=== PATIENT | male | born 1945 | race Caucasian/White ===

== ENCOUNTER 2022-04-08 08:06 | Outpatient (CLI) | payer MEDICARE, SELFPAY ==
[2022-04-08 13:54] LABS: Albumin* 4.6 g/dL (3.3-5.0)
[2022-04-08 13:55] LABS: Chloride* 101 mmol/L (96-114); Potassium* 4.3 mmol/L (3.6-5.1); Sodium* 138 mmol/L (135-149)
[2022-04-08 13:57] LABS: Alkaline Phosphatase* 131 U/L (40-150); Aspartate Amino Transferase* 32 U/L (12-35); Bilirubin Total* 0.7 mg/dL (0.1-1.5); Blood Urea Nitrogen* 34 mg/dL (7-30); Carbon Dioxide* 27 mmol/L (20-32); Cholesterol* 193 mg/dL (90-199); Creatinine* 1.4 mg/dL (0.5-1.5); Estimated Glomerular Filt Rate 52 ml/min; Total Protein* 7.3 g/dL (6.0-8.3)
[2022-04-08 13:58] LABS: Alanine Aminotransferase* 15 U/L (4-50); Calcium* 9.7 mg/dL (8.4-10.6); Glucose* 110 mg/dL (60-115); HDL Cholesterol* 102 mg/dL (>=40); LDL Cholesterol Calculated 74 mg/dL (<100); Triglycerides* 83 mg/dL (40-149)
[2022-04-08 14:33] LABS: Hepatitis C Virus Antibody* Negative (Negative)
== END 2022-04-08 08:07 | disposition home or self-care (01) ==
PROVIDERS: PCP Family Medicine; Visit Provider Family Medicine
DX: Z00.00 Encounter for general adult medical examination without abnormal findings (principal); E78.5 Hyperlipidemia, unspecified; I10 Essential (primary) hypertension; N40.0 Benign prostatic hyperplasia without lower urinary tract symptoms; Z11.59 Encounter for screening for other viral diseases
CPT/HCPCS: 80053; 80061; 86803

== ENCOUNTER 2023-04-21 09:10 | Outpatient (CLI) | payer MEDICARE, SELFPAY | END 2023-04-21 09:11 | disposition home or self-care (01) | PROVIDERS: PCP Family Medicine; Visit Provider Family Medicine | DX: Z00.00 Encounter for general adult medical examination without abnormal findings (principal); I10 Essential (primary) hypertension; E78.5 Hyperlipidemia, unspecified; M10.9 Gout, unspecified; Z11.59 Encounter for screening for other viral diseases; Z12.5 Encounter for screening for malignant neoplasm of prostate | CPT/HCPCS: 80053; 84153; 86803 ==

== ENCOUNTER 2023-04-28 07:47 | Outpatient (CLI) | payer MEDICARE, SELFPAY | END 2023-04-28 07:48 | disposition home or self-care (01) | LOC: NFLDREF 05-02 05:26 | PROVIDERS: PCP Family Medicine; Referring Provider Family Medicine; Visit Provider Family Medicine | DX: D69.6 Thrombocytopenia, unspecified (principal); R79.89 Other specified abnormal findings of blood chemistry | CPT/HCPCS: 80053; 82043; 82570; 84156 ==

== ENCOUNTER 2023-06-14 08:14 | Outpatient (CLI) | payer MEDICARE, SELFPAY | END 2023-06-14 08:15 | disposition home or self-care (01) | LOC: FRMREF 08:29 | PROVIDERS: PCP Family Medicine; Visit Provider Family Medicine | DX: I10 Essential (primary) hypertension (principal) | CPT/HCPCS: 80048 ==

== ENCOUNTER 2023-09-13 06:36 | Outpatient (CLI) | payer MEDICARE, SELFPAY | END 2023-09-13 06:37 | disposition home or self-care (01) | PROVIDERS: PCP Family Medicine; Visit Provider Family Medicine | DX: N18.9 Chronic kidney disease, unspecified (principal); I10 Essential (primary) hypertension; D69.6 Thrombocytopenia, unspecified | CPT/HCPCS: 80048; 82043; 82570 ==

== ENCOUNTER 2023-12-22 11:43 | Outpatient (CLI) | payer MEDICARE, SELFPAY | END 2023-12-22 11:44 | disposition home or self-care (01) | LOC: FRMREF 11:44 | PROVIDERS: PCP Family Medicine; Visit Provider Family Medicine | DX: R60.0 Localized edema (principal) | CPT/HCPCS: 83880 ==

== ENCOUNTER 2023-12-26 12:45 | Outpatient (CLI) | payer MEDICARE, SELFPAY | END 2023-12-26 12:46 | disposition home or self-care (01) | PROVIDERS: PCP Family Medicine; Visit Provider Family Medicine | DX: I10 Essential (primary) hypertension (principal); I35.1 Nonrheumatic aortic (valve) insufficiency; I34.0 Nonrheumatic mitral (valve) insufficiency; R60.0 Localized edema; N18.9 Chronic kidney disease, unspecified | CPT/HCPCS: 93306 ==

== ENCOUNTER 2024-01-31 07:06 | Outpatient (CLI) | payer MEDICARE, SELFPAY ==
--- NOTE | 2024-01-31 07:15 | CRLHL7_ITS ---
For Patients: As a result of the Century Cures Act, medical imaging exams and procedure reports are released immediately into your electronic medical record. You may view this report before your referring provider. If you have questions, please contact your health care provider. Examination: US abdominal aorta Indication: Abdominal aortic aneurysm screening. Technique: Ho scale and color Doppler images of the aorta and common iliac arteries are obtained. Comparison: None Findings: Proximal aorta: Not visualized Mid aorta: 1.5 x 1.4 cm Distal aorta: 1.4 x 1.7 cm Right common iliac artery: 0.8 x 0.8 cm Left common iliac artery: Not visualized Cirrhotic liver. Shadowing stones in the gallbladder. Ascites. Impression: No aneurysm within the visualized aorta. Cirrhotic liver with ascites and cholelithiasis. Dictated by Mitul Malik MD @ 01/31/2024 9:13:53 AM (Electronically Signed)
== END 2024-01-31 07:07 | disposition home or self-care (01) ==
LOC: US 07:07
PROVIDERS: PCP Family Medicine; Visit Provider Family Medicine
DX: Z13.6 Encounter for screening for cardiovascular disorders (principal); Z87.891 Personal history of nicotine dependence; K74.60 Unspecified cirrhosis of liver; R18.8 Other ascites; K80.20 Calculus of gallbladder without cholecystitis without obstruction
CPT/HCPCS: 76706

== ENCOUNTER 2024-02-20 12:36 | Emergency (ER) | payer MEDICARE, SELFPAY ==
[2024-02-20] VITALS (10 sets, daily range): BP systolic 136–151; BP diastolic 68–112; PULSE 55–82; RESP 16–20; TEMP 36.6; O2SAT 93–96; BMI 30.4
--- NOTE | 2024-02-20 13:24 | ED_ITS ---
HPI - Abdominal Pain General Date Seen: 02/20/24 Chief Complaint: Abdominal Pain Stated Complaint: Fluid Retention - abd Time Seen by Provider: 02/20/24 12:51 Source: patient Mode of arrival: ambulatory Limitations: no limitations History of Present Illness HPI narrative: Patient is a 78-year-old male presenting to the emergency department for a paracentesis. He states he was diagnosed with cirrhosis a few months ago and as been developing worsening ascites. He has not had to have his abdomen drained before. He initially had appointment in the [facility] a few weeks ago and was referred to [facility]. He saw them today and they switched him to 2 diuretics that he is picking up this afternoon. While he was on his way out he was told to go to emergency department for a paracentesis. He states he is having some shortness of breath associated with the abdominal swelling. States when he lays down he feels like his abdomen is pushing up against his chest and symptoms improved when he loosens his belt. Denies fevers, chills, chest pain, abdominal pain, nausea, vomiting, diarrhea, constipation, headache, vision changes, weakness, numbness. No other concerns noted at this time. Related Data Previous Rx's ?Medication ?Instructions ?Recorded alfuzosin 10 mg tablet,extended 10 mg PO DAILY #90 tabs 06/14/23 release 24 hr allopurinol 100 mg tablet 100 mg PO QDAY #90 tabs 06/14/23 amlodipine 5 mg tablet 5 mg PO QDAY #90 tabs 06/14/23 gemfibrozil 600 mg tablet 600 mg PO QDAY #90 tabs 06/14/23 hydrochlorothiazide 12.5 mg tablet 12.5 mg PO DAILY #90 tabs 06/14/23 metoprolol succinate 50 mg 50 mg PO QDAY #90 tabs 06/14/23 tablet,extended release 24 hr Allergies Allergy/AdvReac Type Severity Reaction Status Date / Time lisinopril Allergy Unknown angioedema Verified 02/20/24 12:41 losartan AdvReac Intermediate elevated Verified 02/20/24 12:41 potassium Review of Systems Status of ROS Reports: 10 or more systems reviewed and unremarkable except as noted in History and below [facility] Medical History High serum creatinine ?R79.89 - Other specified abnormal findings of blood chemistry (ICD-10) Cholelithiasis ?K80.20 - Calculus of gallbladder without cholecystitis without obstruction (ICD-10) Surgical History History of tonsillectomy ?Z90.89 - Acquired absence of other organs (ICD-10) History of appendectomy ?Z90.49 - Acquired absence of other specified parts of digestive tract (ICD- 10) Family History (Updated 04/06/22 @ 14:41 by Meghna Laura) Father Cancer Social History Narrative: former smoker quit in 2000, has 2 children, Smoking Status: Former smoker Little interest or pleasure in doing things: not at all Feeling down, depressed, or hopeless: not at all Exam Narrative: Exam Narrative: Const: Well-nourished, Well-developed, in mild distress Eyes: PERRL, no conjunctival injection, and symmetrical lids HENT: Atraumatic external nose and ears. Moist mucous membranes. Neck: Symmetric, trachea midline, No thyromegaly. CVS: RRR, No murmurs or gallops. Extremities: Peripheral pulses 2+ and equal in all extremities, +3 lower extremity pitting edema bilaterally throughout the legs RESP: Unlabored respiratory effort. Clear to auscultation bilaterally. GI: Nontender, notably distended abdomen, No rebound or guarding. MSK:Extremities w/o deformity, Normal Active ROM Skin: Warm, Dry. No rashes or lesions. Neuro: Normal Muscle tone, No focal neurological deficits. Psych: Awake, Alert, & Oriented x3. Appropriate mood and affect. Const: Vital Signs, click to edit/add: Vital Signs - 24 hr 02/20/24 12:41 02/20/24 14:27 02/20/24 14:42 Temperature 97.9 F Pulse Rate 82 Pulse Rate [Pulse Oximeter] 78 73 Respiratory Rate 16 20 Blood Pressure 141/112 H Blood Pressure [Ri ght Upper Arm] 150/70 H 151/77 H Pulse Oximetry 93 94 95 Oxygen Delivery Me thod Room Air Room Air 02/20/24 14:43 02/20/24 14:45 02/20/24 14:54 Temperature Pulse Rate 78 55 L 77 Pulse Rate [Pulse Oximeter] Respiratory Rate Blood Pressure 148/71 H Blood Pressure [Ri ght Upper Arm] Pulse Oximetry 95 94 95 Oxygen Delivery Me thod 02/20/24 15:00 02/20/24 15:02 02/20/24 15:12 Temperature Pulse Rate 78 75 75 Pulse Rate [Pulse Oximeter] Respiratory Rate Blood Pressure 142/69 H 136/68 Blood Pressure [Ri ght Upper Arm] Pulse Oximetry 96 96 96 Oxygen Delivery Me thod 02/20/24 15:15 Temperature Pulse Rate 74 Pulse Rate [Pulse Oximeter] Respiratory Rate Blood Pressure Blood Pressure [Ri ght Upper Arm] Pulse Oximetry 96 Oxygen Delivery Me thod Course Vital Signs Vital signs: Initial Vital Signs Temperature 97.9 F 02/20/24 12:41 Temperature Source Temporal Artery Scan 02/20/24 12:41 Pulse Rate 78 02/20/24 12:41 Respiratory Rate 16 02/20/24 12:41 Blood Pressure 150/70 H 02/20/24 12:41 Blood Pressure Mean 96 02/20/24 12:41 Blood Pressure Position Sitting 02/20/24 12:41 Pulse Oximetry 93 02/20/24 12:41 Oxygen Delivery Method Room Air 02/20/24 12:41 Vital Signs Temperature 97.9 F 02/20/24 12:41 Pulse Rate 78 02/20/24 12:41 Respiratory Rate 16 02/20/24 12:41 Blood Pressure 150/70 H 02/20/24 12:41 Pulse Oximetry 93 02/20/24 12:41 Oxygen Delivery Method Room Air 02/20/24 12:41 Temperature 97.9 F 02/20/24 12:41 Pulse Rate 74 02/20/24 15:15 Respiratory Rate 20 02/20/24 14:27 Blood Pressure 136/68 02/20/24 15:12 Pulse Oximetry 96 02/20/24 15:15 Oxygen Delivery Method Room Air 02/20/24 14:27 Medications Administered Medications: Discontinued Medications Generic Name Dose Route Start Last Admin Trade Name Freq PRN Reason Stop Dose Admin Albumin Human 25 gm 02/20/24 14:45 02/20/24 15:00 Albumin Human 25% 100 Ml Vial IV 02/20/24 14:46 25 gm ONCE ONE Administration MDM - Abdominal Pain MDM Narrative Medical decision making narrative: Patient is 78-year-old male presenting to the emergency department for need of a paracentesis. He was recently diagnosed with cirrhosis and has not had a previous paracentesis. His vital signs are stable and has no signs SBP at this time. Will do a CBC, CMP, INR, PTT. Will also do hepatitis panel as he has not had it checked before. I spoke to Dr. Forbes will help me perform a paracentesis. This was done using ultrasound guidance. 5 L were removed he tolerated the procedure well. We did give him 25 g of albumin due to the amount of fluid removed. Since this is his 1st paracentesis we will do a fluid analysis of the removed fluid. He is no longer feeling short of breath. Lab work shows no concerning findings at this time. His platelet count has improved. INR is 1.01. Potassium within normal limits. LFTs are mildly elevated but this is to be expected at this time. He did not want to wait for his fluid analysis to come back as it was take up to an hour. Considering I am not concerned about SBP at this time I believe this is reasonable. He did finish the of the oven and would like to be discharged. Discharge was put in. Lab Data Labs: Lab Results 02/20/24 02/20/24 Range/Units 13:23 15:05 WBC 6.65 (4.50-11.00) K/uL RBC 4.56 (4.30-5.90) m/uL Hgb 14.5 (13.5-17.5) gm/dL Hct 45.0 (37.0-53.0) % MCV 99 (80-100) fL MCH 32 (26-34) pg MCHC 32 (32-36) gm/dL RDW Coeff of Prosper 15.1 (11.5-15.5) % Plt Count 172 (140-440) K/uL Neut % (Auto) 69.0 (42.0-72.0) % Lymph % (Auto) 16.8 L (20-44) % [place] % (Auto) 12.8 H (0.0-11.0) % Eos % (Auto) 1.1 (0.0-7.0) % Baso % (Auto) 0.3 (0.0-3.0) % Neut # (Auto) 4.59 (1.7-7.0) K/uL Lymph # (Auto) 1.10 (0.90-2.90) K/uL [place] # (Auto) 0.90 (0.00-0.90) K/UL Eos # (Auto) 0.07 (0.00-0.50) K/uL Baso # (Auto) 0.02 (0.00-0.30) K/uL Abs Immat Gran (auto) 0.00 (0.00-0.30) K/uL Imm/Tot Granulo (auto) 0.0 % INR 1.01 (0.91-1.10) APTT 31 (23-33) Seconds Sodium 138 (135-149) mmol/L Potassium 3.5 L (3.6-5.1) mmol/L Chloride 103 (96-114) mmol/L Carbon Dioxide 28 (20-32) mmol/L Anion Gap 7 (7-15) mEq/L BUN 41 H (7-30) mg/dL Creatinine 1.5 (0.5-1.5) mg/dL Estimated Creat Clear 39.90 Estimated GFR 48 ml/min Glucose 106 (60-115) mg/dL Calcium 9.2 (8.4-10.6) mg/dL Total Bilirubin 1.6 H (0.1-1.5) mg/dL AST 85 H (12-35) U/L ALT 43 (4-50) U/L Alkaline Phosphatase 456 H (40-150) U/L Total Protein 6.6 (6.0-8.3) g/dL Albumin 3.6 (3.3-5.0) g/dL Fluid Volume 18 Fluid Color Xanthochromic A Fluid Appearance Clear Discharge Plan Discharge Clinical Impression: Ascites Qualifiers: Ascites type: due to alcoholic cirrhosis Qualified Code(s): K70.31 - Alcoholic cirrhosis of liver with ascites Patient Disposition: Home, Self-Care Condition: Improved Instructions: Ascites (ED), Paracentesis (DC) Additional Instructions: You will likely start developing fluid in your abdomen again. Speak to your primary care provider or bogger operator when symptoms feel like you need another paracentesis. Usually takes a couple days to get it scheduled so do not wait too long. Also return to the emergency department for abdominal pain. Prescriptions: No Action allopurinol 100 mg tablet 100 mg PO QDAY Qty: 90 3RF amlodipine 5 mg tablet 5 mg PO QDAY Qty: 90 3RF Hold Instructions: Per [facility], hold metoprolol succinate 50 mg tablet extended release 24 hr 50 mg PO QDAY Qty: 90 3RF alfuzosin 10 mg tablet extended release 24 hr 10 mg PO DAILY Qty: 90 3RF hydrochlorothiazide 12.5 mg tablet 12.5 mg PO DAILY Qty: 90 3RF Hold Instructions: Per [facility], hold gemfibrozil 600 mg tablet 600 mg PO QDAY Qty: 90 3RF Follow Up/Referrals: Britney Cervantes MD [Primary Care Provider] - Stand Alone Forms: MyHealth Info Instructions
[2024-02-20 13:32] LABS: Basophils Absolute Auto 0.02 K/uL (0.00-0.30); Basophils Percent Auto 0.3 % (0.0-3.0); Eosinophils Absolute Auto 0.07 K/uL (0.00-0.50); Eosinophils Percent Auto 1.1 % (0.0-7.0); Hemoglobin* 14.5 gm/dL (13.5-17.5); Lymphocytes Percent Auto 16.8 % (20-44); Mean Corpuscular HGB Conc 32 gm/dL (32-36); Mean Corpuscular Hemoglobin 32 pg (26-34); Mean Corpuscular Volume 99 fL (80-100); Monocytes Percent Auto 12.8 % (0.0-11.0); Neutrophils Absolute Auto 4.59 K/uL (1.7-7.0); Platelet Count* 172 K/uL (140-440); RDW Coefficient of Variation % 15.1 % (11.5-15.5); Red Blood Count 4.56 m/uL (4.30-5.90); White Blood Count* 6.65 K/uL (4.50-11.00)
[2024-02-20 13:39] LABS: Slide Review Reflex No
[2024-02-20 13:51] LABS: Albumin* 3.6 g/dL (3.3-5.0); Potassium* 3.5 mmol/L (3.6-5.1); Sodium* 138 mmol/L (135-149)
[2024-02-20 13:54] LABS: Alkaline Phosphatase* 456 U/L (40-150); Aspartate Amino Transferase* 85 U/L (12-35); Bilirubin Total* 1.6 mg/dL (0.1-1.5); Blood Urea Nitrogen* 41 mg/dL (7-30); Carbon Dioxide* 28 mmol/L (20-32); Creatinine* 1.5 mg/dL (0.5-1.5); Estimated Glomerular Filt Rate 48 ml/min; INR 1.01 (0.91-1.10); Prothrombin Time 13.9 Seconds; Total Protein* 6.6 g/dL (6.0-8.3)
[2024-02-20 13:55] LABS: Calcium* 9.2 mg/dL (8.4-10.6); Partial Thromboplastin Time* 31 Seconds (23-33)
[2024-02-20 14:21] LABS: Anion Gap 7 mEq/L (7-15); Chloride* 103 mmol/L (96-114)
[2024-02-20 14:24] LABS: Alanine Aminotransferase* 43 U/L (4-50); Glucose* 106 mg/dL (60-115)
[2024-02-20] MEDS: ALBUMIN HUMAN 25% 100 ML VIAL IV (15:00)
--- NOTE | 2024-02-20 15:17 | PM.GSCN ---
History of Present Illness Consult details Date Seen: 02/20/24 Consult date: 02/20/24 Narrative: The patient is a 78-year-old male with a recent diagnosis of cirrhosis secondary to alcohol abuse who presents to the emergency department today with shortness of breath from abdominal distension. Today he established care with a tool carrier and they started him on diuretics, however because of his significant ascites they recommended that he present to the emergency department for paracentesis. He is short of breath secondary to his abdominal distention. This has been getting worse over the last 2 weeks. He is unable to tie his shoes and it is difficult for him to get dressed. His symptoms improved if he loosens his belt. He has never had a paracentesis before. PFSH PFS Medical History High serum creatinine ?R79.89 - Other specified abnormal findings of blood chemistry (ICD-10) Cholelithiasis ?K80.20 - Calculus of gallbladder without cholecystitis without obstruction (ICD-10) Surgical History History of tonsillectomy ?Z90.89 - Acquired absence of other organs (ICD-10) History of appendectomy ?Z90.49 - Acquired absence of other specified parts of digestive tract (ICD-10) Family History (Updated 04/06/22 @ 14:41 by Meghna Laura) Father Cancer Social History Narrative: former smoker quit in 2000, has 2 children, Smoking Status: Former smoker Little interest or pleasure in doing things: not at all Feeling down, depressed, or hopeless: not at all Meds Home Medications and Allergies Allergies Allergy/AdvReac Type Severity Reaction Status Date / Time lisinopril Allergy Unknown angioedema Verified 02/20/24 12:41 losartan AdvReac Intermediate elevated Verified 02/20/24 12:41 potassium Exam Narrative: Exam Narrative: General: No acute distress Respiratory: Mildly tachypneic. Patient on room air. CV: Regular rate Abdomen: Markedly distended. Firm. Prominent abdominal wall veins. Const: Vital Signs, click to edit/add: Vital Signs - 24 hr 02/20/24 12:41 02/20/24 14:27 Temperature 97.9 F Pulse Rate [Pulse Oximeter] 78 73 Respiratory Rate 16 20 Blood Pressure [Ri ght Upper Arm] 150/70 H 151/77 H Pulse Oximetry 93 94 Oxygen Delivery Or thod Room Air Room Air Results Labs Labs: Abnormal lab results 02/20/24 Range/Units 13:23 Lymph % (Auto) 16.8 L (20-44) % [place] % (Auto) 12.8 H (0.0-11.0) % Potassium 3.5 L (3.6-5.1) mmol/L BUN 41 H (7-30) mg/dL Total Bilirubin 1.6 H (0.1-1.5) mg/dL AST 85 H (12-35) U/L Alkaline Phosphatase 456 H (40-150) U/L Diabetes panel 02/20/24 Range/Units 13:23 Sodium 138 (135-149) mmol/L Potassium 3.5 L (3.6-5.1) mmol/L Chloride 103 (96-114) mmol/L Carbon Dioxide 28 (20-32) mmol/L BUN 41 H (7-30) mg/dL Creatinine 1.5 (0.5-1.5) mg/dL Glucose 106 (60-115) mg/dL Calcium 9.2 (8.4-10.6) mg/dL AST 85 H (12-35) U/L ALT 43 (4-50) U/L Alkaline Phosphatase 456 H (40-150) U/L Total Protein 6.6 (6.0-8.3) g/dL Albumin 3.6 (3.3-5.0) g/dL Calcium panel 02/20/24 Range/Units 13:23 Calcium 9.2 (8.4-10.6) mg/dL Albumin 3.6 (3.3-5.0) g/dL Pituitary panel 02/20/24 Range/Units 13:23 Sodium 138 (135-149) mmol/L Potassium 3.5 L (3.6-5.1) mmol/L Chloride 103 (96-114) mmol/L Carbon Dioxide 28 (20-32) mmol/L BUN 41 H (7-30) mg/dL Creatinine 1.5 (0.5-1.5) mg/dL Glucose 106 (60-115) mg/dL Calcium 9.2 (8.4-10.6) mg/dL Adrenal panel 02/20/24 Range/Units 13:23 Sodium 138 (135-149) mmol/L Potassium 3.5 L (3.6-5.1) mmol/L Chloride 103 (96-114) mmol/L Carbon Dioxide 28 (20-32) mmol/L BUN 41 H (7-30) mg/dL Creatinine 1.5 (0.5-1.5) mg/dL Glucose 106 (60-115) mg/dL Calcium 9.2 (8.4-10.6) mg/dL Total Bilirubin 1.6 H (0.1-1.5) mg/dL AST 85 H (12-35) U/L ALT 43 (4-50) U/L Alkaline Phosphatase 456 H (40-150) U/L Total Protein 6.6 (6.0-8.3) g/dL Albumin 3.6 (3.3-5.0) g/dL All other labs normal. Progress Note:A&P Assessment and plan (1) Ascites: Status: Acute (2) Cirrhosis: Status: Acute Plan The patient is a 78-year-old male with alcoholic cirrhosis and ascites. Paracentesis was performed today. 5 L were removed. I explained to the patient that he will likely need additional procedures given the degree of ascites that he has an while he is waiting for the diuretics to work. We discussed that as he feels the fluid reaccumulating in the next 2 weeks, he can reach out to his tool carrier or his primary care provider for an order for therapeutic paracentesis. This could be done as an outpatient at the [facility] Endoscopy Department.
--- NOTE | 2024-02-20 15:17 | W.PM.PARA ---
Paracentesis Date Date: 02/20/24 Procedure Note Procedure: Paracentesis with Ultrasound Guidance Type of paracentesis: Diagnostic Initial or Repeat?: Initial Surgeon: Jenny Forbes Procedure Note:: Prior to the procedure, the risks and benefits of the procedure were discussed and an informed consent was obtained. Patient identification was confirmed and TIME OUT was performed. An ultrasound was brought onto the field and an easily accessible pocket of ascites was identified that was away from intraabdominal organs. The patient's abdomen in the left lower quadrant was prepped and draped in the usual sterile fashion. 1% Lidocaine was used to anesthetize the skin, soft tissues and peritoneum over the proposed needle insertion site. A skin incision was made with a scalpel just large enough to fit the needle. The needle with the paracentesis catheter was advanced into the abdomen and ascitic fluid was aspirated into the syringe. The needle was then withdrawn and the catheter was left in place. The catheter was then connected to the drainage tubing. 5 Liters of straw colored fluid was drained. This was sent to the lab for testing and cytology. Post procedure ultrasound revealed no residual ascitic fluid. The catheter was then removed and the skin was closed with Dermabond. Patient tolerated procedure well and there were no immediate complications. Patient's vital signs were stable throughout the procedure 1 bottle 25% albumin was infused. Recomendation: Discharge to home (ambulatory) and return to normal activities tomorrow. Follow up with referring provider as needed.
[2024-02-20 15:19] LABS: BF Clarity* Clear; BF Color Xanthochromic; BF Total Volume* 18
[2024-02-20 15:34] LABS: Lactate Dehydrogenase* 180 U/L (120-246)
[2024-02-20 15:35] LABS: Total Protein* 6.5 g/dL (6.0-8.3)
[2024-02-20 15:58] LABS: Mononuclear WBC Body Fluid* 92 %; Polynuclear WBC Body Fluid* 8 %; RBC, Body Fluid* 2000 Cells/uL; WBC, Body Fluid* 317 Cells/uL
[2024-02-20 16:31] LABS: Albumin Body Fluid* < 1.0 gm/dL; Glucose Body Fluid* 107 mg/dL
[2024-02-20 16:32] LABS: Amylase Body Fluid* < 30 U/L; Body Fluid Total Protein* 2.1 gm/dL; LDH Body Fluid* 72 U/L
[2024-02-21 17:45] LABS: Hepatitis A Antibodies, Total Negative (Negative)
[2024-02-22 17:27] LABS: Hep A Ab, IgM Negative (Negative); Hep B Core Ab, IgM Negative (Negative); Hep B Surface Antigen Negative (Negative); Hep C Ab by CIA Index 0.09 IV; Hep C Ab by CIA Interp Negative (Negative)
== END 2024-02-20 16:04 | disposition home or self-care (01) ==
PROVIDERS: Emergency Provider Student in an Organized Health Care Education/Training Program; PCP Family Medicine
DX: K70.31 Alcoholic cirrhosis of liver with ascites (principal)
CPT/HCPCS: 49083; 36415; 80053; 80074; 82042; 82150; 82945; 83615; 84155; 84157; 85025; 85610; 85730; 86708; 87070; 87205; 88112; 89051; 99283; 99284; P9047

== ENCOUNTER 2024-02-21 08:00 | Emergency (ER) | payer MEDICARE, SELFPAY ==
[2024-02-21 08:13] VITALS: BP 130/56; PULSE 77; RESP 22; TEMP 36.3; O2SAT 95; BMI 27.4
--- NOTE | 2024-02-21 08:26 | ED_ITS ---
HPI - General Adult General Time Seen by Provider: 08:26 Date Seen: 02/21/24 Chief complaint: Post Op Complication Stated complaint: fluid retention Time Seen by Provider: 02/21/24 08:14 Source: patient, RN notes reviewed and old records reviewed Mode of arrival: ambulatory Limitations: no limitations History of Present Illness HPI narrative: This 78-year-old male is coming into the ER with his paracentesis site leaking clear fluid. He had a paracentesis with removal of 5 L of ascites yesterday. He is not having any pain, he has had no fevers. He had Dermabond applied this site yesterday but it is leaking fluid now. His abdomen feels much better, no abdominal pain, pressure was relieved yesterday with the fluid removal. Patient reports that he did shower this morning, site started leaking after the shower. We did review that likely the shower just washed away the Dermabond allowing fluid tracking. Related Data Previous Rx's ?Medication ?Instructions ?Recorded alfuzosin 10 mg tablet,extended 10 mg PO DAILY #90 tabs 06/14/23 release 24 hr allopurinol 100 mg tablet 100 mg PO QDAY #90 tabs 06/14/23 amlodipine 5 mg tablet 5 mg PO QDAY #90 tabs 06/14/23 gemfibrozil 600 mg tablet 600 mg PO QDAY #90 tabs 06/14/23 hydrochlorothiazide 12.5 mg tablet 12.5 mg PO DAILY #90 tabs 06/14/23 metoprolol succinate 50 mg 50 mg PO QDAY #90 tabs 06/14/23 tablet,extended release 24 hr Allergies Allergy/AdvReac Type Severity Reaction Status Date / Time lisinopril Allergy Unknown angioedema Verified 02/21/24 08:16 losartan AdvReac Intermediate elevated Verified 02/21/24 08:16 potassium Review of Systems Narrative: As per HPI. [facility] PFS Medical History High serum creatinine ?R79.89 - Other specified abnormal findings of blood chemistry (ICD-10) Cholelithiasis ?K80.20 - Calculus of gallbladder without cholecystitis without obstruction (ICD-10) Surgical History History of tonsillectomy ?Z90.89 - Acquired absence of other organs (ICD-10) History of appendectomy ?Z90.49 - Acquired absence of other specified parts of digestive tract (ICD- 10) Family History Father Cancer Social History Narrative: former smoker quit in 2000, has 2 children, Smoking Status: Former smoker How often do you have a drink containing alcohol: never AUDIT-C Alcohol total score: 0 Non-prescribed substance use: denies use Little interest or pleasure in doing things: not at all Feeling down, depressed, or hopeless: not at all service: Yes Exam Const: Vital Signs, click to edit/add: Vital Signs - 24 hr 02/21/24 08:13 02/21/24 08:34 Temperature 97.4 F L 97.4 F L Pulse Rate [Pulse Oximeter] 77 74 Respiratory Rate 22 20 Blood Pressure [Le ft Upper Arm] 130/56 L 118/62 Pulse Oximetry 95 94 Oxygen Delivery Me thod Room Air Room Air This 78-year-old male is alert, interactive, no apparent distress, very pleasant gentleman. His abdomen is soft, still somewhat mildly protuberant but not tender. He has a left lower quadrant small incision site that is leaking some clear fluid. He has clearly had fluid leaking, his pants on his upper left thigh AR read. There is no erythema around the site. The site was cleaned off, new layer of Dermabond was applied. Documenting provider has reviewed patient's vital signs: yes Course Reevaluation(s) Time of Reevaluation #1: 08:38 Reevaluation #1: Wound still not leaking, Dermabond holding. Consultations Consultation #1: Did update Dr. Forbes, she is in agreement with this plan. Time: 08:43 Vital Signs Vital signs: Initial Vital Signs Temperature 97.4 F L 02/21/24 08:13 Temperature Source Temporal Artery Scan 02/21/24 08:13 Pulse Rate 77 02/21/24 08:13 Respiratory Rate 22 02/21/24 08:13 Blood Pressure 130/56 L 02/21/24 08:13 Blood Pressure Mean 80 08/27/24 08:13 Blood Pressure Position Semi-Fowlers 02/21/24 08:13 Pulse Oximetry 95 02/21/24 08:13 Oxygen Delivery Method Room Air 02/21/24 08:13 Vital Signs Temperature 97.4 F L 02/21/24 08:13 Pulse Rate 77 02/21/24 08:13 Respiratory Rate 22 02/21/24 08:13 Blood Pressure 130/56 L 02/21/24 08:13 Pulse Oximetry 95 02/21/24 08:13 Oxygen Delivery Method Room Air 02/21/24 08:13 Temperature 97.4 F L 02/21/24 08:34 Pulse Rate 74 02/21/24 08:34 Respiratory Rate 20 02/21/24 08:34 Blood Pressure 118/62 02/21/24 08:34 Pulse Oximetry 94 02/21/24 08:34 Oxygen Delivery Method Room Air 02/21/24 08:34 Discharge Plan Discharge Clinical Impression: Wound dehiscence Patient Disposition: Home, Self-Care Condition: Stable Additional Instructions: Keep this wound clean and dry for the next couple of days. If the leaking continues despite reapplication of Dermabond, may need to consider suture placement. Follow any post-paracentesis instructions per the surgeon yesterday. Recommend resting today, limited activity so as to allow this wound in your abdomen to seal off. Prescriptions: No Action allopurinol 100 mg tablet 100 mg PO QDAY Qty: 90 3RF amlodipine 5 mg tablet 5 mg PO QDAY Qty: 90 3RF Hold Instructions: Per [facility], hold metoprolol succinate 50 mg tablet extended release 24 hr 50 mg PO QDAY Qty: 90 3RF alfuzosin 10 mg tablet extended release 24 hr 10 mg PO DAILY Qty: 90 3RF hydrochlorothiazide 12.5 mg tablet 12.5 mg PO DAILY Qty: 90 3RF Hold Instructions: Per [facility], hold gemfibrozil 600 mg tablet 600 mg PO QDAY Qty: 90 3RF Follow Up/Referrals: Britney Cervantes MD [Primary Care Provider] - Stand Alone Forms: MyHealth Info Instructions
[2024-02-21 08:34] VITALS: BP 118/62; PULSE 74; RESP 20; TEMP 36.3; O2SAT 94
== END 2024-02-21 09:04 | disposition home or self-care (01) ==
LOC: ED 08:53
PROVIDERS: Emergency Provider Family Medicine; PCP Family Medicine
DX: L76.81 Other intraoperative complications of skin and subcutaneous tissue (principal)
CPT/HCPCS: 99282

== ENCOUNTER 2024-03-01 09:02 | Outpatient (CLI) | payer MEDICARE, SELFPAY ==
[2024-03-01 09:04] VITALS: BP 132/56; PULSE 76; RESP 16; TEMP 36.4; O2SAT 96
[2024-03-01 09:20] VITALS: BP 132/56; PULSE 76; RESP 16; O2SAT 96
[2024-03-01 09:30] VITALS: BP 116/60; PULSE 73; RESP 16; O2SAT 94
[2024-03-01 09:40] VITALS: BP 121/59; PULSE 75; RESP 16; O2SAT 92
[2024-03-01 09:50] VITALS: BP 117/60; PULSE 72; RESP 16; O2SAT 94
[2024-03-01 10:00] VITALS: BP 120/62; PULSE 74; RESP 16; O2SAT 94
--- NOTE | 2024-03-01 10:02 | W.PM.PARA ---
Paracentesis Date Date: 03/01/24 Procedure Note Procedure: Paracentesis with Ultrasound Guidance Type of paracentesis: Therapeutic Initial or Repeat?: Repeat Surgeon: Jenny Forbes Indications: The patient is a 78-year-old male diagnosed with cirrhosis with ascites. Ten days ago he underwent urgent paracentesis. 5 L were drained. He has developed increasing shortness of breath and his repair table operator recommended repeat paracentesis. He presents today for the procedure. Vital signs prior to the procedure were within normal limits. Labs and Cytology Sent:: No Albumin infused: Yes Procedure Note:: Prior to the procedure, the risks and benefits of the procedure were discussed and an informed consent was obtained. Patient identification was confirmed and TIME OUT was performed. An ultrasound was brought onto the field and an easily accessible pocket of ascites was identified that was away from intraabdominal organs. The patient's abdomen in the left mid abdomen was prepped and draped in the usual sterile fashion. 1% Lidocaine was used to anesthetize the skin, soft tissues and peritoneum over the proposed needle insertion site. A skin incision was made with a scalpel just large enough to fit the needle. The needle with the paracentesis catheter was advanced into the abdomen and ascitic fluid was aspirated into the syringe. The needle was then withdrawn and the catheter was left in place. The catheter was then connected to the drainage tubing. 3.7 Liters of straw colored fluid was drained. Post procedure ultrasound revealed minimal residual ascitic fluid. The catheter was then removed and the skin was closed with Dermabond. Patient tolerated procedure well and there were no immediate complications. Patient's vital signs were stable throughout the procedure. One bottle of 25% albumin was infused. Recomendation: Discharge to home (ambulatory) and return to normal activities [tomorrow]. Follow up with referring provider as needed.
== END 2024-03-01 10:10 | disposition home or self-care (01) ==
LOC: US 09:02
PROVIDERS: PCP Family Medicine; Visit Provider Surgery
DX: K74.60 Unspecified cirrhosis of liver (principal); R18.8 Other ascites; F10.21 Alcohol dependence, in remission; R74.8 Abnormal levels of other serum enzymes; Z71.3 Dietary counseling and surveillance; Z87.898 Personal history of other specified conditions
CPT/HCPCS: 49083; P9047

== ENCOUNTER 2024-03-09 10:53 | Outpatient (CLI) | payer MEDICARE, SELFPAY ==
[2024-03-09 11:04] VITALS: BP 128/56; PULSE 79; RESP 18; O2SAT 97
[2024-03-09 11:15] VITALS: BP 126/55; PULSE 75; RESP 18; O2SAT 97
[2024-03-09 11:30] VITALS: BP 137/87; PULSE 70; RESP 18; O2SAT 97
[2024-03-09 11:45] VITALS: BP 131/59; PULSE 71; RESP 16; O2SAT 97
--- NOTE | 2024-03-09 11:51 | W.PM.PARA ---
Paracentesis Date Date: 03/09/24 Procedure Note Procedure: Paracentesis with Ultrasound Guidance Type of paracentesis: Therapeutic Initial or Repeat?: Repeat Surgeon: Jenny Forbes Indications: The patient is a 78-year-old male who has ascites secondary to cirrhosis. He has previously undergone 2 paracentesis procedures for some ascites causing abdominal distention and shortness of breath. He was scheduled for procedure next week, however he has accumulated fluid more rapidly and therefore his primary care doctor felt that he is in need of paracentesis sooner. Labs and Cytology Sent:: No Albumin infused: Yes Procedure Note:: Prior to the procedure, the risks and benefits of the procedure were discussed and an informed consent was obtained. Patient identification was confirmed and TIME OUT was performed. An ultrasound was brought onto the field and an easily accessible pocket of ascites was identified that was away from intraabdominal organs. The patient's abdomen in the right lower quadrant was prepped and draped in the usual sterile fashion. 1% Lidocaine was used to anesthetize the skin, soft tissues and peritoneum over the proposed needle insertion site. A skin incision was made with a scalpel just large enough to fit the needle. The needle with the paracentesis catheter was advanced into the abdomen and a cystic fluid was aspirated into the syringe. The needle was then withdrawn and the catheter was left in place. The catheter was then connected to the drainage tubing. 5.5 Liters of straw colored] fluid was drained. Post procedure ultrasound revealed minimal residual ascitic fluid. The catheter was then removed and the skin was closed with Dermabond. Patient tolerated procedure well and there were no immediate complications. Patient's vital signs were stable throughout the procedure and 1 bottle of 25% albumin was infused. Recomendation: Discharge to home (ambulatory) and return to normal activities tomorrow. Follow up with referring provider as needed. Of note, patient has significant lower extremity edema with small areas of skin opening which are draining serous fluid. Legs were wrapped today with Baltazar wraps. We will discuss with primary care provider whether not patient can come to clinic for wraps.
[2024-03-09 12:00] VITALS: BP 124/61; PULSE 72; RESP 16; O2SAT 96
== END 2024-03-09 12:30 | disposition home or self-care (01) ==
PROVIDERS: PCP Family Medicine; Visit Provider Surgery
DX: K74.60 Unspecified cirrhosis of liver (principal); K70.31 Alcoholic cirrhosis of liver with ascites
CPT/HCPCS: 49083; P9047

== ENCOUNTER 2024-03-16 07:08 | Outpatient (CLI) | payer MEDICARE, SELFPAY ==
[2024-03-16 07:18] VITALS: BP 146/62; PULSE 78; RESP 18; O2SAT 96
[2024-03-16 08:21] VITALS: BP 126/58; PULSE 74; RESP 18; O2SAT 98
--- NOTE | 2024-03-16 11:27 | P.PCN_ITS ---
Procedure Note Date Seen: 03/16/24 Will [facility] bill your pro fee for this procedure?: Yes Pre-op diagnosis: Cirrhosis of the liver, abdominal ascites Post-op diagnosis: same Procedure: Paracentesis Procedure Description: After discussion of the risks and benefits the patient was placed supine. Ultrasound guidance was used to identify the pocket of ascites with no evidence of underlying bowel and no abdominal varices. Once this was done the site was marked. The area was prepped and draped in the usual sterile fashion. Local anesthetic was used to anesthetize the skin and subcutaneous tissue down to the peritoneum. Once the peritoneum was encountered, the needle was advanced into the abdomen. This was confirmed by the aspiration of serous fluid. A skin keyon was made with an 11 blade. The paracentesis catheter was advanced into the abdominal cavity while aspirating. Once the abdominal fluid was aspirated confirming entrance into the abdomen, the needle was removed and the sheath advanced. 7600 mL of fluid were then aspirated. Patient tolerated procedure well with no evidence of hypotension. One vial of 25% albumin was given during the procedure. The ultrasound was used to confirm successful aspiration with significantly reduced intra-abdominal fluid. The catheter was then removed, and Dermabond applied over the skin site with Steri-Strips. Patient tolerated the procedure well. Estimated blood loss 1 mL Anesthesia: local Surgeon: Joselin Ayers MD [facility] Estimated blood loss (mL): 1 Pathology: none sent Condition: stable Disposition: same day
== END 2024-03-16 08:34 | disposition home or self-care (01) ==
PROVIDERS: PCP Family Medicine; Visit Provider Surgery
DX: K74.60 Unspecified cirrhosis of liver (principal); R18.8 Other ascites
CPT/HCPCS: 49083; P9047

== ENCOUNTER 2024-03-22 11:41 | Outpatient (CLI) | payer MEDICARE, SELFPAY ==
--- NOTE | 2024-03-22 12:15 | CRLHL7_ITS ---
For Patients: As a result of the Century Cures Act, medical imaging exams and procedure reports are released immediately into your electronic medical record. You may view this report before your referring provider. If you have questions, please contact your health care provider. PROCEDURE PERFORMED: FLUOROSCOPIC GUIDED right HIP Intraarticular injection FINDINGS (DESCRIPTION OF EACH PROCEDURE): Informed consent was obtained prior to the procedure. Fluoroscopic localization of the right hip joint is performed. Skin was prepped and draped in a sterile fashion. 1% Lidocaine was used for local anesthesia. 22-gauge spinal needle was used to enter joint capsule. Entry into the capsule of the right hip joint was confirmed with Omnipaque (1 cubic centimeters instill and confirmed via fluoroscopy). Lidocaine 1 percent 5 mls along Depo-Medrol 2 mls (80 mg total) were then injected into the right hip joint. The needle was then removed. The patient tolerated the procedure well with no immediate complications. POST-PROCEDURE DIAGNOSIS: FLUOROSCOPIC GUIDED right HIP Intraarticular injection MEDICATIONS GIVEN: . Lidocaine for local anesthesia. SPECIMEN(S): none COMPLICATIONS: no complications noted DRAINS: None ESTIMATED BLOOD LOSS: Less than 10 cc. PHYSICIAN(S) AND ASSISTANTS (if any): Logan Posey PA-C Additional Comments: Fluoroscopy time 22 seconds. Preprocedure pain was 8/10 with walking. Postprocedure pain was unchanged. Please call with questions. Anthony Posey PA-C [facility] Protocol A. Pre-procedure verification complete yes1-relevant information / documentation available, reviewed and properly matched to the patient; 2-consent accurate and complete, 3-equipment and supplies available B. Site marking complete YesSite marked if not in continuous attendance with patient C. TIME OUT completed yesTime Out was conducted just prior to starting procedure to verify the eight required elements: 1-patient identity, 2-consent accurate and complete, 3-position, 4-correct side/site marked (if applicable), 5-procedure, 6-relevant images / results properly labeled and displayed (if applicable), 7-antibiotics / irrigation fluids (if applicable), 8-safety precautions. Dictated by Mp Posey MD @ 03/22/2024 12:51:20 PM (Electronically Signed)
== END 2024-03-22 11:42 | disposition home or self-care (01) ==
PROVIDERS: PCP Family Medicine; Visit Provider Orthopaedic Surgery Sports Medicine
DX: M25.551 Pain in right hip (principal)
CPT/HCPCS: 20610; 77002; J1010; Q9966

== ENCOUNTER 2024-03-28 08:36 | Outpatient (CLI) | payer MEDICARE, SELFPAY ==
[2024-03-28 08:53] VITALS: BP 139/64; PULSE 77; RESP 18; TEMP 36.6; O2SAT 98
[2024-03-28 09:15] VITALS: BP 129/55; PULSE 64; RESP 20
[2024-03-28 09:30] VITALS: BP 126/61; PULSE 77; RESP 20; O2SAT 98
[2024-03-28 09:45] VITALS: BP 128/61; PULSE 70; RESP 16; O2SAT 98
[2024-03-28 09:50] VITALS: BP 129/64; PULSE 67; RESP 18; O2SAT 98
--- NOTE | 2024-03-28 10:06 | W.PM.PARA ---
Paracentesis Date Date: 03/28/24 Procedure Note Procedure: Paracentesis with Ultrasound Guidance Type of paracentesis: Therapeutic Initial or Repeat?: Repeat Surgeon: Salina Ballard Indications: 78-year-old male with history of alcoholic cirrhosis and for paracentesis in the past presents for repeat paracentesis due to abdominal discomfort. Patient states that he is having trouble with daily activities like tying shoes due to his distended abdomen. He has been doing okay and did not have shortness of breath this time. Patient's last paracentesis was 10 days ago and over 7 L was drained. Labs and Cytology Sent:: No Albumin infused: Yes ( One bottle 25%) Procedure Note:: Prior to the procedure, the risks and benefits of the procedure were discussed and an informed consent was obtained. Patient identification was confirmed and TIME OUT was performed. An ultrasound was brought onto the field and an easily accessible pocket of ascites was identified that was away from intraabdominal organs. The patient's abdomen in the right lower quadrant anteriorly was prepped and draped in the usual sterile fashion. 1% Lidocaine was used to anesthetize the skin, soft tissues and peritoneum over the proposed needle insertion site. A skin incision was made with a scalpel just large enough to fit the needle. The needle with the paracentesis catheter was advanced into the abdomen and a cystic fluid was aspirated into the syringe. The needle was then withdrawn and the catheter was left in place. The catheter was then connected to the drainage tubing. 4 Liters of straw colored fluid was drained. Post procedure ultrasound revealed small amount of residual ascitic fluid. The catheter was then removed and the skin was closed with Dermabond. Patient tolerated procedure well and there were no immediate complications. Patient's vital signs were stable throughout the procedure and 1 bottle of 25% albumin was infused. Recomendation: Discharge to home (ambulatory) and return to normal activities. Follow up with referring provider as needed.
== END 2024-03-28 10:14 | disposition home or self-care (01) ==
LOC: US 08:36
PROVIDERS: PCP Family Medicine; Visit Provider Surgery
DX: K70.31 Alcoholic cirrhosis of liver with ascites (principal); M25.551 Pain in right hip; S73.101A Unspecified sprain of right hip, initial encounter; M84.454A Pathological fracture, pelvis, initial encounter for fracture
CPT/HCPCS: 49083; 73721; P9047

== ENCOUNTER 2024-03-31 15:00 | Emergency (ER) | payer MEDICARE, SELFPAY ==
[2024-03-31 15:16] VITALS: BP 135/66; PULSE 76; RESP 18; TEMP 36.3; O2SAT 94; BMI 26.6
--- NOTE | 2024-03-31 16:10 | CRLHL7_ITS ---
For Patients: As a result of the Century Cures Act, medical imaging exams and procedure reports are released immediately into your electronic medical record. You may view this report before your referring provider. If you have questions, please contact your health care provider. INDICATION: Left leg pain and swelling. Pitting edema with redness anterior calf. FINDINGS: The left common femoral, superficial femoral, deep femoral, greater saphenous, popliteal and posterior tibial veins demonstrate normal flow, compressibility and augmentation. There is prominent subcutaneous edema of the left lower extremity. There is normal flow, compressibility and augmentation of the right common femoral vein. IMPRESSION: Negative for deep venous thrombosis within the right lower extremity. Dictated by Olman López MD @ 03/31/2024 6:03:15 PM (Electronically Signed)
--- NOTE | 2024-03-31 16:11 | ED_ITS ---
HPI - General Adult General Chief complaint: Lower Extremity Swelling Stated complaint: L leg swollen, rash Time Seen by Provider: 03/31/24 16:05 History of Present Illness HPI narrative: This 78-year-old male comes in with concern about increased pain, swelling, and redness, in his left lower extremity. He has large bilateral edema in his legs and has ascites from liver disease. He states that he has had some paracenteses and is scheduled to have an MRI of his liver next week. His concern today is the increased swelling with redness and pain in the left lower extremity. He does not report any chest pain or shortness of breath. Related Data Previous Rx's ?Medication ?Instructions ?Recorded alfuzosin 10 mg tablet,extended 10 mg PO DAILY #90 tabs 06/14/23 release 24 hr allopurinol 100 mg tablet 100 mg PO QDAY #90 tabs 06/14/23 amlodipine 5 mg tablet 5 mg PO QDAY #90 tabs 06/14/23 gemfibrozil 600 mg tablet 600 mg PO QDAY #90 tabs 06/14/23 hydrochlorothiazide 12.5 mg tablet 12.5 mg PO DAILY #90 tabs 06/14/23 metoprolol succinate 50 mg 50 mg PO QDAY #90 tabs 06/14/23 tablet,extended release 24 hr Allergies Allergy/AdvReac Type Severity Reaction Status Date / Time lisinopril Allergy Unknown angioedema Verified 03/22/24 08:47 losartan AdvReac Intermediate elevated Verified 03/22/24 08:47 potassium Review of Systems Status of ROS: Reports: 10 or more systems reviewed and unremarkable except as noted in History and below Narrative: Constitutional: No fevers, no weight gain or loss. Eyes: No discharge. No vision changes. HENT: No congestion, no sore throat, no ear pain. Cardiovascular: No chest pain, no palpitations. Respiratory: No shortness of breath, no wheezes, no cough. Gastrointestinal: No abdominal pain, no vomiting, no diarrhea. Abdominal distention from ascites. Genitourinary: No dysuria, no hematuria. Musculoskeletal: Normal range of motion. Left lower extremity symptoms as described above. Skin: No rashes, no pruritis. Neurological: No dizziness, weakness, sensory change, speech change. Endo/Heme/Allergies: No bruising or bleeding. No polydipsia. Pysch: no suicidality, no anxiety, no insomnia. All other systems reviewed and are negative. [facility] Medical History (Updated 03/31/24 @ 17:45 by Donald Burnett MD) High serum creatinine ?R79.89 - Other specified abnormal findings of blood chemistry (ICD-10) Cholelithiasis ?K80.20 - Calculus of gallbladder without cholecystitis without obstruction (ICD-10) Surgical History (Updated 03/21/24 @ 09:20 by Manda Luis) History of phacoemulsification of cataract of both eyes with intraocular lens implantation ?Z98.41 - Cataract extraction status, right eye (ICD-10) ?Z98.42 - Cataract extraction status, left eye (ICD-10) ?Z96.1 - Presence of intraocular lens (ICD-10) History of tonsillectomy ?Z90.89 - Acquired absence of other organs (ICD-10) History of appendectomy ?Z90.49 - Acquired absence of other specified parts of digestive tract (ICD- 10) Family History Father Cancer Social History Narrative: former smoker quit in 2000, has 2 children, Smoking Status: Former smoker Do you use any of these nicotine containing products: None Second hand tobacco smoke exposure: No How often do you have a drink containing alcohol: never AUDIT-C Alcohol total score: 0 Non-prescribed substance use: denies use Little interest or pleasure in doing things: not at all Feeling down, depressed, or hopeless: not at all service: Yes Exam Narrative: Exam Narrative: Constitutional: Well-developed, well-nourished, no acute distress. HEENT: Normocephalic, atraumatic. Neck: Normal range of motion. Nontender. Supple. Heart: Regular. No murmurs. Normal rate. Intact distal pulses. Lungs: Clear to auscultation. No chest discomfort. No wheezes, rhonchi, or rales. Abdomen: Normal bowel sounds. Nontender. No rebound tenderness. Grossly distended due to ascites. Genitalia: Deferred. Back: No midline tenderness. Normal range of motion. Extremities: Normal range of motion. Large bilateral edema with some skin breakdown. The left lower extremity has erythema and increased warmth with more swelling compared to the right leg. Skin: Intact. No rash. Warm. No erythema or pallor. Neurologic: No altered sensation. No weakness. Alert and oriented. Psychiatric: No suicidality. No anxiety or depression. No insomnia. Nursing notes and vitals signs are reviewed. Const: Vital Signs, click to edit/add: Vital Signs - 24 hr 03/31/24 15:16 Temperature 97.4 F L Pulse Rate [Right Pulse Oximeter] 76 Respiratory Rate 18 Blood Pressure [Ri ght Forearm] 135/66 Pulse Oximetry 94 Oxygen Delivery Me thod Room Air Course Vital Signs Vital signs: Initial Vital Signs Temperature 97.4 F L 03/31/24 15:16 Temperature Source Temporal Artery Scan 03/31/24 15:16 Pulse Rate 76 03/31/24 15:16 Pulse Rhythm Regular 03/31/24 15:16 Pulse Strength 3+ Normal 03/31/24 15:16 Respiratory Rate 18 03/31/24 15:16 Blood Pressure 135/66 03/31/24 15:16 Blood Pressure Mean 89 03/31/24 15:16 Blood Pressure Position Sitting 03/31/24 15:16 Pulse Oximetry 94 03/31/24 15:16 Oxygen Delivery Method Room Air 03/31/24 15:16 Vital Signs Temperature 97.4 F L 03/31/24 15:16 Pulse Rate 76 03/31/24 15:16 Respiratory Rate 18 03/31/24 15:16 Blood Pressure 135/66 03/31/24 15:16 Pulse Oximetry 94 03/31/24 15:16 Oxygen Delivery Method Room Air 03/31/24 15:16 Temperature 97.4 F L 03/31/24 15:16 Pulse Rate 76 03/31/24 15:16 Respiratory Rate 18 03/31/24 15:16 Blood Pressure 135/66 03/31/24 15:16 Pulse Oximetry 94 03/31/24 15:16 Oxygen Delivery Method Room Air 03/31/24 15:16 Medical Decision Making MDM Narrative Medical decision making narrative: This patient comes in with concern about swelling and erythema with increased warmth of his left lower extremity. Both lower extremities have large edema related to ascites and liver failure. He is in the process of figuring out what is causing the obstruction and has an MRI scheduled for next week. As for his left lower extremity, an ultrasound is obtained and shows no evidence of deep venous thrombosis. His symptoms are more likely related to his edema and is suspicious also for a cellulitis. The patient received prescription for Keflex. I did describe signs and symptoms of worsening condition where in he is encouraged to return for re-evaluation. Otherwise he has plans for follow-up with his regular doctors. Discharge Plan Discharge Clinical Impression: Cellulitis, Cirrhosis, Pedal edema Patient Disposition: Home, Self-Care Condition: Unchanged Additional Instructions: Take medication as prescribed. Follow up with clinic appointments as scheduled or return if worsening symptoms occur. Prescriptions: No Action allopurinol 100 mg tablet 100 mg PO QDAY Qty: 90 3RF amlodipine 5 mg tablet 5 mg PO QDAY Qty: 90 3RF Hold Instructions: Per [facility], hold metoprolol succinate 50 mg tablet extended release 24 hr 50 mg PO QDAY Qty: 90 3RF alfuzosin 10 mg tablet extended release 24 hr 10 mg PO DAILY Qty: 90 3RF hydrochlorothiazide 12.5 mg tablet 12.5 mg PO DAILY Qty: 90 3RF Hold Instructions: Per [facility], hold gemfibrozil 600 mg tablet 600 mg PO QDAY Qty: 90 3RF Follow Up/Referrals: Britney Cervantes MD [Primary Care Provider] - Stand Alone Forms: [employer] Info Instructions
[2024-03-31 17:15] VITALS: BP 138/69; PULSE 66; RESP 14; O2SAT 94
[2024-03-31] MEDS: cephALEXin 500 MG CAPSULE PO (17:58)
== END 2024-03-31 18:07 | disposition home or self-care (01) ==
PROVIDERS: Emergency Provider Emergency Medicine Emergency Medical Services; PCP Family Medicine
DX: L03.116 Cellulitis of left lower limb (principal); K74.60 Unspecified cirrhosis of liver
CPT/HCPCS: 93971; 99284; A9270

== ENCOUNTER 2024-04-04 07:00 | Outpatient (CLI) | payer MEDICARE, SELFPAY ==
--- NOTE | 2024-04-04 07:15 | CRLHL7_ITS ---
For Patients: As a result of the Century Cures Act, medical imaging exams and procedure reports are released immediately into your electronic medical record. You may view this report before your referring provider. If you have questions, please contact your health care provider. INDICATION: COMPARISON: None. TECHNIQUE: Mulitplanar, mutliparametric MR imaging of the abdomen without and with intravenous contrast. Contrast: 20 cc Dotarem FINDINGS: Evaluation severely limited by dielectric effect due to large volume ascites and poor contrast phase timing. Lung bases: Unremarkable. Liver: Cirrhotic liver. Evaluation for hepatic lesions is severely limited due to artifact. Number of observations/lesions: 1 Observation/lesion 1: There is an 11.7 x 13.3 centimeter T1 hypointense, T2 heterogeneously intense observation centered in segment 7/8 (). This demonstrates heterogeneous mild enhancement on portal venous and delayed phases. LI-RADS can not be determined as arterial phase images and diffusion images are nondiagnostic. There is an area of possible Hepatic/sreekanth-hepatic vasculature: Main portal vein, left and right main portal veins are patent. 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 Recanalized umbilical vein. Gallbladder: Unremarkable. Bile ducts: No intra or extra-hepatic biliary ductal dilation. Spleen: Unremarkable. Pancreas: Unremarkable. Adrenals: Unremarkable. Kidneys and Ureters: Unremarkable. Abdominal Lymph Nodes and Retroperitoneum: No enlarged lymph nodes. Bowel: Unremarkable. Peritoneum and Abdominal Wall: Large volume ascites. Bones: No acute or suspicious osseous lesions. Moderate degenerative disease of the spine. IMPRESSION: Cirrhotic liver with large mass centered in the right hepatic lobe. Due to poor contrast timing and artifact this exam is severely limited and LI-RADS can not be determined. Within these limitations, appearance is concerning for HCC, possibly infiltrative type or poorly differentiated cholangiocarcinoma. Confluent fibrosis can occasionally have this appearance, but is unlikely as portal vein branches appear occluded in the region of the mass. Large volume ascites. Dictated by Sharon Santos MD @ 04/05/2024 10:13:14 AM (Electronically Signed)
== END 2024-04-04 07:01 | disposition home or self-care (01) ==
LOC: MRI 07:01
PROVIDERS: PCP Family Medicine; Visit Provider Nurse Practitioner
DX: K74.60 Unspecified cirrhosis of liver (principal); R16.0 Hepatomegaly, not elsewhere classified; R18.8 Other ascites
CPT/HCPCS: 74183; A9575

== ENCOUNTER 2024-04-09 06:33 | Emergency (ER) | payer MEDICARE, SELFPAY ==
[2024-04-09] VITALS (22 sets, daily range): BP systolic 105–156; BP diastolic 56–78; PULSE 80–91; RESP 24; TEMP 36.7; O2SAT 92–95; BMI 31.4
--- NOTE | 2024-04-09 07:11 | CRLHL7_ITS ---
For Patients: As a result of the Century Cures Act, medical imaging exams and procedure reports are released immediately into your electronic medical record. You may view this report before your referring provider. If you have questions, please contact your health care provider. Indication: Dyspnea Technique: Chest 1 view Comparison: None Findings/Impression: Cardiovascular and mediastinum: Normal heart size with atherosclerotic calcification. Lungs and pleural space: Lungs are clear. No sign of infiltrate or mass. No sign of pleural effusion. No pneumothorax. Bones and soft tissues: No acute findings. Dictated by Inocente Tinsley MD @ 04/09/2024 7:49:21 AM (Electronically Signed)
--- NOTE | 2024-04-09 07:15 | ED_ITS ---
HPI - General Adult General Chief complaint: Shortness of Breath/Dyspnea <Rebekah Berrios MD - Last Filed: 04/17/24 00:00> Stated complaint: Requesting paracentesis, is wheezing heavily <Rebekah Berrios MD - Last Filed: 04/17/24 00:00> Time Seen by Provider: 04/09/24 06:53 <Rebekah Berrios MD - Last Filed: 04/17/24 00:00> Source: patient and family <Rebekah Berrios MD - Last Filed: 04/17/24 00:00> Mode of arrival: ambulatory <Rebekah Berrios MD - Last Filed: 04/17/24 00:00> Limitations: no limitations <Rebekah Berrios MD - Last Filed: 04/17/24 00:00> History of Present Illness HPI narrative: 78-year-old male presents the emergency department requesting more urgent paracentesis. He has a history of ascites from cirrhosis. He reports that he has been dealing with these issues since January. I reviewed the chart and see that he last had a paracentesis about 10 days ago. He was recently started on Keflex for a cellulitis. He followed up with his primary care provider 4 days ago. At that visit, in addition to addressing the cellulitis follow-up that he was being seen for, she noticed that he seemed to be more edematous, had increased ascites again and seemed a little dyspneic. He had an MRI the day prior which she was able to locate, had been ordered by his GI specialist. This showed an 11 cm mass in the right lobe of his liver. She told the patient urgently that he needed to go up to the you to have urgent paracentesis and also to start the process of having this mass evaluated. Patient elected not to do so, rationale is unclear. He reports that he spoke with his GI doctor the next day. It is clear from my conversation with him that he did not understand about the tumor and the next steps in management. He has a paracentesis scheduled for which is 3 days from now but does not feel as though he can wait as he is getting more short of breath. He is not on oxygen at baseline. He is not anticoagulated. He reports no fever. He is still on his Keflex. He reports no other recent changes to his medications besides the Keflex. As a start discussing the tumor and other concerns, it is clear that he only wants the paracentesis and does not seem to be understanding the gravity of a long-term pl an and management of this tumor. No new falls, trauma or injury. On specific questioning, he states that the only tertiary care center he would be willing to go to would be [place]. He does not previously have a relationship with the provider there as his GI specialist is through [facility]. Past medical history most notable for liver disease. ED notes x2 and primary care note reviewed from this month. Medications seem accurate as listed. Allergies to lisinopril and losartan. ROS notable for the dyspnea and increased abdominal swelling. Otherwise he denies times 12 systems but it is clear that he is hyper fixated on the fluid and I would not consider this reliable. <Rebekah Berrios MD - Last Filed: 04/17/24 00:00> Related Data Home medications: Previous Rx's ?Medication ?Instructions ?Recorded alfuzosin 10 mg tablet,extended 10 mg PO DAILY #90 tabs 06/14/23 release 24 hr allopurinol 100 mg tablet 100 mg PO QDAY #90 tabs 06/14/23 amlodipine 5 mg tablet 5 mg PO QDAY #90 tabs 06/14/23 gemfibrozil 600 mg tablet 600 mg PO QDAY #90 tabs 06/14/23 hydrochlorothiazide 12.5 mg tablet 12.5 mg PO DAILY #90 tabs 06/14/23 metoprolol succinate 50 mg 50 mg PO QDAY #90 tabs 06/14/23 tablet,extended release 24 hr cephalexin 500 mg capsule 500 mg PO TID 7 days #21 caps 04/05/24 <Rebekah Berrios MD - Last Filed: 04/17/24 00:00> Allergies/adverse reactions: Allergies Allergy/AdvReac Type Severity Reaction Status Date / Time lisinopril Allergy Unknown angioedema Verified 04/05/24 08:55 losartan AdvReac Intermediate elevated Verified 04/05/24 08:55 potassium <Rebekah Berrios MD - Last Filed: 04/17/24 00:00> [facility] Medical History: Medical History High serum creatinine ?R79.89 - Other specified abnormal findings of blood chemistry (ICD-10) Cholelithiasis ?K80.20 - Calculus of gallbladder without cholecystitis without obstruction (ICD-10) <Rebekah Berrios MD - Last Filed: 04/17/24 00:00> Surgical History: Surgical History History of phacoemulsification of cataract of both eyes with intraocular lens implantation ?Z98.41 - Cataract extraction status, right eye (ICD-10) ?Z98.42 - Cataract extraction status, left eye (ICD-10) ?Z96.1 - Presence of intraocular lens (ICD-10) History of tonsillectomy ?Z90.89 - Acquired absence of other organs (ICD-10) History of appendectomy ?Z90.49 - Acquired absence of other specified parts of digestive tract (ICD- 10) <Rebekah Berrios MD - Last Filed: 04/17/24 00:00> Family History: Family History Father Cancer <Rebekah Berrios MD - Last Filed: 04/17/24 00:00> Social History: Social History Narrative: former smoker quit in 2000, has 2 children, Smoking Status: Former smoker Do you use any of these nicotine containing products: None Second hand tobacco smoke exposure: No How often do you have a drink containing alcohol: never AUDIT-C Alcohol total score: 0 Non-prescribed substance use: denies use Little interest or pleasure in doing things: not at all Feeling down, depressed, or hopeless: not at all service: Yes <Rebekah Berrios MD - Last Filed: 04/17/24 00:00> Exam Const: Vital Signs, click to edit/add: Vital Signs - 24 hr 04/09/24 06:47 04/09/24 07:45 Temperature 98.0 F Pulse Rate [Pulse Oximeter] 91 86 Respiratory Rate 24 Blood Pressure [Ri ght Upper Arm] 156/78 H 105/64 Pulse Oximetry 93 93 Oxygen Delivery Me thod Room Air Room Air <Rebekah Berrios MD - Last Filed: 04/17/24 00:00> Vital Signs, click to edit/add: Vital Signs - 24 hr 04/09/24 06:47 04/09/24 07:45 Temperature 98.0 F Pulse Rate [Pulse Oximeter] 91 86 Respiratory Rate 24 Blood Pressure [Ri ght Upper Arm] 156/78 H 105/64 Pulse Oximetry 93 93 Oxygen Delivery Me thod Room Air Room Air <Mitul Santacruz MD - Last Filed: 04/10/24 15:29> Documenting provider has reviewed patient's vital signs: yes <Rebekah Berrios MD - Last Filed: 04/17/24 00:00> Common normals: alert <Rebekah Berrios MD - Last Filed: 04/17/24 00:00> Other: Mild respiratory distress with audible wheezing. Cooperative but with limited insight. Becomes irritable pretty quickly when I start bring up the tumor and a long-term plan as he was basically looking for a ?drive-through paracentesis? today. <Rebekah Berrios MD - Last Filed: 04/17/24 00:00> HENMT: Common normals: normocephalic <Rebekah Berrios MD - Last Filed: 04/17/24 00:00> Head and scalp: normocephalic <Rebekah Berrios MD - Last Filed: 04/17/24 00:00> Mouth: oral and palatal mucosa normal <Rebekah Berrios MD - Last Filed: 04/17/24 00:00> Throat: posterior oropharynx normal <Rebekah Berrios MD - Last Filed: 04/17/24 00:00> Eye: Other: Scleral icterus noted. Pupils equal. <Rebekah Berrios MD - Last Filed: 04/17/24 00:00> Neck & C-Spine: Common normals: full ROM and no lymphadenopathy <Rebekah Berrios MD - Last Filed: 04/17/24 00:00> Other: 5 cm JVD. <MD Tracey Sosa Last Filed: 04/17/24 00:00> Resp: Other: Mildly increased work of breathing. Decreased breath sounds about half the chest wall down with bilateral crackles and expiratory wheeze. <Rebekah Berrios MD - Last Filed: 04/17/24 00:00> Cardio: Common normals: regular rate, regular rhythm, S1 normal heart sound, S2 normal heart sound and no murmurs <Rebekah Berrios MD - Last Filed: 04/17/24 00:00> Rate: regular rate <MD Tracey Sosa Last Filed: 04/17/24 00:00> Rhythm: regular rhythm <MD Tracey Sosa Last Filed: 04/17/24 00:00> Heart sounds: S1 normal and S2 normal <MD Tracey Sosa Last Filed: 04/17/24 00:00> Other: No obvious murmur but heart sounds distant. <Rebekah Berrios MD - Last Filed: 04/17/24 00:00> GI: Other: Marked ascites. I can not palpate any of the organs underneath. I cannot hear any bowel sounds due to the ascites. The superficial veins are dilated. <Rebekah Berrios MD - Last Filed: 04/17/24 00:00> Extremity: Other: Bilateral pedal edema. Area of cellulitis noted in does appear to be better than previously clinically described. No obvious drainage. <Rebekah Berrios MD - Last Filed: 04/17/24 00:00> Neuro: Sensorium/orientation: alert <MD Tracey Sosa Last Filed: 04/17/24 00:00> Speech: speech normal <MD Tracey Sosa Last Filed: 04/17/24 00:00> Psych: Insight: fair <MD Tracey Sosa Last Filed: 04/17/24 00:00> Judgement: fair <MD Tracey Sosa Last Filed: 04/17/24 00:00> Skin: Common normals: no rashes or lesions noted <MD Tracey Sosa Last Filed: 04/17/24 00:00> General skin exam: no rashes or lesions noted <Rebekah Berrios MD - Last Filed: 04/17/24 00:00> Course Course ED Course: 78-year-old male with advanced ascites thought secondary to cirrhosis but now evidence of large tumor which is likely a hepatocellular carcinoma based on appearance. More workup is needed urgently. Will obtain basic labs including INR, cover the metabolic panel, CBC, portable chest x-ray to look at the fluid. I have consulted our general surgeon, Dr. Ayers. I am curious if she thinks that it is safe to do a paracentesis here in continuing outpatient workup with GI or if she feels transfer is more appropriate. She would like to review the case and will get back to me on this decision. Update: Dr. Ayers is waiting for labs but she is intending to do the paracentesis this morning over in the endoscopy department. <Rebekah Berrios MD - Last Filed: 04/17/24 00:00> Vital Signs Vital signs: Initial Vital Signs Temperature 98.0 F 04/09/24 06:47 Temperature Source Temporal Artery Scan 04/09/24 06:47 Pulse Rate 91 04/09/24 06:47 Respiratory Rate 24 04/09/24 06:47 Blood Pressure 156/78 H 04/09/24 06:47 Blood Pressure Mean 104 04/09/24 06:47 Blood Pressure Position Sitting 04/09/24 06:47 Pulse Oximetry 93 04/09/24 06:47 Oxygen Delivery Method Room Air 04/09/24 06:47 Vital Signs Temperature 98.0 F 04/09/24 06:47 Pulse Rate 91 04/09/24 06:47 Respiratory Rate 24 04/09/24 06:47 Blood Pressure 156/78 H 04/09/24 06:47 Pulse Oximetry 93 04/09/24 06:47 Oxygen Delivery Method Room Air 04/09/24 06:47 Temperature 98.0 F 04/09/24 06:47 Pulse Rate 82 04/09/24 10:31 Respiratory Rate 24 04/09/24 06:47 Blood Pressure 126/56 L 04/09/24 10:30 Pulse Oximetry 95 04/09/24 10:31 Oxygen Delivery Method Room Air 04/09/24 07:45 <Rebekah Berrios MD - Last Filed: 04/17/24 00:00> Initial Vital Signs Temperature 98.0 F 04/09/24 06:47 Temperature Source Temporal Artery Scan 04/09/24 06:47 Pulse Rate 91 04/09/24 06:47 Respiratory Rate 24 04/09/24 06:47 Blood Pressure 156/78 H 04/09/24 06:47 Blood Pressure Mean 104 04/09/24 06:47 Blood Pressure Position Sitting 04/09/24 06:47 Pulse Oximetry 93 04/09/24 06:47 Oxygen Delivery Method Room Air 04/09/24 06:47 Vital Signs Temperature 98.0 F 04/09/24 06:47 Pulse Rate 91 04/09/24 06:47 Respiratory Rate 24 04/09/24 06:47 Blood Pressure 156/78 H 04/09/24 06:47 Pulse Oximetry 93 04/09/24 06:47 Oxygen Delivery Method Room Air 04/09/24 06:47 Temperature 98.0 F 04/09/24 06:47 Pulse Rate 82 04/09/24 10:31 Respiratory Rate 24 04/09/24 06:47 Blood Pressure 126/56 L 04/09/24 10:30 Pulse Oximetry 95 04/09/24 10:31 Oxygen Delivery Method Room Air 04/09/24 07:45 <Mitul Santacruz MD - Last Filed: 04/10/24 15:29> Medications Administered Medications: Discontinued Medications Generic Name Dose Route Start Last Admin Trade Name Freq PRN Reason Stop Dose Admin Albumin Human 50 gm in 200 mls @ 100 mls/hr 04/09/24 08:29 04/09/24 10:37 Albumin Human 25% IVPB 04/09/24 10:28 Infused ONCE ONE Infusion <Rebekah Berrios MD - Last Filed: 04/17/24 00:00> Discontinued Medications Generic Name Dose Route Start Last Admin Trade Name Freq PRN Reason Stop Dose Admin Albumin Human 50 gm in 200 mls @ 100 mls/hr 04/09/24 08:29 04/09/24 10:37 Albumin Human 25% IVPB 04/09/24 10:28 Infused ONCE ONE Infusion <Mitul Santacruz MD - Last Filed: 04/10/24 15:29> Medical Decision Making MDM Narrative Medical decision making narrative: Neeta -- Inherited this patient at change of shift pending therapeutic paracentesis assistance by General surgery. Further discussion with Mr. Preston and his spouse does note alarm and concern regarding new findings. Has been noted to have a mass now of surprising size per spouse, in the liver. I have reviewed available records. Are concerned also about lack of follow-up with GI that have seen so far. Will be contacting GI to be sure that are aware of this case and follow-up is continuing in an urgent manner. Monitored this paracentesis procedure as placed by general surgery. Lightly hypotensive at 1 point but blood pressures were overall reassuring. Drained of approximately 6300 mL of fluid. See patient discharge plan for further discussion <Mitul Santacruz MD - Last Filed: 04/10/24 15:29> Lab Data Lab results reviewed: Yes I reviewed the patient's lab results <Rebekah Berrios MD - Last Filed: 04/17/24 00:00> Lab results narrative: Labs stable for patient, comparable to January. <Rebekah Berrios MD - Last Filed: 04/17/24 00:00> Labs: Lab Results 04/09/24 Range/Units 07:31 WBC 9.36 (4.50-11.00) K/uL RBC 4.67 (4.30-5.90) m/uL Hgb 14.9 (13.5-17.5) gm/dL Hct 45.3 (37.0-53.0) % MCV 97 (80-100) fL MCH 32 (26-34) pg MCHC 33 (32-36) gm/dL RDW Coeff of Prosper 15.7 H (11.5-15.5) % Plt Count 170 (140-440) K/uL Neut % (Auto) 88.9 H (42.0-72.0) % Lymph % (Auto) 4.3 L (20-44) % [place] % (Auto) 4.8 (0.0-11.0) % Eos % (Auto) 1.4 (0.0-7.0) % Baso % (Auto) 0.1 (0.0-3.0) % Neut # (Auto) 8.30 H (1.7-7.0) K/uL Lymph # (Auto) 0.40 L (0.90-2.90) K/uL [place] # (Auto) 0.40 (0.00-0.90) K/UL Eos # (Auto) 0.13 (0.00-0.50) K/uL Baso # (Auto) 0.01 (0.00-0.30) K/uL Abs Immat Gran (auto) 0.05 (0.00-0.30) K/uL Imm/Tot Granulo (auto) 0.5 % INR 1.01 (0.91-1.10) VBG pH 7.367 (7.32-7.43) VBG pCO2 46 (40-50) mmHG VBG pO2 32.6 (25-47) mmHG VBG HCO3 26 (21-28) mmol/L Sodium 132 L (135-149) mmol/L Potassium 3.6 (3.6-5.1) mmol/L Chloride 98 (96-114) mmol/L Carbon Dioxide 26 (20-32) mmol/L Anion Gap 8 (7-15) mEq/L BUN 75 H (7-30) mg/dL Creatinine 1.8 H (0.5-1.5) mg/dL Estimated Creat Clear 33.25 Estimated GFR 38 ml/min Glucose 88 (60-115) mg/dL Calcium 9.0 (8.4-10.6) mg/dL Total Bilirubin 2.0 H (0.1-1.5) mg/dL AST 79 H (12-35) U/L ALT 51 H (4-50) U/L Alkaline Phosphatase 546 H (40-150) U/L C-Reactive Protein 5.1 H (0.5-1.0) mg/dL Total Protein 6.4 (6.0-8.3) g/dL Albumin 3.4 (3.3-5.0) g/dL Tumor Marker AFP 12 H (0-9) ng/mL CEA (off-site) 2.9 ng/mL CA 19-9 Antigen 14 (<=35) U/mL <Rebekah Berrios MD - Last Filed: 04/17/24 00:00> Lab Results 04/09/24 Range/Units 07:31 WBC 9.36 (4.50-11.00) K/uL RBC 4.67 (4.30-5.90) m/uL Hgb 14.9 (13.5-17.5) gm/dL Hct 45.3 (37.0-53.0) % MCV 97 (80-100) fL MCH 32 (26-34) pg MCHC 33 (32-36) gm/dL RDW Coeff of Prosper 15.7 H (11.5-15.5) % Plt Count 170 (140-440) K/uL Neut % (Auto) 88.9 H (42.0-72.0) % Lymph % (Auto) 4.3 L (20-44) % [place] % (Auto) 4.8 (0.0-11.0) % Eos % (Auto) 1.4 (0.0-7.0) % Baso % (Auto) 0.1 (0.0-3.0) % Neut # (Auto) 8.30 H (1.7-7.0) K/uL Lymph # (Auto) 0.40 L (0.90-2.90) K/uL [place] # (Auto) 0.40 (0.00-0.90) K/UL Eos # (Auto) 0.13 (0.00-0.50) K/uL Baso # (Auto) 0.01 (0.00-0.30) K/uL Abs Immat Gran (auto) 0.05 (0.00-0.30) K/uL Imm/Tot Granulo (auto) 0.5 % INR 1.01 (0.91-1.10) VBG pH 7.367 (7.32-7.43) VBG pCO2 46 (40-50) mmHG VBG pO2 32.6 (25-47) mmHG VBG HCO3 26 (21-28) mmol/L Sodium 132 L (135-149) mmol/L Potassium 3.6 (3.6-5.1) mmol/L Chloride 98 (96-114) mmol/L Carbon Dioxide 26 (20-32) mmol/L Anion Gap 8 (7-15) mEq/L BUN 75 H (7-30) mg/dL Creatinine 1.8 H (0.5-1.5) mg/dL Estimated Creat Clear 33.25 Estimated GFR 38 ml/min Glucose 88 (60-115) mg/dL Calcium 9.0 (8.4-10.6) mg/dL Total Bilirubin 2.0 H (0.1-1.5) mg/dL AST 79 H (12-35) U/L ALT 51 H (4-50) U/L Alkaline Phosphatase 546 H (40-150) U/L C-Reactive Protein 5.1 H (0.5-1.0) mg/dL Total Protein 6.4 (6.0-8.3) g/dL Albumin 3.4 (3.3-5.0) g/dL Tumor Marker AFP 12 H (0-9) ng/mL CEA (off-site) 2.9 ng/mL CA 19-9 Antigen 14 (<=35) U/mL <Mitul Santacruz MD - Last Filed: 04/10/24 15:29> Imaging Data Chest x-ray: Attestation: I have reviewed the pertinent imaging results. <Kori Sosa - Last Filed: 04/17/24 00:00> My impression: Normal chest x-ray, no significant pleural effusion. <Rebekah Berrios MD - Last Filed: 04/17/24 00:00> Radiologist's impression: Findings/Impression: Cardiovascular and mediastinum: Normal heart size with atherosclerotic calcification. Lungs and pleural space: Lungs are clear. No sign of infiltrate or mass. No sign of pleural effusion. No pneumothorax. Bones and soft tissues: No acute findings. <Rebekah Berrios MD - Last Filed: 04/17/24 00:00> Discharge Plan Discharge Clinical Impression: Abdominal ascites, Liver mass, right lobe <Rebekah Berrios MD - Last Filed: 04/17/24 00:00> Patient Disposition: Home w/ Parent or Adult <Rebekah Berrios MD - Last Filed: 04/17/24 00:00> Instructions: Paracentesis (DC) <Rebekah Berrios MD - Last Filed: 04/17/24 00:00> Additional Instructions: As we discussed, the paracentesis today is a temporary fix. We need a better long-term plan on how to manage your ascites and we need much more information on this tumor in the right side of your liver. The MRI shows a tumor but unfortunately a blocked the blood vessels that let the contrast into show things perfectly. Nonetheless, we certainly do know that there is a tumor. It sounds like your GI team has a plan to run extra blood work to look for tumor markers to try to figure out what is the cause of this tumor. Will try to get that blood work added on to your labs today to help expedite the process. You do not need to keep your appointment for paracentesis on . It is important that you call your GI team later today to figure out what the next steps are for you in this plan. Tell them that you became more short of breath and went to the ED at [facility] in the wee hours of Tuesday. Paracentesis was performed because you were very symptomatic. We need the help of your GI team to manage the next steps in your workup. You have a follow-up appointment with General surgery on 04/17 at 12:15 p.m. for likely repeat drainage. <Rebekah Berrios MD - Last Filed: 04/17/24 00:00> Activity Level: Activity as Tolerated <Rebekah Berrios MD - Last Filed: 04/17/24 00:00> Activity as Tolerated <Mitul Santacruz MD - Last Filed: 04/10/24 15:29> Discharge Diet: Regular <Rebekah Berrios MD - Last Filed: 04/17/24 00:00> Regular <Mitul Santacruz MD - Last Filed: 04/10/24 15:29> Prescriptions: No Action allopurinol 100 mg tablet 100 mg PO QDAY Qty: 90 3RF amlodipine 5 mg tablet 5 mg PO QDAY Qty: 90 3RF Hold Instructions: Per [facility], hold metoprolol succinate 50 mg tablet extended release 24 hr 50 mg PO QDAY Qty: 90 3RF alfuzosin 10 mg tablet extended release 24 hr 10 mg PO DAILY Qty: 90 3RF hydrochlorothiazide 12.5 mg tablet 12.5 mg PO DAILY Qty: 90 3RF Hold Instructions: Per [facility], hold gemfibrozil 600 mg tablet 600 mg PO QDAY Qty: 90 3RF cephalexin 500 mg capsule 500 mg PO TID 7 Days Qty: 21 0RF <Rebekah Berrios MD - Last Filed: 04/17/24 00:00> Follow Up/Referrals: Britney Cervantes MD [Primary Care Provider] - <Rebekah Berrios MD - Last Filed: 04/17/24 00:00> Stand Alone Forms: MyHealth Info Instructions <Rebekah Berrios MD - Last Filed: 04/17/24 00:00>
[2024-04-09 07:35] LABS: HCO3 VBG 26 mmol/L (21-28); PCO2 VBG 46 mmHG (40-50); PO2 VBG 32.6 mmHG (25-47); pH VBG 7.367 (7.32-7.43)
[2024-04-09 07:36] LABS: Basophils Absolute Auto 0.01 K/uL (0.00-0.30); Basophils Percent Auto 0.1 % (0.0-3.0); Eosinophils Absolute Auto 0.13 K/uL (0.00-0.50); Eosinophils Percent Auto 1.4 % (0.0-7.0); Hematocrit 45.3 % (37.0-53.0); Hemoglobin* 14.9 gm/dL (13.5-17.5); Immature Granulocytes Abs Auto 0.05 K/uL (0.00-0.30); Immature Granulocytes Pct Auto 0.5 %; Lymphocytes Percent Auto 4.3 % (20-44); Mean Corpuscular HGB Conc 33 gm/dL (32-36); Mean Corpuscular Hemoglobin 32 pg (26-34); Mean Corpuscular Volume 97 fL (80-100); Monocytes Percent Auto 4.8 % (0.0-11.0); Neutrophils Percent Auto 88.9 % (42.0-72.0); Platelet Count* 170 K/uL (140-440); RDW Coefficient of Variation % 15.7 % (11.5-15.5); Red Blood Count 4.67 m/uL (4.30-5.90); White Blood Count* 9.36 K/uL (4.50-11.00)
[2024-04-09 07:38] LABS: Slide Review Reflex No
[2024-04-09 07:51] LABS: Albumin* 3.4 g/dL (3.3-5.0); Chloride* 98 mmol/L (96-114); Potassium* 3.6 mmol/L (3.6-5.1); Sodium* 132 mmol/L (135-149)
[2024-04-09 07:53] LABS: Creatinine* 1.8 mg/dL (0.5-1.5); Est. Creatinine Clearance* 33.25; Estimated Glomerular Filt Rate 38 ml/min
[2024-04-09 07:54] LABS: Alanine Aminotransferase* 51 U/L (4-50); Alkaline Phosphatase* 546 U/L (40-150); Anion Gap 8 mEq/L (7-15); Aspartate Amino Transferase* 79 U/L (12-35); Blood Urea Nitrogen* 75 mg/dL (7-30); Carbon Dioxide* 26 mmol/L (20-32); Glucose* 88 mg/dL (60-115); INR 1.01 (0.91-1.10); Prothrombin Time 13.9 Seconds; Total Protein* 6.4 g/dL (6.0-8.3)
[2024-04-09 07:57] LABS: C Reactive Protein* 5.1 mg/dL (0.5-1.0)
--- NOTE | 2024-04-09 12:10 | PM.GSCN ---
History of Present Illness Consult details Date Seen: 04/09/24 Consult date: 04/09/24 Narrative: Patient with a history of abdominal ascites secondary to liver failure. He has been seen multiple times for repeat paracentesis. He was last seen by my partner on 03/28/2024 with 4 L removed at that time. He is scheduled currently to have a paracentesis done on 04/12/2024. Over the weekend he has been having some increase in abdominal discomfort and shortness of breath. The shortness of breath was so bad today that he came into the emergency department to see if the fluid could be drained early. He denies any fevers or chills. No other acute concerns. Review of Systems Status of ROS: Reports: 6 or more systems reviewed and unremarkable except as noted in History and below [facility] Medical History High serum creatinine ?R79.89 - Other specified abnormal findings of blood chemistry (ICD-10) Cholelithiasis ?K80.20 - Calculus of gallbladder without cholecystitis without obstruction (ICD-10) Surgical History History of phacoemulsification of cataract of both eyes with intraocular lens implantation ?Z98.41 - Cataract extraction status, right eye (ICD-10) ?Z98.42 - Cataract extraction status, left eye (ICD-10) ?Z96.1 - Presence of intraocular lens (ICD-10) History of tonsillectomy ?Z90.89 - Acquired absence of other organs (ICD-10) History of appendectomy ?Z90.49 - Acquired absence of other specified parts of digestive tract (ICD-10) Family History Father Cancer Social History Narrative: former smoker quit in 2000, has 2 children, Smoking Status: Former smoker Do you use any of these nicotine containing products: None Second hand tobacco smoke exposure: No How often do you have a drink containing alcohol: never AUDIT-C Alcohol total score: 0 Non-prescribed substance use: denies use Little interest or pleasure in doing things: not at all Feeling down, depressed, or hopeless: not at all service: Yes Meds Home Medications and Allergies Allergies Allergy/AdvReac Type Severity Reaction Status Date / Time lisinopril Allergy Unknown angioedema Verified 04/05/24 08:55 losartan AdvReac Intermediate elevated Verified 04/05/24 08:55 potassium Exam Narrative: Exam Narrative: General: Alert and oriented, no acute distress Respiratory: Some tachypnea and use of extra accessory muscles at baseline Abdomen: Obese abdomen, positive fluid sign. Nontender to palpation. Const: Vital Signs, click to edit/add: Vital Signs - 24 hr 04/09/24 06:47 04/09/24 07:44 04/09/24 07:45 Temperature 98.0 F Pulse Rate 86 Pulse Rate [Pulse Oximeter] 91 86 Respiratory Rate 24 Blood Pressure Blood Pressure [Ri ght Upper Arm] 156/78 H 105/64 Pulse Oximetry 93 93 93 Oxygen Delivery Me thod Room Air Room Air 04/09/24 07:45 04/09/24 07:46 04/09/24 08:00 Temperature Pulse Rate 86 85 86 Pulse Rate [Pulse Oximeter] Respiratory Rate Blood Pressure 105/64 Blood Pressure [Ri ght Upper Arm] Pulse Oximetry 94 92 93 Oxygen Delivery Me thod 04/09/24 08:15 04/09/24 08:30 04/09/24 08:45 Temperature Pulse Rate 86 85 82 Pulse Rate [Pulse Oximeter] Respiratory Rate Blood Pressure Blood Pressure [Ri ght Upper Arm] Pulse Oximetry 94 94 92 Oxygen Delivery Me thod 04/09/24 09:00 04/09/24 09:13 04/09/24 09:15 Temperature Pulse Rate 82 85 84 Pulse Rate [Pulse Oximeter] Respiratory Rate Blood Pressure 133/66 Blood Pressure [Ri ght Upper Arm] Pulse Oximetry 92 93 93 Oxygen Delivery Me thod 04/09/24 09:25 04/09/24 09:30 04/09/24 09:34 Temperature Pulse Rate 86 84 83 Pulse Rate [Pulse Oximeter] Respiratory Rate Blood Pressure 137/64 129/61 Blood Pressure [Ri ght Upper Arm] Pulse Oximetry 93 94 93 Oxygen Delivery Me thod 04/09/24 09:42 04/09/24 09:45 04/09/24 09:50 Temperature Pulse Rate 83 82 84 Pulse Rate [Pulse Oximeter] Respiratory Rate Blood Pressure 128/61 128/63 Blood Pressure [Ri ght Upper Arm] Pulse Oximetry 93 95 94 Oxygen Delivery Me thod 04/09/24 09:58 04/09/24 10:00 04/09/24 10:15 Temperature Pulse Rate 82 85 84 Pulse Rate [Pulse Oximeter] Respiratory Rate Blood Pressure 133/62 Blood Pressure [Ri ght Upper Arm] Pulse Oximetry 94 94 95 Oxygen Delivery Me thod 04/09/24 10:30 04/09/24 10:31 Temperature Pulse Rate 80 82 Pulse Rate [Pulse Oximeter] Respiratory Rate Blood Pressure 126/56 L Blood Pressure [Ri ght Upper Arm] Pulse Oximetry 95 95 Oxygen Delivery Me thod Results Labs Labs: Abnormal lab results 04/09/24 Range/Units 07:31 RDW Coeff of Prosper 15.7 H (11.5-15.5) % Neut % (Auto) 88.9 H (42.0-72.0) % Lymph % (Auto) 4.3 L (20-44) % Neut # (Auto) 8.30 H (1.7-7.0) K/uL Lymph # (Auto) 0.40 L (0.90-2.90) K/uL Sodium 132 L (135-149) mmol/L BUN 75 H (7-30) mg/dL Creatinine 1.8 H (0.5-1.5) mg/dL Total Bilirubin 2.0 H (0.1-1.5) mg/dL AST 79 H (12-35) U/L ALT 51 H (4-50) U/L Alkaline Phosphatase 546 H (40-150) U/L C-Reactive Protein 5.1 H (0.5-1.0) mg/dL Diabetes panel 04/09/24 Range/Units 07:31 Sodium 132 L (135-149) mmol/L Potassium 3.6 (3.6-5.1) mmol/L Chloride 98 (96-114) mmol/L Carbon Dioxide 26 (20-32) mmol/L BUN 75 H (7-30) mg/dL Creatinine 1.8 H (0.5-1.5) mg/dL Glucose 88 (60-115) mg/dL Calcium 9.0 (8.4-10.6) mg/dL AST 79 H (12-35) U/L ALT 51 H (4-50) U/L Alkaline Phosphatase 546 H (40-150) U/L Total Protein 6.4 (6.0-8.3) g/dL Albumin 3.4 (3.3-5.0) g/dL Calcium panel 04/09/24 Range/Units 07:31 Calcium 9.0 (8.4-10.6) mg/dL Albumin 3.4 (3.3-5.0) g/dL Pituitary panel 04/09/24 Range/Units 07:31 Sodium 132 L (135-149) mmol/L Potassium 3.6 (3.6-5.1) mmol/L Chloride 98 (96-114) mmol/L Carbon Dioxide 26 (20-32) mmol/L BUN 75 H (7-30) mg/dL Creatinine 1.8 H (0.5-1.5) mg/dL Glucose 88 (60-115) mg/dL Calcium 9.0 (8.4-10.6) mg/dL Adrenal panel 04/09/24 Range/Units 07:31 Sodium 132 L (135-149) mmol/L Potassium 3.6 (3.6-5.1) mmol/L Chloride 98 (96-114) mmol/L Carbon Dioxide 26 (20-32) mmol/L BUN 75 H (7-30) mg/dL Creatinine 1.8 H (0.5-1.5) mg/dL Glucose 88 (60-115) mg/dL Calcium 9.0 (8.4-10.6) mg/dL Total Bilirubin 2.0 H (0.1-1.5) mg/dL AST 79 H (12-35) U/L ALT 51 H (4-50) U/L Alkaline Phosphatase 546 H (40-150) U/L Total Protein 6.4 (6.0-8.3) g/dL Albumin 3.4 (3.3-5.0) g/dL All other labs normal. General Surgery Procedures Paracentesis Time out performed: Yes Imaging guidance used: Yes Indication: Ascites Procedure: therapeutic paracentesis Location: LLQ Local anesthetic used: lidocaine 1% Amount of anesthesia used (ml): 3 Bedside ultrasound used: yes, Ascites confirmed and location marked Preparation: 11 blade used to make keyon in skin (Sterile prep and drape) Amount of fluid obtained (ml): 6,200 Fluid: clear (Yellow tinged) Post procedure exam: awake, alert Patient tolerated procedure: well Complications: none Progress Note:A&P Assessment and plan (1) Abdominal ascites: Status: Acute Assessment and Plan: Patient presents to the emergency department with increasing shortness of breath secondary to abdominal ascites. Risks and benefits of paracentesis were discussed at length with the patient. Risks included, but were not limited to: Bleeding, infection, risk of damage to the underlying structures and possible need for additional procedures. All questions and concerns were addressed with patient agreeing to proceed. Ultrasound guidance was used to access the intra-abdominal ascites. Once the catheter was in place, Dr. Santacruz from the emergency department took over and supervised the remainder of the procedure. A total of 6200 mL was removed. Two 25% albumin vials were used during the procedure. Patient was monitored with stable vitals throughout. No documented hypotension. Patient expressed significant improvement in symptoms. He is currently scheduled for a repeat paracentesis on 04/17/2024.
[2024-04-10 15:06] LABS: Alpha Fetoprotein Tumor Marker 12 ng/mL (0-9)
[2024-04-10 20:35] LABS: Cancer Antigen-GI (CA 19-9) 14 U/mL (<=35); Carcinoembryonic Antigen 2.9 ng/mL
== END 2024-04-09 11:38 | disposition home or self-care (01) ==
PROVIDERS: Nurse Practitioner; Emergency Provider Family Medicine; PCP Family Medicine
DX: R18.8 Other ascites (principal); R16.0 Hepatomegaly, not elsewhere classified
CPT/HCPCS: 49083; 36415; 71045; 80053; 82105; 82378; 82803; 85025; 85610; 86140; 86301; 96365; 99284; P9047

== ENCOUNTER 2024-04-17 12:04 | Outpatient (CLI) | payer MEDICARE, SELFPAY ==
[2024-04-17 01:00] VITALS: BP 102/45; PULSE 66; RESP 16; O2SAT 95
[2024-04-17 01:15] VITALS: BP 101/42; PULSE 66; RESP 16; O2SAT 96
[2024-04-17 01:30] VITALS: BP 106/40; PULSE 67; RESP 16; O2SAT 97
[2024-04-17 01:45] VITALS: BP 111/47; PULSE 66; RESP 16; O2SAT 96
[2024-04-17 12:23] VITALS: BP 111/52; PULSE 69; RESP 18; O2SAT 94
[2024-04-17 12:45] VITALS: BP 103/46; PULSE 69; RESP 16; O2SAT 97
--- NOTE | 2024-04-17 13:47 | PM.PROC ---
Procedure Note Date Seen: 04/17/24 Will [facility] bill your pro fee for this procedure?: Yes Pre-op diagnosis: Cirrhosis Post-op diagnosis: same Procedure: Paracentesis Procedure Description: After discussion of the risks and benefits the patient was placed supine. Ultrasound guidance was used to identify the pocket of ascites with no evidence of underlying bowel and no abdominal varices. Once this was done the site was marked. The area was prepped and draped in the usual sterile fashion. Local anesthetic was used to anesthetize the skin and subcutaneous tissue down to the peritoneum. Once the peritoneum was encountered, the needle was advanced into the abdomen. This was confirmed by the aspiration of serous fluid. A skin keyon was made with an 11 blade. The paracentesis catheter was advanced into the abdominal cavity while aspirating. Once the abdominal fluid was aspirated confirming entrance into the abdomen, the needle was removed and the sheath advanced. 3700 mL of fluid were then aspirated. Patient tolerated procedure well with no evidence of hypotension. The ultrasound was used to confirm successful aspiration with reduced intra-abdominal fluid. The catheter was then removed, and Dermabond applied over the skin site. Patient tolerated the procedure well. Estimated blood loss 1 mL Anesthesia: local Pathology: none sent Condition: stable Disposition: same day
== END 2024-04-17 14:08 | disposition home or self-care (01) ==
LOC: US 12:04
PROVIDERS: PCP Family Medicine; Visit Provider Surgery
DX: K74.60 Unspecified cirrhosis of liver (principal); R18.8 Other ascites; T81.89XA Other complications of procedures, not elsewhere classified, initial encounter
CPT/HCPCS: 12001; 49083; 99282; P9047

== ENCOUNTER 2024-04-17 17:18 | Emergency (ER) | payer MEDICARE, SELFPAY ==
[2024-04-17 17:22] VITALS: BP 107/64; PULSE 75; RESP 20; TEMP 35.9; O2SAT 95
--- NOTE | 2024-04-17 18:04 | ED_ITS ---
HPI - General Adult General Date Seen: 04/17/24 Chief complaint: Post Op Complication Stated complaint: drainage at incision site Time Seen by Provider: 04/17/24 17:25 History of Present Illness HPI narrative: Pleasant 78-year-old gentleman with a diagnosis of a liver mass, currently undergoing workup associated ascites. He gets periodic therapeutic paracenteses for ascites. He gets therapeutic paracentesis about once every week. He had an outpatient v paracentesis today. It was done by Dr. Ayers. The paracentesis site was in the right mid/lower quadrant. He apparently had a little bit of drainage of clear ascitic fluid after the procedure and the nurses placed a Steri-Strips and Dermabond. The bleeding seemed to be under control and he was discharged home. Shortly after he got home he had resumption of leakage of ascitic fluid through the paracentesis puncture site. Soaking onto his shirt and into his pants. He is not having any abdominal pain. No bleeding. No fever. He came to the ER because the fluid is still leaking. Related Data Previous Rx's ?Medication ?Instructions ?Recorded alfuzosin 10 mg tablet,extended 10 mg PO DAILY #90 tabs 06/14/23 release 24 hr allopurinol 100 mg tablet 100 mg PO QDAY #90 tabs 06/14/23 amlodipine 5 mg tablet 5 mg PO QDAY #90 tabs 06/14/23 gemfibrozil 600 mg tablet 600 mg PO QDAY #90 tabs 06/14/23 hydrochlorothiazide 12.5 mg tablet 12.5 mg PO DAILY #90 tabs 06/14/23 metoprolol succinate 50 mg 50 mg PO QDAY #90 tabs 06/14/23 tablet,extended release 24 hr cephalexin 500 mg capsule 500 mg PO TID 7 days #21 caps 04/05/24 Allergies Allergy/AdvReac Type Severity Reaction Status Date / Time lisinopril Allergy Unknown angioedema Verified 04/05/24 08:55 losartan AdvReac Intermediate elevated Verified 04/05/24 08:55 potassium [facility] Medical History High serum creatinine ?R79.89 - Other specified abnormal findings of blood chemistry (ICD-10) Cholelithiasis ?K80.20 - Calculus of gallbladder without cholecystitis without obstruction (ICD-10) Surgical History History of phacoemulsification of cataract of both eyes with intraocular lens implantation ?Z98.41 - Cataract extraction status, right eye (ICD-10) ?Z98.42 - Cataract extraction status, left eye (ICD-10) ?Z96.1 - Presence of intraocular lens (ICD-10) History of tonsillectomy ?Z90.89 - Acquired absence of other organs (ICD-10) History of appendectomy ?Z90.49 - Acquired absence of other specified parts of digestive tract (ICD- 10) Family History Father Cancer Social History Narrative: former smoker quit in 2000, has 2 children, Smoking Status: Former smoker Do you use any of these nicotine containing products: None Second hand tobacco smoke exposure: No How often do you have a drink containing alcohol: never AUDIT-C Alcohol total score: 0 Non-prescribed substance use: denies use Little interest or pleasure in doing things: not at all Feeling down, depressed, or hopeless: not at all service: Yes Exam Narrative: Exam Narrative: Constitutional: Appears well-developed and well-nourished. Alert and joking. Non-toxic appearing. HENT: Head: Atraumatic. No signs of injury. Nose: No nasal discharge. Mouth/Throat: Mucous membranes are moist. Pharynx is normal. Tonsils symmetric. Uvula midline. Airway patent. Eyes: Conjunctivae normal and EOM are normal. Pupils are equal, round, and reactive to light. Right eye exhibits no discharge. Left eye exhibits no discharge. No icterus. Neck: Normal range of motion. Neck supple. No adenopathy. No stridor. Cardiovascular: Normal rate and regular rhythm. No murmur heard. No murmurs, rubs, or gallops. Brisk capillary refill Pulmonary/Chest: Effort normal. No stridor. No respiratory distress. No wheezes.No rhonchi. No rales. No retractions. Abdominal: Soft. Bowel sounds are normal. Distended from ascites and dull to percussion.. No mass. There is no tenderness. There is no rebound and no guarding. He has a paracentesis puncture site in the right mid lower abdomen it is draining drops of clear/yellow ascitic fluid. There is some dry Dermabond and Steri-Strips over the paracentesis site, removed for examination. Musculoskeletal: Normal range of motion. No edema. No tenderness. No deformity. Neurological: Alert. Normal strength. No cranial nerve deficit or sensory deficit. Coordination normal. GCS eye subscore is 4. GCS verbal subscore is 5. GCS motor subscore is 6. Skin: Skin is warm. No rash noted. Const: Vital Signs, click to edit/add: Vital Signs - 24 hr 04/17/24 17:22 Temperature 96.7 F L Pulse Rate [Pulse Oximeter] 75 Respiratory Rate 20 Blood Pressure [Ri ght Upper Arm] 107/64 Pulse Oximetry 95 Oxygen Delivery Me thod Room Air Course Vital Signs Vital signs: Initial Vital Signs Temperature 96.7 F L 04/17/24 17:22 Temperature Source Temporal Artery Scan 04/17/24 17:22 Pulse Rate 75 04/17/24 17:22 Pulse Rhythm Regular 04/17/24 17:22 Pulse Strength 3+ Normal 04/17/24 17:22 Respiratory Rate 20 04/17/24 17:22 Blood Pressure 107/64 04/17/24 17:22 Blood Pressure Mean 78 04/17/24 17:22 Blood Pressure Position Sitting 04/17/24 17:22 Pulse Oximetry 95 04/17/24 17:22 Oxygen Delivery Method Room Air 04/17/24 17:22 Vital Signs Temperature 96.7 F L 04/17/24 17:22 Pulse Rate 75 04/17/24 17:22 Respiratory Rate 20 04/17/24 17:22 Blood Pressure 107/64 04/17/24 17:22 Pulse Oximetry 95 04/17/24 17:22 Oxygen Delivery Method Room Air 04/17/24 17:22 Temperature 96.7 F L 04/17/24 17:22 Pulse Rate 75 04/17/24 17:22 Respiratory Rate 20 04/17/24 17:22 Blood Pressure 107/64 04/17/24 17:22 Pulse Oximetry 95 04/17/24 17:22 Oxygen Delivery Method Room Air 04/17/24 17:22 Medical Decision Making MDM Narrative Medical decision making narrative: Pleasant 78-year-old male with a liver mass and resultant ascites presenting to the ER today with ascitic fluid draining from his paracentesis puncture site. He had a routine outpatient paracentesis done today. He does not have any exam findings for infection around the paracentesis site. No bleeding or bloody ascitic fluid. No tenderness to suggest any intra-abdominal complications such as hollow viscus perforation from the paracentesis. We were able to stop the ascitic fluid drainage by removing the existing Dermabond and Steri-Strips. I then injected local anesthetic and placed a single 6 0 Ethilon mattress suture to put good tension on the paracentesis puncture site. With this the majority of the drainage ceased. He had a little bit of ongoing drainage actually through the skin from the suture site. We applied a layer of Dermabond over this and achieved cessation of drainage. We monitored the patient here in the ER any had no recurrence. A sterile dressing was applied over his paracentesis site. He was comfortable with discharge home and plans to follow up next week for his next paracentesis and he can have his sutures removed at that time (in 7 days). Precautions for return to the ER reviewed Procedure: Suture of paracentesis site to stop ascitic fluid leak Discussed options with the patient. Verbal consent was obtained Sterile preparation using Betadine Anesthesia with local infiltration of 2 mL 1% lidocaine with epi. Good anesthesia achieved We placed a 6 0 Ethilon was onto a mattress suture. With this we stop the leakage from the paracentesis puncture site but there was a tiny amount of leakage through the skin of the suture site. We then placed a layer of Dermabond over the paracentesis site and suture. With this cessation of leakage was achieved No no complications noted Discharge Plan Discharge Clinical Impression: Abdominal ascites, Status post abdominal paracentesis Patient Disposition: Home, Self-Care Condition: Stable Instructions: Ascites (ED), Paracentesis (DC) Additional Instructions: Please return to the ER right away if you have any problems such as recurrent leakage, redness around the paracentesis site, or abdominal pain or fever. Please follow-up with your doctors next week for your next paracentesis and to have her suture removed. Prescriptions: No Action allopurinol 100 mg tablet 100 mg PO QDAY Qty: 90 3RF amlodipine 5 mg tablet 5 mg PO QDAY Qty: 90 3RF Hold Instructions: Per [facility], hold metoprolol succinate 50 mg tablet extended release 24 hr 50 mg PO QDAY Qty: 90 3RF alfuzosin 10 mg tablet extended release 24 hr 10 mg PO DAILY Qty: 90 3RF hydrochlorothiazide 12.5 mg tablet 12.5 mg PO DAILY Qty: 90 3RF Hold Instructions: Per [facility], hold gemfibrozil 600 mg tablet 600 mg PO QDAY Qty: 90 3RF cephalexin 500 mg capsule 500 mg PO TID 7 Days Qty: 21 0RF Follow Up/Referrals: Britney Cervantes MD [Primary Care Provider] - Stand Alone Forms: My[facility] Info Instructions
== END 2024-04-17 18:28 | disposition home or self-care (01) ==
PROVIDERS: Emergency Provider Emergency Medicine; PCP Family Medicine
DX: R18.8 Other ascites (principal)
CPT/HCPCS: 99282

== ENCOUNTER 2024-04-24 14:30 | Outpatient (CLI) | payer MEDICARE, SELFPAY ==
[2024-04-24 14:57] VITALS: BP 116/58; PULSE 62; RESP 14; O2SAT 97
--- NOTE | 2024-04-24 15:57 | PM.EN ---
Chart Event Note Date Seen: 04/24/24 Chart Event Note: Patient is seen for paracentesis. Ultrasound evaluation demonstrates minimal ascites with significant abdominal wall swelling. No paracentesis performed today. Patient to call once he becomes symptomatic. Patient with generalized anasarca, as well as lymphedema to lower extremities. The dressings of his lower extremities were removed. Partial-thickness breakdown of the left anterior tibia. The legs are hairless, shiny and erythematous consistent with chronic inflammation. Recommend swabbing the open areas with Betadine and keeping covered with an adhesive dressing. Tubigrip was placed over the dressings today. A referral was placed to occupational therapy to evaluate for lymphedema. Patient was advised to wear compression as tolerated in elevate legs throughout the day.
== END 2024-04-24 14:31 | disposition home or self-care (01) ==
PROVIDERS: PCP Family Medicine; Visit Provider Surgery
DX: R18.8 Other ascites (principal)
CPT/HCPCS: 76705

== ENCOUNTER 2024-05-04 09:56 | Outpatient (CLI) | payer MEDICARE, SELFPAY ==
[2024-05-04] VITALS (9 sets, daily range): BP systolic 116–130; BP diastolic 51–66; PULSE 60–98; RESP 16; TEMP 36.9; O2SAT 97–99
--- NOTE | 2024-05-04 12:19 | PM.PROC ---
Procedure Note Date Seen: 05/04/24 Date of procedure: 05/04/24 Will [facility] bill your pro fee for this procedure?: Yes Pre-op diagnosis: Abdominal ascites Post-op diagnosis: same Procedure: Paracentesis Procedure Description: After discussion of the risks and benefits the patient was placed supine. Ultrasound guidance was used to identify the pocket of ascites with no evidence of underlying bowel and no abdominal varices. Once this was done the site was marked. The area was prepped and draped in the usual sterile fashion. Local anesthetic was used to anesthetize the skin and subcutaneous tissue down to the peritoneum. Once the peritoneum was encountered, the needle was advanced into the abdomen. This was confirmed by the aspiration of serous fluid. A skin keyon was made with an 11 blade. The paracentesis catheter was advanced into the abdominal cavity while aspirating. Once the abdominal fluid was aspirated confirming entrance into the abdomen, the needle was removed and the sheath advanced. There was some difficulty finding an adequate pocket for uninterrupted flow during the procedure. The patient was moved so that right side was up, which allowed for removal of 7300 mL of fluid Patient tolerated procedure well with no evidence of hypotension. 25% albumin was administered postprocedure. The ultrasound was used to confirm successful aspiration with significantly reduced intra-abdominal fluid. The catheter was then removed. The incision was closed with an interrupted 4-0 Monocryl stitch and Dermabond applied over the skin site. Patient tolerated the procedure well. Estimated blood loss 1 mL Anesthesia: local Estimated blood loss (mL): 1 Pathology: none sent Condition: stable Disposition: same day
== END 2024-05-04 12:30 | disposition home or self-care (01) ==
LOC: US 09:56
PROVIDERS: PCP Family Medicine; Visit Provider Surgery
DX: K70.31 Alcoholic cirrhosis of liver with ascites (principal)
CPT/HCPCS: 49083; P9047

== ENCOUNTER 2024-05-08 10:19 | Emergency (ER) | payer MEDICARE, SELFPAY ==
[2024-05-08 10:46] VITALS: BP 137/61; PULSE 68; RESP 22; TEMP 36.4; O2SAT 95
--- NOTE | 2024-05-08 11:04 | ED_ITS ---
HPI - General Adult General Date Seen: 05/08/24 Chief complaint: Skin/Abscess/Foreign Body Stated complaint: needs hole plugged in his belly Time Seen by Provider: 05/08/24 11:03 History of Present Illness HPI narrative: 78-year-old gentleman with a diagnosis of a liver mass, currently undergoing workup associated ascites. He gets periodic therapeutic paracenteses for ascites. Saw him here in the ER about 2 weeks ago because he had abdominal fluid leaking from his paracentesis puncture site. I was able to over-sew the leaking site and stop the leakage at that visit. He gets therapeutic paracentesis about once every week. He had an outpatient paracentesis 5 days ago on Tuesday. The paracentesis site was in the right mid/lower quadrant. He apparently had a little bit of drainage of clear ascitic fluid after the procedure and the physician placed a absorbable suture. This morning he started leaking from the site and it appears that the suture has dissolved and the site has opened up again. Soaking onto his shirt and into his pants. He is not having any abdominal pain. No bleeding. No fever. He came to the ER because the fluid is still leaking Related Data Previous Rx's ?Medication ?Instructions ?Recorded alfuzosin 10 mg tablet,extended 10 mg PO DAILY #90 tabs 06/14/23 release 24 hr allopurinol 100 mg tablet 100 mg PO QDAY #90 tabs 06/14/23 amlodipine 5 mg tablet 5 mg PO QDAY #90 tabs 06/14/23 gemfibrozil 600 mg tablet 600 mg PO QDAY #90 tabs 06/14/23 hydrochlorothiazide 12.5 mg tablet 12.5 mg PO DAILY #90 tabs 06/14/23 metoprolol succinate 50 mg 50 mg PO QDAY #90 tabs 06/14/23 tablet,extended release 24 hr cephalexin 500 mg capsule 500 mg PO TID 7 days #21 caps 04/05/24 Allergies Allergy/AdvReac Type Severity Reaction Status Date / Time lisinopril Allergy Unknown angioedema Verified 04/05/24 08:55 losartan AdvReac Intermediate elevated Verified 04/05/24 08:55 potassium PFSH PFS Medical History High serum creatinine ?R79.89 - Other specified abnormal findings of blood chemistry (ICD-10) Cholelithiasis ?K80.20 - Calculus of gallbladder without cholecystitis without obstruction (ICD-10) Surgical History History of phacoemulsification of cataract of both eyes with intraocular lens implantation ?Z98.41 - Cataract extraction status, right eye (ICD-10) ?Z98.42 - Cataract extraction status, left eye (ICD-10) ?Z96.1 - Presence of intraocular lens (ICD-10) History of tonsillectomy ?Z90.89 - Acquired absence of other organs (ICD-10) History of appendectomy ?Z90.49 - Acquired absence of other specified parts of digestive tract (ICD- 10) Family History Father Cancer Social History Narrative: former smoker quit in 2000, has 2 children, Smoking Status: Former smoker Do you use any of these nicotine containing products: None Second hand tobacco smoke exposure: No How often do you have a drink containing alcohol: never AUDIT-C Alcohol total score: 0 Non-prescribed substance use: denies use service: Yes Exam Narrative: Exam Narrative: Constitutional: Appears well-developed and well-nourished. Alert and joking. Non-toxic appearing. He is polite and remembers me from his last ER visit. HENT: Head: Atraumatic. No signs of injury. Nose: No nasal discharge. Mouth/Throat: Mucous membranes are moist. Pharynx is normal. Tonsils symmetric. Uvula midline. Airway patent. Eyes: Conjunctivae normal and EOM are normal. Pupils are equal, round, and reactive to light. Right eye exhibits no discharge. Left eye exhibits no discharge. No icterus. Neck: Normal range of motion. Neck supple. No adenopathy. No stridor. Cardiovascular: Normal rate and regular rhythm Brisk capillary refill Pulmonary/Chest: Effort normal. No stridor. No respiratory distress. No wheezes.No rhonchi. No rales. No retractions. Abdominal: Soft. Bowel sounds are normal. Distended from ascites and dull to percussion.. No mass. There is no tenderness. There is no rebound and no guarding. He has a paracentesis puncture site in the right mid lower abdomen it is draining drops of clear/yellow ascitic fluid. No bleeding. No purulent drainage. No surrounding erythema. Musculoskeletal: Normal range of motion. No edema. No tenderness. No deformity. Neurological: Alert. Normal strength. No cranial nerve deficit or sensory deficit. Coordination normal. GCS eye subscore is 4. GCS verbal subscore is 5. GCS motor subscore is 6. Skin: Skin is warm. No rash noted. Const: Vital Signs, click to edit/add: Vital Signs - 24 hr 05/08/24 10:46 Temperature 97.6 F Pulse Rate [Pulse Oximeter] 68 Respiratory Rate 22 Blood Pressure [Ri ght Upper Arm] 137/61 Pulse Oximetry 95 Oxygen Delivery Me thod Room Air Course Vital Signs Vital signs: Initial Vital Signs Temperature 97.6 F 05/08/24 10:46 Temperature Source Temporal Artery Scan 05/08/24 10:46 Pulse Rate 68 05/08/24 10:46 Respiratory Rate 22 05/08/24 10:46 Blood Pressure 137/61 05/08/24 10:46 Blood Pressure Mean 86 05/08/24 10:46 Blood Pressure Position Sitting 05/08/24 10:46 Pulse Oximetry 95 05/08/24 10:46 Oxygen Delivery Method Room Air 05/08/24 10:46 Vital Signs Temperature 97.6 F 05/08/24 10:46 Pulse Rate 68 05/08/24 10:46 Respiratory Rate 22 05/08/24 10:46 Blood Pressure 137/61 05/08/24 10:46 Pulse Oximetry 95 05/08/24 10:46 Oxygen Delivery Method Room Air 05/08/24 10:46 Temperature 97.6 F 05/08/24 10:46 Pulse Rate 68 05/08/24 10:46 Respiratory Rate 22 05/08/24 10:46 Blood Pressure 137/61 05/08/24 10:46 Pulse Oximetry 95 05/08/24 10:46 Oxygen Delivery Method Room Air 05/08/24 10:46 Medical Decision Making MDM Narrative Medical decision making narrative: Pleasant 78-year-old male with a liver mass and resultant ascites presenting to the ER today with ascitic fluid draining from his paracentesis puncture site. He had a routine outpatient paracentesis done last Tuesday and had a dissolvable suture placed. It looks like that suture is dissolved and the paracentesis puncture has now started draining again as of this morning.. He does not have any exam findings for infection around the paracentesis site. No bleeding or bloody ascitic fluid. No tenderness to suggest any intra-abdominal complications such as hollow viscus perforation from the paracentesis. No t enderness to suggest SBP. We sterilized the skin around the leaking site with Betadine.. I injected local anesthetic and placed a single 5 0 Ethilon mattress suture to put good tension on the paracentesis puncture site. With this the drainage ceased. We monitored the patient here in the ER any had no recurrence. A sterile dressing was applied over his paracentesis site. He was comfortable with discharge home and plans to follow up next week for his next paracentesis and he can have his sutures removed at that time (in 7 days). Precautions for return to the ER reviewed He will follow-up next Tuesday to have his suture removed in for his next scheduled paracentesis. Return to the ER if any signs of infection, developing pain or fever, purulent drainage, bloody drainage, recurrent leaking, or any other concerns. Procedure: Suture of paracentesis site to stop ascitic fluid leak Verbal consent was obtained Sterile preparation using Betadine Anesthesia with local infiltration of 2 mL 0.25% bupivacaine. Good anesthesia achieved We placed a 5-0 Ethilon horizontal mattress suture. With this we stop the leakage from the paracentesis puncture site but there was a tiny amount of leakage through the skin of the suture site. No no complications noted Discharge Plan Discharge Clinical Impression: Abdominal ascites Instructions: Ascites (ED), Paracentesis (DC) Additional Instructions: As we discussed, please keep the dressing in place over your stitches. Watch the area for any signs of infection (redness, swelling, pus draining from the wound). Come back to the ER right away if you have any concerns. Please follow-up with your doctors next Tuesday for your next paracentesis and asked them to remove your stitch at that visit. Prescriptions: No Action allopurinol 100 mg tablet 100 mg PO QDAY Qty: 90 3RF amlodipine 5 mg tablet 5 mg PO QDAY Qty: 90 3RF metoprolol succinate 50 mg tablet extended release 24 hr 50 mg PO QDAY Qty: 90 3RF alfuzosin 10 mg tablet extended release 24 hr 10 mg PO DAILY Qty: 90 3RF hydrochlorothiazide 12.5 mg tablet 12.5 mg PO DAILY Qty: 90 3RF gemfibrozil 600 mg tablet 600 mg PO QDAY Qty: 90 3RF cephalexin 500 mg capsule 500 mg PO TID 7 Days Qty: 21 0RF Follow Up/Referrals: Britney Cervantes MD [Primary Care Provider] - Stand Alone Forms: MyHealth Info Instructions
== END 2024-05-08 11:35 | disposition home or self-care (01) ==
LOC: ED 11:32
PROVIDERS: Emergency Provider Emergency Medicine; PCP Family Medicine
DX: T81.89XA Other complications of procedures, not elsewhere classified, initial encounter (principal); K66.9 Disorder of peritoneum, unspecified
CPT/HCPCS: 12001; 99281; 99283

== ENCOUNTER 2024-05-10 10:02 | Outpatient (RCR) | payer MEDICARE, SELFPAY ==
--- NOTE | 2024-05-10 13:55 | OT.OPLE2 ---
OT Outpatient Lymphedema Eval* OT Outpatient Lymphedema Eval* Start: 05/10/24 10:07 Freq: Status: Active Protocol: Document 05/10/24 10:07 ARCADIO (Rec: 05/10/24 13:27 BRADYTeagan [id number]) E-signed By Prerna Contreras OTR/L, CLT OT Outpatient Evaluation Details Type Type Eval Complexity Medium Insurance Information Insurance Information Insurance Information Blue Cross/Blue Shield, Medicare B OT OP Lymphedema Evaluation Current Condition/Medical Diagnosis Referring Provider Dr. Ayers Medical Diagnoses Lymphedema, I89.0 Treatment Diagnosis Lymphedema, I89.0 Date Of Onset Chronic, worse the past 3 months Other Precautions Shortness of Breath/Dyspnea Medical History Medical History Comments Liver failure (Acute) K72.90 - Hepatic failure, unspecified without coma (ICD- 10) Cellulitis (Acute) L03.90 - Cellulitis, unspecified (ICD-10) Osteoarthritis of right hip ( Acute) M16.11 - Unilateral primary osteoarthritis, right hip (ICD -10) Lymphedema (Acute) I89.0 - Lymphedema, not elsewhere classified (ICD-10) Cirrhosis (Acute) K74.60 - Unspecified cirrhosis of liver (ICD-10) Normal echocardiogram (Acute) Chronic kidney disease (Acute) N18.9 - Chronic kidney disease , unspecified (ICD-10) Thrombocytopenia (Acute) D69.6 - Thrombocytopenia, unspecified (ICD-10) Prolonged capillary refill time (Acute) R09.89 - Other specified symptoms and signs involving the circulatory and respiratory systems (ICD-10) BPH (benign prostatic hyperplasia) (Acute) N40.0 - Benign prostatic hyperplasia without lower urinary tract symptoms (ICD-10 ) Nevus of Sergei (Acute) D22.30 - Melanocytic nevi of unspecified part of face (ICD- 10) 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 (Acute) H35.3290 - Exudative age- related macular degeneration, unspecified eye, stage unspecified (ICD-10) Hypertension (Acute 02/13/13) I10 - Essential (primary) hypertension (ICD-10) Hyperlipidemia (Acute 02/13/13 ) E78.5 - Hyperlipidemia, unspecified (ICD-10) Gout (Acute 02/13/13) M10.9 - Gout, unspecified (ICD -10) Eczema (Acute 02/13/13) L30.9 - Dermatitis, unspecified (ICD-10) High serum creatinine R79.89 - Other specified abnormal findings of blood chemistry (ICD-10) Cholelithiasis K80.20 - Calculus of gallbladder without cholecystitis without obstruction (ICD-10) Surgical History Surgical History Surgical History: History of phacoemulsification of cataract of both eyes with intraocular lens implantation Z98.41 - Cataract extraction status, right eye (ICD-10) Z98.42 - Cataract extraction status, left eye (ICD-10) Z96.1 - Presence of intraocular lens (ICD-10) History of tonsillectomy Z90.89 - Acquired absence of other organs (ICD-10) History of appendectomy Z90.49 - Acquired absence of other specified parts of digestive tract (ICD-10) Medications Medications As of 05/08/24 the following are patient's regular medications at this time. allopurinol 100 mg tablet 100 mg PO QDAY Qty: 90 3RF amlodipine 5 mg tablet 5 mg PO QDAY Qty: 90 3RF metoprolol succinate 50 mg tablet extended release 24 hr 50 mg PO QDAY Qty: 90 3RF alfuzosin 10 mg tablet extended release 24 hr 10 mg PO DAILY Qty: 90 3RF hydrochlorothiazide 12.5 mg tablet 12.5 mg PO DAILY Qty: 90 3RF gemfibrozil 600 mg tablet 600 mg PO QDAY Qty: 90 3RF cephalexin 500 mg capsule 500 mg PO TID 7 Days Qty: 21 0RF Contraindications Contraindications General Contraindications Comments former smoker quit in 2000 Family History Family History of Lymphedema No Current Work Status Current Work Status Retired Current Work Status Comments 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 Subjective Subjective 78-year-old gentleman with a diagnosis of a liver mass, currently undergoing workup associated ascites. He gets periodic therapeutic paracenteses for ascites. Has had multiple trips to the ER ( most recent on 05/08/24) because he had abdominal fluid leaking from his paracentesis puncture site. Provider was able to over-sew the leaking site and stop the leakage at that visit. He gets therapeutic paracentesis about once every week. Next paracentesis is scheduled for Tuesday the . Today on OT EVAL (05/10/24) he is not having any abdominal pain, leaking, no bleeding or fever. Therapist took vitals 10:30 am on the R UE seated: 145/70, oxygen on RA 96% and HR 66 bpm. Patient is very wheezy this AM-he states this is typical for him. Living Situation Current Living Situation Home With Spouse Or SO Current Living Situation Comments He now lives in [place] with his Sagrario who still works part-time 2 Adult Children Patient Difficulties Difficulties With Any Of The Following Walking,Dressing,Reaching Feet & Toes,Bathing/Showering, Preparing Meals,Sleeping In Bed Patient Difficulties Comments Patient sleeps on his R side, usually only able to stay asleep for 2-3 durations at a time. Sleep quality is very poor Impairments Impairments Loss of Mobility,Difficulties With ADLs,Limb Heaviness,Poor Clothing Fit Problem List Problem List Limited Knowledge of Lymphedema Treatment/Condition /Precautions,Limited Knowledge of Skin Care & Infection Precautions,Significant Risk For Infection For Lymphedema Related Complications,Does Not Have a HEP,Does Not Know How To Bandage For Limb Reduction, Does Not Have Appropriate Compression Garments For LT Management,Presents With Increased Fall Risk Secondary To Lymphedema,Presents With Impaired Mobility/ROM Exercise History Does Patient Exercise Regularly No Pain Pain Yes Pain Comments Ache/Pressure and heaviness to bilateral LEs ROM/Strength ROM/Strength Comments Due to extra fluid in bilateral LE's patient recently began using a FWW Previous Treatment Previous Treatment/Current Home Program 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 Highly fibrotic in bilateral LE's, from feet to the mid thigh region Skin Changes Hemosiderin Staining,Stasis Dermatitis,Fibrosis,Limited Skin Mobility Skin Changes Comments Patient with generalized anasarca, as well as lymphedema to bilateral lower extremities. Partial- thickness breakdown of the left anterior tibia. The legs are hairless, shiny and erythematous consistent with chronic inflammation. Positive Stemmer's Sign Yes Capillary Refill Slow Type of Swelling Secondary Staging Staging Stage 2 Circumferential Measurements Lower Extremity Left Lower Extremity Great Toe (in cm) 9.2 MTP (in cm) 25.2 Arch (in cm) 25.6 Calcaneus (in cm) 32.5 Ankle (in cm) 30.5 10 cm above Calcaneus Measurement 28.5 20 cm above Calcaneus Measurement 39 30 cm above Calcaneus Measurement 45 40 cm above Calcaneus Measurement 46.5 50 cm above Calcaneus Measurement 54 Total Girth in cm 336.0 Right Lower Extremity Great Toe (in cm) 9.4 MTP (in cm) 25 Arch (in cm) 24.7 Calcaneus (in cm) 33 Ankle (in cm) 31 10 cm above Calcaneus Measurement 31.7 20 cm above Calcaneus Measurement 40.5 30 cm above Calcaneus Measurement 46.5 40 cm above Calcaneus Measurement 51 50 cm above Calcaneus Measurement 53 Total Girth in cm 345.8 Assessment Assessment 78-year-old gentleman with a diagnosis of a liver mass, currently undergoing workup associated ascites. He gets periodic therapeutic paracenteses for ascites. Has had multiple trips to the ER ( most recent on 05/08/24) because he had abdominal fluid leaking from his paracentesis puncture site. Provider was able to over-sew the leaking site and stop the leakage at that visit. He gets therapeutic paracentesis about once every week. Next paracentesis is scheduled for Tuesday the . Today on OT EVAL (05/10/24) he is not having any abdominal pain, leaking, no bleeding or fever. Therapist took vitals 10:30 am on the R UE seated: 145/70, oxygen on RA 96% and HR 66 bpm. Patient is very wheezy this AM-he states this is typical for him. Patient has never been seen for this diagnosis prior and was given a folder with educational materials including Nutrition, Lymphedema Risk Factors, Optimal Skin Hygiene, How to prevent infection, Self- Massage Drainage and how to bandage the LE's with Short Stretch Bandages. Patient was pleasant, alert, orientated, asked great questions in session, was an active listener to information presented and showed signs of motivation/willingness to follow the presented protocol in POC. Sagrario was present for the entire OT EVAL and stated she was willing and able to wrap his legs. Therapist took measurements of bilateral LE's and explained to patient what would occur in the next 4 sessions. PLAN: manual lymph drainage, teach patient self-massage, fit and size patient for compression wraps, customize a home exercise program that fits the needs and ability of patient. Patient was a pleasure to work with today, next visit is 1 week from today. Extra supplies were given to patient /. Patient Goals Patient Goals Be able to walk better Be able to fit into my clothes and shoes -patient had to go up 1 size in shoes and 2 sizes in pants Short Term Goals (# of Weeks) 6 Click To Default Short Term Goals Standard Goals Short Term Goals Goal: Patient and or caregiver will understand lymphedema precautions to decrease risk of infection and further lymphedema related complications Goal: Patient will develop a tolerance for wearing multi- layer, short stretch bandages between treatment sessions to facilitate limb decongestion Goal: Patient will experience decreased pitting edema in order to improve tissue health and decrease risk for infection/cellulitis Goal: Patient will perform HEP with minimal assistance in order to improve lymphatic flow and venous return Goal: Patient will perform self MLD protocol with minimal assistance to help reduce swelling and improve ROM and mobility Usp Goals (# of Weeks) 12 Click To Default Production Specialist Goals Standard Goals Usp Goals Goal: Patient and/or caregiver will be independent with short-stretch compression bandaging for continued volume reduction and prevention of recurrence Goal: Patient will experience increased ROM and mobility in order to improve safety and independence with transfers and mobility Goal: Patient will be independent with donning and doffing of compression garments which will enable regular daily garment wear Goal: Patient will achieve a reduction of cm from total measurements to enable functional improvements such as fitting into standard sized clothing and shoes, return to a prior level of functional mobility, improved balance, and reduced risk of falling. Goal: Patient and/or caregiver will be independent with HEP and lymphedema management to reduce risk for edema relapse and to reduce risk for infection Treatment Plan Treatment Plan Evaluation,Edema Control,Joint Mobilization,Manual Therapy, Wound Care/Scar Management, Therapeutic Exercise, Therapeutic Activities,Self- Care/Home Management,Education Expected Frequency 1-2x Week Expected Duration 12 Certification Certification Statement I Certify That: Therapy Services Provided, Therapy Plan Established, Therapy Plan Reviewed Certification Information Clinic ID # [id number] Initial Certification Date 05/10/24 Recertification Due Date 07/09/24 Provider Signature Required Yes Provider Signature Shows Agreement With POC & Medical Necessity Physician NPI Number Write NPI# Here Physician Comment/Change Comment or Changes Physician Signature & Date Requested Please Sign/Date Here
== END 2024-07-17 13:10 | disposition home or self-care (01) ==
PROVIDERS: PCP Family Medicine; Visit Provider Surgery
DX: I89.0 Lymphedema, not elsewhere classified (principal); Z51.89 Encounter for other specified aftercare
CPT/HCPCS: 97166; 97535

== ENCOUNTER 2024-05-15 13:39 | Outpatient (CLI) | payer MEDICARE, SELFPAY ==
[2024-05-15] VITALS (9 sets, daily range): BP systolic 98–126; BP diastolic 45–60; PULSE 54–73; RESP 16–20; TEMP 36.3; O2SAT 96–100
--- OUTSIDE RECORDS SUMMARY | 2024-05-15 13:41 | XMS_ITS ---
Author Organization [facility] Address [address] [place] [address] Care Team Providers Care Director Of In Service Education Name Role Phone Unavailable Unavailable Unavailable Surgery Details Not on file Complications Check Surgery Details section. Procedure Estimated Blood Loss Check Surgery Details section. Procedure Findings Check Surgery Details section. Procedure Specimens Taken Check Surgery Details section.
--- OUTSIDE RECORDS SUMMARY | 2024-05-15 13:41 | XMS_ITS | Clinical Summary ---
Author Organization [facility] Address [address] [place] [address] Care Team Providers Care City Supervisor Name Role Phone Unavailable Primary Care Provider Unavailabl e Source Comments Patient records contain information from all sites at [facility]. For routine questions regarding patient records, call [phone] during business hours, M-F 8:00 AM - 5:00 PM Central Time. Record requests for emergency care only can be directed to [phone] at any time.[facility] Encounters Date Type Department Care Team Description 05/09/2024 Clinical Communication Division of Gastroenterology in [place], [place] [address] [place] [address] Danial Horta M.D. 05/07/2024 Episode Changes Division of Gastroenterology in [place], [place] [address] [place] [phone] Linda Gavin 05/01/2024 10:00 AM ENAMEL DIPPER Telemedicine Division of Gastroenterology in [place], [place] [address] [place] [phone] Allyssa Martinez R.N. Mass Hepatic (Primary Dx); Other Specified Diseases Of Liver 04/20/2024 Clinical Communication Division of Gastroenterology in [place], [place] [address] [place] [address] Prescheduling, Provider Hepatobiliary (Pre-Visit); Previsit Preparation; OSM - Outside Materials 04/19/2024 Community Orders [facility] [address] [address] [place] [address] Macy Fatima M.D. Unspecified Cirrhosis Of Liver (HCC) (Primary Dx) from Last 3 Months Social History Tobacco Use Types Packs/Day Years Used Date Smoking Tobacco: Never Assessed [facility] Utilities Answer Date Recorded In the past 12 months has th e electric, gas, oil, or water company threatened to shut off services in your home? No 04/25/2024 Exercise Vital Sign Answer Date Recorde d On average, how many days pe r week do you engage in moderate to strenuous exercise (like a brisk walk)? 0 days 04/25/2024 On average, how many minutes do you engage in exercise at this level? 0 min 04/25/2024 Hunger Vital Sign Answer Date Recorded Within the past 12 months, y ou worried that your food would run out before you got the money to buy more. Never true 04/25/20 Ran Out of Food in the Last Year Not on file 04/25/2024 PRAPARE - Transportation Answer Date Re corded In the past 12 months, has l ack of transportation kept you from medical appointments or from getting medications? No 03/29 In the past 12 months, has l ack of transportation kept you from meetings, work, or from getting things needed for daily living? No 04/25/2024 Nutrition Answer Date Recorded On average, how many serving s of fruits and vegetables do you eat per day (serving size is equal to 1 cup or approximately the size of a tennis ball)? 3-5 04/25/2024 Dental Answer Date Recorded Dental: Regular Dentist No 04/25/20 Employment Answer Date Recorded Employment status Retired 04/25/2024 Housing Stability Answer Date Recorded What is your living situation today? I have a [facility] place to live 04/25/2024 Sex and Gender Information Value Date Recorded Sex Assigned at Male 04/25/2024 10:58 AM CDT Legal Sex Male 4:01 PM CDT Gender Identity Male 04/25/2024 10:58 AM CDT Sexual Orientation Straight 04/25/2024 10 :58 AM CDT Plan of Treatment Upcoming Encounters Date Type Department Care Team (Latest Contact Info) Description 05/16/2024 10:30 AM ENAMEL DIPPER Clinical Communication Virtual Review in [place], [place] [address] [place] [address] 05/17/2024 4:45 PM ENAMEL DIPPER Appointment Department of Radiology, [facility], in [place], [place] [address] [place] [address] Danial Horta M.D. [address] [place] [phone] 05/18/2024 7:15 AM ENAMEL DIPPER Appointment Department of Radiology, [facility] in [place], [place] [address] [place] [address] Danial Horta M.D. [address] [place] [phone] Discharge Disposition: Home or Self Care 05/18/2024 7:40 AM ENAMEL DIPPER Appointment Department of Laboratory Medicine and Pathology, [facility] in [place], [place] [address] [place] [address] Danial Horta M.D. [address] [place] [phone] 05/18/2024 2:00 PM ENAMEL DIPPER Comprehensive Visit Division of Gastroenterology in [place], [place] [address] [place] [phone] Macy Fatima M.D. [address] [address] [place] [phone] Edmond Pardo M.B.BCarlozSCarloz [address] [place] [phone] Health Maintenance Due Date Last Done Comments Hepatitis C Screening 1945 Zoster Vaccines (1 of 2) 1996 Pneumococcal vaccine (65+ years) (1 of 1 - PCV) 10/28/2011 DTaP,Tdap,and Td Vaccines (1 - Tdap) 03/06/2014 03/05/2014 RSV vaccine - (32-3 6 weeks) or 60+ years (1 - 1-dose 75+ series) 2021 Depression Screening (Annual PHQ-2) 06/27/2023 Fall Risk Screen (Annual) 06/27/2023 COVID-19 Vaccine (2023-2 5 season) 2024 09/23/2020, 09/02/2020 Influenza Vaccine (#1) 2024 IPV Vaccines Aged Out No longer eligi ble based on patient's age to complete this topic Insurance [facility]
--- OUTSIDE RECORDS SUMMARY | 2024-05-15 13:41 | XMS_ITS | Encounter Summary ---
Author Organization [facility] Address [address] [place] [address] Care Team Providers Care Retort Load Expediter Name Role Phone Unavailable Primary Care Provider Unavailabl e Encounter Details Date Type Department Care Team (Latest Contact Info) Description 05/09/2024 Clinical Communication Division of Gastroenterology in [place], [place] [address] [place] [address] Danial Horta M.D. [address] [place] [phone] Social History Tobacco Use Types Packs/Day Years Used Date Smoking Tobacco: Never Assessed [facility] Utilities Answer Date Recorded In the past 12 months has [employer] electric, gas, oil, or water company threatened [...] money to buy more. Never true 04/25/20 24 Ran Out of Food in the Last [...] your living situation today? I have a [facility] place to live 04/25/2024 Sex and Gender Information Value Date Recorded Sex Assigned at Male 04/25/2024 10:58 AM CDT Legal Sex Male 4:01 PM CDT Gender Identity Male 04/25/2024 10:58 AM CDT Sexual Orientation Straight 04/25/2024 10 :58 AM CDT documented as of this encounter Plan of Treatment Upcoming Encounters Date Type Department Care Team (Latest Contact Info) Description 05/16/2024 10:30 AM FOOD SERVICE KITCHEN SUPERVISOR Clinical Communication Virtual Review in [place], [place] 200 [place] [address] 05/17/2024 4:45 PM FOOD SERVICE KITCHEN SUPERVISOR Appointment Department of Radiology, [place], [place] [address] [place] [phone] Danial Horta M.D. [address] [place] [phone] 05/18/2024 7:15 AM FOOD SERVICE KITCHEN SUPERVISOR Appointment Department of Radiology, [facility] in [place], [place] [address] [place] [phone] Danial Horta M.D. [address] [place] [phone] Discharge Disposition: Home or Self Care 05/18/2024 7:40 AM FOOD SERVICE KITCHEN SUPERVISOR Appointment Department of Laboratory Medicine and Pathology, [facility] in [place], [place] [address] [place] [phone] Danial Horta M.D. [address] [place] [phone] 05/18/2024 2:00 PM FOOD SERVICE KITCHEN SUPERVISOR Comprehensive Visit Division of Gastroenterology in [place], [place] [address] [place] [address] Macy Fatima M.D. [address] [address] [place] [phone] Edmond Pardo M.B.B.S. [address] [place] [address] documented as of this encounter Visit Diagnoses Not on filedocumented in this encounter
--- OUTSIDE RECORDS SUMMARY | 2024-05-15 13:41 | XMS_ITS | Referral Summary ---
Author Organization [facility] Address [address] [place] [address] Care Team Providers Care Music Supervisor Name Role Phone Unavailable Primary Care Provider Unavailabl e Source Comments Patient records contain information from all sites at [facility]. For routine questions regarding patient records, call [phone] during business hours, M-F 8:00 AM - 5:00 PM Central Time. Record requests for emergency care only can be directed to [phone] at any time.[facility] Encounters Date Type Department Care Team Description 05/09/2024 Clinical Communication Division of Gastroenterology in [place], [place] [address] [place] [address] Danial Horta M.D. 05/07/2024 Episode Changes Division of Gastroenterology in [place], [place] [address] [place] [phone] Linda Gavin 05/01/2024 10:00 AM ROOM SERVICE RUNNER Telemedicine Division of Gastroenterology in [place], [place] [address] [place] [phone] Allyssa Martinez R.N. Mass Hepatic (Primary Dx); Other Specified Diseases Of Liver 04/20/2024 Clinical Communication Division of Gastroenterology in [place], [place] [address] [place] [address] Prescheduling, Provider Hepatobiliary (Pre-Visit); Previsit Preparation; [facility]SM - Outside Materials 04/19/2024 Community Orders [facility] [address] [address] [place] [address] Macy Fatima M.D. Unspecified Cirrhosis Of Liver (HCC) (Primary Dx) from Last 3 Months Social History Tobacco Use Types Packs/Day Years Used Date Smoking Tobacco: Never Assessed [facility] Utilities Answer Date Recorded In the past [...] your living situation today? I have a [facility] place to live 04/25/2024 Sex and Gender Information Value Date Recorded Sex Assigned at Male 04/25/2024 10:58 AM CDT Legal Sex Male 4:01 PM CDT Gender Identity Male 04/25/2024 10:58 AM CDT Sexual Orientation Straight 04/25/2024 10 :58 AM CDT Plan of Treatment Upcoming Encounters Date Type Department Care Team (Latest Contact Info) Description 05/16/2024 10:30 AM ROOM SERVICE RUNNER Clinical Communication Virtual Review in [place], [place] [address] [place] [address] 05/17/2024 4:45 PM ROOM SERVICE RUNNER Appointment Department of Radiology, [facility], in [place], [place] [address] [place] [address] Danial Horta M.D. [address] [place] [phone] 05/18/2024 7:15 AM ROOM SERVICE RUNNER Appointment Department of Radiology, [facility] in [place], [place] [address] [place] [address] Danial Horta M.D. [address] [place] [phone] Discharge Disposition: Home or Self Care 05/18/2024 7:40 AM ROOM SERVICE RUNNER Appointment Department of Laboratory Medicine and Pathology, [facility] in [place], [place] [address] [place] [address] Danial Horta M.D. [address] [place] [phone] 05/18/2024 2:00 PM ROOM SERVICE RUNNER Comprehensive Visit Division of Gastroenterology in [place], [place] [address] [place] [address] Macy Fatima M.D. [address] [address] [place] [address] Edmond Pardo M.B.B.SCarloz [address] [place] [phone] Insurance [facility]
--- OUTSIDE RECORDS SUMMARY | 2024-05-15 13:41 | XMS_ITS | Encounter Summary ---
Author Organization [facility] Address [address] [place] [address] Care Team Providers Care Sign Artist Name Role Phone Unavailable Primary Care Provider Unavailabl e Encounter Details Date Type Department Care Team (Late st Contact Info) Description 05/07/2024 Episode Changes Division of Gastroenterology in [place], [place] [address] [place] [address] Linda Gavin Social History Tobacco Use Types Packs/Day Years Used Date Smoking Tobacco: Never Assessed [facility] Utilities Answer Date Recorded In the past 12 months has e [employer], gas, oil, or water [employer] threatened to shut off services in your [...] your living situation today? I have a [facility] place to live 04/25/2024 Sex and Gender Information Value Date Recorded Sex Assigned at Male 04/25/2024 10:58 AM CDT Legal Sex Male 4:01 PM CDT Gender Identity Male 04/25/2024 10:58 AM CDT Sexual Orientation Straight 04/25/2024 10 :58 AM CDT documented as of this encounter Plan of Treatment Upcoming Encounters Date Type Department Care Team (Latest Contact Info) Description 05/16/2024 10:30 AM SENIOR LINUX SYSTEMS ADMINISTRATOR Clinical Communication Virtual Review in [place], [place] [address] [place] [address] 05/17/2024 4:45 PM SENIOR LINUX SYSTEMS ADMINISTRATOR Appointment Department of Radiology, [facility] in [place], [place] [address] [place] [phone] Danial Horta M.D. [address] [place] [phone] 05/18/2024 7:15 AM SENIOR LINUX SYSTEMS ADMINISTRATOR Appointment Department of Radiology, [facility] in [place], [place] [address] [place] [address] Danial Horta M.D. [address] [place] [phone] Discharge Disposition: Home or Self Care 05/18/2024 7:40 AM SENIOR LINUX SYSTEMS ADMINISTRATOR Appointment Department of Laboratory Medicine and Pathology, [facility] in [place], [place] [address] [place] [phone] Danial Horta M.D. [address] [place] [phone] 05/18/2024 2:00 PM SENIOR LINUX SYSTEMS ADMINISTRATOR Comprehensive Visit Division of Gastroenterology in [place], [place] [address] [place] [phone] Macy Fatima M.D. [address] [address] [place] [address] Edmond Pardo M.B.BCarlozS. [address] [place] [address] documented as of this encounter Visit Diagnoses Not on filedocumented in this encounter
--- OUTSIDE RECORDS SUMMARY | 2024-05-15 13:42 | XMS_ITS | Clinical Summary ---
Author Organization [facility] Address [address] [place] [address] Care Team Providers Care Sales Recruiter Name Role Phone Unassigned, Provider Primary Care Provider Unava ilable Source Comments You are receiving this document as you are listed as the primary care provider,follow-up provider, or the patient has been referred to you for consultation.This is in compliance with the Medicare and[facility] EHR Incentive Program,which states Providers who transition their patient to another setting of careor provider of care or refers their patient to another provider of care shouldprovide summary care record for each transition of care or referral. [facility] Allergies No known active allergies Medications Medication Sig Dispensed Refills Start Date End Date Status metoprolol tartrate (LOPRESSOR) 25 MG tablet Take 25 mg by mouth two times a day. Active LISINOPRIL OR Active GEMFIBROZIL OR Active ALLOPURINOL OR Active amoxicillin (AMOXIL) 500 MG capsule Take 1 Cap by mouth three times a day. 21 Cap 09/14/2017 Active Additional Information Patient not taking.Reported on 02/09/2021 ibuprofen (MOTRIN) 800 MG tablet Take 1 Tab by mouth every 8 hours as needed for Pain. 30 Tab 09/14/2017 Active Additional Information Patient not taking.Reported on 02/09/2021 hydroCHLOROthiazide 12.5 MG capsule Take 12.5 mg by mouth daily. Active alfuzosin (UROXATRAL) 10 MG 24 hour release tablet Take 10 mg by mouth daily after a meal. Active AMLODIPINE BESYLATE OR daily. Active Active Problems No known active problems Social History Tobacco Use Types Packs/Day Years Used Date Smoking Tobacco: Former Cigarettes Q uit: 08/24/2000 Smokeless Tobacco: Never Alcohol Use Standard Drinks/Week Comments Yes 0 (1 standard drink = 0.6 oz pur e alcohol) Sex and Gender Information Value Date Recorded Sex Assigned at Not on file Gender Identity Not on file Sexual Orientation Not on file Last Filed Vital Signs Vital Sign Reading Time Taken Comments Blood Pressure 150/70 09/14/2017 10:35 AM CDT Pulse 59 02/09/2021 2:11 PM CDT Temperature - - Respiratory Rate - - Oxygen Saturation - - Inhaled Oxygen Concentration - - Weight - - Height - - Body Mass Index - - Plan of Treatment Health Maintenance Due Date Last Done Comments Hep C Screening (Preventive Services) 1945 Adult Preventive Visit 1963 Zoster/Shingles (1 of 2) 1996 Pneumococcal 65+ Yrs (1 - PCV) 10/28/2011 DTaP/Tdap/Td (1 - Tdap) 03/06/2014 03/05/2014 RSV (1 - 1-dose 75+ series) 2021 COVID-19 Vaccine (3 - 2023-2 5 season) 2024 09/23/2020, 09/02/2020 Influenza (#1) 2024 HepA Aged Out No longer eligi ble based on patient's age to complete this topic HepB Aged Out No longer eligi ble based on patient's age to complete this topic Hib Aged Out No longer eligi ble based on patient's age to complete this topic IPV (Polio) Aged Out No longer eligi ble based on patient's age to complete this topic RSV Aged Out No longer eligi ble based on patient's age to complete this topic MCV4 Aged Out No longer eligi ble based on patient's age to complete this topic Care Teams Sales Recruiter Relationship Specialty Start Date End Date Unassigned, Provider [address] [place] [address] PCP - General 01/14/03
--- OUTSIDE RECORDS SUMMARY | 2024-05-15 13:42 | XMS_ITS | Encounter Summary ---
Author Organization [facility] Address [address] [place] [address] Care Team Providers Care Product Demonstrator Name Role Phone Unavailable Primary Care Provider Unavailabl e Reason for Referral * Outpatient (Routine) - Authorized Specialty Diagnoses / Procedures Referred By Contact Referred To Contact Gastroenterology and Hepatology Diagnoses Unspecified Cirrhosis Of Liver (HCC) Macy Fatima M.D. [address] [address] [place] [address] Phone: tel: fax: [facility] Referral ID Status Reason Start Date Expiration Date V isits Requested Visits Authorized [id number] Authorized 04/19/2024 10/19/2025 1 1 Encounter Details Date Type Department Care Team (Late st Contact Info) Description 04/19/2024 Community Orders [facility] [address] [address] [place] [phone] Macy Fatima M.D. [address] [address] [place] [phone] Unspecified Cirrhosis Of Liver (HCC) (Primary Dx) Social History Tobacco Use Types Packs/Day Years Used Date Smoking Tobacco: Never Assessed [facility] Utilities Answer Date Recorded In the past 12 months has e electric, gas, oil, or water company [...] your living situation today? I have a [facility] place to live 04/25/2024 Sex and Gender Information Value Date Recorded Sex Assigned at Male 04/25/2024 10:58 AM CDT Legal Sex Male 4:01 PM CDT Gender Identity Male 04/25/2024 10:58 AM CDT Sexual Orientation Straight 04/25/2024 10 :58 AM CDT documented as of this encounter Plan of Treatment Upcoming Encounters Date Type Department Care Team (Latest Contact Info) Description 05/16/2024 10:30 AM MERCHANDISING PROFESSOR Clinical Communication Virtual Review in [place], [place] [address] [place] [address] 05/17/2024 4:45 PM MERCHANDISING PROFESSOR Appointment Department of Radiology, [facility], in [place], [place] [address] [place] [address] Danial Horta M.D. [address] [place] [address] 05/18/2024 7:15 AM MERCHANDISING PROFESSOR Appointment Department of Radiology, [facility], in [place], [place] [address] [place] [address] Danial Horta M.D. [address] [place] [phone] Discharge Disposition: Home or Self Care 05/18/2024 7:40 AM MERCHANDISING PROFESSOR Appointment Department of Laboratory Medicine and Pathology, [facility] in [place], [place] [address] [place] [address] Danial Horta M.D. [address] [place] [phone] 05/18/2024 2:00 PM MERCHANDISING PROFESSOR Comprehensive Visit Division of Gastroenterology in [place], [place] [address] [place] [phone] Macy Fatima M.D. [address] [address] [place] [address] Edmond Pardo M.B.BCarlozSCarloz [address] [place] [phone] Scheduled Referrals Name Type Priority Associated Diagnoses Order Schedule Gastroenterology & Hepatology Referral Outpatient Referral Routine Unspecified Cirrhosis Of Liver (HCC) Expected: 04/19/2024 (Approximate), Expires: 07/20/2025 documented as of this encounter Visit Diagnoses Diagnosis Unspecified Cirrhosis Of Liver (HCC)- Primary documented in this encounter
--- OUTSIDE RECORDS SUMMARY | 2024-05-15 13:42 | XMS_ITS | Encounter Summary ---
Author Organization [facility] Address [address] [place] [address] Care Team Providers Care Inspector Machined Parts Name Role Phone Unavailable Primary Care Provider Unavailabl e Reason for Visit * Reason Onset Date Comments Hepatobiliary 04/20/2024 Pre-Visit Previsit Preparation 04/20/2024 OSM - Outside Materials 04/20/2024 Encounter Details Date Type Department Care Team (Latest Contact Info) Description 04/20/2024 Clinical Communication Division of Gastroenterology in [place], [place] [address] [place] [phone] Prescheduling, Provider Hepatobiliary (Pre-Visit); Previsit Preparation; OSM - Outside Materials Social History Tobacco Use Types Packs/Day Years Used Date Smoking Tobacco: Never Assessed Dental Answer Date Recorded Dental: Regular Dentist Unknown 04/19/20 Sex and Gender Information Value Date Recorded Sex Assigned at Male 04/25/2024 10:58 AM CDT Legal Sex Male 4:01 PM CDT Gender Identity Male 04/25/2024 10:58 AM CDT Sexual Orientation Straight 04/25/2024 10 :58 AM CDT documented as of this encounter Plan of Treatment Upcoming Encounters Date Type Department Care Team (Latest Contact Info) Description 05/16/2024 10:30 AM LIVESTOCK AUCTIONEER Clinical Communication Virtual Review in [place], [place] [address] [place] [phone] 05/17/2024 4:45 PM LIVESTOCK AUCTIONEER Appointment Department of Radiology, [facility], in [place], [place] [address] [place] [phone] Danial Horta M.D. [address] [place] [phone] 05/18/2024 7:15 AM LIVESTOCK AUCTIONEER Appointment Department of Radiology, [facility] in [place], [place] [address] [place] [address] Danial Horta M.D. [address] [place] [phone] Discharge Disposition: Home or Self Care 05/18/2024 7:40 AM LIVESTOCK AUCTIONEER Appointment Department of Laboratory Medicine and Pathology, [facility] in [place], [place] [address] [place] [address] Danial Horta M.D. [address] [place] [phone] 05/18/2024 2:00 PM LIVESTOCK AUCTIONEER Comprehensive Visit Division of Gastroenterology in [place], [place] [address] [place] [phone] Macy Fatima M.D. [address] [address] [place] [address] Edmond Pardo M.B.BCarlozS. [address] [place] [phone] documented as of this encounter Visit Diagnoses Not on filedocumented in this encounter
--- OUTSIDE RECORDS SUMMARY | 2024-05-15 13:42 | XMS_ITS | Clinical Summary ---
Author Organization [facility] Address [place], [place] [address] Care Team Providers Care Archery Equipment Repairer Name Role Phone Andressa Lynn Chew RN, BSN Unavailable [phone] Allergies Active Allergy Reactions Criticality Noted Date Comments Aspirin Intolerance-Can't Take 12/03/2009 Nose bleeds Medications Medication Sig Dispensed Refills Start Date End Date Status lisinopril (PRINIVIL; ZESTRIL) 40 mg tabletIndications:Unspec ified essential hypertension Take 1 tablet by mouth once daily. 90 tablet 2 10/09/2010 Active febuxostat (ULORIC) 40 mg tablet Take 1 tablet by mouth every morning. 30 Tab 0 10/12/2010 Active indomethacin (INDOCIN) 50 mg capsule Take 1 capsule by mouth 3 times daily with meals. 30 capsule 3 05/27/2011 Active gemfibrozil (LOPID) 600 mg tabletIndications:Pure hyperglyceridemia Take 1 tablet by mouth 2 times daily before meals. 180 tablet 1 05/27/2011 Active fluocinonide 0.05% topical (LIDEX) 0.05 % cream Apply to scalp as needed 30 g 2 05/27/2011 Active lisinopril (PRINIVIL; ZESTRIL) 20 mg tablet Take 1 tablet by mouth once daily. 90 tablet 1 05/27/2011 Active allopurinol (ZYLOPRIM) 100 mg tablet TAKE ONE TABLET BY MOUTH TWICE DAILY 60 tablet 1 11/19/2011 Active metoprolol (TOPROL XL) 50 mg XL tabletIndications:Unspec ified essential hypertension TAKE 1 TABLET BY MOUTH ONCE DAILY 90 tablet 1 12/06/2011 Active Active Problems Problem Noted Date Diagnosed Date Gout, unspecified 10/09/2010 Hyperuricemia 10/09/2010 CKD (chronic kidney disease) 12/03/2009 HYPERTRIGLYCERIDEMIA 09/03/2004 HYPERTENSION - ESSENTIAL 08/20/2004 RASH, OTH NONSPECIFIC SKIN ERUPTION 11/14/2000 Resolved Problems Problem Noted Date Diagnosed Date Resolved Date Renal insufficiency 11/28/2008 12/04/19 10 Family History Medical History Relation Name Comments Genetic Other Father of cancer (?)~Mother, had brest tumor.~No HTN.~Has older brother had NM in his 60. Relation Name Status Comments Other Social History Tobacco Use Types Packs/Day Years Used Date Smoking Tobacco: Former Cigarettes Q uit: 07/12/2000 Alcohol Use Standard Drinks/Week Comments Not Asked 0 (1 standard drink = 0.6 oz pur e alcohol) Sex and Gender Information Value Date Recorded Sex Assigned at Not on file Gender Identity Not on file Sexual Orientation Not on file Obstetrics History Last Filed Vital Signs Vital Sign Reading Time Taken Comments Blood Pressure 122/62 05/27/2011 7:59 AM DRY HOUSE OPERATOR Pulse 60 05/27/2011 7:59 AM DRY HOUSE OPERATOR Temperature 36.8 C (98.2 F) 07/29/2006 8:20 AM DRY HOUSE OPERATOR Respiratory Rate 16 05/27/2011 7:59 AM DRY HOUSE OPERATOR Oxygen Saturation - - Inhaled Oxygen Concentration - - Weight 84.8 kg (186 lb 14.4 oz) 05/27/2011 7:59 AM DRY HOUSE OPERATOR Height - - Body Mass Index - - Plan of Treatment Health Maintenance Due Date Last Done Comments Tdap 1957 Depression screening for age 12+ 1958 BMI (ht and wt on same day) for age 18+ 1964 Hepatitis C screening for age 18-79 1964 Tetanus booster 1966 Zoster (shingles) series for age 50+ (1 of 2) 10/27/18 97 Pneumococcal series for age 65+ (1 of 1 - PCV) 012 RSV vaccine for adults or pr egnancy (1 - 1-dose 75+ series) 2021 COVID-19 vaccine series ( - 2023-25 season) 4 Influenza for age 65+ 02/26/2024 Care Teams Archery Equipment Repairer Relationship Specialty Start Date End Date October, Lynn Chew RN, BSN [address] [address] Nurse Navigator - Oncology Oncology 04/17/24
--- OUTSIDE RECORDS SUMMARY | 2024-05-15 13:42 | XMS_ITS | Encounter Summary ---
Author Organization [facility] Address [address] [place] [id number] Care Team Providers Care Ehs Teacher Name Role Phone Unavailable Primary Care Provider Unavailabl e Reason for Referral * Outpatient (Routine) - Authorized Specialty Diagnoses / Procedures Referred By Contac t Referred To Contact Medical Oncology / Oncology Diagnoses Mass Hepatic Danial Horta M.D. [address] [place] [address] Phone: tel: fax: [facility] Referral ID Status Reason Start Date Expiration Date V isits Requested Visits Authorized [id number] Authorized 05/01/2024 10/31/2025 1 1 SLATIVE DIRECTOR * MRI/CAT/PET Scan (Routine) - Authorized Specialty Diagnoses / Procedures Referred By Contac t Referred To Contact Radiology Diagnoses Mass Hepatic Procedures CT Chest without IV Contrast Danial Horta M.D. [address] [place] [address] Phone: tel: fax: [facility] Referral ID Status Reason Start Date Expiration Date V isits Requested Visits Authorized [id number] Authorized 05/01/2024 05/01/2025 1 1 SLATIVE DIRECTOR * MRI/CAT/PET Scan (Routine) - Authorized Specialty Diagnoses / Procedures Referred By Contac t Referred To Contact Radiology Diagnoses Mass Hepatic Procedures MR Abdomen without and with IV Contrast Danial Horta M.D. [address] [place] [phone] Phone: tel: fax: [facility] Referral ID Status Reason Start Date Expiration Date V isits Requested Visits Authorized [id number] Authorized 05/01/2024 05/01/2025 1 1 SLATIVE DIRECTOR Reason for Visit * Reason Comments Hepatobiliary Nurse Visit * Appointment Request (Routine) - Authorized Specialty Diagnoses / Procedures Referred By Contact Referred To Contact Gastroenterology and Hepatology Diagnoses Mass Hepatic Unspecified Cirrhosis Of Liver (HCC) Ascites Trisha Ellison N.P. [address] [address] [place] [address] Phone: tel: fax: Referral ID Status Reason Start Date Expiration Date V isits Requested Visits Authorized [id number] Authorized 04/19/2024 04/19/2025 2 2 Encounter Details Date Type Department Care Team (Latest Contact Info) Description 05/01/2024 10:00 AM LEGISLATIVE DIRECTOR Telemedicine Division of Gastroenterology in [place], [place] [address] [place] [address] Allyssa Martinez, R.N. Mass Hepatic (Primary Dx); Other Specified Diseases Of Liver Social History Tobacco Use Types Packs/Day Years Used Date Smoking Tobacco: Never Assessed [facility] Utilities Answer Date Recorded In [...] your living situation today? I have a [facility] place to live 04/25/2024 Sex and Gender Information Value Date Recorded Sex Assigned at Male 04/25/2024 10:58 AM CDT Legal Sex Male 4:01 PM CDT Gender Identity Male 04/25/2024 10:58 AM CDT Sexual Orientation Straight 04/25/2024 10 :58 AM CDT documented as of this encounter H&P Notes * Allyssa Martinez R.N. - 05/01/2024 10:00 AM CST Reason for Visit Gastroenterology and Hepatology RN Pre-Visit. Patient contacted [facility] requesting on-campus appointment; pre-visit was scheduled following that request. Completed administrative pre-visit discussion to better understand patient goals and the needed patient itinerary for the requested on-site visit. This pre-visit does not establish a long-term relationship. This interview occurred via phone call by Allyssa Martinez R.N. at [facility] to the patient in the patient's home. The information below is based on review of available medical records and a virtual conversation with the patient. History of Present Illness Mr. Phillips is a 78 y.o. male who is being interviewed for a pre-visit encounter. Our records indicate that Mr. Phillips is seeking an appointment at [facility] for further evaluation. Mr. Phillips states goals for this visit are to seek further work-up for a newly identified liver mass. Mr. Phillips was diagnosed with cirrhosis this summer after experiencing shortness of breath and lower extremity edema. An MRI on 04/04 showed a large lesion in segment 7, 11.7 by 13.3 cm. The MRI wasdifficult to evaluate due to artifact but it was determined to be a LiRads 5 lesion. Mr. Phillips is undergoing weekly paracentesis for ascites. He also has BLE edema and chronic kidney disease. He would like to come to [place] for further work up. We do not have images. Blood work: 04/09 AFP 12 CEA 2.9 CA 19-9 14 Mr. Phillips is quite fatigued. Diagnosed with cirrhosis in December and stopped ETOH in December. No othersignificant medical history. He is able to travel to [place] for a face to face visit. ASSESSMENT / PLAN Patient information will be shared with the hepatology care team to determine a plan for the patient. Informed patient that our scheduling team will contact him within 5-7 business days to discuss appointment scheduling if appropriate. Patient to continue to direct health-related questions to localcare provider until seen for consultation appointment. The following information also shared with the patient: Patient aware and agreeable to charges for re-reads of externally completed imaging. and We will discuss your medical case with our specialty consultation team. Your needs may or may not be appropriate for our clinical specialty. There may be a possibility that you should continue your care with your local provider. This may happen if our specialty providers feel your current plan of care is already appropriate for you or if there are no additional recommendations we would add to your plan of care Image read:Yes Francine provider: TERI 05/01 Schedule details/sequence: Blood work and tumor markers MRI CT Chest Hneo consultation Palliative care consultation Medical oncology consultation SLATIVE DIRECTOR documented in this encounter Plan of Treatment Upcoming Encounters Date Type Department Care Team (Latest Contact Info) Description 05/16/2024 10:30 AM LEGISLATIVE DIRECTOR Clinical Communication Virtual Review in [place], [place] [address] [place] [phone] 05/17/2024 4:45 PM LEGISLATIVE DIRECTOR Appointment Department of Radiology, [facility], in [place], [place] [address] [place] [phone] Danial Horta M.D. [address] [place] [phone] 05/18/2024 7:15 AM LEGISLATIVE DIRECTOR Appointment Department of Radiology, [facility], in [place], [place] [address] [place] [address] Danial Horta M.D. [address] [place] [phone] Discharge Disposition: Home or Self Care 05/18/2024 7:40 AM LEGISLATIVE DIRECTOR Appointment Department of Laboratory Medicine and Pathology, [facility] in [place], [place] [address] [place] [address] Danial Horta M.D. [address] [place] [phone] 05/18/2024 2:00 PM LEGISLATIVE DIRECTOR Comprehensive Visit Division of Gastroenterology in [place], [place] [address] [place] [address] Macy Fatima M.D. [address] [address] [place] [address] Edmond Pardo M.B.BCarlozSCarloz [address] [place] [address] Scheduled Orders Name Type Priority Associated Diagnoses Order Schedule AFP (Alpha-Fetoprotein) L3% and Total, Hepatocellular Carcinoma Tumor Marker Lab Routine Mass Hepatic Expected: 05/08/2024, Expires: 05/01/2025 Basic Metabolic Panel Lab Routine Mass Hepatic Expected: 05/08/2024, Expires: 05/01/2025 CEA (Carcinoembryonic Antigen) Lab Routine Mass Hepatic Expected: 05/08/2024, Expires: 08/01/2025 CBC with Differential, Blood Lab Routine Mass Hepatic Expected: 05/08/2024, Expires: 05/01/2025 Carbohydrate Antigen 19-9 (CA 19-9) Lab Routine Mass Hepatic Expected: 05/08/2024, Expires: 05/01/2025 Hepatic Function Panel Lab Routine Mass Hepatic Expected: 05/08/2024, Expires: 05/01/2025 Prothrombin Time (PT) Lab Routine Mass Hepatic Expected: 05/08/2024, Expires: 05/01/2025 MR Abdomen without and with IV Contrast Imaging RAD - Routine (most inpatients and all outpatients) Mass Hepatic Expected: 05/08/2024, Expires: 05/01/2025 CT Chest without IV Contrast Imaging RAD - Routine (most inpatients and all outpatients) Mass Hepatic Expected: 05/18/2024, Expires: 08/01/2025 Scheduled Referrals Name Type Priority Associated Diagnoses Orde r Schedule Oncology - Medical, GI consult (clinic) Outpatient Referral Routine Mass Hepatic Expected: 05/08/2024, Expires: 08/01/2025 documented as of this encounter Visit Diagnoses Diagnosis Mass Hepatic- Primary Other Specified Diseases Of Liver documented in this encounter
--- NOTE | 2024-05-15 15:25 | P.PCN_ITS ---
Procedure Note Date Seen: 05/15/24 Will [facility] bill your pro fee for this procedure?: Yes Pre-op diagnosis: Abdominal ascites Post-op diagnosis: same Procedure: Paracentesis Procedure Description: After discussion of the risks and benefits the patient was placed supine. Ultrasound guidance was used to identify the pocket of ascites with no evidence of underlying bowel and no abdominal varices. The best pocket was in the left lower quadrant. Once this was done the site was marked. The area was prepped and draped in the usual sterile fashion. Local anesthetic was used to anesthetize the skin and subcutaneous tissue down to the peritoneum. Once the peritoneum was encountered, the needle was advanced into the abdomen. This was confirmed by the aspiration of serous fluid. A skin keyon was made with an 11 blade. The paracentesis catheter was advanced into the abdominal cavity while aspirating. Once the abdominal fluid was aspirated confirming entrance into the abdomen, the needle was removed and the sheath advanced. 9600 mL of fluid were then aspirated. Patient tolerated procedure well with no evidence of hypotension. Two vials of 25% albumin were administered. The ultrasound was used to confirm successful aspiration with significantly reduced intra-abdominal fluid. The catheter was then removed. The site was closed with interrupted 4-0 Monocryl suture and dressed with 4 x 4 and Tegaderm dressing. Patient tolerated the procedure well. Estimated blood loss 1 mL Anesthesia: local Surgeon: Joselin Ayers MD Estimated blood loss (mL): 0 Pathology: none sent Condition: stable Disposition: same day
== END 2024-05-15 16:17 | disposition home or self-care (01) ==
LOC: US 13:39
PROVIDERS: PCP Family Medicine; Visit Provider Surgery
DX: K70.31 Alcoholic cirrhosis of liver with ascites (principal)
CPT/HCPCS: 49083

== ENCOUNTER 2024-05-23 10:34 | Outpatient (CLI) | payer MEDICARE, SELFPAY ==
--- OUTSIDE RECORDS SUMMARY | 2024-05-23 10:36 | XMS_ITS ---
Author Organization [facility] Address [address] [place] [address] Care Team Providers Care Photographic Enlarger Operator Name Role Phone Unavailable Unavailable Unavailable Surgery Details Not on file Complications Check Surgery Details section. Procedure Estimated Blood Loss Check Surgery Details section. Procedure Findings Check Surgery Details section. Procedure Specimens Taken Check Surgery Details section.
--- OUTSIDE RECORDS SUMMARY | 2024-05-23 10:36 | XMS_ITS | Clinical Summary ---
Author Organization [facility] Address [address] [place] [address] Care Team Providers Care Damage Adjuster Name Role Phone Unavailable Primary Care Provider Unavailabl e Source Comments Patient records contain information from all sites at [facility]. For routine questions regarding patient records, call [phone] during business hours, M-F 8:00 AM - 5:00 PM Central Time. Record requests for emergency care only can be directed to [phone] at any time.[facility] Allergies Active Allergy Reactions Criticality Noted Date Comments Aspirin Other (see comments) 12/03/2009 Nose bleeds Lisinopril Angioedema 04/05/2024 Losartan Other (see comments) High 04/05/2024 Medications alfuzosin (UroxatraL) 10 mg 24 hr tablet Take 10 mg by mouth daily. Active amLODIPine (Norvasc) 5 mg tablet Take 1 tablet by mouth daily. 04/13/2024 Active gemfibroziL (Lopid) 600 mg tablet Take 600 mg by mouth daily. Active hydroCHLOROthiaz verito 12.5 mg tablet Take 1 tablet by mouth daily. 04/13/2024 Active metoprolol succinate (Toprol XL) 50 mg 24 hr tablet Take 50 mg by mouth daily. Active Active Problems Problem Noted Date Diagnosed Date Unspecified Cirrhosis Of Liver 05/18/2024 Malignant Neoplasm Of Liver Hepatocellular 05/18 Encounters Date Type Department Care Team Description 05/22/2024 Clinical Communication Department of Oncology in [place], [place] [address] [place] [address] Frida Rich M.D., Ph.D. Appointment 05/18/2024 2:00 PM SALES COORDINATOR Comprehensive Visit Division of Gastroenterology in [address] [address] Macy Fatima M.D. Malhi, Harmeet, M.B.BCarlozS. Malignant Neoplasm Of Liver Hepatocellular (HCC) (Primary Dx); Unspecified Cirrhosis Of Liver (HCC) 05/18/2024 7:12 AM SALES COORDINATOR - 05/18/2024 11:59 PM SALES COORDINATOR Hospital Encounter Department of Laboratory Medicine and Pathology, [address] [address] Danial Horta M.D. [place] [facility] Discharge Disposition: Home or Self Care 05/18/2024 6:48 AM SALES COORDINATOR - 05/18/2024 7:11 AM SALES COORDINATOR Hospital Encounter Department of Radiology, [address] [address] Danial Horta M.D. [place] Hep[facility] Discharge Disposition: Home or Self Care 05/17/2024 3:08 PM SALES COORDINATOR - 05/17/2024 11:59 PM SALES COORDINATOR Hospital Encounter Department of Radiology, [address] [address] Danial Horta M.D. [place] Hep[facility] Discharge Disposition: Home or Self Care 05/16/2024 10:30 AM SALES COORDINATOR Clinical Communication Virtual Review in [address] [address] Previsit Preparation (SHELLEY DD) 05/09/2024 Clinical Communication Division of Gastroenterology in [address] [address] Danial Horta M.D. 05/07/2024 Episode Changes Division of Gastroenterology in [address] [address] Linda Gavin 05/01/2024 10:00 AM SALES COORDINATOR Telemedicine Division of Gastroenterology in [address] [address] Allyssa Martinez R.N. [place] Hep[facility] (Primary Dx); Other Specified Diseases Of Liver 04/20/2024 Clinical Communication Division of Gastroenterology in [address] [place] [address] Prescheduling, Provider Hepatobiliary (Pre-Visit); Previsit Preparation; [facility] - Outside Materials 04/19/2024 Community Orders [facility] [address] [address] [place] [address] Macy Fatima M.D. Unspecified Cirrhosis Of Liver (HCC) (Primary Dx) from Last 3 Months Social History Tobacco Use Types Packs/Day Years Used Date Smoking Tobacco: Former Cigarettes S tarted: 06/27/1998 Smokeless Tobacco: Never Tobacco Cessation:Counseling Given: Not Answered [facility] Utilities Answer Date Recorded In [...] your living situation today? I have a [facility] place to live 04/25/2024 Sex and Gender Information Value Date Recorded Sex Assigned at Male 04/25/2024 10:58 AM CDT Legal Sex Male 4:01 PM CDT Gender Identity Male 04/25/2024 10:58 AM CDT Sexual Orientation Straight 04/25/2024 10 :58 AM CDT Last Filed Vital Signs Vital Sign Reading Time Taken Comments Blood Pressure 122/73 05/18/2024 1:52 PM SALES COORDINATOR Pulse 65 05/18/2024 1:52 PM SALES COORDINATOR Temperature - - Respiratory Rate - - Oxygen Saturation - - Inhaled Oxygen Concentration - - Weight 95 kg (209 lb 7 oz) 05/18/2024 1:52 PM CS T Height 166.6 cm (5' 5.59) 05/18/2024 1:52 PM CS T Body Mass Index 34.23 05/18/2024 1:52 PM SALES COORDINATOR Plan of Treatment Health Maintenance Due Date Last Done Comments Hepatitis C Screening 1945 Pneumococcal vaccine (65+ years) (1 of 2 - PCV) 1952 Zoster Vaccines (1 of 2) 1996 DTaP,Tdap,and Td Vaccines (1 - Tdap) 03/06/2014 03/05/2014 RSV vaccine - (32-3 6 weeks) or 60+ years (1 - 1-dose 75+ series) 2021 Depression Screening (Annual PHQ-2) 06/27/2023 Fall Risk Screen (Annual) 06/27/2023 COVID-19 Vaccine (3 - 2023-2 5 season) 2024 09/23/2020, 09/02/2020 Influenza Vaccine (#1) 2024 IPV Vaccines Aged Out No longer eligi ble based on patient's age to complete this topic Procedures Procedure Name Priority Date/Time Associated Diagnosis Comments PROTHROMBIN TIME (PT), P Routine 05/18/2024 7:33 AM SALES COORDINATOR [facility] HEPATIC FUNCTION PANEL, S Routine 05/18/2024 7:33 AM SALES COORDINATOR [facility] CARBOHYDRATE AG 19-9 (CA 19-9), S Routine 05/18/2024 7:33 AM SALES COORDINATOR [facility] CARCINOEMBRYONIC AG (CEA), S Routine 05/18/2024 7:33 AM SALES COORDINATOR [facility] BASIC METABOLIC PANEL, S/P Routine 05/18/2024 7:33 AM SALES COORDINATOR [facility] AFP L3% AND TOT, HEPATOCELLULAR CARCINOMA TM, S Routine 05/18/2024 7:33 AM SALES COORDINATOR [facility] CBC WITH DIFFERENTIAL, B Routine 05/18/2024 7:32 AM SALES COORDINATOR [facility] Hepatic CT CHEST WITHOUT IV CONTRAST RAD - Routine (most inpatients and all outpatients) 05/18/2024 7:07 AM SALES COORDINATOR [facility] MR ABDOMEN WITHOUT AND WITH IV CONTRAST RAD - Routine (most inpatients and all outpatients) 05/17/2024 5:03 PM SALES COORDINATOR [facility] Hep[facility] from Last 3 Months Results * (ABNORMAL) Hepatic Function Panel (05/18/2024 7:33 AM SALES COORDINATOR) Bilirubin, Total, S 1.7(H) 0.0 - 1.2 mg/dL 05/18/2024 8:40 AM SALES COORDINATOR DTL Bilirubin, Direct, S 1.1(H) 0.0 - 0.3 mg/dL 05/18/2024 8:40 AM SALES COORDINATOR DTL Aspartate Aminotransferase (AST), S 71(H) 8 - 48 U/L 05/18/2024 8:40 AM SALES COORDINATOR DTL Alanine Aminotransferase (ALT), S 35 7 - 55 U/L 05/18/2024 8:40 AM SALES COORDINATOR DTL Alkaline Phosphatase, S 492(H) 40 - 129 U/L 05/18/2024 8:40 AM SALES COORDINATOR DTL Albumin, S 3.1(L) 3.5 - 5.0 g/dL 05/18/2024 8:40 AM SALES COORDINATOR DTL Protein, Total, S 5.6(L) 6.3 - 7.9 g/dL 05/18/2024 8:40 AM SALES COORDINATOR DTL Blood (Blood, Venous) 05/18/2024 7:33 AM SALES COORDINATOR 05/18/2024 8:17 AM SALES COORDINATOR Danial Horta M.D. LAB BLOOD ADD-ON Final Resu lt Performing Organization Address [facility] Co de Phone Number [facility] [address] [place] [address], [place] DTL [facility] [address] [place] [address] * Carbohydrate Antigen 19-9 (CA 19-9) (05/18/2024 7:33 AM SALES COORDINATOR) Pathologist [facility] Carbohydrate Ag 19-9, S 15 <35 U/mL 05/18/2024 11:56 AM SALES COORDINATOR [facility] Comment: ----ADDITIONAL INFORMATION---- The testing method is an immunoenzymatic assay manufactured by [employer]. and performed on the Coupons.comI 800. Values obtained with different assay methods or kits may be different and cannot be used interchangeably. Test results cannot be interpreted as absolute evidence for the presence or absence of malignant disease. Blood (Blood, Venous) 05/18/2024 7:33 AM SALES COORDINATOR 05/18/2024 11:07 AM SALES COORDINATOR Danial Horta M.D. LAB BLOOD ADD-ON Final Resu lt Performing Organization Address [facility] Co de Phone Number [facility] [address] [place] [address] [facility] [address] [place] [address] * (ABNORMAL) AFP (Alpha-Fetoprotein) L3% and Total, Hepatocellular Carcinoma Tumor Marker (47:33 AM SALES COORDINATOR) Total AFP, S 11(H) <4.7 ng/mL 05/18/2024 1:29 PM SALES COORDINATOR SDS %L3 36(H) <10 % 05/18/2024 1:29 PM SALES COORDINATOR SDS Comment: ----ADDITIONAL INFORMATION---- The testing method is isotachophoresis with laser-induced fluorescence manufactured by [employer] and performed on the i30. Values obtained with different assay methods or kits may be different and cannot be used interchangeably. Test results cannot be interpreted as absolute evidence for the presence or absence of malignant disease. Alpha-Fetoprotein and L3% values are not interpretable during for the investigation of malignant disease. Blood (Blood, Venous) 05/18/2024 7:33 AM SALES COORDINATOR 05/18/2024 12:03 PM SALES COORDINATOR Danial Horta M.D. LAB BLOOD ADD-ON Final Resu lt Performing Organization Address [facility] Co de Phone Number [facility] [address] [place] [address] [facility] [address] [place] [address] * Prothrombin Time (PT) (05/18/2024 7:33 AM SALES COORDINATOR) Prothrombin Time, P 11.7 9.4 - 12.5 sec 05/18/2024 8:11 AM SALES COORDINATOR DT INR 1.1 0.9 - 1.1 05/18/2024 8:11 AM SALES COORDINATOR [facility] Comment: ----ADDITIONAL INFORMATION---- Standard intensity warfarin therapeutic range: 2.0 to 3.0 High intensity warfarin therapeutic range: 2.5 to 3.5 Blood (Blood, Venous) 05/18/2024 7:33 AM SALES COORDINATOR 05/18/2024 7:55 AM SALES COORDINATOR Danial Horta M.D. LAB BLOOD ADD-ON Final Resu lt Performing Organization Address [facility] de Phone Number [facility] [address] [place] [address], [facility] DTL [facility] [address] [place] [address] * CEA (Carcinoembryonic Antigen) (05/18/2024 7:33 AM SALES COORDINATOR) Carcinoembryonic Ag (CEA), S 2.1 ng/mL 05/18/2024 11:57 AM SALES COORDINATOR [facility] Comment: ----REFERENCE VALUE---- <=3.0 (Non-smokers) Some smokers may have elevated CEA, usually <5.0. ----ADDITIONAL INFORMATION---- The testing method is an immunoenzymatic assay manufactured by [employer] and performed on the PD[employer] DxI 800. Values obtained with different assay methods or kits may be different and cannot be used interchangeably. Test results cannot be interpreted as absolute evidence for the presence or absence of malignant disease. Blood (Blood, Venous) 05/18/2024 7:33 AM SALES COORDINATOR 05/18/2024 11:07 AM SALES COORDINATOR us Danial Horta M.D. LAB BLOOD ADD-ON Final Resu lt [facility] [address] [place] [address] [facility] [address] [place] [address] * (ABNORMAL) Basic Metabolic Panel (05/18/2024 7:33 AM SALES COORDINATOR) Pathologist [facility] Potassium, S 4.0 3.6 - 5.2 mmol/L 05/18/2024 8:40 AM SALES COORDINATOR DTL Sodium, S 140 135 - 145 mmol/L 05/18/2024 8:40 AM SALES COORDINATOR DTL Chloride, S 103 98 - 107 mmol/L 05/18/2024 8:40 AM SALES COORDINATOR DTL Bicarbonate, S 27 22 - 29 mmol/L 05/18/2024 8:40 AM SALES COORDINATOR DTL Anion Gap 10 7 - 15 05/18/2024 8:40 AM SALES COORDINATOR DTL BUN (Blood Urea Nitrogen), S 60(H) 8 - 24 mg/dL 05/18/2024 8:40 AM SALES COORDINATOR DTL Creatinine 1.86(H) 0.74 - 1.35 mg/dL 05/18/2024 8:40 AM SALES COORDINATOR DTL Estimated GFR (eGFR) 37(L) >=60 mL/min/BSA 05/18/2024 8:40 AM SALES COORDINATOR DTL Comment: Estimated GFR calculated using the 2020 CKD_EPI creatinine equation. Calcium, Total, S 8.7(L) 8.8 - 10.2 mg/dL 05/18/2024 8:40 AM SALES COORDINATOR DTL Glucose, S 125 70 - 140 mg/dL 05/18/2024 8:40 AM SALES COORDINATOR DTL Blood (Blood, Venous) 05/18/2024 7:33 AM SALES COORDINATOR 05/18/2024 8:17 AM SALES COORDINATOR us Danial Horta M.D. LAB BLOOD ADD-ON Final Resu lt [facility] [address] [place] [address], [place] DTL [facility] [address] [place] [address] * (ABNORMAL) CBC with Differential, Blood (05/18/2024 7:32 AM SALES COORDINATOR) Hemoglobin 13.8 13.2 - 16.6 g/dL 05/18/2024 8:27 AM SALES COORDINATOR DTL Hematocrit 42.4 38.3 - 48.6 % 05/18/2024 8:27 AM SALES COORDINATOR DTL Erythrocytes 4.36 4.35 - 5.65 x10(12)/L 05/18/2024 8:27 AM SALES COORDINATOR DTL MCV 97.2 78.2 - 97.9 fL 05/18/2024 8:27 AM SALES COORDINATOR DTL RBC Distrib Width 17.9(H) 11.8 - 14.5 % 05/18/2024 8:27 AM SALES COORDINATOR DTL Platelet Count 137 135 - 317 x10(9)/L 05/18/2024 9:35 AM SALES COORDINATOR DTL Leukocytes 5.5 3.4 - 9.6 x10(9)/L 05/18/2024 9:35 AM SALES COORDINATOR DTL Neutrophils 3.59 1.56 - 6.45 x10(9)/L 05/18/2024 8:26 AM SALES COORDINATOR [facility] Lymphocytes 0.81(L) 0.95 - 3.07 x10(9)/L 05/18/2024 8:27 AM SALES COORDINATOR DTL Monocytes 0.87(H) 0.26 - 0.81 x10(9)/L 05/18/2024 8:27 AM SALES COORDINATOR DTL Eosinophils 0.14 0.03 - 0.48 x10(9)/L 05/18/2024 8:27 AM SALES COORDINATOR DTL Basophils 0.05 0.01 - 0.08 x10(9)/L 05/18/2024 8:27 AM SALES COORDINATOR DTL Blood (Blood, Venous) 05/18/2024 7:32 AM SALES COORDINATOR 05/18/2024 8:00 AM SALES COORDINATOR us Danial Horta M.D. LAB BLOOD ADD-ON Final Resu lt [facility] [address] [place] [address], [place] DTL [facility] [address] [place] [address] [facility] [address] [place] [address] * CT Chest without IV Contrast (05/18/2024 7:07 AM SALES COORDINATOR) Anatomical Region Laterality Modality Chest, Thoracic RST LOS, Tho racic ARZ LOS, Thoracic FLA LOS N/A Computed Tomography, Compute d Tomography Impressions 05/18/2024 9:00 AM SALES COORDINATOR 1. Bilateral moderate centrilobular emphysema. 2. Tree-in-bud nodularity in right lower lobe, likely infectious/inflammatory. 3. A few nonspecific scattered micronodules, probably benign. 4. Trace right pleural effusion and large volume abdominopelvic ascites, likely due to hepatic cirrhosis. Narrative 05/18/2024 9:00 AM SALES COORDINATOR EXAM: CT CHEST WITHOUT IV CONTRAST COMPARISON: None. FINDINGS: Diffuse upper lung predominant moderate centrilobular emphysema. Clustered tree-in-bud nodularity in the right lower lobe, likely infectious/inflammatory. Bilateral diffuse bronchial wall thickening with a few scattered areas of endobronchial mucous plugging. Few scattered discrete micronodules, such as in the right lower lobe (3/273), left upper lobe (3/312), left lower lobe (3/367), left upper lobe (3/image 188). Calcified pulmonary granulomas. Mild bibasilar atelectasis. Trace amount of retained secretions in the trachea. The central bronchi are clear. Diffuse atherosclerotic calcification of thoracic aorta and branch vessels in the neck. Moderate to severe coronary artery calcifications. Aortic valvular calcifications. No pericardial effusion. No worrisome lymphadenopathy. Calcified mediastinal and right hilar lymph nodes consistent with sequela of old granulomatous infection. Small right pleural effusion. Partially visualized large volume ascites in the abdomen. Cirrhotic liver morphology with intra-abdominal and periesophageal collaterals likely due to portal hypertension. Cholelithiasis. Generalized body wall edema. Degenerative changes of the spine. No focal aggressive appearing bone lesion. Procedure Note Wandy Mccurdy M.D. - 05/18/2024 EXAM: CT CHEST WITHOUT IV CONTRAST COMPARISON: None. FINDINGS: Diffuse upper lung predominant moderate centrilobular emphysema. Clustered tree-in-bud nodularity in the right lower lobe, likelyinfectious/inflammatory. Bilateral diffuse bronchial wall thickening witha few scattered areas of endobronchial mucous plugging. Few scattereddiscrete micronodules, such as in the right lower lobe (3/273), left upper lobe (3/312), left lower lobe (3/367), leftupper lobe (3/image 188). Calcified pulmonary granulomas. Mild bibasilaratelectasis. Trace amount of retained secretions in the trachea. Thecentral bronchi are clear. Diffuse atherosclerotic calcification of thoracic aorta and branch vesselsin the neck. Moderate to severe coronary artery calcifications. Aorticvalvular calcifications. No pericardial effusion. No worrisome lymphadenopathy. Calcified mediastinal and right hilar lymphnodes consistent with sequela of old granulomatous infection. Small right pleural effusion. Partially visualized large volume ascites inthe abdomen. Cirrhotic liver morphology with intra-abdominal and periesophagealcollaterals likely due to portal hypertension. Cholelithiasis. Generalizedbody wall edema. Degenerative changes of the spine. No focal aggressive appearing bonelesion. IMPRESSION: 1. Bilateral moderate centrilobular emphysema. 2. Tree-in-bud nodularity in right lower lobe, likelyinfectious/inflammatory. 3. A few nonspecific scattered micronodules, probably benign. 4. Trace right pleural effusion and large volume abdominopelvic ascites,likely due to hepatic cirrhosis. us Danial Horta M.D. IMKatty CT PROCEDURES Final Res ult * MR Abdomen without and with IV Contrast (05/17/2024 5:03 PM SALES COORDINATOR) Anatomical Region Laterality Modality Abdomen, Abdominal RST LOS, Abdominal ARZ LOS, Abdominal FLA LOS N/A Magnetic Resonance Impressions 05/18/2024 10:18 AM SALES COORDINATOR Cirrhotic liver morphology with portal hypertension. Very large (more than 10 cm) lesion occupying most of the right hepatic lobe demonstrates suspicious features. LR 5. There is an additional LR 5 lesion in the tip of the right hepatic lobe series 6, and smaller satellite lesions. No enlarged lymph nodes or evidence of distant metastasis in the upper abdomen. Narrative 05/18/2024 10:18 AM SALES COORDINATOR EXAM: MR ABDOMEN WITHOUT AND WITH IV CONTRAST COMPARISON: None available FINDINGS: Cirrhotic liver morphology with nodular liver contour, markedly enlarged left hepatic lobe, shrunken right hepatic lobe, and diffuse ascites and evidence of portal hypertension such as hypertrophied periumbilical vein and lower esophageal varices. There is a very large hypervascular mass occupying most of the right hepatic lobe measuring 10.6 x 13.1 x 11.6 cm which demonstrates arterial phase hyperenhancement in areas of delayed washout and pseudocapsule. LR 5. There is also a masslike enlargement at the tip of the right hepatic lobe series 6 measuring up to about 3 cm which probably has some arterial phase hyperenhancement and also washout and pseudocapsule, series 12 image 208 and series 15 image 90. The imaging here is a little more challenging to interpret. LR 5. There are multiple small arterially enhancing subcentimeter satellite nodules which do not clearly have washout on delayed imaging, such as on series 12 images 139 the left lobe, and in the right lower images 170, 180, and 189. LR 3 No enlarged upper abdominal lymph nodes or evidence of metastasis in the upper abdomen. Extensive atherosclerotic plaque throughout the thoracoabdominal aorta. 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 Normal size spleen with splenule. Procedure Note Benigno Rivera M.D. - 05/18/2024 EXAM: MR ABDOMEN WITHOUT AND WITH IV CONTRAST COMPARISON: None available FINDINGS: Cirrhotic liver morphology with nodular liver contour, markedly enlargedleft hepatic lobe, shrunken right hepatic lobe, and diffuse ascites andevidence of portal hypertension such as hypertrophied periumbilical veinand lower esophageal varices. There is a very large hypervascular mass occupying most of the righthepatic lobe measuring 10.6 x 13.1 x 11.6 cm which demonstrates arterialphase hyperenhancement in areas of delayed washout and pseudocapsule. LR 5. There is also a masslike enlargement at the tip of the right hepatic lobeseries 6 measuring up to about 3 cm which probably has some arterial phasehyperenhancement and also washout and pseudocapsule, series 12 image 208and series 15 image 90. The imaging here is a little more challenging to interpret. LR 5. There are multiple small arterially enhancing subcentimeter satellitenodules which do not clearly have washout on delayed imaging, such as onseries 12 images 139 the left lobe, and in the right lower images 170,180, and 189. LR 3 No enlarged upper abdominal lymph nodes or evidence of metastasis in theupper abdomen. 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 Normal size spleen with splenule. IMPRESSION: Cirrhotic liver morphology with portal hypertension. Very large (more than 10 cm) lesion occupying most of the right hepaticlobe demonstrates suspicious features. LR 5. There is an additional LR 5 lesion in the tip of the right hepatic lobeseries 6, and smaller satellite lesions. No enlarged lymph nodes or evidence of distant metastasis in the upperabdomen. Danial Horta M.D. IMG MRI PROCEDURES Final Re sult from Last 3 Months Insurance [facility]
--- OUTSIDE RECORDS SUMMARY | 2024-05-23 10:36 | XMS_ITS | Encounter Summary ---
Author Organization [facility] Address [address] [place] [id number] Care Team Providers Care Quiller Operator Name Role Phone Unavailable Primary Care Provider Unavailabl e Reason for Visit * Reason Onset Date Comments Appointment 05/22/2024 Encounter Details Date Type Department Care Team ([facility] st Contact Info) Description 05/22/2024 Clinical Communication Department of Oncology in [place], [place] [address] [place] [phone] Frida Rich M.D., Ph.D. [address] [place] [phone] Appointment Social History Tobacco Use Types Packs/Day Years Used Date Smoking Tobacco: Former Cigarettes S tarted: 06/27/1998 Smokeless Tobacco: Never [facility] Utilities Answer Date Recorded In the [...] your living situation today? I have a [facility] place to live 04/25/2024 Sex and Gender Information Value Date Recorded Sex Assigned at Male 04/25/2024 10:58 AM CDT Legal Sex Male 4:01 PM CDT Gender Identity Male 04/25/2024 10:58 AM CDT Sexual Orientation Straight 04/25/2024 10 :58 AM CDT documented as of this encounter Plan of Treatment Not on file documented as of this encounter Visit Diagnoses Not on filedocumented in this encounter
--- OUTSIDE RECORDS SUMMARY | 2024-05-23 10:36 | XMS_ITS | Referral Summary ---
Author Organization [facility] Address [address] [place] [address] Care Team Providers Care Membership Coordinator Name Role Phone Unavailable Primary Care Provider Unavailabl e Source Comments Patient records contain information from all sites at [facility]. For routine questions regarding patient records, call [phone] during business hours, M-F 8:00 AM - 5:00 PM Central Time. Record requests for emergency care only can be directed to [phone] at any time.[facility] Encounters Date Type Department Care Team Description 05/22/2024 Clinical Communication Department of Oncology in [place], [place] [address] [place] [phone] Frida Rich M.D., Ph.D. Appointment 05/18/2024 7:12 AM CHIEF CONTROLLER - 05/18/2024 11:59 PM [facility] Hospital Encounter Department of Laboratory Medicine and Pathology, [facility] in [place], [place] [address] [place] [address] Danial Horta M.D. [place] Hepatic Discharge Disposition: Home or Self Care 05/18/2024 6:48 AM CHIEF CONTROLLER - 05/18/2024 7:11 AM CHIEF CONTROLLER Hospital Encounter Department of Radiology, [facility] in [place], [place] [address] [place] [phone] Danial Horta M.D. [place] Hepatic Discharge Disposition: Home or Self Care 05/18/2024 2:00 PM CHIEF CONTROLLER Comprehensive Visit Division of Gastroenterology in [address] [phone] Macy Fatima M.D. Malhi, Harmeet, M.B.B.S. Malignant Neoplasm Of Liver Hepatocellular (HCC) (Primary Dx); Unspecified Cirrhosis Of Liver (HCC) 05/17/2024 3:08 PM CHIEF CONTROLLER - 05/17/2024 11:59 PM CHIEF CONTROLLER Hospital Encounter Department of Radiology, [facility], in [place], [place] [address] [place] [phone] Danial Horta M.D. [place] Hepatic Discharge Disposition: Home or Self Care 05/16/2024 10:30 AM CHIEF CONTROLLER Clinical Communication Virtual Review in [place], [place] 200 [place] [address] Previsit Preparation (SHELLEY DD) 05/09/2024 Clinical Communication Division of Gastroenterology in [place], [place] [address] [place] [phone] Danial Horta M.D. 05/07/2024 Episode Changes Division of Gastroenterology in [address] [phone] Linda Gavin 05/01/2024 10:00 AM CHIEF CONTROLLER Telemedicine Division of Gastroenterology in [address] [address] Allyssa Martinez R.N. [place] Hepatic (Primary Dx); Other Specified Diseases Of Liver 04/20/2024 Clinical Communication Division of Gastroenterology in [address] [phone] Prescheduling, Provider Hepatobiliary (Pre-Visit); Previsit Preparation; [facility] - Outside Materials 04/19/2024 Community Orders [facility] [address] [address] [place] [address] Macy Fatima M.D. Unspecified Cirrhosis Of Liver (HCC) (Primary Dx) from Last 3 Months Allergies Active Allergy Reactions Criticality Noted Date [...] 05/18/2024 Malignant Neoplasm Of Liver Hepatocellular 05/18 Social History Tobacco Use Types Packs/Day Years Used Date Smoking Tobacco: Former Cigarettes S tarted: 06/27/1998 Smokeless Tobacco: Never Tobacco Cessation:Counseling Given: Not Answered [facility] Utilities Answer Date Recorded In the past 12 months has th e [employer], gas, oil, or water company threatened to [...] your living situation today? I have a [facility] place to live 04/25/2024 Sex and Gender Information Value Date Recorded Sex Assigned at Male 04/25/2024 10:58 AM CDT Legal Sex Male 4:01 PM CDT Gender Identity Male 04/25/2024 10:58 AM CDT Sexual Orientation Straight 04/25/2024 10 :58 AM CDT Last Filed Vital Signs Vital Sign Reading Time Taken Comments Blood Pressure 122/73 05/18/2024 1:52 PM CHIEF CONTROLLER Pulse 65 05/18/2024 1:52 PM CHIEF CONTROLLER Temperature - - Respiratory Rate - - Oxygen Saturation - - Inhaled Oxygen Concentration - - Weight 95 kg (209 lb 7 oz) 05/18/2024 1:52 PM CS T Height 166.6 cm (5' 5.59) 05/18/2024 1:52 PM CS T Body Mass Index 34.23 05/18/2024 1:52 PM CHIEF CONTROLLER Plan of Treatment Not on file Procedures Procedure Name Priority Date/Time Associated Diagnosis Comments PROTHROMBIN TIME (PT), P Routine 05/18/2024 7:33 AM CHIEF CONTROLLER Mass Hepatic HEPATIC FUNCTION PANEL, S Routine 05/18/2024 7:33 AM CHIEF CONTROLLER Mass Hepatic CARBOHYDRATE AG 19-9 (CA 19-9), S Routine 05/18/2024 7:33 AM CHIEF CONTROLLER Mass Hepatic CARCINOEMBRYONIC AG (CEA), S Routine 05/18/2024 7:33 AM CHIEF CONTROLLER Mass Hepatic BASIC METABOLIC PANEL, S/P Routine 05/18/2024 7:33 AM CHIEF CONTROLLER Mass Hepatic AFP L3% AND TOT, HEPATOCELLULAR CARCINOMA TM, S Routine 05/18/2024 7:33 AM CHIEF CONTROLLER Mass Hepatic CBC WITH DIFFERENTIAL, B Routine 05/18/2024 7:32 AM CHIEF CONTROLLER [place] Hepatic CT CHEST WITHOUT IV CONTRAST RAD - Routine (most inpatients and all outpatients) 05/18/2024 7:07 AM CHIEF CONTROLLER Mass Hepatic MR ABDOMEN WITHOUT AND WITH IV CONTRAST RAD - Routine (most inpatients and all outpatients) 05/17/2024 5:03 PM CHIEF CONTROLLER Mass Hepatic from Last 3 Months Results * (ABNORMAL) Hepatic Function Panel (05/18/2024 7:33 AM CHIEF CONTROLLER) Bilirubin, Total, S 1.7(H) 0.0 - 1.2 mg/dL 05/18/2024 8:40 AM CHIEF CONTROLLER DTL Bilirubin, Direct, S 1.1(H) 0.0 - 0.3 mg/dL 05/18/2024 8:40 AM CHIEF CONTROLLER DTL Aspartate Aminotransferase (AST), S 71(H) 8 - 48 U/L 05/18/2024 8:40 AM CHIEF CONTROLLER DTL Alanine Aminotransferase (ALT), S 35 7 - 55 U/L 05/18/2024 8:40 AM CHIEF CONTROLLER DTL Alkaline Phosphatase, S 492(H) 40 - 129 U/L 05/18/2024 8:40 AM CHIEF CONTROLLER DTL Albumin, S 3.1(L) 3.5 - 5.0 g/dL 05/18/2024 8:40 AM CHIEF CONTROLLER DTL Protein, Total, S 5.6(L) 6.3 - 7.9 g/dL 05/18/2024 8:40 AM CHIEF CONTROLLER DTL Blood (Blood, Venous) 05/18/2024 7:33 AM CHIEF CONTROLLER 05/18/2024 8:17 AM CHIEF CONTROLLER us Danial Horta M.D. LAB BLOOD ADD-ON Final Resu lt [facility] [address] [place] [address], [facility] [address] [place] [address] * Carbohydrate Antigen 19-9 (CA 19-9) (05/18/2024 7:33 AM CHIEF CONTROLLER) Pathologist [facility] Carbohydrate Ag 19-9, S 15 <35 U/mL 05/18/2024 11:56 AM CHIEF CONTROLLER [facility] Comment: ----ADDITIONAL INFORMATION---- The testing method is an immunoenzymatic assay manufactured by [employer] and performed on the [address] [employer] DxI 800. Values obtained with different assay methods or kits may be different and cannot be used interchangeably. Test results cannot be interpreted as absolute evidence for the presence or absence of malignant disease. Blood (Blood, Venous) 05/18/2024 7:33 AM CHIEF CONTROLLER 05/18/2024 11:07 AM CHIEF CONTROLLER Danial Horta M.D. LAB BLOOD ADD-ON Final Resu lt Performing Organization Address City/[facility] Co de Phone Number [facility] [address] [address] [facility] [address] [place] [address] * (ABNORMAL) AFP (Alpha-Fetoprotein) L3% and Total, Hepatocellular Carcinoma Tumor Marker (47:33 AM CHIEF CONTROLLER) Pathologist [facility] Total AFP, S 11(H) <4.7 ng/mL 05/18/2024 1:29 PM CHIEF CONTROLLER SDSC %L3 36(H) <10 % 05/18/2024 1:29 PM CHIEF CONTROLLER [facility] Comment: ----ADDITIONAL INFORMATION---- The testing method is isotachophoresis with laser-induced fluorescence manufactured by [employer] and performed on the i30. Values obtained with different assay methods or kits may be different and cannot be used interchangeably. Test results cannot be interpreted as absolute evidence for the presence or absence of malignant disease. Alpha-Fetoprotein and L3% values are not interpretable during for the investigation of malignant disease. Blood (Blood, Venous) 05/18/2024 7:33 AM CHIEF CONTROLLER 05/18/2024 12:03 PM CHIEF CONTROLLER Danial Horta M.D. LAB BLOOD ADD-ON Final Resu lt Performing Organization Address City/[facility] Co de Phone Number [facility] [address] [address] [facility] [address] [place] [address] * Prothrombin Time (PT) (05/18/2024 7:33 AM CHIEF CONTROLLER) Prothrombin Time, P 11.7 9.4 - 12.5 sec 05/18/2024 8:11 AM CHIEF CONTROLLER DTL INR 1.1 0.9 - 1.1 05/18/2024 8:11 AM CHIEF CONTROLLER [facility] Comment: ----ADDITIONAL INFORMATION---- Standard intensity warfarin therapeutic range: 2.0 to 3.0 High intensity warfarin therapeutic range: 2.5 to 3.5 Blood (Blood, Venous) 05/18/2024 7:33 AM CHIEF CONTROLLER 05/18/2024 7:55 AM CHIEF CONTROLLER Danial Horta M.D. LAB BLOOD ADD-ON Final Resu lt Performing Organization Address City/[facility] Co de Phone Number [facility] [address] [place] [address], [facility] [address] [place] [address] * CEA (Carcinoembryonic Antigen) (05/18/2024 7:33 AM CHIEF CONTROLLER) [facility] Carcinoembryonic Ag (CEA), S 2.1 ng/mL 05/18/2024 11:57 AM [facility] Comment: ----REFERENCE VALUE---- <=3.0 (Non-smokers) Some smokers may have elevated CEA, usually <5.0. ----ADDITIONAL INFORMATION---- The testing method is an immunoenzymatic assay manufactured by [employer] and performed on the [address] Hub DxI 800. Values obtained with different assay methods or kits may be different and cannot be used interchangeably. Test results cannot be interpreted as absolute evidence for the presence or absence of malignant disease. Blood (Blood, Venous) 05/18/2024 7:33 AM CHIEF CONTROLLER 05/18/2024 11:07 AM CHIEF CONTROLLER Danial Horta M.D. LAB BLOOD ADD-ON Final Resu lt Performing Organization Address City/[facility]/ZIP Co de Phone Number [facility] [address] [place] [address] [facility] [address] [place] [address] * (ABNORMAL) Basic Metabolic Panel (05/18/2024 7:33 AM CHIEF CONTROLLER) [facility] Potassium, S 4.0 3.6 - 5.2 mmol/L 05/18/2024 8:40 AM CHIEF CONTROLLER DTL Sodium, S 140 135 - 145 mmol/L 05/18/2024 8:40 AM CHIEF CONTROLLER DTL Chloride, S 103 98 - 107 mmol/L 05/18/2024 8:40 AM CHIEF CONTROLLER DTL Bicarbonate, S 27 22 - 29 mmol/L 05/18/2024 8:40 AM CHIEF CONTROLLER DTL Anion Gap 10 7 - 15 05/18/2024 8:40 AM CHIEF CONTROLLER DTL BUN (Blood Urea Nitrogen), S 60(H) 8 - 24 mg/dL 05/18/2024 8:40 AM CHIEF CONTROLLER DTL Creatinine 1.86(H) 0.74 - 1.35 mg/dL 05/18/2024 8:40 AM CHIEF CONTROLLER DTL Estimated GFR (eGFR) 37(L) >=60 mL/min/BSA 05/18/2024 8:40 AM CHIEF CONTROLLER DTL Comment: Estimated GFR calculated using the 2020 CKD_EPI creatinine equation. Calcium, Total, S 8.7(L) 8.8 - 10.2 mg/dL 05/18/2024 8:40 AM CHIEF CONTROLLER DTL Glucose, S 125 70 - 140 mg/dL 05/18/2024 8:40 AM CHIEF CONTROLLER DTL Blood (Blood, Venous) 05/18/2024 7:33 AM CHIEF CONTROLLER 05/18/2024 8:17 AM CHIEF CONTROLLER us Danial Horta M.D. LAB BLOOD ADD-ON Final Resu lt ED [facility] [address] [place] [address], [facility] [address] [place] [address] * (ABNORMAL) CBC with Differential, Blood (05/18/2024 7:32 AM CHIEF CONTROLLER) Pathologist [facility] Hemoglobin 13.8 13.2 - 16.6 g/dL 05/18/2024 8:27 AM CHIEF CONTROLLER DTL Hematocrit 42.4 38.3 - 48.6 % 05/18/2024 8:27 AM CHIEF CONTROLLER DTL Erythrocytes 4.36 4.35 - 5.65 x10(12)/L 05/18/2024 8:27 AM CHIEF CONTROLLER DTL MCV 97.2 78.2 - 97.9 fL 05/18/2024 8:27 AM CHIEF CONTROLLER DTL RBC Distrib Width 17.9(H) 11.8 - 14.5 % 05/18/2024 8:27 AM CHIEF CONTROLLER DTL Platelet Count 137 135 - 317 x10(9)/L 05/18/2024 9:35 AM CHIEF CONTROLLER DTL Leukocytes 5.5 3.4 - 9.6 x10(9)/L 05/18/2024 9:35 AM CHIEF CONTROLLER DTL Neutrophils 3.59 1.56 - 6.45 x10(9)/L 05/18/2024 8:26 AM CHIEF CONTROLLER [facility] Lymphocytes 0.81(L) 0.95 - 3.07 x10(9)/L 05/18/2024 8:27 AM CHIEF CONTROLLER DTL Monocytes 0.87(H) 0.26 - 0.81 x10(9)/L 05/18/2024 8:27 AM CHIEF CONTROLLER DTL Eosinophils 0.14 0.03 - 0.48 x10(9)/L 05/18/2024 8:27 AM CHIEF CONTROLLER DTL Basophils 0.05 0.01 - 0.08 x10(9)/L 05/18/2024 8:27 AM CHIEF CONTROLLER DTL Blood (Blood, Venous) 05/18/2024 7:32 AM CHIEF CONTROLLER 05/18/2024 8:00 AM CHIEF CONTROLLER us Danial Horta M.D. LAB BLOOD ADD-ON Final Resu lt [facility] [address] [place] [address], [facility] DTL [facility] [address] [place] [address] DHPM [facility] [address] [place] [address] * CT Chest without IV Contrast (05/18/2024 7:07 AM CHIEF CONTROLLER) Anatomical Region Laterality Modality Chest, Thoracic RST LOS, Tho racic ARZ LOS, Thoracic FLA LOS N/A Computed Tomography, Compute d Tomography Impressions 05/18/2024 9:00 AM CHIEF CONTROLLER 1. Bilateral moderate centrilobular emphysema. 2. Tree-in-bud nodularity in right lower lobe, likely infectious/inflammatory. 3. A few nonspecific scattered micronodules, probably benign. 4. Trace right pleural effusion and large volume abdominopelvic ascites, likely due to hepatic cirrhosis. Narrative 05/18/2024 9:00 AM CHIEF CONTROLLER EXAM: CT CHEST WITHOUT IV CONTRAST COMPARISON: [...] and with IV Contrast (05/17/2024 5:03 PM CHIEF CONTROLLER) Anatomical Region Laterality Modality Abdomen, Abdominal RST LOS, Abdominal ARZ LOS, Abdominal FLA LOS N/A Magnetic Resonance Impressions 05/18/2024 10:18 AM CHIEF CONTROLLER Cirrhotic liver morphology with portal hypertension. Very large (more than 10 cm) lesion occupying most of the right hepatic lobe demonstrates suspicious features. LR 5. There is an additional LR 5 lesion in the tip of the right hepatic lobe series 6, and smaller satellite lesions. No enlarged lymph nodes or evidence of distant metastasis in the upper abdomen. Narrative 05/18/2024 10:18 AM CHIEF CONTROLLER EXAM: MR ABDOMEN WITHOUT AND WITH IV [...] Re sult from Last 3 Months Insurance [facility]
--- OUTSIDE RECORDS SUMMARY | 2024-05-23 10:36 | XMS_ITS | Encounter Summary ---
Author Organization [facility] Address [address] [place] [address] Care Team Providers Care Parts Assembler Name Role Phone Unavailable Primary Care Provider Unavailabl e Reason for Referral * MRI/CAT/PET Scan (Routine) - Closed Specialty Diagnoses / Procedures Referred By Contac t Referred To Contact Radiology Diagnoses [place] Hepatic Procedures CT Chest without IV Contrast Danial Horta M.D. 200 [place] [address] Phone: tel: fax: [facility] Referral ID Status Reason Start Date Expiration Date Visits Re quested Visits Authorized [id number] Closed 05/01/2024 05/01/2025 1 1 TRIMMER Reason for Visit * MRI/CAT/PET Scan (Routine) - Closed Specialty Diagnoses / Procedures Referred By Vasquez damon Referred To Contact Radiology Diagnoses [place] Hepatic Procedures CT Chest without IV Contrast Danial Horta M.D. 200 [place] [address] Phone: tel: fax: [facility] Referral ID Status Reason Start Date Expiration Date Visits Re quested Visits Authorized [id number] Closed 05/01/2024 05/01/2025 1 1 Encounter Details Date Type Department Care Team (Latest Contact Info) Description 05/18/2024 6:48 AM SHOE TRIMMER - 05/18/2024 7:11 AM SHOE TRIMMER Hospital Encounter Department of Radiology, [facility], in [place], [place] [address] [place] [phone] Danial Horta M.D. [address] [place] [phone] [place] Hepatic Discharge Disposition: Home or Self Care Social History Tobacco Use Types Packs/Day Years Used Date Smoking Tobacco: Former Cigarettes S tarted: 06/27/1998 Smokeless Tobacco: Never [facility] Utilities Answer Date Recorded In the [...] your living situation today? I have a [facility] place to live 04/25/2024 Sex and Gender Information Value Date Recorded Sex Assigned at Male 04/25/2024 10:58 AM CDT Legal Sex Male 4:01 PM CDT Gender Identity Male 04/25/2024 10:58 AM CDT Sexual Orientation Straight 04/25/2024 10 :58 AM CDT documented as of this encounter Medications at Time of Discharge alfuzosin (UroxatraL) 10 mg 24 hr tablet Take 10 mg by mouth daily. amLODIPine (Norvasc) 5 mg tablet Take 1 tablet by mouth daily. 04/13/2024 gemfibroziL (Lopid) 600 mg tablet Take 600 mg by mouth daily. hydroCHLOROthiazi de 12.5 mg tablet Take 1 tablet by mouth daily. 04/13/2024 metoprolol succinate (Toprol XL) 50 mg 24 hr tablet Take 50 mg by mouth daily. documented as of this encounter Plan of Treatment Not on file documented as of this encounter Procedures Procedure Name Priority Date/Time Associated Diagnosis Comments CT CHEST WITHOUT IV CONTRAST RAD - Routine (most inpatients and all outpatients) 05/18/2024 7:07 AM SHOE TRIMMER [place] Hepatic documented in this encounter Results * CT Chest without IV Contrast (05/18/2024 7:07 AM SHOE TRIMMER) Anatomical Region Laterality Modality Chest, Thoracic RST LOS, Tho racic ARZ LOS, Thoracic FLA LOS N/A Computed Tomography, Compute d Tomography Impressions 05/18/2024 9:00 AM SHOE TRIMMER 1. Bilateral moderate centrilobular emphysema. 2. Tree-in-bud nodularity in right lower lobe, likely infectious/inflammatory. 3. A few nonspecific scattered micronodules, probably benign. 4. Trace right pleural effusion and large volume abdominopelvic ascites, likely due to hepatic cirrhosis. Narrative 05/18/2024 9:00 AM SHOE TRIMMER EXAM: CT CHEST WITHOUT IV CONTRAST COMPARISON: [...] volume abdominopelvic ascites,likely due to hepatic cirrhosis. Danial Horta M.D. IMG CT PROCEDURES Final Res ult documented in this encounter Visit Diagnoses Diagnosis [place] Hepatic documented in this encounter
--- OUTSIDE RECORDS SUMMARY | 2024-05-23 10:36 | XMS_ITS | Encounter Summary ---
Author Organization [facility] Address [address] [place] [address] Care Team Providers Care Welt Insole Channeler Name Role Phone Unavailable Primary Care Provider Unavailabl e Reason for Referral * MRI/CAT/PET Scan (Routine) - Closed Specialty Diagnoses / Procedures Referred By Contac t Referred To Contact Radiology Diagnoses [place] Hepatic Procedures MR Abdomen without and with IV Contrast Danial Horta M.D. [address] [place] [phone] Phone: tel: fax: [facility] Referral ID Status Reason Start Date Expiration Date Visits Re quested Visits Authorized [id number] Closed 05/01/2024 05/01/2025 1 1 OLL AND BENEFITS COORDINATOR Reason for Visit * MRI/CAT/PET Scan (Routine) - Closed Specialty Diagnoses / Procedures Referred By Vasquez damon Referred To Contact Radiology Diagnoses [place] Hepatic Procedures MR Abdomen without and with IV Contrast Danila Horta M.D. 200 [place] [address] Phone: tel: fax: [facility] Referral ID Status Reason Start Date Expiration Date Visits Re quested Visits Authorized [id number] Closed 05/01/2024 05/01/2025 1 1 Encounter Details Date Type Department Care Team (Latest Contact Info) Description 05/17/2024 3:08 PM PAYROLL AND BENEFITS COORDINATOR - 05/17/2024 11:59 PM PAYROLL AND BENEFITS COORDINATOR Hospital Encounter Department of Radiology, [facility], in [place], [place] [address] [place] [phone] Danial Horta M.D. [address] [place] [phone] [place] Hepatic Discharge Disposition: Home or Self Care Social History Tobacco Use Types Packs/Day Years Used Date Smoking Tobacco: Former Cigarettes S tarted: 06/27/1998 Smokeless Tobacco: Never [facility] Utilities Answer Date Recorded In [...] Date Recorded Dental: Regular Dentist No 04/25/20 24 Employment Answer Date Recorded Employment status Retired 04/25/2024 Housing Stability Answer Date Recorded What is your living situation today? I have a [facility] place to live 04/25/2024 Sex and [...] Procedure Name Priority Date/Time Associated Diagnosis Comments MR ABDOMEN WITHOUT AND WITH IV CONTRAST RAD - Routine (most inpatients and all outpatients) 05/17/2024 5:03 PM PAYROLL AND BENEFITS COORDINATOR [place] Hepatic documented in this encounter Results * MR Abdomen without and with IV Contrast (05/17/2024 5:03 PM PAYROLL AND BENEFITS COORDINATOR) Anatomical Region Laterality Modality Abdomen, Abdominal RST LOS, Abdominal ARZ LOS, Abdominal FLA LOS N/A Magnetic Resonance Impressions 05/18/2024 10:18 AM PAYROLL AND BENEFITS COORDINATOR Cirrhotic liver morphology with portal hypertension. [...] the upper abdomen. Narrative 05/18/2024 10:18 AM PAYROLL AND BENEFITS COORDINATOR EXAM: MR ABDOMEN WITHOUT AND WITH [...] evidence of distant metastasis in the upperabdomen. us Danial LIMA MRI PROCEDURES Final Re sult documented in this encounter Visit Diagnoses Diagnosis Mass Hepatic documented in this encounter Administered Medications Inactive Administered Medications - up to 3 most recent administrations Medication Order MAR Action Action Date Dose Rate Site gadobutrol injection 0.01-30 mL (Gadavist) 0.01-30 mL, intravenous, Once in imaging, contrast, Starting on Carey 05/17/24 at 1608, For 1 dose, Imaging Protocol Orders, Dose per Radiant Medication Guidelines Intrathecal doses greater than 0.25 mL not recommended. Given 05/17/2024 5:04 PM PAYROLL AND BENEFITS COORDINATOR 8 mL sodium chloride (PF) 0.9 % injection 1-100 mL 1-100 mL, intravenous, Once, On Carey 05/17/24 at 1630, For 1 dose, Imaging Protocol Orders, Dose per Radiant Medication Guidelines Given 05/17/2024 5:03 PM PAYROLL AND BENEFITS COORDINATOR 40 mL documented in this encounter
--- OUTSIDE RECORDS SUMMARY | 2024-05-23 10:36 | XMS_ITS | Encounter Summary ---
Author Organization [facility] Address [address] [place] [address] Care Team Providers Care Palliative Medicine Physician Name Role Phone Unavailable Primary Care Provider Unavailabl e Reason for Visit * Reason Onset Date Comments Previsit Preparation 05/16/2024 SHELLEY DD * Appointment Request (Routine) - Authorized Specialty Diagnoses / Procedures Referred By Contact Referred To Contact Gastroenterology and Hepatology Referral ID Status Reason Start Date Expiration Date V isits Requested Visits Authorized [id number] Authorized 05/08/2024 05/08/2025 1 1 Encounter Details Date Type Department Care Team (Latest Contact Info) Description 05/16/2024 10:30 AM FAMILY PRACTICE PHYSICIAN Clinical Communication Virtual Review in [place], [place] [address] [place] [address] Previsit Preparation (SHELLEY DD) Social History Tobacco Use Types Packs/Day Years Used Date Smoking Tobacco: Former Cigarettes S tarted: 06/27/1998 Smokeless Tobacco: Never Tobacco Cessation:Counseling Given: Not Answered [facility] Utilities Answer Date Recorded In the past 12 months has th e ReplyBuy, gas, oil, or water company threatened to [...] your living situation today? I have a [facility] place to live 04/25/2024 [...]
--- OUTSIDE RECORDS SUMMARY | 2024-05-23 10:36 | XMS_ITS | Encounter Summary ---
Author Organization [facility] Address [address] [place] [address] Care Team Providers Care Chief Scientist Name Role Phone Unavailable Primary Care Provider Unavailabl e Reason for Visit * Reason Comments Unspecified Cirrhosis Of Liver * Appointment Request (Routine) - Authorized Specialty Diagnoses / Procedures Referred By Contact Referred To Contact Gastroenterology and Hepatology Diagnoses Mass Hepatic Unspecified Cirrhosis Of Liver (HCC) Ascites Trisha Ellison N.P. [address] [address] [place] [address] Phone: tel: fax: Referral ID Status Reason Start Date Expiration Date V isits Requested Visits Authorized [id number] Authorized 04/19/2024 04/19/2025 2 2 Encounter Details Date Type Department Care Team (Latest Contact Info) Description 05/18/2024 2:00 PM VP GENETIC Comprehensive Visit Division of Gastroenterology in [place], [place] [address] [place] [address] Macy Fatima M.D. [address] [address] [place] [address] Edmond Pardo M.B.BCarlozS. [address] [place] [phone] Malignant Neoplasm Of Liver Hepatocellular (HCC) (Primary Dx); Unspecified Cirrhosis Of Liver (HCC) Social History Tobacco Use Types Packs/Day Years Used Date Smoking Tobacco: Former Cigarettes S tarted: 06/27/1998 Smokeless Tobacco: Never [facility] Utilities Answer Date Recorded In the past 12 months has th e electric, gas, oil, or water [employer] threatened to shut off services in your [...] your living situation today? I have a [facility] place to live 04/25/2024 Sex and Gender Information Value Date Recorded Sex Assigned at Male 04/25/2024 10:58 AM CDT Legal Sex Male 4:01 PM CDT Gender Identity Male 04/25/2024 10:58 AM CDT Sexual Orientation Straight 04/25/2024 10 :58 AM CDT documented as of this encounter Last Filed Vital Signs Vital Sign Reading Time Taken Comments Blood Pressure 122/73 05/18/2024 1:52 PM VP GENETIC Pulse 65 05/18/2024 1:52 PM VP GENETIC Temperature - - Respiratory Rate - - Oxygen Saturation - - Inhaled Oxygen Concentration - - Weight 95 kg (209 lb 7 oz) 05/18/2024 1:52 PM CS T Height 166.6 cm (5' 5.59) 05/18/2024 1:52 PM CS T Body Mass Index 34.23 05/18/2024 1:52 PM VP GENETIC documented in this encounter Consult Notes * Edmond Pardo M.B.B.S. - 05/18/2024 2:00 PM CST SUBJECTIVE REASON FOR CONSULT 1. New diagnosis of liver cancer. 2. Recent diagnosis of cirrhosis. HISTORY OF PRESENT ILLNESS Mr. Phillips is a 78-year-old male seen today along with his , Sagrario. He became symptomatic in the summer with ascites first noticed in January, was evaluated locally at [facility] and underwent a paracentesis. He then had a hairline fracture of his hip, underwent an MRI that suggested liver lesions and eventually dedicated liver imaging that showed large liver mass. He was evaluated by Dr. Macy Fatima and a referral was made to an oncologist, noting locally advanced hepatocellular carcinoma. The likely etiology of his liver disease is due to alcohol use. He was averaging 2-6 beers a day, and has some insight into this being an excess amount of alcohol. Approximately a year ago, he cut down to 1-2 beers a day and chose to stop drinking in December 2023. He also has a history of tobacco use and he chose to not use tobacco approximately 23 years ago. In addition to ascites, he has had lower extremity edema, blistering drainage, as well as cellulitis. MEDICAL HISTORY Significant for: Gout. Hypertension. Hyperlipidemia. Chronic kidney disease. Hemorrhoids. He has not started diuretics, he has eliminated salt from his diet. He has never had a colonoscopy or an upper endoscopy in his life. He has had no GI bleeding other than hemorrhoidal bleeding. No portosystemic encephalopathy. His appetite is good. He did have questions about the feasibility and recommendations regarding a TIPS shunt given that he is undergoing paracentesis every 7-10 days. FAMILY HISTORY Significant for breast cancer in his daughter, breast cancer in his mother, prostate cancer in his brother. No family history of liver disease or liver cancer. OBJECTIVE PHYSICAL EXAMINATION Vital Signs: Height 166.6 cm, weight 95 kg. Heart rate 65, blood pressure 122/73. General Appearance: Pleasant male who appears his stated age, is in no acute distress andis examined in the wheelchair. Eyes: Anicteric. Heart: S1, S2 normal. Regular rate and rhythm. Lungs: Bilateral added crackles, right greater than left basilar. Abdomen: Distended, nontender. No palpable hepatosplenomegaly through the distention. Extremities: Bilateral marked lower extremity edema. Neuro: No asterixis. 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 Phillips is a 78-year-old male who presents today for assessment of a relatively new diagnosis of both cirrhosis secondary to alcohol and hepatocellular carcinoma. Blood work today shows a normalcomplete blood count with a platelet count of 137, preserved synthetic function with an INR of 1.1, known chronic kidney disease and creatinine today of 1.86. His bilirubin is 1.7 total, 1.1 direct. Normal ALT. AST 71, alkaline phosphatase 492, and albumin of 3.1. CEA and CA-19-9 are normal. Alpha fetoprotein and L3 are elevated, 11 and 36% respectively. MRI of the abdomen shows a very large hypervascular mass in the right lobe 10.6 x 13 x 11.6 cm, which is LI-RADS 5, and another masslike enlargement of the tip of the right lobe approximately 3 cm with multiple small arterially-enhancing subcentimeter satellite nodules. There does not appear to be extrahepatic spread, he has features of cirrhosis with portal hypertension including ascites, shrunken right hepatic lobe, hypertrophied periumbilical vein, splenomegaly. His original MELD score is 15, driven by a creatinine of 1.86, MELD sodium is also 15. We had a discussion today that imaging and blood work aid in the diagnosis of hepatocellular carcinoma in the setting of cirrhosis and therefore, a liver biopsy is not necessary. In my opinion, the MRI is diagnostic and we do not need a diagnostic liver biopsy. We next discussed the simultaneous presence of cirrhosis and symptoms related to portal hypertension such as ascites and lower extremity edema along with hepatocellular carcinoma. We discussed the prognosis is determined at this time by the presence of ascites, lower extremity edema, and chronic kidney disease. Discussed optimizing management of these including continuing low-sodium diet, trialing low-dose diuretics in place of hydrochlorothiazide such as Lasix 20 mg and spironolactone 50 mg, and paracenteses as needed. In addition to the MRI findings, the CT chest demonstrates features of chronic obstructive pulmonary disease. No malignancies noted. Basilar pleural effusions are noted. Though we did not discuss today, it would be important to consider pulmonary evaluation as well once there is a plan for his liver disease. We discussed the pros and cons of proceeding with an upper endoscopy, how this may be necessary if he were to receive bevacizumab. He will defer his decision until after meeting with medical oncologists. We talked about hepatocellular carcinoma, and how neither surgical resection, nor liver transplantation are possibilities given the extent of disease, as well as underlying cirrhosis. We next turned our attention to liver-directed therapies, which would be risky given ascites, and large size of liver lesions would be quite ineffective. With this in mind, I think the next recommendation would be to consider systemic therapies, and the patient is currently on a wait list for an appointment with Medical Oncology here. It will be important for him to see Medical Oncology locally as well. We talked about prognosis, and the importance of considering Palliative Medicine. He will defer this until after his consultation with Medical Oncology. We discussed the pros and cons of a TIPS whichI would not recommend in the setting of chronic kidney disease and at his age given the risk of ence phalopathy. We also discussed the risks associated with a PleurX catheter including infection and how considering that can be revisited once he has made a decision regarding systemic therapy or not. No specific followup is arranged in Hepatology, we will work on arranging a consultation with Medical Oncology. Jm Hobbs. CT CT Job ID: [id number] GENETIC documented in this encounter Plan of Treatment Not on file documented as of this encounter Visit Diagnoses Diagnosis Malignant Neoplasm Of Liver Hepatocellular (HCC)- Primary Unspecified Cirrhosis Of Liver (HCC) documented in this encounter
--- OUTSIDE RECORDS SUMMARY | 2024-05-23 10:36 | XMS_ITS | Encounter Summary ---
Author Organization [facility] Address [address] [place] [id number] Care Team Providers Care Waste Transportation Technician Name Role Phone Unavailable Primary Care Provider Unavailabl e Encounter Details Date Type Department Care Team (Latest Contact Info) Description 05/18/2024 7:12 AM METALLURGIST PROCESS - 05/18/2024 11:59 PM METALLURGIST PROCESS Hospital Encounter Department of Laboratory Medicine and Pathology, [facility] in [place], [place] [address] [place] [address] Danial Horta M.D. [address] [place] [address] Mass Hepatic Discharge Disposition: Home or Self Care Social History Tobacco Use Types Packs/Day Years Used Date Smoking Tobacco: Former Cigarettes S tarted: 06/27/1998 Smokeless Tobacco: Never [facility] Utilities Answer Date Recorded In the [...] your living situation today? I have a [facility] place to live 04/25/2024 Sex [...] Procedure Name Priority Date/Time Associated Diagnosis Comments HEPATIC FUNCTION PANEL, S Routine 05/18/2024 7:33 AM METALLURGIST PROCESS Mass Hepatic CARBOHYDRATE AG 19-9 (CA 19-9), S Routine 05/18/2024 7:33 AM METALLURGIST PROCESS Mass Hepatic AFP L3% AND TOT, HEPATOCELLULAR CARCINOMA TM, S Routine 05/18/2024 7:33 AM METALLURGIST PROCESS Mass Hepatic PROTHROMBIN TIME (PT), P Routine 024 7:33 AM METALLURGIST PROCESS Mass Hepatic CARCINOEMBRYONIC AG (CEA), S Routine 05/18/2024 7:33 AM METALLURGIST PROCESS Mass Hepatic BASIC METABOLIC PANEL, S/P Routine 05/18/2024 7:33 AM METALLURGIST PROCESS Mass Hepatic CBC WITH DIFFERENTIAL, B Routine 024 7:32 AM METALLURGIST PROCESS Mass Hepatic documented in this encounter Results * Prothrombin Time (PT) (05/18/2024 7:33 AM METALLURGIST PROCESS) Prothrombin Time, P 11.7 9.4 - 12.5 sec 05/18/2024 8:11 AM METALLURGIST PROCESS DTL INR 1.1 0.9 - 1.1 05/18/2024 8:11 AM METALLURGIST PROCESS DTL Comment: ----ADDITIONAL INFORMATION---- Standard intensity warfarin therapeutic range: 2.0 to 3.0 High intensity warfarin therapeutic range: 2.5 to 3.5 Blood (Blood, Venous) 05/18/2024 7:33 AM METALLURGIST PROCESS 05/18/2024 7:55 AM METALLURGIST PROCESS Danial Horta M.D. LAB BLOOD ADD-ON Final Resu lt [place] [address] [place] [address], [facility] [address] [place] [address] * (ABNORMAL) Hepatic Function Panel (05/18/2024 7:33 AM METALLURGIST PROCESS) Bilirubin, Total, S 1.7(H) 0.0 - 1.2 mg/dL 05/18/2024 8:40 AM METALLURGIST PROCESS DTL Bilirubin, Direct, S 1.1(H) 0.0 - 0.3 mg/dL 05/18/2024 8:40 AM METALLURGIST PROCESS DTL Aspartate Aminotransferase (AST), S 71(H) 8 - 48 U/L 05/18/2024 8:40 AM METALLURGIST PROCESS DTL Alanine Aminotransferase (ALT), S 35 7 - 55 U/L 05/18/2024 8:40 AM METALLURGIST PROCESS DTL Alkaline Phosphatase, S 492(H) 40 - 129 U/L 05/18/2024 8:40 AM METALLURGIST PROCESS DTL Albumin, S 3.1(L) 3.5 - 5.0 g/dL 05/18/2024 8:40 AM METALLURGIST PROCESS DTL Protein, Total, S 5.6(L) 6.3 - 7.9 g/dL 05/18/2024 8:40 AM METALLURGIST PROCESS DTL Blood (Blood, Venous) 05/18/2024 7:33 AM METALLURGIST PROCESS 05/18/2024 8:17 AM METALLURGIST PROCESS Danial Horta M.D. LAB BLOOD ADD-ON Final Resu lt Performing Organization Address City/[facility]/ZIP Co de Phone Number [facility] [address] [place] [address], [facility] [address] [place] [address] * Carbohydrate Antigen 19-9 (CA 19-9) (05/18/2024 7:33 AM METALLURGIST PROCESS) Carbohydrate Ag 19-9, S 15 <35 U/mL 05/18/2024 11:56 AM METALLURGIST PROCESS [facility] Comment: ----ADDITIONAL INFORMATION---- The testing method is an immunoenzymatic assay manufactured by [employer] and performed on the [employer] DxI 800. Values obtained with different assay methods or kits may be different and cannot be used interchangeably. Test results cannot be interpreted as absolute evidence for the presence or absence of malignant disease. Blood (Blood, Venous) 05/18/2024 7:33 AM METALLURGIST PROCESS 05/18/2024 11:07 AM METALLURGIST PROCESS us Danial Horta M.D. LAB BLOOD ADD-ON Final Resu lt [facility] [address] [place] [address] [facility] [address] [place] [address] * CEA (Carcinoembryonic Antigen) (05/18/2024 7:33 AM METALLURGIST PROCESS) [facility] Carcinoembryonic Ag (CEA), S 2.1 ng/mL 05/18/2024 11:57 AM METALLURGIST PROCESS [facility] Comment: ----REFERENCE VALUE---- <=3.0 (Non-smokers) Some smokers may have elevated CEA, usually <5.0. ----ADDITIONAL INFORMATION---- The testing method is an immunoenzymatic assay manufactured by [employer]. and performed on the [employer] DxI 800. Values obtained with different assay methods or kits may be different and cannot be used interchangeably. Test results cannot be interpreted as absolute evidence for the presence or absence of malignant disease. Blood (Blood, Venous) 05/18/2024 7:33 AM METALLURGIST PROCESS 05/18/2024 11:07 AM METALLURGIST PROCESS us Danial Horta M.D. LAB BLOOD ADD-ON Final Resu lt Performing Organization Address City/State/[facility] Co de Phone Number [facility] [address] [place] [address] [facility] [address] [place] [address] * (ABNORMAL) Basic Metabolic Panel (05/18/2024 7:33 AM METALLURGIST PROCESS) [facility] Potassium, S 4.0 3.6 - 5.2 mmol/L 05/18/2024 8:40 AM METALLURGIST PROCESS DTL Sodium, S 140 135 - 145 mmol/L 05/18/2024 8:40 AM METALLURGIST PROCESS DTL Chloride, S 103 98 - 107 mmol/L 05/18/2024 8:40 AM METALLURGIST PROCESS DTL Bicarbonate, S 27 22 - 29 mmol/L 05/18/2024 8:40 AM METALLURGIST PROCESS DTL Anion Gap 10 7 - 15 05/18/2024 8:40 AM METALLURGIST PROCESS DTL BUN (Blood Urea Nitrogen), S 60(H) 8 - 24 mg/dL 05/18/2024 8:40 AM METALLURGIST PROCESS DTL Creatinine 1.86(H) 0.74 - 1.35 mg/dL 05/18/2024 8:40 AM METALLURGIST PROCESS DTL Estimated GFR (eGFR) 37(L) >=60 mL/min/BSA 05/18/2024 8:40 AM METALLURGIST PROCESS DTL Comment: Estimated GFR calculated using the 2020 CKD_EPI creatinine equation. Calcium, Total, S 8.7(L) 8.8 - 10.2 mg/dL 05/18/2024 8:40 AM METALLURGIST PROCESS DTL Glucose, S 125 70 - 140 mg/dL 05/18/2024 8:40 AM METALLURGIST PROCESS DTL Blood (Blood, Venous) 05/18/2024 7:33 AM METALLURGIST PROCESS 05/18/2024 8:17 AM METALLURGIST PROCESS Danial Horta M.D. LAB BLOOD ADD-ON Final Resu lt Performing Organization Address City/[facility]/ZIP Co de Phone Number [facility] [address] [place] [address], [facility] [address] [place] [address] * (ABNORMAL) AFP (Alpha-Fetoprotein) L3% and Total, Hepatocellular Carcinoma Tumor Marker (47:33 AM METALLURGIST PROCESS) Total AFP, S 11(H) <4.7 ng/mL 05/18/2024 1:29 PM METALLURGIST PROCESS SDSC %L3 36(H) <10 % 05/18/2024 1:29 PM METALLURGIST PROCESS SDS Comment: ----ADDITIONAL INFORMATION---- The testing method is isotachophoresis with laser-induced fluorescence manufactured by [employer] and performed on the i30. Values obtained with different assay methods or kits may be different and cannot be used interchangeably. Test results cannot be interpreted as absolute evidence for the presence or absence of malignant disease. Alpha-Fetoprotein and L3% values are not interpretable during for the investigation of malignant disease. Blood (Blood, Venous) 05/18/2024 7:33 AM METALLURGIST PROCESS 05/18/2024 12:03 PM METALLURGIST PROCESS Danial Horta M.D. LAB BLOOD ADD-ON Final Resu lt Performing Organization Address City/[facility]/ZIP Co de Phone Number [facility] [address] [place] [address] [facility] [address] [place] [address] * (ABNORMAL) CBC with Differential, Blood (05/18/2024 7:32 AM METALLURGIST PROCESS) Hemoglobin 13.8 13.2 - 16.6 g/dL 05/18/2024 8:27 AM METALLURGIST PROCESS DTL Hematocrit 42.4 38.3 - 48.6 % 05/18/2024 8:27 AM METALLURGIST PROCESS DTL Erythrocytes 4.36 4.35 - 5.65 x10(12)/L 05/18/2024 8:27 AM METALLURGIST PROCESS DTL MCV 97.2 78.2 - 97.9 fL 05/18/2024 8:27 AM METALLURGIST PROCESS DTL RBC Distrib Width 17.9(H) 11.8 - 14.5 % 05/18/2024 8:27 AM METALLURGIST PROCESS DTL Platelet Count 137 135 - 317 x10(9)/L 05/18/2024 9:35 AM METALLURGIST PROCESS DTL Leukocytes 5.5 3.4 - 9.6 x10(9)/L 05/18/2024 9:35 AM METALLURGIST PROCESS DTL Neutrophils 3.59 1.56 - 6.45 x10(9)/L 05/18/2024 8:26 AM METALLURGIST PROCESS DH[facility] Lymphocytes 0.81(L) 0.95 - 3.07 x10(9)/L 05/18/2024 8:27 AM METALLURGIST PROCESS DTL Monocytes 0.87(H) 0.26 - 0.81 x10(9)/L 05/18/2024 8:27 AM METALLURGIST PROCESS DTL Eosinophils 0.14 0.03 - 0.48 x10(9)/L 05/18/2024 8:27 AM METALLURGIST PROCESS DTL Basophils 0.05 0.01 - 0.08 x10(9)/L 05/18/2024 8:27 AM METALLURGIST PROCESS DTL Blood (Blood, Venous) 05/18/2024 7:32 AM METALLURGIST PROCESS 05/18/2024 8:00 AM METALLURGIST PROCESS us Danial Horta M.D. LAB BLOOD ADD-ON Final Resu lt [facility] [address] [place] [address], [facility] DTL [facility] [address] [place] [address] [facility] [address] [place] [address] documented in this encounter Visit Diagnoses Diagnosis Mass Hepatic documented in this encounter
--- OUTSIDE RECORDS SUMMARY | 2024-05-23 10:37 | XMS_ITS | Encounter Summary ---
Author Organization [facility] Address [address] [place] [address] Care Team Providers Care Paint Sprayer Sandblaster Name Role Phone Unavailable Primary Care Provider Unavailabl e Encounter Details Date Type Department Care Team (Late st Contact Info) Description 05/07/2024 Episode Changes Division of Gastroenterology in [place], [place] [address] [place] [address] Linda Gavin Social History Tobacco Use Types Packs/Day Years Used Date Smoking Tobacco: Never Assessed [facility] Utilities Answer Date Recorded In the past 12 months has e [employer], gas, oil, or water [employer] threatened to shut off services in your [...] your living situation today? I have a [facility] place to live 04/25/2024 Sex and Gender [...]
--- OUTSIDE RECORDS SUMMARY | 2024-05-23 10:37 | XMS_ITS | Encounter Summary ---
Author Organization [facility] Address [address] [place] [address] Care Team Providers Care Bounty Hunter Name Role Phone Unavailable Primary Care Provider Unavailabl e Reason for Visit * Reason Onset Date Comments Hepatobiliary 04/20/2024 Pre-Visit Previsit Preparation 04/20/2024 [facility] - Outside Materials 04/20/2024 Encounter Details Date Type Department Care Team (Latest Contact Info) Description 04/20/2024 Clinical Communication Division of Gastroenterology in [place], [place] [address] [place] [address] Prescheduling, Provider Hepatobiliary (Pre-Visit); Previsit Preparation; [facility] - Outside Materials Social History Tobacco Use Types Packs/Day Years Used Date Smoking Tobacco: Never Assessed [facility] Utilities Answer Date Recorded In the past 12 months has e [employer], gas, oil, or water [employer] threatened to shut off services in your [...] living situation today? I have a [facility] place to live 04/25/2024 Sex and [...]
--- OUTSIDE RECORDS SUMMARY | 2024-05-23 10:37 | XMS_ITS | Encounter Summary ---
Author Organization [facility] Address [address] [place] [address] Care Team Providers Care Testing Consultant Name Role Phone Unavailable Primary Care Provider Unavailabl e Reason for Referral * Outpatient (Routine) - Closed Specialty Diagnoses / Procedures Referred By Contact Referred To Contact Gastroenterology and Hepatology Diagnoses Unspecified Cirrhosis Of Liver (HCC) Macy Fatima M.D. [address] [address] [place] [address] Phone: tel: fax: [facility] Referral ID Status Reason Start Date Expiration Date Visits Re quested Visits Authorized [id number] Closed 04/19/2024 10/19/2025 1 1 Encounter Details Date Type Department Care Team (Late st Contact Info) Description 04/19/2024 Community Orders [facility] [address] [address] [place] [phone] Macy Fatima M.D. [address] [address] [place] [phone] Unspecified Cirrhosis Of Liver (HCC) (Primary Dx) Social History Tobacco Use Types Packs/Day Years Used Date Smoking Tobacco: Never Assessed [facility] Utilities Answer Date Recorded In the [...] your living situation today? I have a [facility] place to live 04/25/2024 Sex and Gender Information Value Date Recorded Sex Assigned at Male 04/25/2024 10:58 AM CDT Legal Sex Male 4:01 PM CDT Gender Identity Male 04/25/2024 10:58 AM CDT Sexual Orientation Straight 04/25/2024 10 :58 AM CDT documented as of this encounter Plan of Treatment Scheduled Referrals Name Type Priority Associated Diagnoses Order Schedule Gastroenterology & Hepatology Referral Outpatient Referral Routine Unspecified Cirrhosis Of Liver (HCC) Expected: 04/19/2024 (Approximate), Expires: 07/20/2025 documented as of this encounter Visit Diagnoses Diagnosis Unspecified Cirrhosis Of Liver (HCC)- Primary documented in this encounter
--- OUTSIDE RECORDS SUMMARY | 2024-05-23 10:37 | XMS_ITS | Encounter Summary ---
Author Organization [facility] Address [address] [place] [id number] Care Team Providers Care Mirror Framer Name Role Phone Unavailable Primary Care Provider Unavailabl e Reason for Referral * Outpatient (Routine) - Authorized Specialty Diagnoses / Procedures Referred By Vasquez damon Referred To Contact Medical Oncology / Oncology Diagnoses Mass Hepatic Danial Horta M.D. [address] [place] [address] Phone: tel: fax: [facility] Referral ID Status Reason Start Date Expiration Date V isits Requested Visits Authorized [id number] Authorized 05/01/2024 10/31/2025 1 1 ER MECHANIC * MRI/CAT/PET Scan (Routine) - Closed Specialty Diagnoses / Procedures Referred By Contac t Referred To Contact Radiology Diagnoses Mass Hepatic Procedures CT Chest without IV Contrast Danial Horta M.D. [address] [place] [address] Phone: tel: fax: [facility] Referral ID Status Reason Start Date Expiration Date Visits Re quested Visits Authorized [id number] Closed 05/01/2024 05/01/2025 1 1 ER MECHANIC * MRI/CAT/PET Scan (Routine) - Closed Specialty Diagnoses / Procedures Referred By Contac t Referred To Contact Radiology Diagnoses Mass Hepatic Procedures MR Abdomen without and with IV Contrast Danial Horta M.D. [address] [place] [phone] Phone: tel: fax: [facility] Referral ID Status Reason Start Date Expiration Date Visits Re quested Visits Authorized [id number] Closed 05/01/2024 05/01/2025 1 1 ER MECHANIC Reason for Visit * Reason Comments Hepatobiliary Nurse Visit * Appointment Request (Routine) - Authorized Specialty Diagnoses / Procedures Referred By Contact Referred To Contact Gastroenterology and Hepatology Diagnoses Mass Hepatic Unspecified Cirrhosis Of Liver (HCC) Ascites Trisha Ellison N.P. [address] [address] [place] [address] Phone: tel: fax: Referral ID Status Reason Start Date Expiration Date V isits Requested Visits Authorized [id number] Authorized 04/19/2024 04/19/2025 2 2 Encounter Details Date Type Department Care Team (Latest Contact Info) Description 05/01/2024 10:00 AM MASTER MECHANIC Telemedicine Division of Gastroenterology in [place], [place] [address] [place] [address] Allyssa Martinez, R.N. Mass Hepatic (Primary Dx); Other Specified Diseases Of Liver Social History Tobacco Use Types Packs/Day Years Used Date Smoking Tobacco: Never Assessed [facility] Utilities Answer Date Recorded In [...] your living situation today? I have a [facility] place to live 04/25/2024 Sex and [...] Gastroenterology and Hepatology RN Pre-Visit. Patient contacted [facility] requesting on-campus appointment; pre-visit was scheduled following that request. Completed administrative pre-visit discussion to better understand patient goals and the needed patient itinerary for the requested on-site visit. This pre-visit does not establish a long-term relationship. This interview occurred via phone call by Allyssa Martinez R.N. at [facility] to the patient in the patient's home. The information below is based on review of available medical records and a virtual conversation with the patient. History of Present Illness Mr. Phillips is a 78 y.o. male who is being interviewed for a pre-visit encounter. Our records indicate that Mr. Phillips is seeking an appointment at [facility] for further evaluation. Mr. Phillips states goals [...] to be a LiRads 5 lesion. Mr. Phillisp is undergoing weekly paracentesis for ascites. He also has BLE edema and chronic kidney disease. He would like to come to [place] for further work up. We do not have images. Blood work: 04/09 AFP 12 CEA 2.9 CA 19-9 14 Mr. Phillips is quite fatigued. Diagnosed with cirrhosis in December and stopped ETOH in December. No othersignificant medical history. He is able to travel to [place] for a face to face visit. ASSESSMENT [...] consultation Palliative care consultation Medical oncology consultation ER MECHANIC documented in this encounter Plan of Treatment Scheduled Referrals Name Type Priority Associated Diagnoses Orde r Schedule Oncology - Medical, GI consult (clinic) Outpatient Referral Routine Mass Hepatic Expected: 05/08/2024, Expires: 08/01/2025 documented as of this encounter Results * Prothrombin Time (PT) (05/18/2024 7:33 AM MASTER MECHANIC) Prothrombin Time, P 11.7 9.4 - 12.5 sec 05/18/2024 8:11 AM MASTER MECHANIC DTL INR 1.1 0.9 - 1.1 05/18/2024 8:11 AM MASTER MECHANIC DTL Comment: ----ADDITIONAL INFORMATION---- Standard intensity warfarin therapeutic range: 2.0 to 3.0 High intensity warfarin therapeutic range: 2.5 to 3.5 Blood (Blood, Venous) 05/18/2024 7:33 AM MASTER MECHANIC 05/18/2024 7:55 AM MASTER MECHANIC Danial Horta M.D. LAB BLOOD ADD-ON Final Resu lt Performing Organization Address [facility] Co de Phone Number [facility] [address] [place], [place] [id number] [place] [address] DTL [facility] [address] [place] [address] * (ABNORMAL) Hepatic Function Panel (05/18/2024 7:33 AM MASTER MECHANIC) Bilirubin, Total, S 1.7(H) 0.0 - 1.2 mg/dL 05/18/2024 8:40 AM MASTER MECHANIC DTL Bilirubin, Direct, S 1.1(H) 0.0 - 0.3 mg/dL 05/18/2024 8:40 AM MASTER MECHANIC DTL Aspartate Aminotransferase (AST), S 71(H) 8 - 48 U/L 05/18/2024 8:40 AM MASTER MECHANIC DTL Alanine Aminotransferase (ALT), S 35 7 - 55 U/L 05/18/2024 8:40 AM MASTER MECHANIC DTL Alkaline Phosphatase, S 492(H) 40 - 129 U/L 05/18/2024 8:40 AM MASTER MECHANIC DTL Albumin, S 3.1(L) 3.5 - 5.0 g/dL 05/18/2024 8:40 AM MASTER MECHANIC DTL Protein, Total, S 5.6(L) 6.3 - 7.9 g/dL 05/18/2024 8:40 AM MASTER MECHANIC DTL Blood (Blood, Venous) 05/18/2024 7:33 AM MASTER MECHANIC 05/18/2024 8:17 AM MASTER MECHANIC us Danial Horta M.D. LAB BLOOD ADD-ON Final Resu lt Performing Organization Address City/[facility]/ZIP Co de Phone Number [facility] [address] [place] [address], [place] [facility] [address] [place] [address] * Carbohydrate Antigen 19-9 (CA 19-9) (05/18/2024 7:33 AM MASTER MECHANIC) Pathologist [facility] Carbohydrate Ag 19-9, S 15 <35 U/mL 05/18/2024 11:56 AM MASTER MECHANIC [facility] Comment: ----ADDITIONAL INFORMATION---- The testing method is an immunoenzymatic assay manufactured by [employer] and performed on the [employer] DxI 800. Values obtained with different assay methods or kits may be different and cannot be used interchangeably. Test results cannot be interpreted as absolute evidence for the presence or absence of malignant disease. Blood (Blood, Venous) 05/18/2024 7:33 AM MASTER MECHANIC 05/18/2024 11:07 AM MASTER MECHANIC Danial Horta M.D. LAB BLOOD ADD-ON Final Resu lt [facility] [address] [place] [address] [facility] [address] [place] [address] * CEA (Carcinoembryonic Antigen) (05/18/2024 7:33 AM MASTER MECHANIC) Pathologist [facility] Carcinoembryonic Ag (CEA), S 2.1 ng/mL 05/18/2024 11:57 AM MASTER MECHANIC [facility] Comment: ----REFERENCE VALUE---- <=3.0 (Non-smokers) Some smokers may have elevated CEA, usually <5.0. ----ADDITIONAL INFORMATION---- The testing method is an immunoenzymatic assay manufactured by [employer] and performed on the [employer] DxI 800. Values obtained with different assay methods or kits may be different and cannot be used interchangeably. Test results cannot be interpreted as absolute evidence for the presence or absence of malignant disease. Blood (Blood, Venous) 05/18/2024 7:33 AM MASTER MECHANIC 05/18/2024 11:07 AM MASTER MECHANIC Danial Horta M.D. LAB BLOOD ADD-ON Final Resu lt [facility] [address] [place] [address] [facility] [address] [place] [address] * (ABNORMAL) Basic Metabolic Panel (05/18/2024 7:33 AM MASTER MECHANIC) Pathologist [facility] Potassium, S 4.0 3.6 - 5.2 mmol/L 05/18/2024 8:40 AM MASTER MECHANIC DTL Sodium, S 140 135 - 145 mmol/L 05/18/2024 8:40 AM MASTER MECHANIC DTL Chloride, S 103 98 - 107 mmol/L 05/18/2024 8:40 AM MASTER MECHANIC DTL Bicarbonate, S 27 22 - 29 mmol/L 05/18/2024 8:40 AM MASTER MECHANIC DTL Anion Gap 10 7 - 15 05/18/2024 8:40 AM MASTER MECHANIC DTL BUN (Blood Urea Nitrogen), S 60(H) 8 - 24 mg/dL 05/18/2024 8:40 AM MASTER MECHANIC DTL Creatinine 1.86(H) 0.74 - 1.35 mg/dL 05/18/2024 8:40 AM MASTER MECHANIC DTL Estimated GFR (eGFR) 37(L) >=60 mL/min/BSA 05/18/2024 8:40 AM MASTER MECHANIC DTL Comment: Estimated GFR calculated using the 2020 CKD_EPI creatinine equation. Calcium, Total, S 8.7(L) 8.8 - 10.2 mg/dL 05/18/2024 8:40 AM MASTER MECHANIC DTL Glucose, S 125 70 - 140 mg/dL 05/18/2024 8:40 AM MASTER MECHANIC DTL Blood (Blood, Venous) 05/18/2024 7:33 AM MASTER MECHANIC 05/18/2024 8:17 AM MASTER MECHANIC us Danial Horta M.D. LAB BLOOD ADD-ON Final Resu lt [facility] [address] [place] [address], [facility] DTL [facility] [address] [place] [address] * (ABNORMAL) AFP (Alpha-Fetoprotein) L3% and Total, Hepatocellular Carcinoma Tumor Marker (47:33 AM MASTER MECHANIC) Pathologist [facility] Total AFP, S 11(H) <4.7 ng/mL 05/18/2024 1:29 PM MASTER MECHANIC SDSC %L3 36(H) <10 % 05/18/2024 1:29 PM MASTER MECHANIC SDS Comment: ----ADDITIONAL INFORMATION---- The testing method is isotachophoresis with laser-induced fluorescence manufactured by [employer] and performed on the i30. Values obtained with different assay methods or kits may be different and cannot be used interchangeably. Test results cannot be interpreted as absolute evidence for the presence or absence of malignant disease. Alpha-Fetoprotein and L3% values are not interpretable during for the investigation of malignant disease. Blood (Blood, Venous) 05/18/2024 7:33 AM MASTER MECHANIC 05/18/2024 12:03 PM MASTER MECHANIC us Danial Horta M.D. LAB BLOOD ADD-ON Final Resu lt [facility] [address] [place] [address] [facility] [address] [place] [address] * (ABNORMAL) CBC with Differential, Blood (05/18/2024 7:32 AM MASTER MECHANIC) [facility] Hemoglobin 13.8 13.2 - 16.6 g/dL 05/18/2024 8:27 AM MASTER MECHANIC DTL Hematocrit 42.4 38.3 - 48.6 % 05/18/2024 8:27 AM MASTER MECHANIC DTL Erythrocytes 4.36 4.35 - 5.65 x10(12)/L 05/18/2024 8:27 AM MASTER MECHANIC DTL MCV 97.2 78.2 - 97.9 fL 05/18/2024 8:27 AM MASTER MECHANIC DTL RBC Distrib Width 17.9(H) 11.8 - 14.5 % 05/18/2024 8:27 AM MASTER MECHANIC DTL Platelet Count 137 135 - 317 x10(9)/L 05/18/2024 9:35 AM MASTER MECHANIC DTL Leukocytes 5.5 3.4 - 9.6 x10(9)/L 05/18/2024 9:35 AM MASTER MECHANIC DTL Neutrophils 3.59 1.56 - 6.45 x10(9)/L 05/18/2024 8:26 AM MASTER MECHANIC [facility] Lymphocytes 0.81(L) 0.95 - 3.07 x10(9)/L 05/18/2024 8:27 AM MASTER MECHANIC DTL Monocytes 0.87(H) 0.26 - 0.81 x10(9)/L 05/18/2024 8:27 AM MASTER MECHANIC DTL Eosinophils 0.14 0.03 - 0.48 x10(9)/L 05/18/2024 8:27 AM MASTER MECHANIC DTL Basophils 0.05 0.01 - 0.08 x10(9)/L 05/18/2024 8:27 AM MASTER MECHANIC DTL Blood (Blood, Venous) 05/18/2024 7:32 AM MASTER MECHANIC 05/18/2024 8:00 AM MASTER MECHANIC us Danial Horta M.D. LAB BLOOD ADD-ON Final Resu lt [facility] [address] [place] [address], [facility] DTL [facility] [address] [place] [address] DHPM [facility] [address] [place] [address] * CT Chest without IV Contrast (05/18/2024 7:07 AM MASTER MECHANIC) Anatomical Region Laterality Modality Chest, Thoracic RST LOS, Tho racic ARZ LOS, Thoracic FLA LOS N/A Computed Tomography, Compute d Tomography Impressions 05/18/2024 9:00 AM MASTER MECHANIC 1. Bilateral moderate centrilobular emphysema. 2. Tree-in-bud nodularity in right lower lobe, likely infectious/inflammatory. 3. A few nonspecific scattered micronodules, probably benign. 4. Trace right pleural effusion and large volume abdominopelvic ascites, likely due to hepatic cirrhosis. Narrative 05/18/2024 9:00 AM MASTER MECHANIC EXAM: CT CHEST WITHOUT IV CONTRAST COMPARISON: [...] to hepatic cirrhosis. us Danial Horta M.D. IMG CT PROCEDURES Final Res ult * MR Abdomen without and with IV Contrast (05/17/2024 5:03 PM MASTER MECHANIC) Anatomical Region Laterality Modality Abdomen, Abdominal RST LOS, Abdominal ARZ LOS, Abdominal FLA LOS N/A Magnetic Resonance Impressions 05/18/2024 10:18 AM MASTER MECHANIC Cirrhotic liver morphology with portal hypertension. Very large (more than 10 cm) lesion occupying most of the right hepatic lobe demonstrates suspicious features. LR 5. There is an additional LR 5 lesion in the tip of the right hepatic lobe series 6, and smaller satellite lesions. No enlarged lymph nodes or evidence of distant metastasis in the upper abdomen. Narrative 05/18/2024 10:18 AM MASTER MECHANIC EXAM: MR ABDOMEN WITHOUT AND WITH IV [...] metastasis in the upperabdomen. Danial Horta M.D. IMKatty MRI PROCEDURES Final Re sult documented in this encounter Visit Diagnoses Diagnosis Mass Hepatic- Primary Other Specified Diseases Of Liver Mass Hepatic Mass Hepatic documented in this encounter
--- OUTSIDE RECORDS SUMMARY | 2024-05-23 10:37 | XMS_ITS | Clinical Summary ---
[facility] Address [address] [place] [address] Care Team Providers Care Corporate Coordinator Name Role Phone Unassigned, Provider Primary Care Provider Unava ilable Source Comments You are receiving this document as you are listed as the primary care provider,follow-up provider, or the patient has been referred to you for consultation.This is in compliance with the Medicare and[facility] Cent[facility]an[facility] EHR Incentive Program,which states Providers who transition their patient to another setting of careor provider of care or refers their patient to another provider of care shouldprovide summary care record for each transition of care or referral. [facility] Allergies No known active allergies Medications Medication [...] age to complete this topic Care Teams Corporate Coordinator Relationship Specialty Start Date End Date Unassigned, Provider [address] [place] [address] PCP - General 01/14/03
--- OUTSIDE RECORDS SUMMARY | 2024-05-23 10:37 | XMS_ITS | Encounter Summary ---
Author Organization [facility] Address [address] [place] [address] Care Team Providers Care Cargo Vessel Stewardess Name Role Phone Unavailable Primary Care Provider Unavailabl e Encounter Details Date Type Department Care Team (Latest Contact Info) Description 05/09/2024 Clinical Communication Division of Gastroenterology in [place], [place] [address] [place] [address] Danial Horta M.D. [address] [place] [phone] Social History Tobacco Use Types Packs/Day Years Used Date Smoking Tobacco: Never Assessed [facility] Utilities Answer Date Recorded In the past 12 months has [employer], gas, oil, or water company threatened [...] your living situation today? I have a [employer] place to live 04/25/2024 Sex and Gender [...]
--- OUTSIDE RECORDS SUMMARY | 2024-05-23 10:37 | XMS_ITS | Clinical Summary ---
Author Organization [facility] Address [place], [place] [address] Care Team Providers Care Plastic Production Machine Setter Name Role Phone AndressaLynn RN, BSN Unavailable [phone] Allergies Active Allergy Reactions Criticality Noted [...] had brest tumor.~No HTN.~Has older brother had MD in his 60. Relation Name Status Comments [...] Comments Blood Pressure 122/62 05/27/2011 7:59 AM ATHLETIC DIRECTOR Pulse 60 05/27/2011 7:59 AM ATHLETIC DIRECTOR Temperature 36.8 C (98.2 F) 07/29/2006 8:20 AM ATHLETIC DIRECTOR Respiratory Rate 16 05/27/2011 7:59 AM ATHLETIC DIRECTOR Oxygen Saturation - - Inhaled Oxygen Concentration - - Weight 84.8 kg (186 lb 14.4 oz) 05/27/2011 7:59 AM ATHLETIC DIRECTOR Height - - Body Mass Index - [...] Influenza for age 65+ 02/26/2024 Care Teams Plastic Production Machine Setter Relationship Specialty Start Date End Date October, Lynn Chew RN, BSN [address] [address] Nurse Navigator - Oncology Oncology 04/17/24
[2024-05-23 10:48] VITALS: BP 130/59; PULSE 65; RESP 20; TEMP 36.5; O2SAT 97
[2024-05-23 11:30] VITALS: BP 120/63; PULSE 67; RESP 20; O2SAT 96
[2024-05-23 11:45] VITALS: BP 119/58; PULSE 60; RESP 18; O2SAT 96
[2024-05-23 12:00] VITALS: BP 106/58; BP 109/55; PULSE 62; PULSE 65; RESP 18; O2SAT 97
[2024-05-23 12:15] VITALS: BP 109/55; PULSE 65; RESP 18; O2SAT 98
[2024-05-23 12:30] VITALS: BP 114/58; PULSE 61; RESP 18; O2SAT 97
--- NOTE | 2024-05-23 13:23 | W.PM.PARA ---
Paracentesis Date Date: 05/23/24 Procedure Note Procedure: Paracentesis with Ultrasound Guidance Type of paracentesis: Therapeutic Initial or Repeat?: Repeat Surgeon: Salina Ballard Indications: 78-year-old male with liver cirrhosis and recurrent ascites presents with symptomatic ascites for repeat paracentesis. Labs and Cytology Sent:: No Albumin infused: Yes (Two bottles) Procedure Note:: Prior to the procedure, the risks and benefits of the procedure were discussed and an informed consent was obtained. Patient identification was confirmed and TIME OUT was performed. An ultrasound was brought onto the field and an easily accessible pocket of ascites was identified that was away from intraabdominal organs. The patient's abdomen in the left lower lateral quadrant was prepped and draped in the usual sterile fashion. 1% Lidocaine was used to anesthetize the skin, soft tissues and peritoneum over the proposed needle insertion site. A skin incision was made with a scalpel just large enough to fit the needle. The needle with the paracentesis catheter was advanced into the abdomen and a cystic fluid was aspirated into the syringe. The needle was then withdrawn and the catheter was left in place. The catheter was then connected to the drainage tubing. 6 Liters of straw colored fluid was drained. There was still fluid remaining in the abdomen but patient felt significantly better with his symptoms. 2 bottles of albumin were infused. Post procedure ultrasound revealed presence of residual ascitic fluid. The catheter was then removed and the skin was closed with Vicryl stitch (in interrupted subcutaneous stitch and [id number] visible skin stitch with Vicryl) and Exofin. Patient stated that he had fluid leakage after his last paracentesis and additional sutures need to be placing the emergency room. He desired a [id number] stitch to avoid return to the emergency room. Patient tolerated procedure well and there were no immediate complications. Patient's vital signs were stable throughout the procedure. Recomendation: Discharge to home (ambulatory) and return to normal activities tomorrow. Patient was strongly encouraged to discuss with Hematology and his primary care doctor placement of peritoneal catheter due to recurrence of symptoms and inability to take diuretics to control his ascites.
== END 2024-05-23 12:35 | disposition home or self-care (01) ==
LOC: US 10:34
PROVIDERS: PCP Family Medicine; Visit Provider Surgery
DX: K70.31 Alcoholic cirrhosis of liver with ascites (principal)
CPT/HCPCS: 49083

== ENCOUNTER 2024-06-01 09:59 | Outpatient (CLI) | payer MEDICARE, SELFPAY ==
[2024-06-01] VITALS (9 sets, daily range): BP systolic 74–111; BP diastolic 47–58; PULSE 61–65; RESP 16–20; O2SAT 96–978
--- OUTSIDE RECORDS SUMMARY | 2024-06-01 10:01 | XMS_ITS | Referral Summary ---
Author Organization [facility] Address [address] [place] [address] Care Team Providers Care Lining Marker Name Role Phone Unavailable Primary Care Provider Unavailabl e Source Comments Patient records contain information from all sites at [facility]. For routine questions regarding patient records, call [phone] during business hours, M-F 8:00 AM - 5:00 PM Central Time. Record requests for emergency care only can be directed to [phone] at any time.[facility] Encounters Date Type Department Care Team Description 05/22/2024 Clinical Communication Department of Oncology in [place], [place] [address] [place] [phone] Frida Rich M.D., Ph.D. Appointment 05/18/2024 7:12 AM SEED SALES MANAGER - 05/18/2024 11:59 PM [facility] Hospital Encounter Department of Laboratory Medicine and Pathology, [facility] in [place], [place] [address] [place] [address] Danial Horta M.D. [place] Hepatic Discharge Disposition: Home or Self Care 05/18/2024 6:48 AM SEED SALES MANAGER - 05/18/2024 7:11 AM SEED SALES MANAGER Hospital Encounter Department of Radiology, [facility] in [place], [place] [address] [place] [phone] Danial Horta M.D. [place] Hepatic Discharge Disposition: Home or Self Care 05/18/2024 2:00 PM SEED SALES MANAGER Comprehensive Visit Division of Gastroenterology in [address] [phone] Macy Fatima M.D. Malhi, Harmeet, M.B.B.S. Malignant Neoplasm Of Liver Hepatocellular (HCC) (Primary Dx); Unspecified Cirrhosis Of Liver (HCC) 05/17/2024 3:08 PM SEED SALES MANAGER - 05/17/2024 11:59 PM SEED SALES MANAGER Hospital Encounter Department of Radiology, [facility], in [place], [place] [address] [place] [phone] Danial Horta M.D. [place] Hepatic Discharge Disposition: Home or Self Care 05/16/2024 10:30 AM SEED SALES MANAGER Clinical Communication Virtual Review in [place], [place] 200 [place] [address] Previsit Preparation (SHELLEY DD) 05/09/2024 Clinical Communication Division of Gastroenterology in [place], [place] [address] [place] [phone] Danial Horta M.D. 05/07/2024 Episode Changes Division of Gastroenterology in [address] [phone] Linda Gavin 05/01/2024 10:00 AM SEED SALES MANAGER Telemedicine Division of Gastroenterology in [address] [phone] Allyssa Martinez R.N. [place] Hepatic (Primary Dx); Other Specified Diseases Of Liver 04/20/2024 Clinical Communication Division of Gastroenterology in [address] [phone] Prescheduling, Provider Hepatobiliary (Pre-Visit); Previsit Preparation; [facility] - Outside Materials 04/19/2024 Community Orders [facility] [address] [address] [place] [address] Macy Fatima M.D. Unspecified Cirrhosis Of Liver [...] Tobacco: Never Tobacco Cessation:Counseling Given: Not Answered [facility] Utilities Answer Date Recorded In the past 12 months has th e [employer], gas, oil, or water company threatened to [...] your living situation today? I have a [facility] place to live 04/25/2024 Sex and Gender Information Value Date Recorded Sex Assigned at Male 04/25/2024 10:58 AM CDT Legal Sex Male 4:01 PM CDT Gender Identity Male 04/25/2024 10:58 AM CDT Sexual Orientation Straight 04/25/2024 10 :58 AM CDT Last Filed Vital Signs Vital Sign Reading Time Taken Comments Blood Pressure 122/73 05/18/2024 1:52 PM SEED SALES MANAGER Pulse 65 05/18/2024 1:52 PM SEED SALES MANAGER Temperature - - Respiratory Rate - - Oxygen Saturation - - Inhaled Oxygen Concentration - - Weight 95 kg (209 lb 7 oz) 05/18/2024 1:52 PM CS T Height 166.6 cm (5' 5.59) 05/18/2024 1:52 PM CS T Body Mass Index 34.23 05/18/2024 1:52 PM SEED SALES MANAGER Plan of Treatment Not on file Procedures Procedure Name Priority Date/Time Associated Diagnosis Comments PROTHROMBIN TIME (PT), P Routine 05/18/2024 7:33 AM SEED SALES MANAGER [place] Hepatic HEPATIC FUNCTION PANEL, S Routine 05/18/2024 7:33 AM SEED SALES MANAGER [place] Hepatic CARBOHYDRATE AG 19-9 (CA 19-9), S Routine 05/18/2024 7:33 AM SEED SALES MANAGER [place] Hepatic CARCINOEMBRYONIC AG (CEA), S Routine 05/18/2024 7:33 AM SEED SALES MANAGER [place] Hep[place] BASIC METABOLIC PANEL, S/P Routine 05/18/2024 7:33 AM SEED SALES MANAGER [place] Hepatic AFP L3% AND TOT, HEPATOCELLULAR CARCINOMA TM, S Routine 05/18/2024 7:33 AM SEED SALES MANAGER [place] Hepatic CBC WITH DIFFERENTIAL, B Routine 05/18/2024 7:32 AM SEED SALES MANAGER [place] Hep[place] CT CHEST WITHOUT IV CONTRAST RAD - Routine (most inpatients and all outpatients) 05/18/2024 7:07 AM SEED SALES MANAGER [place] Hepatic MR ABDOMEN WITHOUT AND WITH IV CONTRAST RAD - Routine (most inpatients and all outpatients) 05/17/2024 5:03 PM SEED SALES MANAGER [place] Hepatic from Last 3 Months Results * (ABNORMAL) Hepatic Function Panel (05/18/2024 7:33 AM SEED SALES MANAGER) Bilirubin, Total, S 1.7(H) 0.0 - 1.2 mg/dL 05/18/2024 8:40 AM SEED SALES MANAGER DTL Bilirubin, Direct, S 1.1(H) 0.0 - 0.3 mg/dL 05/18/2024 8:40 AM SEED SALES MANAGER DTL Aspartate Aminotransferase (AST), S 71(H) 8 - 48 U/L 05/18/2024 8:40 AM SEED SALES MANAGER DTL Alanine Aminotransferase (ALT), S 35 7 - 55 U/L 05/18/2024 8:40 AM SEED SALES MANAGER DTL Alkaline Phosphatase, S 492(H) 40 - 129 U/L 05/18/2024 8:40 AM SEED SALES MANAGER DTL Albumin, S 3.1(L) 3.5 - 5.0 g/dL 05/18/2024 8:40 AM SEED SALES MANAGER DTL Protein, Total, S 5.6(L) 6.3 - 7.9 g/dL 05/18/2024 8:40 AM SEED SALES MANAGER DTL Blood (Blood, Venous) 05/18/2024 7:33 AM SEED SALES MANAGER 05/18/2024 8:17 AM SEED SALES MANAGER us Danial Horta M.D. LAB BLOOD ADD-ON Final Resu lt [facility] [address] [place] [address], [facility] [address] [place] [address] * Carbohydrate Antigen 19-9 (CA 19-9) (05/18/2024 7:33 AM SEED SALES MANAGER) Pathologist [facility] Carbohydrate Ag 19-9, S 15 <35 U/mL 05/18/2024 11:56 AM SEED SALES MANAGER [facility] Comment: ----ADDITIONAL INFORMATION---- The testing method is an immunoenzymatic assay manufactured by [employer] and performed on the [employer] DxI 800. Values obtained with different assay methods or kits may be different and cannot be used interchangeably. Test results cannot be interpreted as absolute evidence for the presence or absence of malignant disease. Blood (Blood, Venous) 05/18/2024 7:33 AM SEED SALES MANAGER 05/18/2024 11:07 AM SEED SALES MANAGER Danial Horta M.D. LAB BLOOD ADD-ON Final Resu lt Performing Organization Address City/[facility] Co de Phone Number [facility] [address] [place] [address] [facility] [address] [place] [address] * (ABNORMAL) AFP (Alpha-Fetoprotein) L3% and Total, Hepatocellular Carcinoma Tumor Marker (47:33 AM SEED SALES MANAGER) Pathologist [facility] Total AFP, S 11(H) <4.7 ng/mL 05/18/2024 1:29 PM SEED SALES MANAGER SDSC %L3 36(H) <10 % 05/18/2024 1:29 PM SEED SALES MANAGER [facility] Comment: ----ADDITIONAL INFORMATION---- The testing method is isotachophoresis with laser-induced fluorescence manufactured by [employer] and performed on the i30. Values obtained with different assay methods or kits may be different and cannot be used interchangeably. Test results cannot be interpreted as absolute evidence for the presence or absence of malignant disease. Alpha-Fetoprotein and L3% values are not interpretable during for the investigation of malignant disease. Blood (Blood, Venous) 05/18/2024 7:33 AM SEED SALES MANAGER 05/18/2024 12:03 PM SEED SALES MANAGER Danial Horta M.D. LAB BLOOD ADD-ON Final Resu lt Performing Organization Address City/[facility] Co de Phone Number [facility] [address] [place] [address] [facility] [address] [place] [id number] * Prothrombin Time (PT) (05/18/2024 7:33 AM SEED SALES MANAGER) Prothrombin Time, P 11.7 9.4 - 12.5 sec 05/18/2024 8:11 AM SEED SALES MANAGER DTL INR 1.1 0.9 - 1.1 05/18/2024 8:11 AM SEED SALES MANAGER [facility] Comment: ----ADDITIONAL INFORMATION---- Standard intensity warfarin therapeutic range: 2.0 to 3.0 High intensity warfarin therapeutic range: 2.5 to 3.5 Blood (Blood, Venous) 05/18/2024 7:33 AM SEED SALES MANAGER 05/18/2024 7:55 AM SEED SALES MANAGER Danial Horta M.D. LAB BLOOD ADD-ON Final Resu lt Performing Organization Address City/[facility] Co de Phone Number [facility] [address] [place] [address], [facility] [address] [place] [address] * CEA (Carcinoembryonic Antigen) (05/18/2024 7:33 AM SEED SALES MANAGER) [facility] Carcinoembryonic Ag (CEA), S 2.1 ng/mL 05/18/2024 11:57 AM [facility] Comment: ----REFERENCE VALUE---- <=3.0 (Non-smokers) Some smokers may have elevated CEA, usually <5.0. ----ADDITIONAL INFORMATION---- The testing method is an immunoenzymatic assay manufactured by [employer] and performed on the [employer] DxI 800. Values obtained with different assay methods or kits may be different and cannot be used interchangeably. Test results cannot be interpreted as absolute evidence for the presence or absence of malignant disease. Blood (Blood, Venous) 05/18/2024 7:33 AM SEED SALES MANAGER 05/18/2024 11:07 AM SEED SALES MANAGER Danial Horta M.D. LAB BLOOD ADD-ON Final Resu lt Performing Organization Address City/[facility]/ZIP Co de Phone Number [facility] [address] [place] [address] [facility] [address] [place] [address] * (ABNORMAL) Basic Metabolic Panel (05/18/2024 7:33 AM SEED SALES MANAGER) [facility] Potassium, S 4.0 3.6 - 5.2 mmol/L 05/18/2024 8:40 AM SEED SALES MANAGER DTL Sodium, S 140 135 - 145 mmol/L 05/18/2024 8:40 AM SEED SALES MANAGER DTL Chloride, S 103 98 - 107 mmol/L 05/18/2024 8:40 AM SEED SALES MANAGER DTL Bicarbonate, S 27 22 - 29 mmol/L 05/18/2024 8:40 AM SEED SALES MANAGER DTL Anion Gap 10 7 - 15 05/18/2024 8:40 AM SEED SALES MANAGER DTL BUN (Blood Urea Nitrogen), S 60(H) 8 - 24 mg/dL 05/18/2024 8:40 AM SEED SALES MANAGER DTL Creatinine 1.86(H) 0.74 - 1.35 mg/dL 05/18/2024 8:40 AM SEED SALES MANAGER DTL Estimated GFR (eGFR) 37(L) >=60 mL/min/BSA 05/18/2024 8:40 AM SEED SALES MANAGER DTL Comment: Estimated GFR calculated using the 2020 CKD_EPI creatinine equation. Calcium, Total, S 8.7(L) 8.8 - 10.2 mg/dL 05/18/2024 8:40 AM SEED SALES MANAGER DTL Glucose, S 125 70 - 140 mg/dL 05/18/2024 8:40 AM SEED SALES MANAGER DTL Blood (Blood, Venous) 05/18/2024 7:33 AM SEED SALES MANAGER 05/18/2024 8:17 AM SEED SALES MANAGER us Danial Horta M.D. LAB BLOOD ADD-ON Final Resu lt [facility] [address] [place] [address], [facility]TD[facility] [address] [place] [address] * (ABNORMAL) CBC with Differential, Blood (05/18/2024 7:32 AM SEED SALES MANAGER) Pathologist [facility] Hemoglobin 13.8 13.2 - 16.6 g/dL 05/18/2024 8:27 AM SEED SALES MANAGER DTL Hematocrit 42.4 38.3 - 48.6 % 05/18/2024 8:27 AM SEED SALES MANAGER DTL Erythrocytes 4.36 4.35 - 5.65 x10(12)/L 05/18/2024 8:27 AM SEED SALES MANAGER DTL MCV 97.2 78.2 - 97.9 fL 05/18/2024 8:27 AM SEED SALES MANAGER DTL RBC Distrib Width 17.9(H) 11.8 - 14.5 % 05/18/2024 8:27 AM SEED SALES MANAGER DTL Platelet Count 137 135 - 317 x10(9)/L 05/18/2024 9:35 AM SEED SALES MANAGER DTL Leukocytes 5.5 3.4 - 9.6 x10(9)/L 05/18/2024 9:35 AM SEED SALES MANAGER DTL Neutrophils 3.59 1.56 - 6.45 x10(9)/L 05/18/2024 8:26 AM SEED SALES MANAGER DHPM Lymphocytes 0.81(L) 0.95 - 3.07 x10(9)/L 05/18/2024 8:27 AM SEED SALES MANAGER DTL Monocytes 0.87(H) 0.26 - 0.81 x10(9)/L 05/18/2024 8:27 AM SEED SALES MANAGER DTL Eosinophils 0.14 0.03 - 0.48 x10(9)/L 05/18/2024 8:27 AM SEED SALES MANAGER DTL Basophils 0.05 0.01 - 0.08 x10(9)/L 05/18/2024 8:27 AM SEED SALES MANAGER DTL Blood (Blood, Venous) 05/18/2024 7:32 AM SEED SALES MANAGER 05/18/2024 8:00 AM SEED SALES MANAGER us Danial Horta M.D. LAB BLOOD ADD-ON Final Resu lt [facility] [address] [place] [address], [facility] DTL [facility] [address] [place] [address] DHPM [facility] [address] [place] [address] * CT Chest without IV Contrast (05/18/2024 7:07 AM SEED SALES MANAGER) Anatomical Region Laterality Modality Chest, Thoracic RST LOS, Tho racic ARZ LOS, Thoracic FLA LOS N/A Computed Tomography, Compute d Tomography Impressions 05/18/2024 9:00 AM SEED SALES MANAGER 1. Bilateral moderate centrilobular emphysema. 2. Tree-in-bud nodularity in right lower lobe, likely infectious/inflammatory. 3. A few nonspecific scattered micronodules, probably benign. 4. Trace right pleural effusion and large volume abdominopelvic ascites, likely due to hepatic cirrhosis. Narrative 05/18/2024 9:00 AM SEED SALES MANAGER EXAM: CT CHEST WITHOUT IV CONTRAST COMPARISON: [...] and with IV Contrast (05/17/2024 5:03 PM SEED SALES MANAGER) Anatomical Region Laterality Modality Abdomen, Abdominal RST LOS, Abdominal ARZ LOS, Abdominal FLA LOS N/A Magnetic Resonance Impressions 05/18/2024 10:18 AM SEED SALES MANAGER Cirrhotic liver morphology with portal hypertension. Very large (more than 10 cm) lesion occupying most of the right hepatic lobe demonstrates suspicious features. LR 5. There is an additional LR 5 lesion in the tip of the right hepatic lobe series 6, and smaller satellite lesions. No enlarged lymph nodes or evidence of distant metastasis in the upper abdomen. Narrative 05/18/2024 10:18 AM SEED SALES MANAGER EXAM: MR ABDOMEN WITHOUT AND WITH IV [...] Re sult from Last 3 Months Insurance [facility]
--- OUTSIDE RECORDS SUMMARY | 2024-06-01 10:01 | XMS_ITS | Clinical Summary ---
Author Organization [facility] Address [address] [place] [address] Care Team Providers Care Medical Office Secretary Name Role Phone Unavailable Primary Care Provider Unavailabl e Source Comments Patient records contain information from all sites at [facility]. For routine questions regarding patient records, call [phone] during business hours, M-F 8:00 AM - 5:00 PM Central Time. Record requests for emergency care only can be directed to [phone] at any time.[facility] Allergies Active Allergy Reactions Criticality Noted Date [...] 05/22/2024 Clinical Communication Department of Oncology in [place], [place] [address] [place] [address] Frida Rich M.D., Ph.D. Appointment 05/18/2024 2:00 PM ICE PLANT OPERATOR Comprehensive Visit Division of Gastroenterology in [address] [address] Macy Fatima M.D. Malhi, Harmeet, M.B.BCarlozS. Malignant Neoplasm Of Liver Hepatocellular (HCC) (Primary Dx); Unspecified Cirrhosis Of Liver (HCC) 05/18/2024 7:12 AM ICE PLANT OPERATOR - 05/18/2024 11:59 PM ICE PLANT OPERATOR Hospital Encounter Department of Laboratory Medicine and Pathology, [address] [address] Danial Horta M.D. [place] Hepatic Discharge Disposition: Home or Self Care 05/18/2024 6:48 AM ICE PLANT OPERATOR - 05/18/2024 7:11 AM ICE PLANT OPERATOR Hospital Encounter Department of Radiology, [address] [address] Danial Horta M.D. [place] Hepatic Discharge Disposition: Home or Self Care 05/17/2024 3:08 PM ICE PLANT OPERATOR - 05/17/2024 11:59 PM ICE PLANT OPERATOR Hospital Encounter Department of Radiology, [address] [address] Danial Horta M.D. [place] Hepatic Discharge Disposition: Home or Self Care 05/16/2024 10:30 AM ICE PLANT OPERATOR Clinical Communication Virtual Review in [address] [address] Previsit Preparation (SHELLEY DD) 05/09/2024 Clinical Communication Division of Gastroenterology in [address] [address] Danial Horta M.D. 05/07/2024 Episode Changes Division of Gastroenterology in [address] [address] Linda Gavin 05/01/2024 10:00 AM ICE PLANT OPERATOR Telemedicine Division of Gastroenterology in [address] [address] Allyssa Martinez R.N. [place] Hepatic (Primary Dx); Other Specified Diseases Of Liver 04/20/2024 Clinical Communication Division of Gastroenterology in [address] [place] [address] Prescheduling, Provider Hepatobiliary (Pre-Visit); Previsit Preparation; OSM - Outside Materials 04/19/2024 Community Orders [facility] [address] [address] [place] [address] Macy Fatima M.D. Unspecified Cirrhosis Of Liver (HCC) (Primary Dx) from Last 3 Months Social History Tobacco Use Types Packs/Day Years Used Date Smoking Tobacco: Former Cigarettes S tarted: 06/27/1998 Smokeless Tobacco: Never Tobacco Cessation:Counseling Given: Not Answered [facility] Utilities Answer Date Recorded In [...] your living situation today? I have a [facility] place to live 04/25/2024 Sex and Gender Information Value Date Recorded Sex Assigned at Male 04/25/2024 10:58 AM CDT Legal Sex Male 4:01 PM CDT Gender Identity Male 04/25/2024 10:58 AM CDT Sexual Orientation Straight 04/25/2024 10 :58 AM CDT Last Filed Vital Signs Vital Sign Reading Time Taken Comments Blood Pressure 122/73 05/18/2024 1:52 PM ICE PLANT OPERATOR Pulse 65 05/18/2024 1:52 PM ICE PLANT OPERATOR Temperature - - Respiratory Rate - - Oxygen Saturation - - Inhaled Oxygen Concentration - - Weight 95 kg (209 lb 7 oz) 05/18/2024 1:52 PM CS T Height 166.6 cm (5' 5.59) 05/18/2024 1:52 PM CS T Body Mass Index 34.23 05/18/2024 1:52 PM ICE PLANT OPERATOR Plan of Treatment Health Maintenance Due Date [...] TIME (PT), P Routine 05/18/2024 7:33 AM ICE PLANT OPERATOR [place] Hepatic HEPATIC FUNCTION PANEL, S Routine 05/18/2024 7:33 AM ICE PLANT OPERATOR [place] Hepatic CARBOHYDRATE AG 19-9 (CA 19-9), S Routine 05/18/2024 7:33 AM ICE PLANT OPERATOR [place] Hepatic CARCINOEMBRYONIC AG (CEA), S Routine 05/18/2024 7:33 AM ICE PLANT OPERATOR [place] Hepatic BASIC METABOLIC PANEL, S/P Routine 05/18/2024 7:33 AM ICE PLANT OPERATOR [place] Hepatic AFP L3% AND TOT, HEPATOCELLULAR CARCINOMA TM, S Routine 05/18/2024 7:33 AM ICE PLANT OPERATOR [place] Hepatic CBC WITH DIFFERENTIAL, B Routine 05/18/2024 7:32 AM ICE PLANT OPERATOR [place] Hepatic CT CHEST WITHOUT IV CONTRAST RAD - Routine (most inpatients and all outpatients) 05/18/2024 7:07 AM ICE PLANT OPERATOR [place] Hepatic MR ABDOMEN WITHOUT AND WITH IV CONTRAST RAD - Routine (most inpatients and all outpatients) 05/17/2024 5:03 PM ICE PLANT OPERATOR [place] Hepatic from Last 3 Months Results * (ABNORMAL) Hepatic Function Panel (05/18/2024 7:33 AM ICE PLANT OPERATOR) Bilirubin, Total, S 1.7(H) 0.0 - 1.2 mg/dL 05/18/2024 8:40 AM ICE PLANT OPERATOR DTL Bilirubin, Direct, S 1.1(H) 0.0 - 0.3 mg/dL 05/18/2024 8:40 AM ICE PLANT OPERATOR DTL Aspartate Aminotransferase (AST), S 71(H) 8 - 48 U/L 05/18/2024 8:40 AM ICE PLANT OPERATOR DTL Alanine Aminotransferase (ALT), S 35 7 - 55 U/L 05/18/2024 8:40 AM ICE PLANT OPERATOR DTL Alkaline Phosphatase, S 492(H) 40 - 129 U/L 05/18/2024 8:40 AM ICE PLANT OPERATOR DTL Albumin, S 3.1(L) 3.5 - 5.0 g/dL 05/18/2024 8:40 AM ICE PLANT OPERATOR DTL Protein, Total, S 5.6(L) 6.3 - 7.9 g/dL 05/18/2024 8:40 AM ICE PLANT OPERATOR DTL Blood (Blood, Venous) 05/18/2024 7:33 AM ICE PLANT OPERATOR 05/18/2024 8:17 AM ICE PLANT OPERATOR Danial Horta M.D. LAB BLOOD ADD-ON Final Resu lt Performing Organization Address [facility] Co de Phone Number [facility] [address] [place] [address], [place] DTL [facility] [address] [place] [address] * Carbohydrate Antigen 19-9 (CA 19-9) (05/18/2024 7:33 AM ICE PLANT OPERATOR) Pathologist [facility] Carbohydrate Ag 19-9, S 15 <35 U/mL 05/18/2024 11:56 AM ICE PLANT OPERATOR [facility] Comment: ----ADDITIONAL INFORMATION---- The testing method is an immunoenzymatic assay manufactured by [employer]. and performed on the TeespringI 800. Values obtained with different assay methods or kits may be different and cannot be used interchangeably. Test results cannot be interpreted as absolute evidence for the presence or absence of malignant disease. Blood (Blood, Venous) 05/18/2024 7:33 AM ICE PLANT OPERATOR 05/18/2024 11:07 AM ICE PLANT OPERATOR Danial Horta M.D. LAB BLOOD ADD-ON Final Resu lt Performing Organization Address [facility] Co de Phone Number [facility] [address] [place] [address] [facility] [address] [place] [address] * (ABNORMAL) AFP (Alpha-Fetoprotein) L3% and Total, Hepatocellular Carcinoma Tumor Marker (47:33 AM ICE PLANT OPERATOR) Total AFP, S 11(H) <4.7 ng/mL 05/18/2024 1:29 PM ICE PLANT OPERATOR SDS %L3 36(H) <10 % 05/18/2024 1:29 PM ICE PLANT OPERATOR SDS Comment: ----ADDITIONAL INFORMATION---- The testing method is isotachophoresis with laser-induced fluorescence manufactured by [employer] and performed on the i30. Values obtained with different assay methods or kits may be different and cannot be used interchangeably. Test results cannot be interpreted as absolute evidence for the presence or absence of malignant disease. Alpha-Fetoprotein and L3% values are not interpretable during for the investigation of malignant disease. Blood (Blood, Venous) 05/18/2024 7:33 AM ICE PLANT OPERATOR 05/18/2024 12:03 PM ICE PLANT OPERATOR Danial Horta M.D. LAB BLOOD ADD-ON Final Resu lt Performing Organization Address [facility] Co de Phone Number [facility] [address] [place] [address] [facility] [address] [place] [address] * Prothrombin Time (PT) (05/18/2024 7:33 AM ICE PLANT OPERATOR) Prothrombin Time, P 11.7 9.4 - 12.5 sec 05/18/2024 8:11 AM ICE PLANT OPERATOR DT INR 1.1 0.9 - 1.1 05/18/2024 8:11 AM ICE PLANT OPERATOR [facility] Comment: ----ADDITIONAL INFORMATION---- Standard intensity warfarin therapeutic range: 2.0 to 3.0 High intensity warfarin therapeutic range: 2.5 to 3.5 Blood (Blood, Venous) 05/18/2024 7:33 AM ICE PLANT OPERATOR 05/18/2024 7:55 AM ICE PLANT OPERATOR Danial Horta M.D. LAB BLOOD ADD-ON Final Resu lt Performing Organization Address [facility] de Phone Number [facility] [address] [place] [address], [facility] DTL [facility] [address] [place] [address] * CEA (Carcinoembryonic Antigen) (05/18/2024 7:33 AM ICE PLANT OPERATOR) Carcinoembryonic Ag (CEA), S 2.1 ng/mL 05/18/2024 11:57 AM ICE PLANT OPERATOR [facility] Comment: ----REFERENCE VALUE---- <=3.0 (Non-smokers) Some smokers may have elevated CEA, usually <5.0. ----ADDITIONAL INFORMATION---- The testing method is an immunoenzymatic assay manufactured by [employer] and performed on the [employer] DxI 800. Values obtained with different assay methods or kits may be different and cannot be used interchangeably. Test results cannot be interpreted as absolute evidence for the presence or absence of malignant disease. Blood (Blood, Venous) 05/18/2024 7:33 AM ICE PLANT OPERATOR 05/18/2024 11:07 AM ICE PLANT OPERATOR us Danial Horta M.D. LAB BLOOD ADD-ON Final Resu lt [facility] [address] [place] [address] [facility] [address] [place] [address] * (ABNORMAL) Basic Metabolic Panel (05/18/2024 7:33 AM ICE PLANT OPERATOR) Pathologist [facility] Potassium, S 4.0 3.6 - 5.2 mmol/L 05/18/2024 8:40 AM ICE PLANT OPERATOR DTL Sodium, S 140 135 - 145 mmol/L 05/18/2024 8:40 AM ICE PLANT OPERATOR DTL Chloride, S 103 98 - 107 mmol/L 05/18/2024 8:40 AM ICE PLANT OPERATOR DTL Bicarbonate, S 27 22 - 29 mmol/L 05/18/2024 8:40 AM ICE PLANT OPERATOR DTL Anion Gap 10 7 - 15 05/18/2024 8:40 AM ICE PLANT OPERATOR DTL BUN (Blood Urea Nitrogen), S 60(H) 8 - 24 mg/dL 05/18/2024 8:40 AM ICE PLANT OPERATOR DTL Creatinine 1.86(H) 0.74 - 1.35 mg/dL 05/18/2024 8:40 AM ICE PLANT OPERATOR DTL Estimated GFR (eGFR) 37(L) >=60 mL/min/BSA 05/18/2024 8:40 AM ICE PLANT OPERATOR DTL Comment: Estimated GFR calculated using the 2020 CKD_EPI creatinine equation. Calcium, Total, S 8.7(L) 8.8 - 10.2 mg/dL 05/18/2024 8:40 AM ICE PLANT OPERATOR DTL Glucose, S 125 70 - 140 mg/dL 05/18/2024 8:40 AM ICE PLANT OPERATOR DTL Blood (Blood, Venous) 05/18/2024 7:33 AM ICE PLANT OPERATOR 05/18/2024 8:17 AM ICE PLANT OPERATOR us Danial Horta M.D. LAB BLOOD ADD-ON Final Resu lt [facility] [address] [place] [address], [place] DTL [facility] [address] [place] [address] * (ABNORMAL) CBC with Differential, Blood (05/18/2024 7:32 AM ICE PLANT OPERATOR) Hemoglobin 13.8 13.2 - 16.6 g/dL 05/18/2024 8:27 AM ICE PLANT OPERATOR DTL Hematocrit 42.4 38.3 - 48.6 % 05/18/2024 8:27 AM ICE PLANT OPERATOR DTL Erythrocytes 4.36 4.35 - 5.65 x10(12)/L 05/18/2024 8:27 AM ICE PLANT OPERATOR DTL MCV 97.2 78.2 - 97.9 fL 05/18/2024 8:27 AM ICE PLANT OPERATOR DTL RBC Distrib Width 17.9(H) 11.8 - 14.5 % 05/18/2024 8:27 AM ICE PLANT OPERATOR DTL Platelet Count 137 135 - 317 x10(9)/L 05/18/2024 9:35 AM ICE PLANT OPERATOR DTL Leukocytes 5.5 3.4 - 9.6 x10(9)/L 05/18/2024 9:35 AM ICE PLANT OPERATOR DTL Neutrophils 3.59 1.56 - 6.45 x10(9)/L 05/18/2024 8:26 AM ICE PLANT OPERATOR [facility] Lymphocytes 0.81(L) 0.95 - 3.07 x10(9)/L 05/18/2024 8:27 AM ICE PLANT OPERATOR DTL Monocytes 0.87(H) 0.26 - 0.81 x10(9)/L 05/18/2024 8:27 AM ICE PLANT OPERATOR DTL Eosinophils 0.14 0.03 - 0.48 x10(9)/L 05/18/2024 8:27 AM ICE PLANT OPERATOR DTL Basophils 0.05 0.01 - 0.08 x10(9)/L 05/18/2024 8:27 AM ICE PLANT OPERATOR DTL Blood (Blood, Venous) 05/18/2024 7:32 AM ICE PLANT OPERATOR 05/18/2024 8:00 AM ICE PLANT OPERATOR us Danial Horta M.D. LAB BLOOD ADD-ON Final Resu lt [facility] [address] [place] [address], [place] D[place] [facility] [address] [place] [address] [facility] [address] [place] [address] * CT Chest without IV Contrast (05/18/2024 7:07 AM ICE PLANT OPERATOR) Anatomical Region Laterality Modality Chest, Thoracic RST LOS, Tho racic ARZ LOS, Thoracic FLA LOS N/A Computed Tomography, Compute d Tomography Impressions 05/18/2024 9:00 AM ICE PLANT OPERATOR 1. Bilateral moderate centrilobular emphysema. 2. Tree-in-bud nodularity in right lower lobe, likely infectious/inflammatory. 3. A few nonspecific scattered micronodules, probably benign. 4. Trace right pleural effusion and large volume abdominopelvic ascites, likely due to hepatic cirrhosis. Narrative 05/18/2024 9:00 AM ICE PLANT OPERATOR EXAM: CT CHEST WITHOUT IV CONTRAST COMPARISON: [...] and with IV Contrast (05/17/2024 5:03 PM ICE PLANT OPERATOR) Anatomical Region Laterality Modality Abdomen, Abdominal RST LOS, Abdominal ARZ LOS, Abdominal FLA LOS N/A Magnetic Resonance Impressions 05/18/2024 10:18 AM ICE PLANT OPERATOR Cirrhotic liver morphology with portal hypertension. Very large (more than 10 cm) lesion occupying most of the right hepatic lobe demonstrates suspicious features. LR 5. There is an additional LR 5 lesion in the tip of the right hepatic lobe series 6, and smaller satellite lesions. No enlarged lymph nodes or evidence of distant metastasis in the upper abdomen. Narrative 05/18/2024 10:18 AM ICE PLANT OPERATOR EXAM: MR ABDOMEN WITHOUT AND WITH IV [...] Re sult from Last [address] [facility] [place] [address]
--- OUTSIDE RECORDS SUMMARY | 2024-06-01 10:01 | XMS_ITS ---
Author Organization [facility] Address [address] [place] [address] Care Team Providers Care Shopfitter Name Role Phone Unavailable Unavailable Unavailable Surgery Details Not on file Complications Check Surgery Details section. Procedure Estimated Blood Loss Check Surgery Details section. Procedure Findings Check Surgery Details section. Procedure Specimens Taken Check Surgery Details section.
--- OUTSIDE RECORDS SUMMARY | 2024-06-01 10:01 | XMS_ITS | Encounter Summary ---
Author Organization [facility] Address [address] [place] [address] Care Team Providers Care Recovery Room Nurse Name Role Phone Unavailable Primary Care Provider Unavailabl e Reason for Visit * Reason Onset Date Comments Appointment 05/22/2024 Encounter Details Date Type Department Care Team ([facility] st Contact Info) Description 05/22/2024 Clinical Communication Department of Oncology in [place], [place] [address] [place] [phone] Frida Rich M.D., Ph.D. [address] [place] [phone] Appointment Social History Tobacco Use Types Packs/Day Years Used Date Smoking Tobacco: Former Cigarettes S tarted: 06/27/1998 Smokeless Tobacco: Never [facility] Utilities Answer Date Recorded In the [...] your living situation today? I [facility] a [facility] place [facility] 04/25/2024 Sex [...]
--- OUTSIDE RECORDS SUMMARY | 2024-06-01 10:02 | XMS_ITS | Clinical Summary ---
Author Organization [facility] Address [place], [place] [address] Care Team Providers Care Speech Teacher Name Role Phone AndressaLynn RN, BSN Unavailable [phone] Allergies Active Allergy Reactions Criticality Noted [...] had brest tumor.~No HTN.~Has older brother had [place] in his 60. Relation Name Status Comments [...] Comments Blood Pressure 122/62 05/27/2011 7:59 AM STATION INSTALLER AND REPAIRER Pulse 60 05/27/2011 7:59 AM STATION INSTALLER AND REPAIRER Temperature 36.8 C (98.2 F) 07/29/2006 8:20 AM STATION INSTALLER AND REPAIRER Respiratory Rate 16 05/27/2011 7:59 AM STATION INSTALLER AND REPAIRER Oxygen Saturation - - Inhaled Oxygen Concentration - - Weight 84.8 kg (186 lb 14.4 oz) 05/27/2011 7:59 AM STATION INSTALLER AND REPAIRER Height - - Body Mass Index - [...] Influenza for age 65+ 02/26/2024 Care Teams Speech Teacher Relationship Specialty Start Date End Date October, Lynn Chew RN, BSN [address] [address] Nurse Navigator - Oncology Oncology 04/17/24
--- OUTSIDE RECORDS SUMMARY | 2024-06-01 10:02 | XMS_ITS | Encounter Summary ---
Author Organization [facility] Address [address] [place] [address] Care Team Providers Care Director Outcomes Name Role Phone Unavailable Primary Care Provider Unavailabl e Reason for Visit * Reason Onset Date Comments Hepatobiliary 04/20/2024 Pre-Visit Previsit Preparation 04/20/2024 OSM - Outside Materials 04/20/2024 Encounter Details Date Type Department Care Team (Latest Contact Info) Description 04/20/2024 Clinical Communication Division of Gastroenterology in [place], [place] [address] [place] [address] Prescheduling, Provider Hepatobiliary (Pre-Visit); Previsit Preparation; OSM - Outside Materials Social History Tobacco Use Types Packs/Day Years Used Date Smoking Tobacco: Never Assessed [facility] Utilities Answer Date Recorded In the past 12 months has e [facility], gas, oil, or water [employer] threatened to shut off services in your [...] your living situation today? I have a [facility] place to live 04/25/2024 Sex and [...]
--- OUTSIDE RECORDS SUMMARY | 2024-06-01 10:02 | XMS_ITS | Clinical Summary ---
[facility] Address [address] [place] [address] Care Team Providers Care Brake Repairer Hydraulic Name Role Phone Unassigned, Provider Primary Care Provider Unava ilable Source Comments You are receiving this document as you are listed as the primary care provider,follow-up provider, or the patient has been referred to you for consultation.This is in compliance with the Medicare and[facility] EHR Incentive Program,which states Providers who transition their patient to another setting of careor provider of care or refers their patient to another provider of care shouldprovide summary care record for each transition of care or referral. [facility] Allergies No known active allergies Medications Medication [...] age to complete this topic Care Teams Brake Repairer Hydraulic Relationship Specialty Start Date End Date Unassigned, Provider [address] [place] [address] PCP - General 01/14/03
--- OUTSIDE RECORDS SUMMARY | 2024-06-01 10:02 | XMS_ITS | Encounter Summary ---
Author Organization [facility] Address [address] [place] [address] Care Team Providers Care Diesel Dinkey Engineer Name Role Phone Unavailable Primary Care Provider Unavailabl e Reason for Referral * MRI/CAT/PET Scan (Routine) - Closed Specialty Diagnoses / Procedures Referred By Contac t Referred To Contact Radiology Diagnoses [place] Hepatic Procedures CT Chest without IV Contrast Danial Horta M.D. 200 [place] [address] Phone: tel: fax: [facility] Referral ID Status Reason Start Date Expiration Date Visits Re quested Visits Authorized [id number] Closed 05/01/2024 05/01/2025 1 1 LITY ENGINEER Reason for Visit * MRI/CAT/PET Scan (Routine) - Closed Specialty Diagnoses / Procedures Referred By Vasquez damon Referred To Contact Radiology Diagnoses [place] Hepatic Procedures CT Chest without IV Contrast Danial Horta M.D. [address] [place] [address] Phone: tel: fax: [facility] Referral ID Status Reason Start Date Expiration Date Visits Re quested Visits Authorized [id number] Closed 05/01/2024 05/01/2025 1 1 Encounter Details Date Type Department Care Team (Latest Contact Info) Description 05/18/2024 6:48 AM MOBILITY ENGINEER - 05/18/2024 7:11 AM MOBILITY ENGINEER Hospital Encounter Department of Radiology, [facility], in [place], [place] [address] [place] [phone] Danial Horta M.D. [address] [place] [phone] [place] [facility] Discharge Disposition: Home or Self Care Social History Tobacco Use Types Packs/Day Years Used Date Smoking Tobacco: Former Cigarettes S tarted: 06/27/1998 Smokeless Tobacco: Never [facility] Utilities Answer Date Recorded In the past [...] your living situation today? I have a [facility] place to live 04/25/2024 Sex and Gender [...] inpatients and all outpatients) 05/18/2024 7:07 AM MOBILITY ENGINEER [place] Hep[place] documented in this encounter Results * CT Chest without IV Contrast (05/18/2024 7:07 AM MOBILITY ENGINEER) Anatomical Region Laterality Modality Chest, Thoracic RST LOS, Tho racic ARZ LOS, Thoracic FLA LOS N/A Computed Tomography, Compute d Tomography Impressions 05/18/2024 9:00 AM MOBILITY ENGINEER 1. Bilateral moderate centrilobular emphysema. 2. Tree-in-bud nodularity in right lower lobe, likely infectious/inflammatory. 3. A few nonspecific scattered micronodules, probably benign. 4. Trace right pleural effusion and large volume abdominopelvic ascites, likely due to hepatic cirrhosis. Narrative 05/18/2024 9:00 AM MOBILITY ENGINEER EXAM: CT CHEST WITHOUT IV CONTRAST COMPARISON: [...]
--- OUTSIDE RECORDS SUMMARY | 2024-06-01 10:02 | XMS_ITS | Encounter Summary ---
Author Organization [facility] Address [address] [place] [address] Care Team Providers Care Vp Software Support Name Role Phone Unavailable Primary Care Provider Unavailabl e Encounter Details Date Type Department Care Team (Late st Contact Info) Description 05/07/2024 Episode Changes Division of Gastroenterology in [place], [place] [address] [place] [address] Linda Gavin Social History Tobacco Use Types Packs/Day Years Used Date Smoking Tobacco: Never Assessed [facility] Utilities Answer Date Recorded In the past 12 months has e [employer], gas, oil, or water [employer] threatened to shut off services in your [...] your living situation today? I have a [facility] place to live 04/25/2024 Sex and [...]
--- OUTSIDE RECORDS SUMMARY | 2024-06-01 10:02 | XMS_ITS | Encounter Summary ---
Author Organization [facility] Address [address] [place] [address] Care Team Providers Care Dental Internship Name Role Phone Unavailable Primary Care Provider Unavailabl e Reason for Visit * Reason Comments Unspecified Cirrhosis Of Liver * Appointment Request (Routine) - Authorized Specialty Diagnoses / Procedures Referred By Contact Referred To Contact Gastroenterology and Hepatology Diagnoses Mass Hepatic Unspecified Cirrhosis Of Liver (HCC) Ascites Trisha Ellison N.P. [address] [address] [place] [address] Phone: tel: fax: Referral ID Status Reason Start Date Expiration Date V isits Requested Visits Authorized [id number] Authorized 04/19/2024 04/19/2025 2 2 Encounter Details Date Type Department Care Team (Latest Contact Info) Description 05/18/2024 2:00 PM GARNETT FIXER Comprehensive Visit Division of Gastroenterology in [place], [place] [address] [place] [address] Macy Fatima M.D. [address] [address] [place] [address] Edmond Pardo M.B.BCarlozS. [address] [place] [phone] Malignant Neoplasm Of Liver Hepatocellular (HCC) (Primary Dx); Unspecified Cirrhosis Of Liver (HCC) Social History Tobacco Use Types Packs/Day Years Used Date Smoking Tobacco: Former Cigarettes S tarted: 06/27/1998 Smokeless Tobacco: Never [facility] Utilities Answer Date Recorded In the past 12 months has th e electric, gas, oil, or water [employer] threatened to shut off services in your [...] Comments Blood Pressure 122/73 05/18/2024 1:52 PM GARNETT FIXER Pulse 65 05/18/2024 1:52 PM GARNETT FIXER Temperature - - Respiratory Rate - - Oxygen Saturation - - Inhaled Oxygen Concentration - - Weight 95 kg (209 lb 7 oz) 05/18/2024 1:52 PM CS T Height 166.6 cm (5' 5.59) 05/18/2024 1:52 PM CS T Body Mass Index 34.23 05/18/2024 1:52 PM GARNETT FIXER documented in this encounter Consult Notes * [...] in January, was evaluated locally at [facility] and underwent a paracentesis. He then [...] multinodular #3 ECOG performance status 2-3 Mr. hPillips is a 78-year-old male who presents today [...] Oncology. Jm Hobbs. CT CT Job ID: [id number] ETT FIXER documented in this encounter Plan of Treatment Not on file documented as of this encounter Visit Diagnoses Diagnosis Malignant Neoplasm Of Liver Hepatocellular (HCC)- Primary Unspecified Cirrhosis Of Liver (HCC) documented in this encounter
--- OUTSIDE RECORDS SUMMARY | 2024-06-01 10:02 | XMS_ITS | Encounter Summary ---
Author Organization [facility] Address [address] [place] [address] Care Team Providers Care Cardiopulmonary Technologist Name Role Phone Unavailable Primary Care Provider Unavailabl e Reason for Visit * Reason Onset Date Comments Previsit Preparation 05/16/2024 SHELLEY DD * Appointment Request (Routine) - Authorized Specialty Diagnoses / Procedures Referred By Contact Referred To Contact Gastroenterology and Hepatology Referral ID Status Reason Start Date Expiration Date V isits Requested Visits Authorized [id number] Authorized 05/08/2024 05/08/2025 1 1 Encounter Details Date Type Department Care Team (Latest Contact Info) Description 05/16/2024 10:30 AM ADJUNCT LATIN PROFESSOR Clinical Communication Virtual Review in [place], [place] [address] [place] [address] Previsit Preparation (SHELLEY DD) Social History Tobacco Use Types Packs/Day Years Used Date Smoking Tobacco: Former Cigarettes S tarted: 06/27/1998 Smokeless Tobacco: Never Tobacco Cessation:Counseling Given: Not Answered [facility] Utilities Answer Date Recorded In the past 12 months has th e [employer], gas, oil, or water company threatened to [...]
--- OUTSIDE RECORDS SUMMARY | 2024-06-01 10:02 | XMS_ITS | Encounter Summary ---
Author Organization [facility] Address [address] [place] [address] Care Team Providers Care Child Care Nurse Name Role Phone Unavailable Primary Care Provider Unavailabl e Encounter Details Date Type Department Care Team (Latest Contact Info) Description 05/18/2024 7:12 AM TEST DESKMAN - 05/18/2024 11:59 PM TEST DESKMAN Hospital Encounter Department of Laboratory Medicine and Pathology, [facility] in [place], [place] [address] [place] [address] Danial Horta M.D. [address] [place] [address] Mass Hepatic Discharge Disposition: Home or Self Care Social History Tobacco Use Types Packs/Day Years Used Date Smoking Tobacco: Former Cigarettes S tarted: 06/27/1998 Smokeless Tobacco: Never [facility] Utilities Answer Date Recorded In [...] your living situation today? I have a [facility] place to live 04/25/2024 Sex and [...] FUNCTION PANEL, S Routine 05/18/2024 7:33 AM TEST DESKMAN Mass Hepatic CARBOHYDRATE AG 19-9 (CA 19-9), S Routine 05/18/2024 7:33 AM TEST DESKMAN Mass Hepatic AFP L3% AND TOT, HEPATOCELLULAR CARCINOMA TM, S Routine 05/18/2024 7:33 AM TEST DESKMAN Mass Hepatic PROTHROMBIN TIME (PT), P Routine 024 7:33 AM TEST DESKMAN Mass Hepatic CARCINOEMBRYONIC AG (CEA), S Routine 05/18/2024 7:33 AM TEST DESKMAN Mass Hepatic BASIC METABOLIC PANEL, S/P Routine 05/18/2024 7:33 AM TEST DESKMAN Mass Hepatic CBC WITH DIFFERENTIAL, B Routine 024 7:32 AM TEST DESKMAN Mass Hepatic documented in this encounter Results * Prothrombin Time (PT) (05/18/2024 7:33 AM TEST DESKMAN) Prothrombin Time, P 11.7 9.4 - 12.5 sec 05/18/2024 8:11 AM TEST DESKMAN DTL INR 1.1 0.9 - 1.1 05/18/2024 8:11 AM TEST DESKMAN DTL Comment: ----ADDITIONAL INFORMATION---- Standard intensity warfarin therapeutic range: 2.0 to 3.0 High intensity warfarin therapeutic range: 2.5 to 3.5 Blood (Blood, Venous) 05/18/2024 7:33 AM TEST DESKMAN 05/18/2024 7:55 AM TEST DESKMAN Danial Horta M.D. LAB BLOOD ADD-ON Final Resu lt [place] [address] [place] [address], [facility] [address] [place] [address] * (ABNORMAL) Hepatic Function Panel (05/18/2024 7:33 AM TEST DESKMAN) Bilirubin, Total, S 1.7(H) 0.0 - 1.2 mg/dL 05/18/2024 8:40 AM TEST DESKMAN DTL Bilirubin, Direct, S 1.1(H) 0.0 - 0.3 mg/dL 05/18/2024 8:40 AM TEST DESKMAN DTL Aspartate Aminotransferase (AST), S 71(H) 8 - 48 U/L 05/18/2024 8:40 AM TEST DESKMAN DTL Alanine Aminotransferase (ALT), S 35 7 - 55 U/L 05/18/2024 8:40 AM TEST DESKMAN DTL Alkaline Phosphatase, S 492(H) 40 - 129 U/L 05/18/2024 8:40 AM TEST DESKMAN DTL Albumin, S 3.1(L) 3.5 - 5.0 g/dL 05/18/2024 8:40 AM TEST DESKMAN DTL Protein, Total, S 5.6(L) 6.3 - 7.9 g/dL 05/18/2024 8:40 AM TEST DESKMAN DTL Blood (Blood, Venous) 05/18/2024 7:33 AM TEST DESKMAN 05/18/2024 8:17 AM TEST DESKMAN Danial Horta M.D. LAB BLOOD ADD-ON Final Resu lt Performing Organization Address City/[facility]/ZIP Co de Phone Number [facility] [address] [place] [address], [facility] [address] [place] [address] * Carbohydrate Antigen 19-9 (CA 19-9) (05/18/2024 7:33 AM TEST DESKMAN) Carbohydrate Ag 19-9, S 15 <35 U/mL 05/18/2024 11:56 AM TEST DESKMAN [facility] Comment: ----ADDITIONAL INFORMATION---- The testing method is an immunoenzymatic assay manufactured by [employer] and performed on the [employer] DxI 800. Values obtained with different assay methods or kits may be different and cannot be used interchangeably. Test results cannot be interpreted as absolute evidence for the presence or absence of malignant disease. Blood (Blood, Venous) 05/18/2024 7:33 AM TEST DESKMAN 05/18/2024 11:07 AM TEST DESKMAN us Danial Horta M.D. LAB BLOOD ADD-ON Final Resu lt [facility] [address] [place] [address] [facility] [address] [place] [address] * CEA (Carcinoembryonic Antigen) (05/18/2024 7:33 AM TEST DESKMAN) [facility] Carcinoembryonic Ag (CEA), S 2.1 ng/mL 05/18/2024 11:57 AM TEST DESKMAN [facility] Comment: ----REFERENCE VALUE---- <=3.0 (Non-smokers) Some smokers may have elevated CEA, usually <5.0. ----ADDITIONAL INFORMATION---- The testing method is an immunoenzymatic assay manufactured by [employer]. and performed on the [employer] DxI 800. Values obtained with different assay methods or kits may be different and cannot be used interchangeably. Test results cannot be interpreted as absolute evidence for the presence or absence of malignant disease. Blood (Blood, Venous) 05/18/2024 7:33 AM TEST DESKMAN 05/18/2024 11:07 AM TEST DESKMAN us Danial Horta M.D. LAB BLOOD ADD-ON Final Resu lt Performing Organization Address City/State/[facility] Co de Phone Number [facility] [address] [place] [address] [facility] [address] [place] [address] * (ABNORMAL) Basic Metabolic Panel (05/18/2024 7:33 AM TEST DESKMAN) [facility] Potassium, S 4.0 3.6 - 5.2 mmol/L 05/18/2024 8:40 AM TEST DESKMAN DTL Sodium, S 140 135 - 145 mmol/L 05/18/2024 8:40 AM TEST DESKMAN DTL Chloride, S 103 98 - 107 mmol/L 05/18/2024 8:40 AM TEST DESKMAN DTL Bicarbonate, S 27 22 - 29 mmol/L 05/18/2024 8:40 AM TEST DESKMAN DTL Anion Gap 10 7 - 15 05/18/2024 8:40 AM TEST DESKMAN DTL BUN (Blood Urea Nitrogen), S 60(H) 8 - 24 mg/dL 05/18/2024 8:40 AM TEST DESKMAN DTL Creatinine 1.86(H) 0.74 - 1.35 mg/dL 05/18/2024 8:40 AM TEST DESKMAN DTL Estimated GFR (eGFR) 37(L) >=60 mL/min/BSA 05/18/2024 8:40 AM TEST DESKMAN DTL Comment: Estimated GFR calculated using the 2020 CKD_EPI creatinine equation. Calcium, Total, S 8.7(L) 8.8 - 10.2 mg/dL 05/18/2024 8:40 AM TEST DESKMAN DTL Glucose, S 125 70 - 140 mg/dL 05/18/2024 8:40 AM TEST DESKMAN DTL Blood (Blood, Venous) 05/18/2024 7:33 AM TEST DESKMAN 05/18/2024 8:17 AM TEST DESKMAN Danial Horta M.D. LAB BLOOD ADD-ON Final Resu lt Performing Organization Address City/[facility]/ZIP Co de Phone Number [facility] [address] [place] [address], [facility] [address] [place] [address] * (ABNORMAL) AFP (Alpha-Fetoprotein) L3% and Total, Hepatocellular Carcinoma Tumor Marker (47:33 AM TEST DESKMAN) Total AFP, S 11(H) <4.7 ng/mL 05/18/2024 1:29 PM TEST DESKMAN SDSC %L3 36(H) <10 % 05/18/2024 1:29 PM TEST DESKMAN SDS Comment: ----ADDITIONAL INFORMATION---- The testing method is isotachophoresis with laser-induced fluorescence manufactured by [employer] and performed on the i30. Values obtained with different assay methods or kits may be different and cannot be used interchangeably. Test results cannot be interpreted as absolute evidence for the presence or absence of malignant disease. Alpha-Fetoprotein and L3% values are not interpretable during for the investigation of malignant disease. Blood (Blood, Venous) 05/18/2024 7:33 AM TEST DESKMAN 05/18/2024 12:03 PM TEST DESKMAN Danial Horta M.D. LAB BLOOD ADD-ON Final Resu lt Performing Organization Address City/[facility]/ZIP Co de Phone Number [facility] [address] [place] [address] [facility] [address] [place] [address] * (ABNORMAL) CBC with Differential, Blood (05/18/2024 7:32 AM TEST DESKMAN) Hemoglobin 13.8 13.2 - 16.6 g/dL 05/18/2024 8:27 AM TEST DESKMAN DTL Hematocrit 42.4 38.3 - 48.6 % 05/18/2024 8:27 AM TEST DESKMAN DTL Erythrocytes 4.36 4.35 - 5.65 x10(12)/L 05/18/2024 8:27 AM TEST DESKMAN DTL MCV 97.2 78.2 - 97.9 fL 05/18/2024 8:27 AM TEST DESKMAN DTL RBC Distrib Width 17.9(H) 11.8 - 14.5 % 05/18/2024 8:27 AM TEST DESKMAN DTL Platelet Count 137 135 - 317 x10(9)/L 05/18/2024 9:35 AM TEST DESKMAN DTL Leukocytes 5.5 3.4 - 9.6 x10(9)/L 05/18/2024 9:35 AM TEST DESKMAN DTL Neutrophils 3.59 1.56 - 6.45 x10(9)/L 05/18/2024 8:26 AM TEST DESKMAN [facility] Lymphocytes 0.81(L) 0.95 - 3.07 x10(9)/L 05/18/2024 8:27 AM TEST DESKMAN DTL Monocytes 0.87(H) 0.26 - 0.81 x10(9)/L 05/18/2024 8:27 AM TEST DESKMAN DTL Eosinophils 0.14 0.03 - 0.48 x10(9)/L 05/18/2024 8:27 AM TEST DESKMAN DTL Basophils 0.05 0.01 - 0.08 x10(9)/L 05/18/2024 8:27 AM TEST DESKMAN DTL Blood (Blood, Venous) 05/18/2024 7:32 AM TEST DESKMAN 05/18/2024 8:00 AM TEST DESKMAN us Danial Horta M.D. LAB BLOOD ADD-ON Final Resu lt [facility] [address] [place] [address], [facility] DTL [facility] [address] [place] [address] [facility] [address] [place] [address] documented in this encounter Visit Diagnoses Diagnosis Mass Hepatic documented in this encounter
--- OUTSIDE RECORDS SUMMARY | 2024-06-01 10:02 | XMS_ITS | Encounter Summary ---
Author Organization [facility] Address [address] [place] [address] Care Team Providers Care Meat Stuffer Name Role Phone Unavailable Primary Care Provider Unavailabl e Encounter Details Date Type Department Care Team (Latest Contact Info) Description 05/09/2024 Clinical Communication Division of Gastroenterology in [place], [place] [address] [place] [address] Danial Horta M.D. [address] [place] [phone] Social History Tobacco Use Types Packs/Day Years Used Date Smoking Tobacco: Never Assessed [facility] Utilities Answer Date Recorded In the past 12 months has [employer] electric, gas, oil, or water company threatened [...] your living situation today? I have a [facility] place to live 04/25/2024 Sex and [...]
--- OUTSIDE RECORDS SUMMARY | 2024-06-01 10:02 | XMS_ITS | Encounter Summary ---
Author Organization [facility] Address [address] [place] [address] Care Team Providers Care Stockbroking Dealer Name Role Phone Unavailable Primary Care Provider Unavailabl e Reason for Referral * Outpatient (Routine) - Closed Specialty Diagnoses / Procedures Referred By Contact Referred To Contact Gastroenterology and Hepatology Diagnoses Unspecified Cirrhosis Of Liver (HCC) Macy Fatima M.D. [address] [address] [place] [address] Phone: tel: fax: [facility] Referral ID Status Reason Start Date Expiration Date Visits Re quested Visits Authorized [id number] Closed 04/19/2024 10/19/2025 1 1 Encounter Details Date Type Department Care Team (Late st Contact Info) Description 04/19/2024 Community Orders [facility] [address] [address] [place] [phone] Macy Fatima M.D. [address] [address] [place] [phone] Unspecified Cirrhosis Of Liver (HCC) (Primary Dx) Social History Tobacco Use Types Packs/Day Years Used Date Smoking Tobacco: Never Assessed [facility] Utilities Answer Date Recorded In the past [...] your living situation today? I have a [facility] place to live 04/25/2024 Sex and [...]
--- OUTSIDE RECORDS SUMMARY | 2024-06-01 10:02 | XMS_ITS | Encounter Summary ---
Author Organization [facility] Address [address] [place] [address] Care Team Providers Care Executive Chairman Name Role Phone Unavailable Primary Care Provider Unavailabl e Reason for Referral * Outpatient (Routine) - Authorized Specialty Diagnoses / Procedures Referred By Vasquez damon Referred To Contact Medical Oncology / Oncology Diagnoses Mass Hepatic Danial Horta M.D. 200 [place] [address] Phone: tel: fax: [facility] Referral ID Status Reason Start Date Expiration Date V isits Requested Visits Authorized [id number] Authorized 05/01/2024 10/31/2025 1 1 ERING MACHINE OPERATOR * MRI/CAT/PET Scan (Routine) - Closed Specialty Diagnoses / Procedures Referred By Contac t Referred To Contact Radiology Diagnoses Mass Hepatic Procedures CT Chest without IV Contrast Danial Horta M.D. 200 [place] [address] Phone: tel: fax: [facility] Referral ID Status Reason Start Date Expiration Date Visits Re quested Visits Authorized [id number] Closed 05/01/2024 05/01/2025 1 1 ERING MACHINE OPERATOR * MRI/CAT/PET Scan (Routine) - Closed Specialty Diagnoses / Procedures Referred By Contac t Referred To Contact Radiology Diagnoses Mass Hepatic Procedures MR Abdomen without and with IV Contrast Danial Horta M.D. [address] [place] [phone] Phone: tel: fax: [facility] Referral ID Status Reason Start Date Expiration Date Visits Re quested Visits Authorized [id number] Closed 05/01/2024 05/01/2025 1 1 ERING MACHINE OPERATOR Reason for Visit * Reason Comments Hepatobiliary Nurse Visit * Appointment Request (Routine) - Authorized Specialty Diagnoses / Procedures Referred By Contact Referred To Contact Gastroenterology and Hepatology Diagnoses Mass Hepatic Unspecified Cirrhosis Of Liver (HCC) Ascites Trisha Ellison N.P. [address] [address] [place] [address] Phone: tel: fax: Referral ID Status Reason Start Date Expiration Date V isits Requested Visits Authorized [id number] Authorized 04/19/2024 04/19/2025 2 2 Encounter Details Date Type Department Care Team (Latest Contact Info) Description 05/01/2024 10:00 AM TEMPERING MACHINE OPERATOR Telemedicine Division of Gastroenterology in [place], [place] [address] [place] [address] Allyssa Martinez, R.N. Mass Hepatic (Primary Dx); Other Specified Diseases Of Liver Social History Tobacco Use Types Packs/Day Years Used Date Smoking Tobacco: Never Assessed [facility] Utilities Answer [...] your living situation today? I have a [facility] place to live 04/25/2024 Sex and [...] Gastroenterology and Hepatology RN Pre-Visit. Patient contacted [facility] requesting on-campus appointment; pre-visit was scheduled following [...] Mr. Phillips is seeking an appointment at [facility] for further evaluation. Mr. Phillips states goals [...] disease. He would like to come to [place] for further work up. We do not have images. Blood work: 04/09 AFP 12 CEA 2.9 CA 19-9 14 Mr. Phillips is quite fatigued. Diagnosed with cirrhosis in December and stopped ETOH in December. No othersignificant medical history. He is able to travel to [place] for a face to face visit. ASSESSMENT [...] consultation Palliative care consultation Medical oncology consultation ERING MACHINE OPERATOR documented in this encounter Plan of Treatment Scheduled Referrals Name Type Priority Associated Diagnoses Orde r Schedule Oncology - Medical, GI consult (clinic) Outpatient Referral Routine Mass Hepatic Expected: 05/08/2024, Expires: 08/01/2025 documented as of this encounter Results * Prothrombin Time (PT) (05/18/2024 7:33 AM TEMPERING MACHINE OPERATOR) Prothrombin Time, P 11.7 9.4 - 12.5 sec 05/18/2024 8:11 AM TEMPERING MACHINE OPERATOR DTL INR 1.1 0.9 - 1.1 05/18/2024 8:11 AM TEMPERING MACHINE OPERATOR DTL Comment: ----ADDITIONAL INFORMATION---- Standard intensity warfarin therapeutic range: 2.0 to 3.0 High intensity warfarin therapeutic range: 2.5 to 3.5 Blood (Blood, Venous) 05/18/2024 7:33 AM TEMPERING MACHINE OPERATOR 05/18/2024 7:55 AM TEMPERING MACHINE OPERATOR Danial Horta M.D. LAB BLOOD ADD-ON Final Resu lt Performing Organization Address [facility] Co de Phone Number [facility] [address] [place], [place] [phone] [place] [address] [facility] [address] [place] [address] * (ABNORMAL) Hepatic Function Panel (05/18/2024 7:33 AM TEMPERING MACHINE OPERATOR) Bilirubin, Total, S 1.7(H) 0.0 - 1.2 mg/dL 05/18/2024 8:40 AM TEMPERING MACHINE OPERATOR DTL Bilirubin, Direct, S 1.1(H) 0.0 - 0.3 mg/dL 05/18/2024 8:40 AM TEMPERING MACHINE OPERATOR DTL Aspartate Aminotransferase (AST), S 71(H) 8 - 48 U/L 05/18/2024 8:40 AM TEMPERING MACHINE OPERATOR DTL Alanine Aminotransferase (ALT), S 35 7 - 55 U/L 05/18/2024 8:40 AM TEMPERING MACHINE OPERATOR DTL Alkaline Phosphatase, S 492(H) 40 - 129 U/L 05/18/2024 8:40 AM TEMPERING MACHINE OPERATOR DTL Albumin, S 3.1(L) 3.5 - 5.0 g/dL 05/18/2024 8:40 AM TEMPERING MACHINE OPERATOR DTL Protein, Total, S 5.6(L) 6.3 - 7.9 g/dL 05/18/2024 8:40 AM TEMPERING MACHINE OPERATOR DTL Blood (Blood, Venous) 05/18/2024 7:33 AM TEMPERING MACHINE OPERATOR 05/18/2024 8:17 AM TEMPERING MACHINE OPERATOR us Danial Horta M.D. LAB BLOOD ADD-ON Final Resu lt Performing Organization Address City/[facility]/ZIP Co de Phone Number [facility] [address] [place] [address], [place] [facility] [address] [place] [address] * Carbohydrate Antigen 19-9 (CA 19-9) (05/18/2024 7:33 AM TEMPERING MACHINE OPERATOR) Pathologist [facility] Carbohydrate Ag 19-9, S 15 <35 U/mL 05/18/2024 11:56 AM TEMPERING MACHINE OPERATOR [facility] Comment: ----ADDITIONAL INFORMATION---- The testing method is an immunoenzymatic assay manufactured by [employer] and performed on the MaxVision DxI 800. Values obtained with different assay methods or kits may be different and cannot be used interchangeably. Test results cannot be interpreted as absolute evidence for the presence or absence of malignant disease. Blood (Blood, Venous) 05/18/2024 7:33 AM TEMPERING MACHINE OPERATOR 05/18/2024 11:07 AM TEMPERING MACHINE OPERATOR Danial Horta M.D. LAB BLOOD ADD-ON Final Resu lt [facility] [address] [place] [address] [facility] [address] [place] [address] * CEA (Carcinoembryonic Antigen) (05/18/2024 7:33 AM TEMPERING MACHINE OPERATOR) Pathologist [facility] Carcinoembryonic Ag (CEA), S 2.1 ng/mL 05/18/2024 11:57 AM TEMPERING MACHINE OPERATOR [facility] Comment: ----REFERENCE VALUE---- <=3.0 (Non-smokers) Some smokers may have elevated CEA, usually <5.0. ----ADDITIONAL INFORMATION---- The testing method is an immunoenzymatic assay manufactured by [employer] and performed on the MaxVision DxI 800. Values obtained with different assay methods or kits may be different and cannot be used interchangeably. Test results cannot be interpreted as absolute evidence for the presence or absence of malignant disease. Blood (Blood, Venous) 05/18/2024 7:33 AM TEMPERING MACHINE OPERATOR 05/18/2024 11:07 AM TEMPERING MACHINE OPERATOR Danial Horta M.D. LAB BLOOD ADD-ON Final Resu lt [facility] [address] [place] [address] [facility] [address] [place] [address] * (ABNORMAL) Basic Metabolic Panel (05/18/2024 7:33 AM TEMPERING MACHINE OPERATOR) Pathologist [facility] Potassium, S 4.0 3.6 - 5.2 mmol/L 05/18/2024 8:40 AM TEMPERING MACHINE OPERATOR DTL Sodium, S 140 135 - 145 mmol/L 05/18/2024 8:40 AM TEMPERING MACHINE OPERATOR DTL Chloride, S 103 98 - 107 mmol/L 05/18/2024 8:40 AM TEMPERING MACHINE OPERATOR DTL Bicarbonate, S 27 22 - 29 mmol/L 05/18/2024 8:40 AM TEMPERING MACHINE OPERATOR DTL Anion Gap 10 7 - 15 05/18/2024 8:40 AM TEMPERING MACHINE OPERATOR DTL BUN (Blood Urea Nitrogen), S 60(H) 8 - 24 mg/dL 05/18/2024 8:40 AM TEMPERING MACHINE OPERATOR DTL Creatinine 1.86(H) 0.74 - 1.35 mg/dL 05/18/2024 8:40 AM TEMPERING MACHINE OPERATOR DTL Estimated GFR (eGFR) 37(L) >=60 mL/min/BSA 05/18/2024 8:40 AM TEMPERING MACHINE OPERATOR DTL Comment: Estimated GFR calculated using the 2020 CKD_EPI creatinine equation. Calcium, Total, S 8.7(L) 8.8 - 10.2 mg/dL 05/18/2024 8:40 AM TEMPERING MACHINE OPERATOR DTL Glucose, S 125 70 - 140 mg/dL 05/18/2024 8:40 AM TEMPERING MACHINE OPERATOR DTL Blood (Blood, Venous) 05/18/2024 7:33 AM TEMPERING MACHINE OPERATOR 05/18/2024 8:17 AM TEMPERING MACHINE OPERATOR us Danial Horta M.D. LAB BLOOD ADD-ON Final Resu lt [facility] [address] [place] [address], [facility] DTL [facility] [address] [place] [address] * (ABNORMAL) AFP (Alpha-Fetoprotein) L3% and Total, Hepatocellular Carcinoma Tumor Marker (47:33 AM TEMPERING MACHINE OPERATOR) Pathologist [facility] Total AFP, S 11(H) <4.7 ng/mL 05/18/2024 1:29 PM TEMPERING MACHINE OPERATOR SDSC %L3 36(H) <10 % 05/18/2024 1:29 PM TEMPERING MACHINE OPERATOR SDS Comment: ----ADDITIONAL INFORMATION---- The testing method is isotachophoresis with laser-induced fluorescence manufactured by [employer] and performed on the i30. Values obtained with different assay methods or kits may be different and cannot be used interchangeably. Test results cannot be interpreted as absolute evidence for the presence or absence of malignant disease. Alpha-Fetoprotein and L3% values are not interpretable during for the investigation of malignant disease. Blood (Blood, Venous) 05/18/2024 7:33 AM TEMPERING MACHINE OPERATOR 05/18/2024 12:03 PM TEMPERING MACHINE OPERATOR us Danial Horta M.D. LAB BLOOD ADD-ON Final Resu lt [facility] [address] [place] [address] [facility] [address] [place] [address] * (ABNORMAL) CBC with Differential, Blood (05/18/2024 7:32 AM TEMPERING MACHINE OPERATOR) [facility] Hemoglobin 13.8 13.2 - 16.6 g/dL 05/18/2024 8:27 AM TEMPERING MACHINE OPERATOR DTL Hematocrit 42.4 38.3 - 48.6 % 05/18/2024 8:27 AM TEMPERING MACHINE OPERATOR DTL Erythrocytes 4.36 4.35 - 5.65 x10(12)/L 05/18/2024 8:27 AM TEMPERING MACHINE OPERATOR DTL MCV 97.2 78.2 - 97.9 fL 05/18/2024 8:27 AM TEMPERING MACHINE OPERATOR DTL RBC Distrib Width 17.9(H) 11.8 - 14.5 % 05/18/2024 8:27 AM TEMPERING MACHINE OPERATOR DTL Platelet Count 137 135 - 317 x10(9)/L 05/18/2024 9:35 AM TEMPERING MACHINE OPERATOR DTL Leukocytes 5.5 3.4 - 9.6 x10(9)/L 05/18/2024 9:35 AM TEMPERING MACHINE OPERATOR DTL Neutrophils 3.59 1.56 - 6.45 x10(9)/L 05/18/2024 8:26 AM TEMPERING MACHINE OPERATOR [facility] Lymphocytes 0.81(L) 0.95 - 3.07 x10(9)/L 05/18/2024 8:27 AM TEMPERING MACHINE OPERATOR DTL Monocytes 0.87(H) 0.26 - 0.81 x10(9)/L 05/18/2024 8:27 AM TEMPERING MACHINE OPERATOR DTL Eosinophils 0.14 0.03 - 0.48 x10(9)/L 05/18/2024 8:27 AM TEMPERING MACHINE OPERATOR DTL Basophils 0.05 0.01 - 0.08 x10(9)/L 05/18/2024 8:27 AM TEMPERING MACHINE OPERATOR DTL Blood (Blood, Venous) 05/18/2024 7:32 AM TEMPERING MACHINE OPERATOR 05/18/2024 8:00 AM TEMPERING MACHINE OPERATOR us Danial Horta M.D. LAB BLOOD ADD-ON Final Resu lt [facility] [address] [place] [address], [facility] DTL [facility] [address] [place] [address] [facility] [address] [place] [address] * CT Chest without IV Contrast (05/18/2024 7:07 AM TEMPERING MACHINE OPERATOR) Anatomical Region Laterality Modality Chest, Thoracic RST LOS, Tho racic ARZ LOS, Thoracic FLA LOS N/A Computed Tomography, Compute d Tomography Impressions 05/18/2024 9:00 AM TEMPERING MACHINE OPERATOR 1. Bilateral moderate centrilobular emphysema. 2. Tree-in-bud nodularity in right lower lobe, likely infectious/inflammatory. 3. A few nonspecific scattered micronodules, probably benign. 4. Trace right pleural effusion and large volume abdominopelvic ascites, likely due to hepatic cirrhosis. Narrative 05/18/2024 9:00 AM TEMPERING MACHINE OPERATOR EXAM: CT CHEST WITHOUT IV CONTRAST [...] and with IV Contrast (05/17/2024 5:03 PM TEMPERING MACHINE OPERATOR) Anatomical Region Laterality Modality Abdomen, Abdominal RST LOS, Abdominal ARZ LOS, Abdominal FLA LOS N/A Magnetic Resonance Impressions 05/18/2024 10:18 AM TEMPERING MACHINE OPERATOR Cirrhotic liver morphology with portal hypertension. [...] the upper abdomen. Narrative 05/18/2024 10:18 AM TEMPERING MACHINE OPERATOR EXAM: MR ABDOMEN WITHOUT AND WITH [...]
--- OUTSIDE RECORDS SUMMARY | 2024-06-01 10:02 | XMS_ITS | Encounter Summary ---
Author Organization [facility] Address [address] [place] [address] Care Team Providers Care Engine Generator Assembler Name Role Phone Unavailable Primary Care Provider Unavailabl e Reason for Referral * MRI/CAT/PET Scan (Routine) - Closed Specialty Diagnoses / Procedures Referred By Contac t Referred To Contact Radiology Diagnoses Mass Hepatic Procedures MR Abdomen without and with IV Contrast Danial Horta M.D. [address] [place] [phone] Phone: tel: fax: [facility] Referral ID Status Reason Start Date Expiration Date Visits Re quested Visits Authorized [id number] Closed 05/01/2024 05/01/2025 1 1 NER AND PREPARER Reason for Visit * MRI/CAT/PET Scan (Routine) - Closed Specialty Diagnoses / Procedures Referred By Vasquez damon Referred To Contact Radiology Diagnoses Mass Hepatic Procedures MR Abdomen without and with IV Contrast Danial Horta M.D. 200 [place] [address] Phone: tel: fax: [facility] Referral ID Status Reason Start Date Expiration Date Visits Re quested Visits Authorized [id number] Closed 05/01/2024 05/01/2025 1 1 Encounter Details Date Type Department Care Team (Latest Contact Info) Description 05/17/2024 3:08 PM CLEANER AND PREPARER - 05/17/2024 11:59 PM CLEANER AND PREPARER Hospital Encounter Department of Radiology, [facility], in [place], [place] [address] [place] [phone] Danial Horta M.D. [address] [place] [phone] Mass Hepatic Discharge Disposition: Home or Self Care Social History Tobacco Use Types Packs/Day Years Used Date Smoking Tobacco: Former Cigarettes S tarted: 06/27/1998 Smokeless Tobacco: Never [facility] Utilities Answer Date Recorded In the past [...] your living situation today? I have a [facility] place to live 04/25/2024 Sex and [...] inpatients and all outpatients) 05/17/2024 5:03 PM CLEANER AND PREPARER Mass Hepatic documented in this encounter Results * MR Abdomen without and with IV Contrast (05/17/2024 5:03 PM CLEANER AND PREPARER) Anatomical Region Laterality Modality Abdomen, Abdominal RST LOS, Abdominal ARZ LOS, Abdominal FLA LOS N/A Magnetic Resonance Impressions 05/18/2024 10:18 AM CLEANER AND PREPARER Cirrhotic liver morphology with portal hypertension. Very large (more than 10 cm) lesion occupying most of the right hepatic lobe demonstrates suspicious features. LR 5. There is an additional LR 5 lesion in the tip of the right hepatic lobe series 6, and smaller satellite lesions. No enlarged lymph nodes or evidence of distant metastasis in the upper abdomen. Narrative 05/18/2024 10:18 AM CLEANER AND PREPARER EXAM: MR ABDOMEN WITHOUT AND WITH IV [...] mL not recommended. Given 05/17/2024 5:04 PM CLEANER AND PREPARER 8 mL sodium chloride (PF) 0.9 % injection 1-100 mL 1-100 mL, intravenous, Once, On Carey 05/17/24 at 1630, For 1 dose, Imaging Protocol Orders, Dose per Radiant Medication Guidelines Given 05/17/2024 5:03 PM CLEANER AND PREPARER 40 mL documented in this encounter
--- NOTE | 2024-06-01 12:16 | P.PARA_ITS ---
Paracentesis Date Date: 06/01/24 Procedure Note Procedure: Paracentesis with Ultrasound Guidance Type of paracentesis: Therapeutic Initial or Repeat?: Repeat Surgeon: Jenny Forbes Indications: The patient is a 78-year-old male with alcoholic cirrhosis and a liver mass concerning for hepatocellular carcinoma and has had ascites refractory to diuretic management. He has been undergoing paracentesis every 7-10 days and getting between 6 and 9 L of fluid removed. He is here today because he has had reaccumulation of fluid with shortness of breath and significant distension. As far as updates to his health, unfortunately his states that there is no definitive treatment available to him and palliative care is recommended. He is going to have a consultation to discuss peritoneal catheter placement. He has significant swelling of his lower extremities. He is wrapping the legs at home with his . He was referred for lymphedema evaluation but they felt that the wraps were too tight so they did not go back. They are hoping to get home care. Labs and Cytology Sent:: No Albumin infused: Yes (Two bottles of 25% albumin) Procedure Note:: Prior to the procedure, the risks and benefits of the procedure were discussed and an informed consent was obtained. Patient identification was confirmed and TIME OUT was performed. An ultrasound was brought onto the field and an easily accessible pocket of ascites was identified that was away from intraabdominal organs. The patient's abdomen in the right lateral mid abdomen was prepped and draped in the usual sterile fashion. 1% Lidocaine was used to anesthetize the skin, soft tissues and peritoneum over the proposed needle insertion site. A skin incision was made with a scalpel just large enough to fit the needle. The needle with the paracentesis catheter was advanced into the abdomen and ascitic fluid was aspirated into the syringe. The needle was then withdrawn and the catheter was left in place. The catheter was then connected to the drainage tubing. 8.8 Liters of straw colored fluid was drained. Post procedure ultrasound revealed significantly reduced ascitic fluid. The catheter was then removed and the skin was closed with a 3-0 Monocryl stitch, Dermabond and Steri- Strips. Patient tolerated procedure well and there were no immediate complications. Patient's vital signs were stable throughout the procedure. Recomendation: Discharge to home (ambulatory) and return to normal activities tomorrow. Follow up with referring provider as needed. I encouraged them to try lymphedema therapy again if they are unable to get them to come into their home. They can request that his wraps be applied more loosely.
== END 2024-06-01 11:55 | disposition home or self-care (01) ==
LOC: US 09:59
PROVIDERS: PCP Family Medicine; Visit Provider Surgery
DX: K70.31 Alcoholic cirrhosis of liver with ascites (principal)
CPT/HCPCS: 49083; P9047

== ENCOUNTER 2024-06-05 13:37 | Outpatient (REF) | payer MEDICARE, SELFPAY ==
--- OUTSIDE RECORDS SUMMARY | 2024-06-05 13:41 | XMS_ITS | Encounter Summary ---
Author Organization [facility] Address [address] [place] [address] Care Team Providers Care Parts Control Clerk Name Role Phone Unavailable Primary Care Provider Unavailabl e Reason for Visit * Reason Onset Date Comments Appointment 05/22/2024 Encounter Details Date Type Department Care Team ([facility] st Contact Info) Description 05/22/2024 Clinical Communication Department of Oncology in [place], [place] [address] [place] [phone] Frida Rich M.D., Ph.D. [address] [place] [phone] Appointment Social History Tobacco Use Types Packs/Day [...] your living situation today? I have a [facility] place to live 04/25/2024 Sex [...]
--- OUTSIDE RECORDS SUMMARY | 2024-06-05 13:41 | XMS_ITS | Encounter Summary ---
Author Organization [facility] Address [address] [place] [address] Care Team Providers Care Tip Mender Name Role Phone Unavailable Primary Care Provider Unavailabl e Reason for Referral * MRI/CAT/PET Scan (Routine) - Closed Specialty Diagnoses / Procedures Referred By Contac t Referred To Contact Radiology Diagnoses Mass Hepatic Procedures CT Chest without IV Contrast Danial Horta M.D. [address] [place] [address] Phone: tel: fax: [facility] Referral ID Status Reason Start Date Expiration Date Visits Re quested Visits Authorized [id number] Closed 05/01/2024 05/01/2025 1 1 E PRODUCTS MAKER * MRI/CAT/PET Scan (Routine) - Closed Specialty Diagnoses / Procedures Referred By Vasquez damon Referred To Contact Radiology Diagnoses Mass Hepatic Procedures MR Abdomen without and with IV Contrast Danial Horta M.D. [address] [place] [address] Phone: tel: fax: [facility] Referral ID Status Reason Start Date Expiration Date Visits Re quested Visits Authorized [id number] Closed 05/01/2024 05/01/2025 1 1 E PRODUCTS MAKER Reason for Visit * Reason Comments Hepatobiliary Nurse Visit * Appointment Request (Routine) - Authorized Specialty Diagnoses / Procedures Referred By Contact Referred To Contact Gastroenterology and Hepatology Diagnoses Mass Hepatic Unspecified Cirrhosis Of Liver (HCC) Ascites Trisha Ellison, N.P. [address] [address] [place] [address] Phone: tel: fax: Referral ID Status Reason Start Date Expiration Date V isits Requested Visits Authorized [id number] Authorized 04/19/2024 04/19/2025 2 2 Encounter Details Date Type Department Care Team (Latest Contact Info) Description 05/01/2024 10:00 AM MAPLE PRODUCTS MAKER Telemedicine Division of Gastroenterology in [place], [place] [address] [place] [address] Allyssa Martinez, RCarlozN. Mass Hepatic (Primary Dx); Other Specified Diseases Of Liver Social History Tobacco Use Types Packs/Day Years Used Date Smoking Tobacco: Never Assessed [facility] Utilities Answer Date Recorded In [...] your living situation today? I have a [facility] place to live 04/25/2024 Sex and Gender [...] Gastroenterology and Hepatology RN Pre-Visit. Patient contacted [facility] requesting on-campus appointment; pre-visit was scheduled following that request. Completed administrative pre-visit discussion to better understand patient goals and the needed patient itinerary for the requested on-site visit. This pre-visit does not establish a long-term relationship. This interview occurred via phone call by Allyssa Martinez R.N. at [facility] to the patient in the patient's home. The information below is based on review of available medical records and a virtual conversation with the patient. History of Present Illness Mr. Phillips is a 78 y.o. male who is being interviewed for a pre-visit encounter. Our records indicate that Mr. Phillips is seeking an appointment at [facility] for further evaluation. Mr. Phillips states goals [...] disease. He would like to come to [place] for further work up. We do not have images. Blood work: 04/09 AFP 12 CEA 2.9 CA 19-9 14 Mr. Phillips is quite fatigued. Diagnosed with cirrhosis in December and stopped ETOH in December. No othersignificant medical history. He is able to travel to [place] for a face to face visit. ASSESSMENT [...] consultation Palliative care consultation Medical oncology consultation E PRODUCTS MAKER documented in this encounter Plan of Treatment Not on file documented as of this encounter Results * Prothrombin Time (PT) (05/18/2024 7:33 AM MAPLE PRODUCTS MAKER) Prothrombin Time, P 11.7 9.4 - 12.5 sec 05/18/2024 8:11 AM MAPLE PRODUCTS MAKER DTL INR 1.1 0.9 - 1.1 05/18/2024 8:11 AM MAPLE PRODUCTS MAKER DTL Comment: ----ADDITIONAL INFORMATION---- Standard intensity warfarin therapeutic range: 2.0 to 3.0 High intensity warfarin therapeutic range: 2.5 to 3.5 Blood (Blood, Venous) 05/18/2024 7:33 AM MAPLE PRODUCTS MAKER 05/18/2024 7:55 AM MAPLE PRODUCTS MAKER us Danial Horta M.D. LAB BLOOD ADD-ON Final Resu lt [facility] [address] [place] [address], [place] DTL [facility] [address] [place] [address] * (ABNORMAL) Hepatic Function Panel (05/18/2024 7:33 AM MAPLE PRODUCTS MAKER) Bilirubin, Total, S 1.7(H) 0.0 - 1.2 mg/dL 05/18/2024 8:40 AM MAPLE PRODUCTS MAKER DTL Bilirubin, Direct, S 1.1(H) 0.0 - 0.3 mg/dL 05/18/2024 8:40 AM MAPLE PRODUCTS MAKER DTL Aspartate Aminotransferase (AST), S 71(H) 8 - 48 U/L 05/18/2024 8:40 AM MAPLE PRODUCTS MAKER DTL Alanine Aminotransferase (ALT), S 35 7 - 55 U/L 05/18/2024 8:40 AM MAPLE PRODUCTS MAKER DTL Alkaline Phosphatase, S 492(H) 40 - 129 U/L 05/18/2024 8:40 AM MAPLE PRODUCTS MAKER DTL Albumin, S 3.1(L) 3.5 - 5.0 g/dL 05/18/2024 8:40 AM MAPLE PRODUCTS MAKER DTL Protein, Total, S 5.6(L) 6.3 - 7.9 g/dL 05/18/2024 8:40 AM MAPLE PRODUCTS MAKER DTL Blood (Blood, Venous) 05/18/2024 7:33 AM MAPLE PRODUCTS MAKER 05/18/2024 8:17 AM MAPLE PRODUCTS MAKER us Danial Horta M.D. LAB BLOOD ADD-ON Final Resu lt [address] [address], [facility] [place] [address] [place] [address] * Carbohydrate Antigen 19-9 (CA 19-9) (05/18/2024 7:33 AM MAPLE PRODUCTS MAKER) Pathologist [facility] Carbohydrate Ag 19-9, S 15 <35 U/mL 05/18/2024 11:56 AM MAPLE PRODUCTS MAKER [facility] Comment: ----ADDITIONAL INFORMATION---- The testing method is an immunoenzymatic assay manufactured by [employer] and performed on the [employer] DxI 800. Values obtained with different assay methods or kits may be different and cannot be used interchangeably. Test results cannot be interpreted as absolute evidence for the presence or absence of malignant disease. Blood (Blood, Venous) 05/18/2024 7:33 AM MAPLE PRODUCTS MAKER 05/18/2024 11:07 AM MAPLE PRODUCTS MAKER Danial Horta M.D. LAB BLOOD ADD-ON Final Resu lt Performing Organization Address [facility] Co de Phone Number [facility] [address] [place] [address] [facility] [address] [place] [address] * CEA (Carcinoembryonic Antigen) (05/18/2024 7:33 AM MAPLE PRODUCTS MAKER) Pathologist [facility] Carcinoembryonic Ag (CEA), S 2.1 ng/mL 05/18/2024 11:57 AM MAPLE PRODUCTS MAKER [facility] Comment: ----REFERENCE VALUE---- <=3.0 (Non-smokers) Some smokers may have elevated CEA, usually <5.0. ----ADDITIONAL INFORMATION---- The testing method is an immunoenzymatic assay manufactured by [employer]. and performed on the BitWine DxI 800. Values obtained with different assay methods or kits may be different and cannot be used interchangeably. Test results cannot be interpreted as absolute evidence for the presence or absence of malignant disease. Blood (Blood, Venous) 05/18/2024 7:33 AM MAPLE PRODUCTS MAKER 05/18/2024 11:07 AM MAPLE PRODUCTS MAKER us Danial Horta M.D. LAB BLOOD ADD-ON Final Resu lt Performing Organization Address [facility] Co de Phone Number [facility] [address] [place] [address] [facility] [address] [place] [address] * (ABNORMAL) Basic Metabolic Panel (05/18/2024 7:33 AM MAPLE PRODUCTS MAKER) Pathologist [facility] Potassium, S 4.0 3.6 - 5.2 mmol/L 05/18/2024 8:40 AM MAPLE PRODUCTS MAKER DTL Sodium, S 140 135 - 145 mmol/L 05/18/2024 8:40 AM MAPLE PRODUCTS MAKER DTL Chloride, S 103 98 - 107 mmol/L 05/18/2024 8:40 AM MAPLE PRODUCTS MAKER DTL Bicarbonate, S 27 22 - 29 mmol/L 05/18/2024 8:40 AM MAPLE PRODUCTS MAKER DTL Anion Gap 10 7 - 15 05/18/2024 8:40 AM MAPLE PRODUCTS MAKER DTL BUN (Blood Urea Nitrogen), S 60(H) 8 - 24 mg/dL 05/18/2024 8:40 AM MAPLE PRODUCTS MAKER DTL Creatinine 1.86(H) 0.74 - 1.35 mg/dL 05/18/2024 8:40 AM MAPLE PRODUCTS MAKER DTL Estimated GFR (eGFR) 37(L) >=60 mL/min/BSA 05/18/2024 8:40 AM MAPLE PRODUCTS MAKER DTL Comment: Estimated GFR calculated using the 2020 CKD_EPI creatinine equation. Calcium, Total, S 8.7(L) 8.8 - 10.2 mg/dL 05/18/2024 8:40 AM MAPLE PRODUCTS MAKER DTL Glucose, S 125 70 - 140 mg/dL 05/18/2024 8:40 AM MAPLE PRODUCTS MAKER DTL Blood (Blood, Venous) 05/18/2024 7:33 AM MAPLE PRODUCTS MAKER 05/18/2024 8:17 AM MAPLE PRODUCTS MAKER us Danial Horta M.D. LAB BLOOD ADD-ON Final Resu lt [address] [address], [facility] [address] [address] * (ABNORMAL) AFP (Alpha-Fetoprotein) L3% and Total, Hepatocellular Carcinoma Tumor Marker (47:33 AM MAPLE PRODUCTS MAKER) Total AFP, S 11(H) <4.7 ng/mL 05/18/2024 1:29 PM MAPLE PRODUCTS MAKER [facility] %L3 36(H) <10 % 05/18/2024 1:29 PM MAPLE PRODUCTS MAKER [facility] Comment: ----ADDITIONAL INFORMATION---- The testing method is isotachophoresis with laser-induced fluorescence manufactured by [employer] and performed on the i30. Values obtained with different assay methods or kits may be different and cannot be used interchangeably. Test results cannot be interpreted as absolute evidence for the presence or absence of malignant disease. Alpha-Fetoprotein and L3% values are not interpretable during for the investigation of malignant disease. Blood (Blood, Venous) 05/18/2024 7:33 AM MAPLE PRODUCTS MAKER 05/18/2024 12:03 PM MAPLE PRODUCTS MAKER us Danial Horta M.D. LAB BLOOD ADD-ON Final Resu lt [facility] [address] [place] [address] [facility] [address] [place] [address] * (ABNORMAL) CBC with Differential, Blood (05/18/2024 7:32 AM MAPLE PRODUCTS MAKER) Hemoglobin 13.8 13.2 - 16.6 g/dL 05/18/2024 8:27 AM MAPLE PRODUCTS MAKER DTL Hematocrit 42.4 38.3 - 48.6 % 05/18/2024 8:27 AM MAPLE PRODUCTS MAKER DTL Erythrocytes 4.36 4.35 - 5.65 x10(12)/L 05/18/2024 8:27 AM MAPLE PRODUCTS MAKER DTL MCV 97.2 78.2 - 97.9 fL 05/18/2024 8:27 AM MAPLE PRODUCTS MAKER DTL RBC Distrib Width 17.9(H) 11.8 - 14.5 % 05/18/2024 8:27 AM MAPLE PRODUCTS MAKER DTL Platelet Count 137 135 - 317 x10(9)/L 05/18/2024 9:35 AM MAPLE PRODUCTS MAKER DTL Leukocytes 5.5 3.4 - 9.6 x10(9)/L 05/18/2024 9:35 AM MAPLE PRODUCTS MAKER DTL Neutrophils 3.59 1.56 - 6.45 x10(9)/L 05/18/2024 8:26 AM MAPLE PRODUCTS MAKER [facility]PM Lymphocytes 0.81(L) 0.95 - 3.07 x10(9)/L 05/18/2024 8:27 AM MAPLE PRODUCTS MAKER DTL Monocytes 0.87(H) 0.26 - 0.81 x10(9)/L 05/18/2024 8:27 AM MAPLE PRODUCTS MAKER DTL Eosinophils 0.14 0.03 - 0.48 x10(9)/L 05/18/2024 8:27 AM MAPLE PRODUCTS MAKER DTL Basophils 0.05 0.01 - 0.08 x10(9)/L 05/18/2024 8:27 AM MAPLE PRODUCTS MAKER DTL Blood (Blood, Venous) 05/18/2024 7:32 AM MAPLE PRODUCTS MAKER 05/18/2024 8:00 AM MAPLE PRODUCTS MAKER us Danial Horta M.D. LAB BLOOD ADD-ON Final Resu lt [facility] [address] [place] [address], [place] DTL [facility] [address] [place] [address] DHPM [facility] [address] [place] [address] * CT Chest without IV Contrast (05/18/2024 7:07 AM MAPLE PRODUCTS MAKER) Anatomical Region Laterality Modality Chest, Thoracic RST LOS, Tho racic ARZ LOS, Thoracic FLA LOS N/A Computed Tomography, Compute d Tomography Impressions 05/18/2024 9:00 AM MAPLE PRODUCTS MAKER 1. Bilateral moderate centrilobular emphysema. 2. Tree-in-bud nodularity in right lower lobe, likely infectious/inflammatory. 3. A few nonspecific scattered micronodules, probably benign. 4. Trace right pleural effusion and large volume abdominopelvic ascites, likely due to hepatic cirrhosis. Narrative 05/18/2024 9:00 AM MAPLE PRODUCTS MAKER EXAM: CT CHEST WITHOUT IV CONTRAST COMPARISON: [...] abdominopelvic ascites,likely due to hepatic cirrhosis. Danial LIMA CT PROCEDURES Final Res ult * MR Abdomen without and with IV Contrast (05/17/2024 5:03 PM MAPLE PRODUCTS MAKER) Anatomical Region Laterality Modality Abdomen, Abdominal RST LOS, Abdominal ARZ LOS, Abdominal FLA LOS N/A Magnetic Resonance Impressions 05/18/2024 10:18 AM MAPLE PRODUCTS MAKER Cirrhotic liver morphology with portal hypertension. Very large (more than 10 cm) lesion occupying most of the right hepatic lobe demonstrates suspicious features. LR 5. There is an additional LR 5 lesion in the tip of the right hepatic lobe series 6, and smaller satellite lesions. No enlarged lymph nodes or evidence of distant metastasis in the upper abdomen. Narrative 05/18/2024 10:18 AM MAPLE PRODUCTS MAKER EXAM: MR ABDOMEN WITHOUT AND WITH IV [...]
--- OUTSIDE RECORDS SUMMARY | 2024-06-05 13:41 | XMS_ITS ---
Author Organization [facility] Address [address] [place] [address] Care Team Providers Care Energy Projects Lead Name Role Phone Unavailable Unavailable Unavailable Surgery Details Not on file Complications Check Surgery Details section. Procedure Estimated Blood Loss Check Surgery Details section. Procedure Findings Check Surgery Details section. Procedure Specimens Taken Check Surgery Details section.
--- OUTSIDE RECORDS SUMMARY | 2024-06-05 13:41 | XMS_ITS | Encounter Summary ---
Author Organization [facility] Address [address] [place] [address] Care Team Providers Care Pastry Artist Name Role Phone Unavailable Primary Care Provider Unavailabl e Reason for Visit * Reason Onset Date Comments Previsit Preparation 05/16/2024 SHELLEY DD * Appointment Request (Routine) - Authorized Specialty Diagnoses / Procedures Referred By Contact Referred To Contact Gastroenterology and Hepatology Referral ID Status Reason Start Date Expiration Date V isits Requested Visits Authorized [id number] Authorized 05/08/2024 05/08/2025 1 1 Encounter Details Date Type Department Care Team (Latest Contact Info) Description 05/16/2024 10:30 AM ACCOUNTING GENERALIST Clinical Communication Virtual Review in [place], [place] [address] [place] [address] Previsit Preparation (SHELLEY DD) Social History Tobacco Use Types Packs/Day Years Used Date Smoking Tobacco: Former Cigarettes S tarted: 06/27/1998 Smokeless Tobacco: Never Tobacco Cessation:Counseling Given: Not Answered [facility] Utilities Answer Date Recorded In the past [address] [employer], gas, oil, or water company threatened to [...] your living situation today? [facility] place to live 04/25/2024 Sex and [...]
--- OUTSIDE RECORDS SUMMARY | 2024-06-05 13:41 | XMS_ITS | Clinical Summary ---
Author Organization [employer] [facility] Address [place], [place] [address] Care Team Providers Care Customer Experience Specialist Name Role Phone AndressaLynn RN, BSN Unavailable [phone] Allergies Active Allergy Reactions Criticality Noted Date Comments Aspirin Intolerance-Can't Take 12/03/2009 Nose bleeds Medications lisinopril (PRINIVIL; ZESTRIL) 40 mg tabletIndications:Uns pecified essential hypertension Take 1 tablet by mouth once daily. 90 tablet 2 1 Active febuxostat (ULORIC) 40 mg tablet Take 1 tablet by mouth every morning. 30 Tab 0 1 Active indomethacin (INDOCIN) 50 mg capsule Take 1 capsule by mouth 3 times daily with meals. 30 capsule 3 1 Active gemfibrozil (LOPID) 600 mg tabletIndications:Pur e hyperglyceridemia Take 1 tablet by mouth 2 times daily before meals. 180 tablet 1 1 Active fluocinonide 0.05% topical (LIDEX) 0.05 % cream Apply to scalp as needed 30 g 2 1 Active lisinopril (PRINIVIL; ZESTRIL) 20 mg tablet Take 1 tablet by mouth once daily. 90 tablet 1 1 Active allopurinol (ZYLOPRIM) 100 mg tablet TAKE ONE TABLET BY MOUTH TWICE DAILY 60 tablet 1 2 Active metoprolol (TOPROL XL) 50 mg XL tabletIndications:Uns pecified essential hypertension TAKE 1 TABLET BY MOUTH ONCE DAILY 90 tablet 1 2 Active Active Problems Problem Noted Date Diagnosed Date Gout, unspecified 10/09/2010 Hyperuricemia 10/09/2010 CKD (chronic kidney disease) 12/03/2009 HYPERTRIGLYCERIDEMIA 09/03/2004 HYPERTENSION - ESSENTIAL 08/20/2004 RASH, OTH NONSPECIFIC SKIN ERUPTION 11/14/2000 Resolved Problems Problem Noted Date Diagnosed Date Resolved Date Renal insufficiency 11/28/2008 12/04/19 10 Encounters Date Type Department Care Team Description 06/04/2024 Transcribe Orders Customer Experience Center [facility] [phone] Phoenix Aguilar MBBS 06/04/2024 Transcribe Orders Customer Experience Center [place] [phone] Phoenix Aguilar MBBS from Last 3 Months Family History Medical History Relation Name Comments Genetic Other Father of cancer (?)~Mother, had brest tumor.~No HTN.~Has older brother had RI in his 60. Relation Name Status Comments Other Social History Tobacco Use Types Packs/Day Years Used Date Smoking Tobacco: Former Cigarettes Q uit: 07/12/2000 Alcohol Use Standard Drinks/Week Comments Not Asked 0 (1 standard drink = 0.6 oz pur e alcohol) Sex and Gender Information Value Date Recorded Sex Assigned at Not on file Legal Sex Male 5:24 AM INSTALLATIONS INSPECTOR Gender Identity Not on file Sexual Orientation Not on file Obstetrics History Last Filed Vital Signs Vital Sign Reading Time Taken Comments Blood Pressure 122/62 05/27/2011 7:59 AM INSTALLATIONS INSPECTOR Pulse 60 05/27/2011 7:59 AM INSTALLATIONS INSPECTOR Temperature 36.8 C (98.2 F) 07/29/2006 8:20 AM INSTALLATIONS INSPECTOR Respiratory Rate 16 05/27/2011 7:59 AM INSTALLATIONS INSPECTOR Oxygen Saturation - - Inhaled Oxygen Concentration - - Weight 84.8 kg (186 lb 14.4 oz) 05/27/2011 7:59 AM INSTALLATIONS INSPECTOR Height - - Body Mass Index - [...] 1-dose 75+ series) 2021 COVID-19 vaccine series (2023-25 season) Influenza for age 65+ 02/26/2024 Insurance BLUE CROSS MEDICARE ADVANTAGE MR Care Teams Customer Experience Specialist Relationship Specialty Start Date End Date October, Lynn Chew RN, BSN [address] [phone] Nurse Navigator - Oncology Oncology 04/17/24
--- OUTSIDE RECORDS SUMMARY | 2024-06-05 13:41 | XMS_ITS | Encounter Summary ---
Author Organization [facility] Address [address] [place] [address] Care Team Providers Care Lan/Wan Engineer Name Role Phone Unavailable Primary Care Provider Unavailabl e Encounter Details Date Type Department Care Team (Latest Contact Info) Description 05/18/2024 7:12 AM MECHANICAL CAD DRAFTER - 05/18/2024 11:59 PM MECHANICAL CAD DRAFTER Hospital Encounter Department of Laboratory Medicine and Pathology, [facility] in [place], [place] [address] [place] [address] Danial Horta M.D. [address] [place] [address] Mass Hepatic Discharge Disposition: Home or Self Care Social History Tobacco Use Types Packs/Day Years Used Date Smoking Tobacco: Former Cigarettes S tarted: 06/27/1998 Smokeless Tobacco: Never [facility] Utilities Answer Date Recorded In the past [...] your living situation today? I have a [facility] place to live 04/25/2024 Sex and [...] FUNCTION PANEL, S Routine 05/18/2024 7:33 AM MECHANICAL CAD DRAFTER Mass Hepatic CARBOHYDRATE AG 19-9 (CA 19-9), S Routine 05/18/2024 7:33 AM MECHANICAL CAD DRAFTER Mass Hepatic AFP L3% AND TOT, HEPATOCELLULAR CARCINOMA TM, S Routine 05/18/2024 7:33 AM MECHANICAL CAD DRAFTER Mass Hepatic PROTHROMBIN TIME (PT), P Routine 024 7:33 AM MECHANICAL CAD DRAFTER Mass Hepatic CARCINOEMBRYONIC AG (CEA), S Routine 05/18/2024 7:33 AM MECHANICAL CAD DRAFTER Mass Hepatic BASIC METABOLIC PANEL, S/P Routine 05/18/2024 7:33 AM MECHANICAL CAD DRAFTER Mass Hepatic CBC WITH DIFFERENTIAL, B Routine 024 7:32 AM MECHANICAL CAD DRAFTER Mass Hepatic documented in this encounter Results * Prothrombin Time (PT) (05/18/2024 7:33 AM MECHANICAL CAD DRAFTER) Prothrombin Time, P 11.7 9.4 - 12.5 sec 05/18/2024 8:11 AM MECHANICAL CAD DRAFTER DTL INR 1.1 0.9 - 1.1 05/18/2024 8:11 AM MECHANICAL CAD DRAFTER DTL Comment: ----ADDITIONAL INFORMATION---- Standard intensity warfarin therapeutic range: 2.0 to 3.0 High intensity warfarin therapeutic range: 2.5 to 3.5 Blood (Blood, Venous) 05/18/2024 7:33 AM MECHANICAL CAD DRAFTER 05/18/2024 7:55 AM MECHANICAL CAD DRAFTER Danial Horta M.D. LAB BLOOD ADD-ON Final Resu lt [place] [address] [place] [address], [facility] [address] [place] [address] * (ABNORMAL) Hepatic Function Panel (05/18/2024 7:33 AM MECHANICAL CAD DRAFTER) Bilirubin, Total, S 1.7(H) 0.0 - 1.2 mg/dL 05/18/2024 8:40 AM MECHANICAL CAD DRAFTER DTL Bilirubin, Direct, S 1.1(H) 0.0 - 0.3 mg/dL 05/18/2024 8:40 AM MECHANICAL CAD DRAFTER DTL Aspartate Aminotransferase (AST), S 71(H) 8 - 48 U/L 05/18/2024 8:40 AM MECHANICAL CAD DRAFTER DTL Alanine Aminotransferase (ALT), S 35 7 - 55 U/L 05/18/2024 8:40 AM MECHANICAL CAD DRAFTER DTL Alkaline Phosphatase, S 492(H) 40 - 129 U/L 05/18/2024 8:40 AM MECHANICAL CAD DRAFTER DTL Albumin, S 3.1(L) 3.5 - 5.0 g/dL 05/18/2024 8:40 AM MECHANICAL CAD DRAFTER DTL Protein, Total, S 5.6(L) 6.3 - 7.9 g/dL 05/18/2024 8:40 AM MECHANICAL CAD DRAFTER DTL Blood (Blood, Venous) 05/18/2024 7:33 AM MECHANICAL CAD DRAFTER 05/18/2024 8:17 AM MECHANICAL CAD DRAFTER Danial Horta M.D. LAB BLOOD ADD-ON Final Resu lt Performing Organization Address City/[facility]/ZIP Co de Phone Number [facility] [address] [place] [address], [facility] [address] [place] [address] * Carbohydrate Antigen 19-9 (CA 19-9) (05/18/2024 7:33 AM MECHANICAL CAD DRAFTER) Carbohydrate Ag 19-9, S 15 <35 U/mL 05/18/2024 11:56 AM MECHANICAL CAD DRAFTER [facility] Comment: ----ADDITIONAL INFORMATION---- The testing method is an immunoenzymatic assay manufactured by [employer] and performed on the [employer] DxI 800. Values obtained with different assay methods or kits may be different and cannot be used interchangeably. Test results cannot be interpreted as absolute evidence for the presence or absence of malignant disease. Blood (Blood, Venous) 05/18/2024 7:33 AM MECHANICAL CAD DRAFTER 05/18/2024 11:07 AM MECHANICAL CAD DRAFTER us Danial Horta M.D. LAB BLOOD ADD-ON Final Resu lt [facility] [address] [place] [address] [facility] [address] [place] [address] * CEA (Carcinoembryonic Antigen) (05/18/2024 7:33 AM MECHANICAL CAD DRAFTER) [facility] Carcinoembryonic Ag (CEA), S 2.1 ng/mL 05/18/2024 11:57 AM MECHANICAL CAD DRAFTER [facility] Comment: ----REFERENCE VALUE---- <=3.0 (Non-smokers) Some smokers may have elevated CEA, usually <5.0. ----ADDITIONAL INFORMATION---- The testing method is an immunoenzymatic assay manufactured by [employer]. and performed on the [employer] DxI 800. Values obtained with different assay methods or kits may be different and cannot be used interchangeably. Test results cannot be interpreted as absolute evidence for the presence or absence of malignant disease. Blood (Blood, Venous) 05/18/2024 7:33 AM MECHANICAL CAD DRAFTER 05/18/2024 11:07 AM MECHANICAL CAD DRAFTER us Danial Horta M.D. LAB BLOOD ADD-ON Final Resu lt Performing Organization Address City/State/[facility] Co de Phone Number [facility] [address] [place] [address] [facility] [address] [place] [address] * (ABNORMAL) Basic Metabolic Panel (05/18/2024 7:33 AM MECHANICAL CAD DRAFTER) [facility] Potassium, S 4.0 3.6 - 5.2 mmol/L 05/18/2024 8:40 AM MECHANICAL CAD DRAFTER DTL Sodium, S 140 135 - 145 mmol/L 05/18/2024 8:40 AM MECHANICAL CAD DRAFTER DTL Chloride, S 103 98 - 107 mmol/L 05/18/2024 8:40 AM MECHANICAL CAD DRAFTER DTL Bicarbonate, S 27 22 - 29 mmol/L 05/18/2024 8:40 AM MECHANICAL CAD DRAFTER DTL Anion Gap 10 7 - 15 05/18/2024 8:40 AM MECHANICAL CAD DRAFTER DTL BUN (Blood Urea Nitrogen), S 60(H) 8 - 24 mg/dL 05/18/2024 8:40 AM MECHANICAL CAD DRAFTER DTL Creatinine 1.86(H) 0.74 - 1.35 mg/dL 05/18/2024 8:40 AM MECHANICAL CAD DRAFTER DTL Estimated GFR (eGFR) 37(L) >=60 mL/min/BSA 05/18/2024 8:40 AM MECHANICAL CAD DRAFTER DTL Comment: Estimated GFR calculated using the 2020 CKD_EPI creatinine equation. Calcium, Total, S 8.7(L) 8.8 - 10.2 mg/dL 05/18/2024 8:40 AM MECHANICAL CAD DRAFTER DTL Glucose, S 125 70 - 140 mg/dL 05/18/2024 8:40 AM MECHANICAL CAD DRAFTER DTL Blood (Blood, Venous) 05/18/2024 7:33 AM MECHANICAL CAD DRAFTER 05/18/2024 8:17 AM MECHANICAL CAD DRAFTER Dainal Horta M.D. LAB BLOOD ADD-ON Final Resu lt Performing Organization Address City/[facility]/ZIP Co de Phone Number [facility] [address] [place] [address], [facility] [address] [place] [address] * (ABNORMAL) AFP (Alpha-Fetoprotein) L3% and Total, Hepatocellular Carcinoma Tumor Marker (47:33 AM MECHANICAL CAD DRAFTER) Total AFP, S 11(H) <4.7 ng/mL 05/18/2024 1:29 PM MECHANICAL CAD DRAFTER SDSC %L3 36(H) <10 % 05/18/2024 1:29 PM MECHANICAL CAD DRAFTER [facility] Comment: ----ADDITIONAL INFORMATION---- The testing method is isotachophoresis with laser-induced fluorescence manufactured by [employer] and performed on the i30. Values obtained with different assay methods or kits may be different and cannot be used interchangeably. Test results cannot be interpreted as absolute evidence for the presence or absence of malignant disease. Alpha-Fetoprotein and L3% values are not interpretable during for the investigation of malignant disease. Blood (Blood, Venous) 05/18/2024 7:33 AM MECHANICAL CAD DRAFTER 05/18/2024 12:03 PM MECHANICAL CAD DRAFTER Danial Horta M.D. LAB BLOOD ADD-ON Final Resu lt Performing Organization Address City/[facility]/ZIP Co de Phone Number [facility] [address] [place] [address] [facility] [address] [place] [address] * (ABNORMAL) CBC with Differential, Blood (05/18/2024 7:32 AM MECHANICAL CAD DRAFTER) Hemoglobin 13.8 13.2 - 16.6 g/dL 05/18/2024 8:27 AM MECHANICAL CAD DRAFTER DTL Hematocrit 42.4 38.3 - 48.6 % 05/18/2024 8:27 AM MECHANICAL CAD DRAFTER DTL Erythrocytes 4.36 4.35 - 5.65 x10(12)/L 05/18/2024 8:27 AM MECHANICAL CAD DRAFTER DTL MCV 97.2 78.2 - 97.9 fL 05/18/2024 8:27 AM MECHANICAL CAD DRAFTER DTL RBC Distrib Width 17.9(H) 11.8 - 14.5 % 05/18/2024 8:27 AM MECHANICAL CAD DRAFTER DTL Platelet Count 137 135 - 317 x10(9)/L 05/18/2024 9:35 AM MECHANICAL CAD DRAFTER DTL Leukocytes 5.5 3.4 - 9.6 x10(9)/L 05/18/2024 9:35 AM MECHANICAL CAD DRAFTER DTL Neutrophils 3.59 1.56 - 6.45 x10(9)/L 05/18/2024 8:26 AM MECHANICAL CAD DRAFTER [facility] Lymphocytes 0.81(L) 0.95 - 3.07 x10(9)/L 05/18/2024 8:27 AM MECHANICAL CAD DRAFTER DTL Monocytes 0.87(H) 0.26 - 0.81 x10(9)/L 05/18/2024 8:27 AM MECHANICAL CAD DRAFTER DTL Eosinophils 0.14 0.03 - 0.48 x10(9)/L 05/18/2024 8:27 AM MECHANICAL CAD DRAFTER DTL Basophils 0.05 0.01 - 0.08 x10(9)/L 05/18/2024 8:27 AM MECHANICAL CAD DRAFTER DTL Blood (Blood, Venous) 05/18/2024 7:32 AM MECHANICAL CAD DRAFTER 05/18/2024 8:00 AM MECHANICAL CAD DRAFTER us Danial Horta M.D. LAB BLOOD ADD-ON Final Resu lt [facility] [address] [place] [address], [facility] DTL [facility] [address] [place] [address] [facility] [address] [place] [address] documented in this encounter Visit Diagnoses Diagnosis Mass Hepatic documented in this encounter
--- OUTSIDE RECORDS SUMMARY | 2024-06-05 13:41 | XMS_ITS | Referral Summary ---
Author Organization [facility] Address [address] [place] [address] Care Team Providers Care Melt Room Operator Name Role Phone Unavailable Primary Care Provider Unavailabl e Source Comments Patient records contain information from all sites at [facility]. For routine questions regarding patient records, call [phone] during business hours, M-F 8:00 AM - 5:00 PM Central Time. Record requests for emergency care only can be directed to [phone] at any time.[facility] Encounters Date Type Department Care Team Description 05/22/2024 Clinical Communication Department of Oncology in [place], [place] [address] [place] [phone] Frida Rich M.D., Ph.D. Appointment 05/18/2024 7:12 AM SUPERVISOR ORCHARD - 05/18/2024 11:59 PM [facility] Hospital Encounter Department of Laboratory Medicine and Pathology, [facility] in [place], [place] [address] [place] [address] Danial Horta M.D. Mass Hepatic Discharge Disposition: Home or Self Care 05/18/2024 6:48 AM SUPERVISOR ORCHARD - 05/18/2024 7:11 AM SUPERVISOR ORCHARD Hospital Encounter Department of Radiology, [facility] in [place], [place] [address] [place] [phone] Danial Horta M.D. Mass Hepatic Discharge Disposition: Home or Self Care 05/18/2024 2:00 PM SUPERVISOR ORCHARD Comprehensive Visit Division of Gastroenterology in [address] [phone] Macy Fatima M.D. Malhi, Harmeet, M.B.B.S. Malignant Neoplasm Of Liver Hepatocellular (HCC) (Primary Dx); Unspecified Cirrhosis Of Liver (HCC) 05/17/2024 3:08 PM SUPERVISOR ORCHARD - 05/17/2024 11:59 PM SUPERVISOR ORCHARD Hospital Encounter Department of Radiology, [facility], in [place], [place] [address] [place] [phone] Danial Horta M.D. Mass Hepatic Discharge Disposition: Home or Self Care 05/16/2024 10:30 AM SUPERVISOR ORCHARD Clinical Communication Virtual Review in [place], [place] 200 [place] [address] Previsit Preparation (SHELLEY DD) 05/09/2024 Clinical Communication Division of Gastroenterology in [place], [place] [address] [place] [phone] Danial Horta M.D. 05/07/2024 Episode Changes Division of Gastroenterology in [address] [phone] Linda Gavin 05/01/2024 10:00 AM SUPERVISOR ORCHARD Telemedicine Division of Gastroenterology in [address] [phone] Allyssa Martinez R.N. Mass Hepatic (Primary Dx); Other Specified Diseases Of Liver 04/20/2024 Clinical Communication Division of Gastroenterology in [address] [phone] Prescheduling, Provider Hepatobiliary (Pre-Visit); Previsit Preparation; OSM - Outside Materials 04/19/2024 Community Orders [facility] [address] [address] [place] [address] Macy Fatima M.D. Unspecified Cirrhosis Of Liver [...] Never Tobacco Cessation:Counseling Given: Not Answered [facility] Utilities Answer Date Recorded In the past 12 months has th e [employer], gas, oil, or water company threatened to [...] your living situation today? I have a [facility] place to live 04/25/2024 Sex and Gender Information Value Date Recorded Sex Assigned at Male 04/25/2024 10:58 AM CDT Legal Sex Male 4:01 PM CDT Gender Identity Male 04/25/2024 10:58 AM CDT Sexual Orientation Straight 04/25/2024 10 :58 AM CDT Last Filed Vital Signs Vital Sign Reading Time Taken Comments Blood Pressure 122/73 05/18/2024 1:52 PM SUPERVISOR ORCHARD Pulse 65 05/18/2024 1:52 PM SUPERVISOR ORCHARD Temperature - - Respiratory Rate - - Oxygen Saturation - - Inhaled Oxygen Concentration - - Weight 95 kg (209 lb 7 oz) 05/18/2024 1:52 PM CS T Height 166.6 cm (5' 5.59) 05/18/2024 1:52 PM CS T Body Mass Index 34.23 05/18/2024 1:52 PM SUPERVISOR ORCHARD Plan of Treatment Not on file Procedures Procedure Name Priority Date/Time Associated Diagnosis Comments PROTHROMBIN TIME (PT), P Routine 05/18/2024 7:33 AM SUPERVISOR ORCHARD Mass Hepatic HEPATIC FUNCTION PANEL, S Routine 05/18/2024 7:33 AM SUPERVISOR ORCHARD Mass Hepatic CARBOHYDRATE AG 19-9 (CA 19-9), S Routine 05/18/2024 7:33 AM SUPERVISOR ORCHARD Mass Hepatic CARCINOEMBRYONIC AG (CEA), S Routine 05/18/2024 7:33 AM SUPERVISOR ORCHARD Mass Hepatic BASIC METABOLIC PANEL, S/P Routine 05/18/2024 7:33 AM SUPERVISOR ORCHARD Mass Hepatic AFP L3% AND TOT, HEPATOCELLULAR CARCINOMA TM, S Routine 05/18/2024 7:33 AM SUPERVISOR ORCHARD Mass Hepatic CBC WITH DIFFERENTIAL, B Routine 05/18/2024 7:32 AM SUPERVISOR ORCHARD Mass Hepatic CT CHEST WITHOUT IV CONTRAST RAD - Routine (most inpatients and all outpatients) 05/18/2024 7:07 AM SUPERVISOR ORCHARD Mass Hepatic MR ABDOMEN WITHOUT AND WITH IV CONTRAST RAD - Routine (most inpatients and all outpatients) 05/17/2024 5:03 PM SUPERVISOR ORCHARD Mass Hepatic from Last 3 Months Results * (ABNORMAL) Hepatic Function Panel (05/18/2024 7:33 AM SUPERVISOR ORCHARD) Bilirubin, Total, S 1.7(H) 0.0 - 1.2 mg/dL 05/18/2024 8:40 AM SUPERVISOR ORCHARD DTL Bilirubin, Direct, S 1.1(H) 0.0 - 0.3 mg/dL 05/18/2024 8:40 AM SUPERVISOR ORCHARD DTL Aspartate Aminotransferase (AST), S 71(H) 8 - 48 U/L 05/18/2024 8:40 AM SUPERVISOR ORCHARD DTL Alanine Aminotransferase (ALT), S 35 7 - 55 U/L 05/18/2024 8:40 AM SUPERVISOR ORCHARD DTL Alkaline Phosphatase, S 492(H) 40 - 129 U/L 05/18/2024 8:40 AM SUPERVISOR ORCHARD DTL Albumin, S 3.1(L) 3.5 - 5.0 g/dL 05/18/2024 8:40 AM SUPERVISOR ORCHARD DTL Protein, Total, S 5.6(L) 6.3 - 7.9 g/dL 05/18/2024 8:40 AM SUPERVISOR ORCHARD DTL Blood (Blood, Venous) 05/18/2024 7:33 AM SUPERVISOR ORCHARD 05/18/2024 8:17 AM SUPERVISOR ORCHARD us Danial Horta M.D. LAB BLOOD ADD-ON Final Resu lt [facility] [address] [place] [address], [facility] [address] [place] [address] * Carbohydrate Antigen 19-9 (CA 19-9) (05/18/2024 7:33 AM SUPERVISOR ORCHARD) Pathologist [facility] Carbohydrate Ag 19-9, S 15 <35 U/mL 05/18/2024 11:56 AM SUPERVISOR ORCHARD [facility] Comment: ----ADDITIONAL INFORMATION---- The testing method is an immunoenzymatic assay manufactured by [employer] and performed on the [employer] DxI 800. Values obtained with different assay methods or kits may be different and cannot be used interchangeably. Test results cannot be interpreted as absolute evidence for the presence or absence of malignant disease. Blood (Blood, Venous) 05/18/2024 7:33 AM SUPERVISOR ORCHARD 05/18/2024 11:07 AM SUPERVISOR ORCHARD Danial Horta M.D. LAB BLOOD ADD-ON Final Resu lt Performing Organization Address City/[facility] Co de Phone Number [facility] [address] [place] [address] [facility] [address] [place] [address] * (ABNORMAL) AFP (Alpha-Fetoprotein) L3% and Total, Hepatocellular Carcinoma Tumor Marker (47:33 AM SUPERVISOR ORCHARD) Pathologist [facility] Total AFP, S 11(H) <4.7 ng/mL 05/18/2024 1:29 PM SUPERVISOR ORCHARD SDSC %L3 36(H) <10 % 05/18/2024 1:29 PM SUPERVISOR ORCHARD [facility] Comment: ----ADDITIONAL INFORMATION---- The testing method is isotachophoresis with laser-induced fluorescence manufactured by [employer] and performed on the i30. Values obtained with different assay methods or kits may be different and cannot be used interchangeably. Test results cannot be interpreted as absolute evidence for the presence or absence of malignant disease. Alpha-Fetoprotein and L3% values are not interpretable during for the investigation of malignant disease. Blood (Blood, Venous) 05/18/2024 7:33 AM SUPERVISOR ORCHARD 05/18/2024 12:03 PM SUPERVISOR ORCHARD Danial Horta M.D. LAB BLOOD ADD-ON Final Resu lt Performing Organization Address City/[facility] Co de Phone Number [facility] [address] [place] [address] [facility] [address] [place] [address] * Prothrombin Time (PT) (05/18/2024 7:33 AM SUPERVISOR ORCHARD) Prothrombin Time, P 11.7 9.4 - 12.5 sec 05/18/2024 8:11 AM SUPERVISOR ORCHARD DTL INR 1.1 0.9 - 1.1 05/18/2024 8:11 AM SUPERVISOR ORCHARD [facility] Comment: ----ADDITIONAL INFORMATION---- Standard intensity warfarin therapeutic range: 2.0 to 3.0 High intensity warfarin therapeutic range: 2.5 to 3.5 Blood (Blood, Venous) 05/18/2024 7:33 AM SUPERVISOR ORCHARD 05/18/2024 7:55 AM SUPERVISOR ORCHARD Danial Horta M.D. LAB BLOOD ADD-ON Final Resu lt Performing Organization Address City/[facility] Co de Phone Number [facility] [address] [place] [address], [facility] [place] [address] [place] [address] * CEA (Carcinoembryonic Antigen) (05/18/2024 7:33 AM SUPERVISOR ORCHARD) [facility] Carcinoembryonic Ag (CEA), S 2.1 ng/mL 05/18/2024 11:57 AM [facility] Comment: ----REFERENCE VALUE---- <=3.0 (Non-smokers) Some smokers may have elevated CEA, usually <5.0. ----ADDITIONAL INFORMATION---- The testing method is an immunoenzymatic assay manufactured by [employer] and performed on the [employer] DxI 800. Values obtained with different assay methods or kits may be different and cannot be used interchangeably. Test results cannot be interpreted as absolute evidence for the presence or absence of malignant disease. Blood (Blood, Venous) 05/18/2024 7:33 AM SUPERVISOR ORCHARD 05/18/2024 11:07 AM SUPERVISOR ORCHARD Danial Horta M.D. LAB BLOOD ADD-ON Final Resu lt Performing Organization Address City/[facility]/ZIP Co de Phone Number [facility] [address] [place] [address] [facility] [address] [place] [address] * (ABNORMAL) Basic Metabolic Panel (05/18/2024 7:33 AM SUPERVISOR ORCHARD) [facility] Potassium, S 4.0 3.6 - 5.2 mmol/L 05/18/2024 8:40 AM SUPERVISOR ORCHARD DTL Sodium, S 140 135 - 145 mmol/L 05/18/2024 8:40 AM SUPERVISOR ORCHARD DTL Chloride, S 103 98 - 107 mmol/L 05/18/2024 8:40 AM SUPERVISOR ORCHARD DTL Bicarbonate, S 27 22 - 29 mmol/L 05/18/2024 8:40 AM SUPERVISOR ORCHARD DTL Anion Gap 10 7 - 15 05/18/2024 8:40 AM SUPERVISOR ORCHARD DTL BUN (Blood Urea Nitrogen), S 60(H) 8 - 24 mg/dL 05/18/2024 8:40 AM SUPERVISOR ORCHARD DTL Creatinine 1.86(H) 0.74 - 1.35 mg/dL 05/18/2024 8:40 AM SUPERVISOR ORCHARD DTL Estimated GFR (eGFR) 37(L) >=60 mL/min/BSA 05/18/2024 8:40 AM SUPERVISOR ORCHARD DTL Comment: Estimated GFR calculated using the 2020 CKD_EPI creatinine equation. Calcium, Total, S 8.7(L) 8.8 - 10.2 mg/dL 05/18/2024 8:40 AM SUPERVISOR ORCHARD DTL Glucose, S 125 70 - 140 mg/dL 05/18/2024 8:40 AM SUPERVISOR ORCHARD DTL Blood (Blood, Venous) 05/18/2024 7:33 AM SUPERVISOR ORCHARD 05/18/2024 8:17 AM SUPERVISOR ORCHARD us Danial Horta M.D. LAB BLOOD ADD-ON Final Resu lt [facility] [address] [place] [address], [facility] [address] [place] [address] * (ABNORMAL) CBC with Differential, Blood (05/18/2024 7:32 AM SUPERVISOR ORCHARD) Pathologist [facility] Hemoglobin 13.8 13.2 - 16.6 g/dL 05/18/2024 8:27 AM SUPERVISOR ORCHARD DTL Hematocrit 42.4 38.3 - 48.6 % 05/18/2024 8:27 AM SUPERVISOR ORCHARD DTL Erythrocytes 4.36 4.35 - 5.65 x10(12)/L 05/18/2024 8:27 AM SUPERVISOR ORCHARD DTL MCV 97.2 78.2 - 97.9 fL 05/18/2024 8:27 AM SUPERVISOR ORCHARD DTL RBC Distrib Width 17.9(H) 11.8 - 14.5 % 05/18/2024 8:27 AM SUPERVISOR ORCHARD DTL Platelet Count 137 135 - 317 x10(9)/L 05/18/2024 9:35 AM SUPERVISOR ORCHARD DTL Leukocytes 5.5 3.4 - 9.6 x10(9)/L 05/18/2024 9:35 AM SUPERVISOR ORCHARD DTL Neutrophils 3.59 1.56 - 6.45 x10(9)/L 05/18/2024 8:26 AM SUPERVISOR ORCHARD [facility] Lymphocytes 0.81(L) 0.95 - 3.07 x10(9)/L 05/18/2024 8:27 AM SUPERVISOR ORCHARD DTL Monocytes 0.87(H) 0.26 - 0.81 x10(9)/L 05/18/2024 8:27 AM SUPERVISOR ORCHARD DTL Eosinophils 0.14 0.03 - 0.48 x10(9)/L 05/18/2024 8:27 AM SUPERVISOR ORCHARD DTL Basophils 0.05 0.01 - 0.08 x10(9)/L 05/18/2024 8:27 AM SUPERVISOR ORCHARD DTL Blood (Blood, Venous) 05/18/2024 7:32 AM SUPERVISOR ORCHARD 05/18/2024 8:00 AM SUPERVISOR ORCHARD us Danial Horta M.D. LAB BLOOD ADD-ON Final Resu lt [facility] [address] [place] [address], [facility] DTL [facility] [address] [place] [address] DHPM [facility] [address] [place] [address] * CT Chest without IV Contrast (05/18/2024 7:07 AM SUPERVISOR ORCHARD) Anatomical Region Laterality Modality Chest, Thoracic RST LOS, Tho racic ARZ LOS, Thoracic FLA LOS N/A Computed Tomography, Compute d Tomography Impressions 05/18/2024 9:00 AM SUPERVISOR ORCHARD 1. Bilateral moderate centrilobular emphysema. 2. Tree-in-bud nodularity in right lower lobe, likely infectious/inflammatory. 3. A few nonspecific scattered micronodules, probably benign. 4. Trace right pleural effusion and large volume abdominopelvic ascites, likely due to hepatic cirrhosis. Narrative 05/18/2024 9:00 AM SUPERVISOR ORCHARD EXAM: CT CHEST WITHOUT IV CONTRAST COMPARISON: [...] and with IV Contrast (05/17/2024 5:03 PM SUPERVISOR ORCHARD) Anatomical Region Laterality Modality Abdomen, Abdominal RST LOS, Abdominal ARZ LOS, Abdominal FLA LOS N/A Magnetic Resonance Impressions 05/18/2024 10:18 AM SUPERVISOR ORCHARD Cirrhotic liver morphology with portal hypertension. Very large (more than 10 cm) lesion occupying most of the right hepatic lobe demonstrates suspicious features. LR 5. There is an additional LR 5 lesion in the tip of the right hepatic lobe series 6, and smaller satellite lesions. No enlarged lymph nodes or evidence of distant metastasis in the upper abdomen. Narrative 05/18/2024 10:18 AM SUPERVISOR ORCHARD EXAM: MR ABDOMEN WITHOUT AND WITH IV [...] Re sult from Last 3 Months Insurance [facility] [place] [address]
--- OUTSIDE RECORDS SUMMARY | 2024-06-05 13:41 | XMS_ITS | Encounter Summary ---
Author Organization [facility] Address [address] [place] [address] Care Team Providers Care Equipment Detailer Name Role Phone Unavailable Primary Care Provider Unavailabl e Encounter Details Date Type Department Care Team (Late st Contact Info) Description 05/07/2024 Episode Changes Division of Gastroenterology in [place], [place] [address] [place] [address] Linda Gavin Social History Tobacco Use Types Packs/Day Years Used Date Smoking Tobacco: Never Assessed [facility] Utilities Answer Date Recorded In the past 12 months has e [employer], gas, oil, or water [employer] threatened to shut off services in your [...] your living situation today? I have a [facility] place to live 04/25/2024 Sex and Gender [...]
--- OUTSIDE RECORDS SUMMARY | 2024-06-05 13:41 | XMS_ITS | Encounter Summary ---
Author Organization [facility] Address [address] [place] [address] Care Team Providers Care Commercial Lease Administrator Name Role Phone Unavailable Primary Care Provider Unavailabl e Reason for Visit * Reason Onset Date Comments Hepatobiliary 04/20/2024 Pre-Visit Previsit Preparation 04/20/2024 [facility] - Outside Materials 04/20/2024 Encounter Details Date Type Department Care Team (Latest Contact Info) Description 04/20/2024 Clinical Communication Division of Gastroenterology in [place], [place] [address] [place] [address] Prescheduling, Provider Hepatobiliary (Pre-Visit); Previsit Preparation; [facility] - Outside Materials Social History Tobacco Use Types Packs/Day Years Used Date Smoking Tobacco: Never Assessed [facility] Utilities Answer Date Recorded In the past 12 months has e [employer], gas, oil, or water [employer] threatened to shut off services in your [...] your living situation today? I have a [facility] place to live 04/25/2024 Sex and [...]
--- OUTSIDE RECORDS SUMMARY | 2024-06-05 13:41 | XMS_ITS | Encounter Summary ---
Author Organization [facility] Address [address] [place] [address] Care Team Providers Care Physical Therapy Director Name Role Phone Unavailable Primary Care Provider Unavailabl e Reason for Visit * Reason Comments Unspecified Cirrhosis Of Liver * Appointment Request (Routine) - Authorized Specialty Diagnoses / Procedures Referred By Contact Referred To Contact Gastroenterology and Hepatology Diagnoses [facility] Hepatic Unspecified Cirrhosis Of Liver (HCC) Ascites Trisha Ellison N.P. [address] [address] [place] [address] Phone: tel: fax: Referral ID Status Reason Start Date Expiration Date V isits Requested Visits Authorized [id number] Authorized 04/19/2024 04/19/2025 2 2 Encounter Details Date Type Department Care Team (Latest Contact Info) Description 05/18/2024 2:00 PM BOX PRINTING MACHINE OPERATOR Comprehensive Visit Division of Gastroenterology in [place], [place] [address] [place] [address] Macy Fatima M.D. [address] [address] [place] [address] Edmond Pardo M.B.BCarlozS. [address] [place] [phone] Malignant Neoplasm Of Liver Hepatocellular (HCC) (Primary Dx); Unspecified Cirrhosis Of Liver (HCC) Social History Tobacco Use Types Packs/Day Years Used Date Smoking Tobacco: Former Cigarettes S tarted: 06/27/1998 Smokeless Tobacco: Never [facility] Utilities Answer Date Recorded In the past 12 months has th e electric, gas, oil, or water [employer] threatened to shut off services in your [...] your living situation today? I have a [facility] place to live 04/25/2024 Sex and Gender Information Value Date Recorded Sex Assigned at Male 04/25/2024 10:58 AM CDT Legal Sex Male 4:01 PM CDT Gender Identity Male 04/25/2024 10:58 AM CDT Sexual Orientation Straight 04/25/2024 10 :58 AM CDT documented as of this encounter Last Filed Vital Signs Vital Sign Reading Time Taken Comments Blood Pressure 122/73 05/18/2024 1:52 PM BOX PRINTING MACHINE OPERATOR Pulse 65 05/18/2024 1:52 PM BOX PRINTING MACHINE OPERATOR Temperature - - Respiratory Rate - - Oxygen Saturation - - Inhaled Oxygen Concentration - - Weight 95 kg (209 lb 7 oz) 05/18/2024 1:52 PM CS T Height 166.6 cm (5' 5.59) 05/18/2024 1:52 PM CS T Body Mass Index 34.23 05/18/2024 1:52 PM BOX PRINTING MACHINE OPERATOR documented in this encounter Consult Notes * Edmond Pardo M.B.B.S. - 05/18/2024 2:00 PM CST SUBJECTIVE REASON FOR CONSULT 1. New diagnosis of liver cancer. 2. Recent diagnosis of cirrhosis. HISTORY OF PRESENT ILLNESS Mr. Phillips is a 78-year-old male seen today along with his , Sagrario. He became symptomatic in the summer with ascites first noticed in January, was evaluated locally at [facility] and underwent a paracentesis. He then [...] Oncology. Jm Hobbs. CT CT Job ID: [id number] PRINTING MACHINE OPERATOR documented in this encounter Plan of Treatment Not on file documented as of this encounter Visit Diagnoses Diagnosis Malignant Neoplasm Of Liver Hepatocellular (HCC)- Primary Unspecified Cirrhosis Of Liver (HCC) documented in this encounter
--- OUTSIDE RECORDS SUMMARY | 2024-06-05 13:41 | XMS_ITS | Encounter Summary ---
Author Organization [facility] Address [address] [place] [address] Care Team Providers Care Commercial Leasing Agent Name Role Phone Unavailable Primary Care Provider Unavailabl e Reason for Referral * Outpatient (Routine) - Closed Specialty Diagnoses / Procedures Referred By Contact Referred To Contact Gastroenterology and Hepatology Diagnoses Unspecified Cirrhosis Of Liver (HCC) Macy Fatima M.D. [address] [address] [place] [address] Phone: tel: fax: [facility] Referral ID Status Reason Start Date Expiration Date Visits Re quested Visits Authorized [id number] Closed 04/19/2024 10/19/2025 1 1 Encounter Details Date Type Department Care Team (Late st Contact Info) Description 04/19/2024 Community Orders [facility] [address] [address] [place] [phone] Macy Fatima M.D. [address] [address] [place] [phone] Unspecified Cirrhosis Of Liver (HCC) (Primary Dx) Social History Tobacco Use Types Packs/Day Years Used Date Smoking Tobacco: Never Assessed [facility] Utilities Answer Date Recorded In the [...]
--- OUTSIDE RECORDS SUMMARY | 2024-06-05 13:41 | XMS_ITS | Encounter Summary ---
Author Organization [facility] Address [address] [place] [address] Care Team Providers Care Sixth Grade Teacher Name Role Phone Unavailable Primary Care Provider Unavailabl e Encounter Details Date Type Department Care Team (Latest Contact Info) Description 05/09/2024 Clinical Communication Division of Gastroenterology in [place], [place] [address] [place] [address] Danial Horta M.D. [address] [place] [phone] Social History Tobacco Use Types Packs/Day Years Used Date Smoking Tobacco: Never Assessed [facility] Utilities Answer Date Recorded In the past 12 months has [employer], gas, oil, or water company threatened [...] living situation today? I have a [facility] place to live 04/25/2024 Sex and Gender [...]
--- OUTSIDE RECORDS SUMMARY | 2024-06-05 13:41 | XMS_ITS | Clinical Summary ---
Author Organization [facility] Address [address] [place] [address] Care Team Providers Care Cut And Cover Line Worker Name Role Phone Unassigned, Provider Primary Care Provider Unava ilable Source Comments You are receiving this document as you are listed as the primary care provider,follow-up provider, or the patient has been referred to you for consultation.This is in compliance with the Medicare and[facility] Hospital[facility] EHR Incentive Program,which states Providers who transition their patient to another setting of careor provider of care or refers their patient to another provider of care shouldprovide summary care record for each transition of care or referral. [facility] Allergies No known active allergies Medications Medication [...] age to complete this topic Care Teams Cut And Cover Line Worker Relationship Specialty Start Date End Date Unassigned, Provider [address] [place] [address] PCP - General 01/14/03
--- OUTSIDE RECORDS SUMMARY | 2024-06-05 13:41 | XMS_ITS | Encounter Summary ---
Author Organization [facility] Address [address] [place] [address] Care Team Providers Care Telephoto Installer Name Role Phone Unavailable Primary Care Provider Unavailabl e Reason for Referral * MRI/CAT/PET Scan (Routine) - Closed Specialty Diagnoses / Procedures Referred By Contac t Referred To Contact Radiology Diagnoses [facility] Hepatic Procedures CT Chest without IV Contrast Danial Horta M.D. [address] [place] [address] Phone: tel: fax: [facility] Referral ID Status Reason Start Date Expiration Date Visits Re quested Visits Authorized [id number] Closed 05/01/2024 05/01/2025 1 1 E INSPECTOR Reason for Visit * MRI/CAT/PET Scan (Routine) - Closed Specialty Diagnoses / Procedures Referred By Vasquez damon Referred To Contact Radiology Diagnoses [facility] Hepatic Procedures CT Chest without IV Contrast Danial Horta M.D. [address] [place] [address] Phone: tel: fax: [facility] Referral ID Status Reason Start Date Expiration Date Visits Re quested Visits Authorized [id number] Closed 05/01/2024 05/01/2025 1 1 Encounter Details Date Type Department Care Team (Latest Contact Info) Description 05/18/2024 6:48 AM STAVE INSPECTOR - 05/18/2024 7:11 AM STAVE INSPECTOR Hospital Encounter Department of Radiology, [facility], in [place], [place] [address] [place] [phone] Danial Horta M.D. [address] [place] [phone] Mass Hepatic Discharge Disposition: Home or Self Care Social History Tobacco Use Types Packs/Day Years Used Date Smoking Tobacco: Former Cigarettes S tarted: 06/27/1998 Smokeless Tobacco: Never [facility] Utilities Answer Date Recorded In [...] your living situation today? I have a [facility] place to live 04/25/2024 Sex and [...] inpatients and all outpatients) 05/18/2024 7:07 AM STAVE INSPECTOR [facility] Hepatic documented in this encounter Results * CT Chest without IV Contrast (05/18/2024 7:07 AM STAVE INSPECTOR) Anatomical Region Laterality Modality Chest, Thoracic RST LOS, Tho racic ARZ LOS, Thoracic FLA LOS N/A Computed Tomography, Compute d Tomography Impressions 05/18/2024 9:00 AM STAVE INSPECTOR 1. Bilateral moderate centrilobular emphysema. 2. Tree-in-bud nodularity in right lower lobe, likely infectious/inflammatory. 3. A few nonspecific scattered micronodules, probably benign. 4. Trace right pleural effusion and large volume abdominopelvic ascites, likely due to hepatic cirrhosis. Narrative 05/18/2024 9:00 AM STAVE INSPECTOR EXAM: CT CHEST WITHOUT IV CONTRAST COMPARISON: [...]
--- OUTSIDE RECORDS SUMMARY | 2024-06-05 13:41 | XMS_ITS | Encounter Summary ---
Author Organization [facility] Address [address] [place] [address] Care Team Providers Care Data Analysis Assistant Name Role Phone Unavailable Primary Care Provider Unavailabl e Reason for Referral * MRI/CAT/PET Scan (Routine) - Closed Specialty Diagnoses / Procedures Referred By Contac t Referred To Contact Radiology Diagnoses [facility] Hepatic Procedures MR Abdomen without and with IV Contrast Danial Horta M.D. [address] [place] [phone] Phone: tel: fax: [facility] Referral ID Status Reason Start Date Expiration Date Visits Re quested Visits Authorized [id number] Closed 05/01/2024 05/01/2025 1 1 CIATE FINANCIAL REPRESENTATIVE Reason for Visit * MRI/CAT/PET Scan (Routine) - Closed Specialty Diagnoses / Procedures Referred By Vasquez damon Referred To Contact Radiology Diagnoses [facility] Hepatic Procedures MR Abdomen without and with IV Contrast Danial Horta M.D. [address] [place] [address] Phone: tel: fax: [facility] Referral ID Status Reason Start Date Expiration Date Visits Re quested Visits Authorized [id number] Closed 05/01/2024 05/01/2025 1 1 Encounter Details Date Type Department Care Team (Latest Contact Info) Description 05/17/2024 3:08 PM ASSOCIATE FINANCIAL REPRESENTATIVE - 05/17/2024 11:59 PM ASSOCIATE FINANCIAL REPRESENTATIVE Hospital Encounter Department of Radiology, [facility], in [place], [place] [address] [place] [phone] Danial Horta M.D. [address] [place] [phone] [place] Hepatic Discharge Disposition: Home or Self Care Social History Tobacco Use Types Packs/Day Years Used Date Smoking Tobacco: Former Cigarettes S tarted: 06/27/1998 Smokeless Tobacco: Never [facility] Utilities Answer Date Recorded In the [...] your living situation today? I have a [facility] place to live 04/25/2024 Sex [...] inpatients and all outpatients) 05/17/2024 5:03 PM ASSOCIATE FINANCIAL REPRESENTATIVE [place] Hepatic documented in this encounter Results * MR Abdomen without and with IV Contrast (05/17/2024 5:03 PM ASSOCIATE FINANCIAL REPRESENTATIVE) Anatomical Region Laterality Modality Abdomen, Abdominal RST LOS, Abdominal ARZ LOS, Abdominal FLA LOS N/A Magnetic Resonance Impressions 05/18/2024 10:18 AM ASSOCIATE FINANCIAL REPRESENTATIVE Cirrhotic liver morphology with portal hypertension. Very large (more than 10 cm) lesion occupying most of the right hepatic lobe demonstrates suspicious features. LR 5. There is an additional LR 5 lesion in the tip of the right hepatic lobe series 6, and smaller satellite lesions. No enlarged lymph nodes or evidence of distant metastasis in the upper abdomen. Narrative 05/18/2024 10:18 AM ASSOCIATE FINANCIAL REPRESENTATIVE EXAM: MR ABDOMEN WITHOUT AND WITH IV [...] mL not recommended. Given 05/17/2024 5:04 PM ASSOCIATE FINANCIAL REPRESENTATIVE 8 mL sodium chloride (PF) 0.9 % injection 1-100 mL 1-100 mL, intravenous, Once, On Carey 05/17/24 at 1630, For 1 dose, Imaging Protocol Orders, Dose per Radiant Medication Guidelines Given 05/17/2024 5:03 PM ASSOCIATE FINANCIAL REPRESENTATIVE 40 mL documented in this encounter
--- OUTSIDE RECORDS SUMMARY | 2024-06-05 13:41 | XMS_ITS | Clinical Summary ---
Author Organization [facility] Address [address] [place] [id number] Care Team Providers Care Editorial Assistant Name Role Phone Unavailable Primary Care Provider Unavailabl e Source Comments Patient records contain information from all sites at [facility]. For routine questions regarding patient records, call [phone] during business hours, M-F 8:00 AM - 5:00 PM Central Time. Record requests for emergency care only can be directed to [phone] at any time.[facility] Allergies Active Allergy Reactions Criticality Noted Date [...] 05/22/2024 Clinical Communication Department of Oncology in [place], [place] [address] [place] [address] Frida Rich M.D., Ph.D. Appointment 05/18/2024 2:00 PM [employer] Comprehensive Visit Division of Gastroenterology in [address] [address] Macy Fatima M.D. Malhi, Harmeet, M.B.BCarlozS. Malignant Neoplasm Of Liver Hepatocellular (HCC) (Primary Dx); Unspecified Cirrhosis Of Liver (HCC) 05/18/2024 7:12 AM [employer] - 05/18/2024 11:59 PM [employer] Hospital Encounter Department of Laboratory Medicine and Pathology, [address] [address] Danial Horta M.D. [place] Hepatic Discharge Disposition: Home or Self Care 05/18/2024 6:48 AM [employer] - 05/18/2024 7:11 AM [employer] Hospital Encounter Department of Radiology, [address] [address] Danial Horta M.D. [place] Hepatic Discharge Disposition: Home or Self Care 05/17/2024 3:08 PM [employer] - 05/17/2024 11:59 PM [employer] Hospital Encounter Department of Radiology, [address] [address] Danial Horta M.D. [place] Hepatic Discharge Disposition: Home or Self Care 05/16/2024 10:30 AM [employer] Clinical Communication Virtual Review in [address] [address] Previsit Preparation (SHELLEY DD) 05/09/2024 Clinical Communication Division of Gastroenterology in [address] [address] Danial Horta M.D. 05/07/2024 Episode Changes Division of Gastroenterology in [address] [address] Linda Gavin 05/01/2024 10:00 AM [employer] Telemedicine Division of Gastroenterology in [address] [address] Allyssa Martinez R.N. [place] Hepatic (Primary Dx); Other Specified Diseases Of Liver 04/20/2024 Clinical Communication Division of Gastroenterology in [address] [place] [address] Prescheduling, Provider Hepatobiliary (Pre-Visit); Previsit Preparation; [facility] - Outside Materials 04/19/2024 Community Orders [facility] [address] [address] [place] [id number] Macy Fatima M.D. Unspecified Cirrhosis Of Liver (HCC) (Primary Dx) from Last 3 Months Social History Tobacco Use Types Packs/Day Years Used Date Smoking Tobacco: Former Cigarettes S tarted: 06/27/1998 Smokeless Tobacco: Never Tobacco Cessation:Counseling Given: Not Answered [facility] Utilities Answer Date Recorded In the [...] your living situation today? I have a [facility] place to live 04/25/2024 Sex and Gender Information Value Date Recorded Sex Assigned at Male 04/25/2024 10:58 AM CDT Legal Sex Male 4:01 PM CDT Gender Identity Male 04/25/2024 10:58 AM CDT Sexual Orientation Straight 04/25/2024 10 :58 AM CDT Last Filed Vital Signs Vital Sign Reading Time Taken Comments Blood Pressure 122/73 05/18/2024 1:52 PM [employer] Pulse 65 05/18/2024 1:52 PM [employer] Temperature - - Respiratory Rate - - Oxygen Saturation - - Inhaled Oxygen Concentration - - Weight 95 kg (209 lb 7 oz) 05/18/2024 1:52 PM CS T Height 166.6 cm (5' 5.59) 05/18/2024 1:52 PM CS T Body Mass Index 34.23 05/18/2024 1:52 PM [employer] Plan of Treatment Health Maintenance Due Date [...] TIME (PT), P Routine 05/18/2024 7:33 AM [employer] [place] Hepatic HEPATIC FUNCTION PANEL, S Routine 05/18/2024 7:33 AM [employer] [place] Hepatic CARBOHYDRATE AG 19-9 (CA 19-9), S Routine 05/18/2024 7:33 AM [employer] [place] Hepatic CARCINOEMBRYONIC AG (CEA), S Routine 05/18/2024 7:33 AM [employer] [place] Hepatic BASIC METABOLIC PANEL, S/P Routine 05/18/2024 7:33 AM [employer] [place] Hepatic AFP L3% AND TOT, HEPATOCELLULAR CARCINOMA TM, S Routine 05/18/2024 7:33 AM [employer] [place] Hepatic CBC WITH DIFFERENTIAL, B Routine 05/18/2024 7:32 AM [employer] [place] [facility] CT CHEST WITHOUT IV CONTRAST RAD - Routine (most inpatients and all outpatients) 05/18/2024 7:07 AM [employer] [place] Hepatic MR ABDOMEN WITHOUT AND WITH IV CONTRAST RAD - Routine (most inpatients and all outpatients) 05/17/2024 5:03 PM [employer] [place] Hepatic from Last 3 Months Results * (ABNORMAL) Hepatic Function Panel (05/18/2024 7:33 AM [employer]) Bilirubin, Total, S 1.7(H) 0.0 - 1.2 mg/dL 05/18/2024 8:40 AM [employer] DTL Bilirubin, Direct, S 1.1(H) 0.0 - 0.3 mg/dL 05/18/2024 8:40 AM [employer] DTL Aspartate Aminotransferase (AST), S 71(H) 8 - 48 U/L 05/18/2024 8:40 AM [employer] DTL Alanine Aminotransferase (ALT), S 35 7 - 55 U/L 05/18/2024 8:40 AM [employer] DTL Alkaline Phosphatase, S 492(H) 40 - 129 U/L 05/18/2024 8:40 AM [employer] DTL Albumin, S 3.1(L) 3.5 - 5.0 g/dL 05/18/2024 8:40 AM [employer] DTL Protein, Total, S 5.6(L) 6.3 - 7.9 g/dL 05/18/2024 8:40 AM [employer] DTL Blood (Blood, Venous) 05/18/2024 7:33 AM [employer] 05/18/2024 8:17 AM [employer] Danial Horta M.D. LAB BLOOD ADD-ON Final Resu lt Performing Organization Address [facility] Co de Phone Number [facility] [address] [place] [address], [place] DTL [facility] [address] [place] [address] * Carbohydrate Antigen 19-9 (CA 19-9) (05/18/2024 7:33 AM [employer]) Pathologist [facility] Carbohydrate Ag 19-9, S 15 <35 U/mL 05/18/2024 11:56 AM [employer] [facility] Comment: ----ADDITIONAL INFORMATION---- The testing method is an immunoenzymatic assay manufactured by [employer]. and performed on the MediaLifTVI 800. Values obtained with different assay methods or kits may be different and cannot be used interchangeably. Test results cannot be interpreted as absolute evidence for the presence or absence of malignant disease. Blood (Blood, Venous) 05/18/2024 7:33 AM [employer] 05/18/2024 11:07 AM [employer] Danial Horta M.D. LAB BLOOD ADD-ON Final Resu lt Performing Organization Address [facility] Co de Phone Number [facility] [address] [place] [address] [facility] [address] [place] [address] * (ABNORMAL) AFP (Alpha-Fetoprotein) L3% and Total, Hepatocellular Carcinoma Tumor Marker (47:33 AM [employer]) Total AFP, S 11(H) <4.7 ng/mL 05/18/2024 1:29 PM [employer] SDS %L3 36(H) <10 % 05/18/2024 1:29 PM [employer] [facility] Comment: ----ADDITIONAL INFORMATION---- The testing method is isotachophoresis with laser-induced fluorescence manufactured by [employer] and performed on the i30. Values obtained with different assay methods or kits may be different and cannot be used interchangeably. Test results cannot be interpreted as absolute evidence for the presence or absence of malignant disease. Alpha-Fetoprotein and L3% values are not interpretable during for the investigation of malignant disease. Blood (Blood, Venous) 05/18/2024 7:33 AM [employer] 05/18/2024 12:03 PM [employer] Danial Horta M.D. LAB BLOOD ADD-ON Final Resu lt Performing Organization Address [facility] Co de Phone Number [facility] [address] [place] [address] [facility] [address] [place] [address] * Prothrombin Time (PT) (05/18/2024 7:33 AM [employer]) Prothrombin Time, P 11.7 9.4 - 12.5 sec 05/18/2024 8:11 AM [employer] DT INR 1.1 0.9 - 1.1 05/18/2024 8:11 AM [employer] [facility] Comment: ----ADDITIONAL INFORMATION---- Standard intensity warfarin therapeutic range: 2.0 to 3.0 High intensity warfarin therapeutic range: 2.5 to 3.5 Blood (Blood, Venous) 05/18/2024 7:33 AM [employer] 05/18/2024 7:55 AM [employer] Danial Horta M.D. LAB BLOOD ADD-ON Final Resu lt Performing Organization Address [facility] de Phone Number [facility] [address] [place] [address], [facility] DTL [facility] [address] [place] [address] * CEA (Carcinoembryonic Antigen) (05/18/2024 7:33 AM [employer]) Carcinoembryonic Ag (CEA), S 2.1 ng/mL 05/18/2024 11:57 AM [employer] [facility] Comment: ----REFERENCE VALUE---- <=3.0 (Non-smokers) Some smokers may have elevated CEA, usually <5.0. ----ADDITIONAL INFORMATION---- The testing method is an immunoenzymatic assay manufactured by [employer] and performed on the [employer] DxI 800. Values obtained with different assay methods or kits may be different and cannot be used interchangeably. Test results cannot be interpreted as absolute evidence for the presence or absence of malignant disease. Blood (Blood, Venous) 05/18/2024 7:33 AM [employer] 05/18/2024 11:07 AM [employer] us Danial Horta M.D. LAB BLOOD ADD-ON Final Resu lt [facility] [address] [place] [address] [facility] [address] [place] [address] * (ABNORMAL) Basic Metabolic Panel (05/18/2024 7:33 AM [employer]) Pathologist [facility] Potassium, S 4.0 3.6 - 5.2 mmol/L 05/18/2024 8:40 AM [employer] DTL Sodium, S 140 135 - 145 mmol/L 05/18/2024 8:40 AM [employer] DTL Chloride, S 103 98 - 107 mmol/L 05/18/2024 8:40 AM [employer] DTL Bicarbonate, S 27 22 - 29 mmol/L 05/18/2024 8:40 AM [employer] DTL Anion Gap 10 7 - 15 05/18/2024 8:40 AM [employer] DTL BUN (Blood Urea Nitrogen), S 60(H) 8 - 24 mg/dL 05/18/2024 8:40 AM [employer] DTL Creatinine 1.86(H) 0.74 - 1.35 mg/dL 05/18/2024 8:40 AM [employer] DTL Estimated GFR (eGFR) 37(L) >=60 mL/min/BSA 05/18/2024 8:40 AM [employer] DTL Comment: Estimated GFR calculated using the 2020 CKD_EPI creatinine equation. Calcium, Total, S 8.7(L) 8.8 - 10.2 mg/dL 05/18/2024 8:40 AM [employer] DTL Glucose, S 125 70 - 140 mg/dL 05/18/2024 8:40 AM [employer] DTL Blood (Blood, Venous) 05/18/2024 7:33 AM [employer] 05/18/2024 8:17 AM [employer] us Danial Horta M.D. LAB BLOOD ADD-ON Final Resu lt [facility] [address] [place] [address], [place] DTL [facility] [address] [place] [address] * (ABNORMAL) CBC with Differential, Blood (05/18/2024 7:32 AM [employer]) Hemoglobin 13.8 13.2 - 16.6 g/dL 05/18/2024 8:27 AM [employer] DTL Hematocrit 42.4 38.3 - 48.6 % 05/18/2024 8:27 AM [employer] DTL Erythrocytes 4.36 4.35 - 5.65 x10(12)/L 05/18/2024 8:27 AM [employer] DTL MCV 97.2 78.2 - 97.9 fL 05/18/2024 8:27 AM [employer] DTL RBC Distrib Width 17.9(H) 11.8 - 14.5 % 05/18/2024 8:27 AM [employer] DTL Platelet Count 137 135 - 317 x10(9)/L 05/18/2024 9:35 AM [employer] DTL Leukocytes 5.5 3.4 - 9.6 x10(9)/L 05/18/2024 9:35 AM [employer] DTL Neutrophils 3.59 1.56 - 6.45 x10(9)/L 05/18/2024 8:26 AM [employer] [facility] Lymphocytes 0.81(L) 0.95 - 3.07 x10(9)/L 05/18/2024 8:27 AM [employer] DTL Monocytes 0.87(H) 0.26 - 0.81 x10(9)/L 05/18/2024 8:27 AM [employer] DTL Eosinophils 0.14 0.03 - 0.48 x10(9)/L 05/18/2024 8:27 AM [employer] DTL Basophils 0.05 0.01 - 0.08 x10(9)/L 05/18/2024 8:27 AM [employer] DTL Blood (Blood, Venous) 05/18/2024 7:32 AM [employer] 05/18/2024 8:00 AM [employer] us Danial Horta M.D. LAB BLOOD ADD-ON Final Resu lt [facility] [address] [place] [address], [place] DTL [facility] [address] [place] [address] [facility] [address] [place] [address] * CT Chest without IV Contrast (05/18/2024 7:07 AM [employer]) Anatomical Region Laterality Modality Chest, Thoracic RST LOS, Tho racic ARZ LOS, Thoracic FLA LOS N/A Computed Tomography, Compute d Tomography Impressions 05/18/2024 9:00 AM [employer] 1. Bilateral moderate centrilobular emphysema. 2. Tree-in-bud nodularity in right lower lobe, likely infectious/inflammatory. 3. A few nonspecific scattered micronodules, probably benign. 4. Trace right pleural effusion and large volume abdominopelvic ascites, likely due to hepatic cirrhosis. Narrative 05/18/2024 9:00 AM [employer] EXAM: CT CHEST WITHOUT IV CONTRAST COMPARISON: [...] and with IV Contrast (05/17/2024 5:03 PM [employer]) Anatomical Region Laterality Modality Abdomen, Abdominal RST LOS, Abdominal ARZ LOS, Abdominal FLA LOS N/A Magnetic Resonance Impressions 05/18/2024 10:18 AM [employer] Cirrhotic liver morphology with portal hypertension. Very large (more than 10 cm) lesion occupying most of the right hepatic lobe demonstrates suspicious features. LR 5. There is an additional LR 5 lesion in the tip of the right hepatic lobe series 6, and smaller satellite lesions. No enlarged lymph nodes or evidence of distant metastasis in the upper abdomen. Narrative 05/18/2024 10:18 AM [employer] EXAM: MR ABDOMEN WITHOUT AND WITH IV [...] Re sult from Last 3 Months Insurance [facility]
[2024-06-05 14:24] LABS: Creatinine* 2.2 mg/dL (0.5-1.5); Estimated Glomerular Filt Rate 30 ml/min
== END 2024-06-05 13:38 | disposition home or self-care (01) ==
LOC: NPINS 13:37
PROVIDERS: PCP Family Medicine; Visit Provider Internal Medicine Hematology & Oncology
DX: K74.69 Other cirrhosis of liver (principal); N18.9 Chronic kidney disease, unspecified; R18.0 Malignant ascites; C22.0 Liver cell carcinoma
CPT/HCPCS: 82565

== ENCOUNTER 2024-06-11 11:05 | Outpatient (CLI) | payer MEDICARE, SELFPAY ==
[2024-06-11] VITALS (9 sets, daily range): BP systolic 99–123; BP diastolic 49–63; PULSE 56–60; RESP 16; O2SAT 94–96
--- NOTE | 2024-06-11 12:49 | W.PM.PARA ---
Paracentesis Date Date: 06/11/24 Procedure Note Procedure: Paracentesis with Ultrasound Guidance Type of paracentesis: Therapeutic Initial or Repeat?: Repeat Surgeon: Jenny Forbes Indications: The patient is a 78-year-old male who presents today for repeat paracentesis. 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 His last paracentesis was 10 days ago. He had 8.8 L removed. His states that he has been even more symptomatic this time and does not think he can wait 10 days. He has been having discomfort and shortness of breath. He does sleep most of the time. He sees palliative care on . Labs and Cytology Sent:: No Albumin infused: Yes ( Two bottles of 25% albumin) Procedure Note:: Prior to the procedure, the risks and benefits of the procedure were discussed and an informed consent was obtained. Patient identification was confirmed and TIME OUT was performed. An ultrasound was brought onto the field and an easily accessible pocket of ascites was identified that was away from intraabdominal organs. The patient's abdomen in the right lateral mid abdomen was prepped and draped in the usual sterile fashion. 1% Lidocaine was used to anesthetize the skin, soft tissues and peritoneum over the proposed needle insertion site. A skin incision was made with a scalpel just large enough to fit the needle. The needle with the paracentesis catheter was advanced into the abdomen and ascitic fluid was aspirated into the syringe. The needle was then withdrawn and the catheter was left in place. The catheter was then connected to the drainage tubing. 9.5 Liters of straw colored fluid was drained. Post procedure ultrasound revealed significantly decreased fluid. The catheter was then removed and the skin was closed with 3-0 Vicryl suture and Dermabond. Patient tolerated procedure well and there were no immediate complications. Patient's vital signs were stable throughout the procedure. Postprocedure blood pressure was lower than admission. Orthostatics were measured after 5 minutes of patient sitting up, which were actually improved. Patient denied lightheadedness. Recomendation: Discharge to home (ambulatory) and return to normal activities tomorrow. Follow up with palliative care on . Patient scheduled for repeat paracentesis next Tuesday.
[2024-06-11] MEDS: ALBUMIN HUMAN 25% 25 GM/100 ML VIAL IVPB ×2 (12:56→12:58)
== END 2024-06-11 12:59 | disposition home or self-care (01) ==
LOC: US 11:05
PROVIDERS: PCP Family Medicine; Visit Provider Surgery
DX: R18.8 Other ascites (principal); K74.60 Unspecified cirrhosis of liver
CPT/HCPCS: 49083; P9047

== ENCOUNTER 2024-06-18 08:34 | Outpatient (CLI) | payer MEDICARE, SELFPAY ==
[2024-06-18] VITALS (12 sets, daily range): BP systolic 88–105; BP diastolic 45–54; PULSE 45–52; RESP 16; O2SAT 96–99
--- NOTE | 2024-06-18 09:46 | PM.PROC ---
Procedure Note Date Seen: 06/18/24 Will [facility] bill your pro fee for this procedure?: Yes Pre-op diagnosis: Abdominal ascites Post-op diagnosis: same Procedure: Paracentesis Procedure Description: After discussion of the risks and benefits the patient was placed supine. Ultrasound guidance was used to identify the pocket of ascites with no evidence of underlying bowel and no abdominal varices. Once this was done the site was marked. The area was prepped and draped in the usual sterile fashion. Local anesthetic was used to anesthetize the skin and subcutaneous tissue down to the peritoneum. Once the peritoneum was encountered, the needle was advanced into the abdomen. This was confirmed by the aspiration of serous fluid. A skin keyon was made with an 11 blade. The paracentesis catheter was advanced into the abdominal cavity while aspirating. Once the abdominal fluid was aspirated confirming entrance into the abdomen, the needle was removed and the sheath advanced. 8400 mL of fluid were then aspirated. Patient tolerated procedure well with no evidence of hypotension. The ultrasound was used to confirm successful aspiration with significantly reduced intra-abdominal fluid. The catheter was then removed, and a stitch of 3-0 Vicryl used to close the incision. Steri-Strips were applied over the skin site. Patient tolerated the procedure well. He received 2 vials of albumin, 25%. His pressures were monitored with some mild hypotension during the procedure (88/35), this improved with administration of fluids. Estimated blood loss 1 mL Anesthesia: local Pathology: none sent Condition: stable Disposition: no change
== END 2024-06-18 10:15 | disposition home or self-care (01) ==
LOC: US 08:34
PROVIDERS: PCP Family Medicine; Visit Provider Surgery
DX: R18.8 Other ascites (principal); K74.60 Unspecified cirrhosis of liver
CPT/HCPCS: 49083; P9047

== ENCOUNTER 2024-06-25 09:13 | Inpatient (IN) | payer MEDICARE, SELFPAY ==
[2024-06-25] VITALS (21 sets, daily range): BP systolic 71–146; BP diastolic 35–121; PULSE 53–60; RESP 16; TEMP 35.7; O2SAT 88–97
--- NOTE | 2024-06-25 09:39 | ED.WEAKNESS ---
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 He has had paracentesis a couple times this month and is scheduled to have another this morning. He is at home and his was unable to get him up today. He came in soiled with his own feces. He is scheduled to enter hospice care in 4 days. He is also scheduled to get a drain placed for ongoing management of his ascites. Related Data Previous Rx's ?Medication ?Instructions ?Recorded cephalexin 500 mg capsule 500 mg PO TID 7 days #21 caps 04/05/24 alfuzosin 10 mg tablet,extended 10 mg PO DAILY #90 tabs 05/31/24 release 24 hr amlodipine 5 mg tablet 5 mg PO QDAY #90 tabs 05/31/24 gemfibrozil 600 mg tablet 600 mg PO QDAY #90 tabs 05/31/24 hydrochlorothiazide 12.5 mg tablet 12.5 mg PO DAILY #90 tabs 05/31/24 metoprolol succinate 50 mg 50 mg PO QDAY #90 tabs 05/31/24 tablet,extended release 24 hr allopurinol 100 mg tablet 100 mg PO QDAY #90 tabs 06/15/24 Allergies Allergy/AdvReac Type Severity Reaction Status Date / Time lisinopril Allergy Unknown angioedema Verified 04/05/24 08:55 losartan AdvReac Intermediate elevated Verified 04/05/24 08:55 potassium Review of Systems Status of ROS: Reports: unobtainable due to mental status [facility] Medical History High serum creatinine ?R79.89 - Other specified abnormal findings of blood chemistry (ICD-10) Cholelithiasis ?K80.20 - Calculus of gallbladder without cholecystitis without obstruction (ICD-10) Surgical History History of phacoemulsification of cataract of both eyes with intraocular lens implantation ?Z98.41 - Cataract extraction status, right eye (ICD-10) ?Z98.42 - Cataract extraction status, left eye (ICD-10) ?Z96.1 - Presence of intraocular lens (ICD-10) History of tonsillectomy ?Z90.89 - Acquired absence of other organs (ICD-10) History of appendectomy ?Z90.49 - Acquired absence of other specified parts of digestive tract (ICD-10) Family History Father Cancer Social History Narrative: former smoker quit in 2000, has 2 children, Smoking Status: Former smoker Do you use any of these nicotine containing products: None Second hand tobacco smoke exposure: No How often do you have a drink containing alcohol: never AUDIT-C Alcohol total score: 0 Non-prescribed substance use: denies use service: Yes Exam Narrative: Exam Narrative: Constitutional: Well-developed, well-nourished, no acute distress. HEENT: Normocephalic, atraumatic. Neck: Normal range of motion. Nontender. Supple. Heart: Regular. No murmurs. Normal rate. Intact distal pulses. Lungs: Clear to auscultation. No chest discomfort. No wheezes, rhonchi, or rales. Abdomen: Distended with ascites. Genitalia: Deferred. Back: No midline tenderness. Normal range of motion. Extremities: Normal range of motion. No injury. Skin: Intact. No rash. Warm. No erythema or pallor. Neurologic: No altered sensation. Nursing notes and vitals signs are reviewed. Const: Vital Signs, click to edit/add: Vital Signs - 24 hr 06/25/24 09:30 06/25/24 09:58 06/25/24 10:00 Temperature 96.3 F L Pulse Rate 55 L 56 L Pulse Rate [Pulse Oximeter] 55 L Respiratory Rate 16 Blood Pressure Blood Pressure [Ri ght Upper Arm] 146/121 H Pulse Oximetry 97 93 95 Oxygen Delivery Me thod Room Air 06/25/24 10:14 06/25/24 10:15 06/25/24 10:28 Temperature Pulse Rate 56 L 55 L 54 L Pulse Rate [Pulse Oximeter] Respiratory Rate 16 Blood Pressure 111/55 L 101/50 L Blood Pressure [Ri ght Upper Arm] Pulse Oximetry 95 95 95 Oxygen Delivery Me thod 06/25/24 10:30 06/25/24 10:32 06/25/24 12:00 Temperature Pulse Rate 60 Pulse Rate [Pulse Oximeter] Respiratory Rate Blood Pressure 96/51 L Blood Pressure [Ri ght Upper Arm] 88/53 L Pulse Oximetry 95 88 94 Oxygen Delivery Me thod 06/25/24 12:10 06/25/24 12:20 06/25/24 12:30 Temperature Pulse Rate Pulse Rate [Pulse Oximeter] 60 54 L 54 L Respiratory Rate Blood Pressure Blood Pressure [Ri ght Upper Arm] 77/41 L 82/49 L 87/38 L Pulse Oximetry 94 94 94 Oxygen Delivery Me thod Room Air 06/25/24 12:40 Temperature Pulse Rate Pulse Rate [Pulse Oximeter] 53 L Respiratory Rate Blood Pressure Blood Pressure [Ri ght Upper Arm] 82/42 L Pulse Oximetry 94 Oxygen Delivery Me thod Room Air Course Vital Signs Vital signs: Initial Vital Signs Temperature 96.3 F L 06/25/24 09:30 Temperature Source Temporal Artery Scan 06/25/24 09:30 Pulse Rate 55 L 06/25/24 09:30 Pulse Rhythm Regular 06/25/24 09:30 Pulse Strength 3+ Normal 06/25/24 09:30 Respiratory Rate 16 06/25/24 09:30 Blood Pressure 146/121 H 06/25/24 09:30 Blood Pressure Mean 129 H 06/25/24 09:30 Blood Pressure Position Left Lateral 06/25/24 09:30 Pulse Oximetry 97 06/25/24 09:30 Oxygen Delivery Method Room Air 06/25/24 09:30 Vital Signs Temperature 96.3 F L 06/25/24 09:30 Pulse Rate 55 L 06/25/24 09:30 Respiratory Rate 16 06/25/24 09:30 Blood Pressure 146/121 H 06/25/24 09:30 Pulse Oximetry 97 06/25/24 09:30 Oxygen Delivery Method Room Air 06/25/24 09:30 Temperature 96.3 F L 06/25/24 09:30 Pulse Rate 53 L 06/25/24 12:40 Respiratory Rate 16 06/25/24 10:28 Blood Pressure 82/42 L 06/25/24 12:40 Pulse Oximetry 94 06/25/24 12:40 Oxygen Delivery Method Room Air 06/25/24 12:40 Medications Administered Medications: Generic Name Dose Route Start Last Admin Trade Name Freq PRN Reason Stop Dose Admin Sodium Chloride 500 mls @ 500 mls/hr 06/25/24 12:18 06/25/24 12:20 0.9 % Sodium Chloride 500 Ml IV 06/25/24 13:17 500 mls/hr .Q1H ONE Administration MDM - Weakness MDM Narrative Medical decision making narrative: This patient has liver cirrhosis secondary to alcohol abuse. He has been sleeping 21 or 22 hours a day and his is unable to care for him as he is incontinent of stool frequently. An IV was established and labs are acquired. His lactate level returns normal. Liver enzymes are elevated but not distinctly different than previous results. His INR is around 1.1. Ammonia level is slightly elevated at 39. Dr. Martinez was able to perform paracentesis and states that he removed 8 L of fluid. The patient's blood pressure maintained throughout this time with a systolic value around 85. After returning here he did dip down to a systolic pressure of 71 at which time I did give 500 mL of normal saline intravenously. His blood pressure rebounded up to 87 after this. I did speak with the patient's and recommended hospitalization for comfort cares. She is agreeable to this plan which can bridge the time whereby he can get established with hospice care and get a drain placed for his ascites. Lab Data Labs: Lab Results 06/25/24 Range/Units 09:59 WBC 5.31 (4.50-11.00) K/uL RBC 4.07 L (4.30-5.90) m/uL Hgb 13.1 L (13.5-17.5) gm/dL Hct 39.0 (37.0-53.0) % MCV 96 (80-100) fL MCH 32 (26-34) pg MCHC 34 (32-36) gm/dL RDW Coeff of Prosper 17.7 H (11.5-15.5) % Plt Count 55 L (140-440) K/uL Neut % (Auto) 92.0 H (42.0-72.0) % Lymph % (Auto) 3.8 L (20-44) % [place] % (Auto) 3.8 (0.0-11.0) % Eos % (Auto) 0.0 (0.0-7.0) % Baso % (Auto) 0.2 (0.0-3.0) % Neut # (Auto) 4.90 (1.7-7.0) K/uL Lymph # (Auto) 0.20 L (0.90-2.90) K/uL [place] # (Auto) 0.20 (0.00-0.90) K/UL Eos # (Auto) 0.00 (0.00-0.50) K/uL Baso # (Auto) 0.01 (0.00-0.30) K/uL Abs Immat Gran (auto) 0.01 (0.00-0.30) K/uL Imm/Tot Granulo (auto) 0.2 % INR 1.17 H (0.91-1.10) Sodium 134 L (135-149) mmol/L Potassium 5.6 H (3.6-5.1) mmol/L Chloride 109 (96-114) mmol/L Carbon Dioxide 11 L (20-32) mmol/L Anion Gap 14 (7-15) mEq/L BUN 148 H (7-30) mg/dL Creatinine 4.5 H (0.5-1.5) mg/dL Estimated GFR 13 ml/min Glucose 84 (60-115) mg/dL Lactate 1.8 (0.5-1.9) mmol/L Calcium 7.7 L (8.4-10.6) mg/dL Total Bilirubin 2.6 H (0.1-1.5) mg/dL Direct Bilirubin 2.1 H (0.0-0.5) mg/dL AST 81 H (12-35) U/L ALT 52 H (4-50) U/L Alkaline Phosphatase 458 H (40-150) U/L Ammonia 39.3 H (13.1-30.0) umol/L Total Protein 5.4 L (6.0-8.3) g/dL Albumin 2.9 L (3.3-5.0) g/dL Discharge Plan Discharge Clinical Impression: Weakness, Cirrhosis Patient Disposition: Admitted As Observation Condition: Unchanged Prescriptions: No Action cephalexin 500 mg capsule 500 mg PO TID 7 Days Qty: 21 0RF alfuzosin 10 mg tablet extended release 24 hr 10 mg PO DAILY Qty: 90 0RF gemfibrozil 600 mg tablet 600 mg PO QDAY Qty: 90 0RF metoprolol succinate 50 mg tablet extended release 24 hr 50 mg PO QDAY Qty: 90 0RF hydrochlorothiazide 12.5 mg tablet 12.5 mg PO DAILY Qty: 90 0RF amlodipine 5 mg tablet 5 mg PO QDAY Qty: 90 0RF allopurinol 100 mg tablet 100 mg PO QDAY Qty: 90 0RF Follow Up/Referrals: Britney Cervantes MD [Primary Care Provider] -
[2024-06-25 10:08] LABS: Lactate* 1.8 mmol/L (0.5-1.9)
[2024-06-25 10:22] LABS: Albumin* 2.9 g/dL (3.3-5.0)
[2024-06-25 10:23] LABS: Chloride* 109 mmol/L (96-114); Potassium* 5.6 mmol/L (3.6-5.1); Sodium* 134 mmol/L (135-149)
[2024-06-25 10:25] LABS: Anion Gap 14 mEq/L (7-15); Aspartate Amino Transferase* 81 U/L (12-35); Bilirubin Direct* 2.1 mg/dL (0.0-0.5); Bilirubin Total* 2.6 mg/dL (0.1-1.5); Carbon Dioxide* 11 mmol/L (20-32); Creatinine* 4.5 mg/dL (0.5-1.5); Estimated Glomerular Filt Rate 13 ml/min; Total Protein* 5.4 g/dL (6.0-8.3)
[2024-06-25 10:26] LABS: Alanine Aminotransferase* 52 U/L (4-50); Alkaline Phosphatase* 458 U/L (40-150); Ammonia* 39.3 umol/L (13.1-30.0); Calcium* 7.7 mg/dL (8.4-10.6); Glucose* 84 mg/dL (60-115); INR 1.17 (0.91-1.10); Prothrombin Time 15.7 Seconds
[2024-06-25 10:37] LABS: Blood Urea Nitrogen* 148 mg/dL (7-30)
[2024-06-25 11:16] LABS: Basophils Absolute Auto 0.01 K/uL (0.00-0.30); Basophils Percent Auto 0.2 % (0.0-3.0); Hemoglobin* 13.1 gm/dL (13.5-17.5); Immature Granulocytes Abs Auto 0.01 K/uL (0.00-0.30); Immature Granulocytes Pct Auto 0.2 %; Lymphocytes Percent Auto 3.8 % (20-44); Mean Corpuscular HGB Conc 34 gm/dL (32-36); Mean Corpuscular Hemoglobin 32 pg (26-34); Mean Corpuscular Volume 96 fL (80-100); Monocytes Percent Auto 3.8 % (0.0-11.0); Platelet Count* 55 K/uL (140-440); RDW Coefficient of Variation % 17.7 % (11.5-15.5); Red Blood Count 4.07 m/uL (4.30-5.90); White Blood Count* 5.31 K/uL (4.50-11.00)
[2024-06-25 11:19] LABS: Slide Review Reflex No
--- NOTE | 2024-06-25 11:30 | ED.NURSE ---
Attempted to call [employer]. Message left. Social work contacted to see if she could find alternative number.
[2024-06-25] MEDS: 0.9 % SODIUM CHLORIDE 500 ML 500 ML IV (12:20)
--- NOTE | 2024-06-25 12:20 | ED.NURSE ---
Patient back from paracentesis. Hypotensive after taking off 8L. ED MD notifed and order for 500ML of normal saline to help with blood pressures.
--- NOTE | 2024-06-25 14:10 | PM.IMHP1 ---
Hospitalist- H&P: HPI History of Present Illness Date Seen: 06/25/24 Chief complaint: weakness Narrative: ADMISSION HISTORY AND PHYSICAL - HOSPITALIST Chief Complaint: weakness, diarrhea, symptomatic malignant ascites HPI: 78-year-old white male with a history of chronic alcoholism, recently diagnosed hepatocellular carcinoma, symptomatic ascites presents via EMS with acute on chronic weakness, dehydration and uncontrolled diarrhea. His elderly , Sagrario, has been trying to take care of him. However, she has reached the end of her abilities to move him, clean him, care for him. She called EMS as he was covered in his own stool, not eating or drinking, mild agitation and severe weakness. His course of disease has been short and rapidly progressive. In November of 2023 he was still driving and helping care for his who had been in the hospital. In December he started noticing his legs and abdomen were swelling. Shortly thereafter he was diagnosed with ascites thought to be related to alcoholic liver disease with cirrhosis. Further imaging identified large liver mass that was pathognomonic for hepatocellular carcinoma. There has been no tissue biopsy of this mass. He has had multiple paracentesis since December. Today was 15. his ascites is reaccumulating faster and faster as his disease progresses. His describes a significant downward trend in the last few days. He has not had solid food in 2 days and is only taking sips of fluid. He sleeping 22-23 hours a day. She has been in contact with hospice and has agency for home hospice care arranged to start. She was under the impression that placing a pleural VAC for the ascites to offer better control of symptoms needed to be done before hospice would start. She relates they are no longer pursuing medical oncology your further treatments. She feels his life is nearing its end and she would just like him to be comfortable and if possible at home. Today he is being admitted for care she is unable to provide given her advanced age and weight differential between her and her . He has no safe discharge care plan and was found to be covered in stool when EMS arrived this morning. [facility] (apr 2024) Mr. Phillips is a 78-year-old male seen today along with his , Sagrario. He became symptomatic in the summer with ascites first noticed in January, was evaluated locally at [facility] and underwent a paracentesis. He then had a hairline fracture of his hip, underwent an MRI that suggested liver lesions and eventually dedicated liver imaging that showed large liver mass. He was evaluated by Dr. Macy Fatima and a referral was made to an oncologist, noting locally advanced hepatocellular carcinoma. The likely etiology of his liver disease is due to alcohol use. He was averaging 2-6 beers a day, and has some insight into this being an excess amount of alcohol. Approximately a year ago, he cut down to 1-2 beers a day and chose to stop drinking in December 2023. He also has a history of tobacco use and he chose to not use tobacco approximately 23 years ago. In addition to ascites, he has had lower extremity edema, blistering drainage, as well as cellulitis. ER COURSE: Paracentesis for 8 L, labs, small fluid bolus CODE STATUS: DNR/DNI EMERGENCY CONTACT PLAN: Sagrario Phillips Rel To Pat Cell I've updated the PFSH, medications and allergies in the Expanse tabs. INVESTIGATIONS: LABS/MICRO/ECG/IMAGING SIGNIFICANTLY HYPOTENSIVE 71/35, MAP 47 Afebrile Bradycardic into the low 50s Respiratory rate 16 and mildly labored S Pulse ox 95% on room Last reported weight was May 08 at 90.7 kilos - appears to vacillate from 80-90 kilos based on fluid accumulation CBC is stable with the exception of thrombocytopenia at 55. INR 1.2 Creatinine 4.5, BUN 148 Hyperkalemia, hyponatremia she Hyperbilirubinemia He has elevated transaminases A mildly elevated ammonia level Hypo albuminemia REVIEW OF SYSTEMS: pt is unresponsive and thus not accomplished PHYSICAL EXAM: CONSTITUTIONAL: unresponsive; calm. no agitation. GENERAL: elderly gentlemen, resting comfortably and in mild respiratory distress with tachypnea. VITAL SIGNS: see record. HEENT: Sclerae incterus noted CARDIAC: rhythm is regular. chloe PULM: good air entry with no wheeze. ABDOMEN: large protuberant abdomen; tense NEURO: obtunded. SKIN: No rashes, petechiae, concerning changes PSYCHIATRIC: obtunded ADMIT TO MEDSURG: FLOOR CARE GI: PO intake Time spent: Today I spent 75 minutes seeing the patient, discussing the patient with ER staff, reviewing Expanse and EPIC notes/diagnostics, discussing the care plan with our care time that includes social work, PT/OT, pharmacy, RT, [place] [facility] and documenting my impressions and plan in the medical record. MEDICAL NECESSITY FOR HOSPITALIZATION Anticipated midnights in the hospital: 2+ Admitting diagnosis: End-stage hepatocellular carcinoma, symptomatic malignant ascites, renal failure, hypotension, hyperkalemia Risk of morbidity and mortality: high Acuity is characterized as high and reflected in: The care needs for this patient are physically demanding. He is stooling often and is incontinent. He is 90+ kilos and cannot go home with his frail elderly . We are working on making him comfortable and coordinating and end of life hospice based plan. It is unclear if the family can arrange caregivers in addition to hospice services or if we will need a care facility. Either way he cannot return home in his current state and with the lack of support. This patient will require hospital services as outlined in the assessment and plan in order to stabilize and be safely discharged to a lower level of care. Because of the risk and acuity as described above, this patient cannot be managed at a lower level of care. LENGTH OF STAY: 2 IP ? Anticipated LOS>2 midnights due to acuity of clinical presentation requiring inpatient level of care [facility] Medical History (Updated 06/25/24 @ 16:34 by Gayle Beckham MD) Alcoholic cirrhosis of liver with ascites ?K70.31 - Alcoholic cirrhosis of liver with ascites (ICD-10) Ascites, malignant ?R18.0 - Malignant ascites (ICD-10) Hypertension (02/13/13) ?I10 - Essential (primary) hypertension (ICD-10) Gout ?M10.9 - Gout, unspecified (ICD-10) Hepatocellular carcinoma ?C22.0 - Liver cell carcinoma (ICD-10) 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 ?H35.3290 - Exudative age-related macular degeneration, unspecified eye, stage unspecified (ICD-10) Osteoarthritis of right hip ?M16.11 - Unilateral primary osteoarthritis, right hip (ICD-10) Surgical History History of phacoemulsification of cataract of both eyes with intraocular lens implantation ?Z98.41 - Cataract extraction status, right eye (ICD-10) ?Z98.42 - Cataract extraction status, left eye (ICD-10) ?Z96.1 - Presence of intraocular lens (ICD-10) History of tonsillectomy ?Z90.89 - Acquired absence of other organs (ICD-10) History of appendectomy ?Z90.49 - Acquired absence of other specified parts of digestive tract (ICD-10) Family History Father Cancer Social History Narrative: former smoker quit in 2000, has 2 children, Smoking Status: Former smoker Do you use any of these nicotine containing products: None Second hand tobacco smoke exposure: No How often do you have a drink containing alcohol: never AUDIT-C Alcohol total score: 0 Non-prescribed substance use: denies use service: Yes Meds Home Medications and Allergies Allergies Allergy/AdvReac Type Severity Reaction Status Date / Time lisinopril Allergy Unknown angioedema Verified 04/05/24 08:55 losartan AdvReac Intermediate elevated Verified 04/05/24 08:55 potassium Exam Const: Vital Signs, click to edit/add: Vital Signs - 24 hr 06/25/24 09:30 06/25/24 09:58 06/25/24 10:00 Temperature 96.3 F L Pulse Rate 55 L 56 L Pulse Rate [Pulse Oximeter] 55 L Respiratory Rate 16 Blood Pressure Blood Pressure [Ri ght Upper Arm] 146/121 H Pulse Oximetry 97 93 95 Oxygen Delivery Me thod Room Air 06/25/24 10:14 06/25/24 10:15 06/25/24 10:28 Temperature Pulse Rate 56 L 55 L 54 L Pulse Rate [Pulse Oximeter] Respiratory Rate 16 Blood Pressure 111/55 L 101/50 L Blood Pressure [Ri ght Upper Arm] Pulse Oximetry 95 95 95 Oxygen Delivery Me thod 06/25/24 10:30 06/25/24 10:32 06/25/24 10:33 Temperature Pulse Rate 60 Pulse Rate [Pulse Oximeter] Respiratory Rate Blood Pressure 96/51 L Blood Pressure [Ri ght Upper Arm] Pulse Oximetry 95 88 89 Oxygen Delivery Me thod 06/25/24 12:00 06/25/24 12:10 06/25/24 12:20 Temperature Pulse Rate Pulse Rate [Pulse Oximeter] 60 54 L Respiratory Rate Blood Pressure Blood Pressure [Ri ght Upper Arm] 88/53 L 77/41 L 82/49 L Pulse Oximetry 94 94 94 Oxygen Delivery Me thod Room Air 06/25/24 12:30 06/25/24 12:40 06/25/24 12:50 Temperature Pulse Rate Pulse Rate [Pulse Oximeter] 54 L 53 L Respiratory Rate Blood Pressure Blood Pressure [Ri ght Upper Arm] 87/38 L 82/42 L 78/68 L Pulse Oximetry 94 94 Oxygen Delivery Me thod Room Air 06/25/24 12:58 06/25/24 12:59 06/25/24 13:00 Temperature Pulse Rate 55 L 55 L 54 L Pulse Rate [Pulse Oximeter] Respiratory Rate Blood Pressure 98/46 L Blood Pressure [Ri ght Upper Arm] Pulse Oximetry 95 95 95 Oxygen Delivery Me thod 06/25/24 13:02 Temperature Pulse Rate 53 L Pulse Rate [Pulse Oximeter] Respiratory Rate Blood Pressure 76/36 L Blood Pressure [Ri ght Upper Arm] Pulse Oximetry [address] - [facility]: Result Labs Labs: Short CBC 06/25/24 Range/Units 09:59 WBC 5.31 (4.50-11.00) K/uL Hgb 13.1 L (13.5-17.5) gm/dL Hct 39.0 (37.0-53.0) % Plt Count 55 L (140-440) K/uL BMP 06/25/24 09:59 Sodium 134 L Potassium 5.6 H Chloride 109 Carbon Dioxide 11 L BUN 148 H Creatinine 4.5 H Glucose 84 Calcium 7.7 L Liver Function 06/25/24 Range/Units 09:59 Total Bilirubin 2.6 H (0.1-1.5) mg/dL Direct Bilirubin 2.1 H (0.0-0.5) mg/dL AST 81 H (12-35) U/L ALT 52 H (4-50) U/L Alkaline Phosphatase 458 H (40-150) U/L Albumin 2.9 L (3.3-5.0) g/dL Assessment and Plan Assessment and plan (1) Hepatocellular carcinoma: Problem comment: -comfort based care -coordinating end of life care plan either at the family home or in a facility Status: Acute (2) Ascites, malignant: Problem comment: -PleurX drain is scheduled at an OSH with IR in 4 days; will consult with our surgeons and radiology team to see if it can be done here. Status: Acute (3) Alcoholic cirrhosis of liver with ascites: Status: Acute (4) Insufficient home care support: Problem comment: - is alone and unable to provide cares Status: Acute (5) Weakness: Problem comment: -severe Status: Acute (6) Chronic kidney disease: Problem comment: end stage renal disease; rapidly worsening given hypotension and volume depletion Status: Acute
[2024-06-25] MEDS: fentaNYL 25 MCG/HR PATCH 1 PATCH TRANSDERMA (18:30)
[2024-06-25] MEDS: HYOSCYAMINE SULFATE 0.125 MG TAB SUBLINGUAL (18:30)
--- NOTE | 2024-06-25 19:29 | PC.NURSE ---
Comfort care protocol was initiated this afternoon, Q2 reposition and check and change PRN. No reports of pain per the patient. Minimal PO fluid intake. 3+ EDEMA in BLE and bilateral feet. Assists with turning in bed. Call light within reach. I discussed Fentanyl patch with the patient and he agreed to have one placed, it is on L upper chest. Bed alarm is on. The patients 's name is Suze WILLIS BSN
[2024-06-25] MEDS: SODIUM CHLORIDE 0.9 % (FLUSH) 10 ML SYRINGE 5 ML IVF (21:37)
[2024-06-26] MEDS: HYOSCYAMINE SULFATE 0.125 MG TAB SUBLINGUAL ×2 (05:43→18:50)
--- NOTE | 2024-06-26 06:34 | PC.NURSE ---
End of shift [id number]: pt sleeping throughout shift. He is responsive by name. He denies pain overnight. He has been flipping from side to side in bed independently. brief dry all shift. Bed alarm in place.
--- NOTE | 2024-06-26 13:00 | PM.IMPN1 ---
Progress Note: A&P Assessment and plan (1) Hepatocellular carcinoma: Problem details: - comfort based care - coordinating end of life care plan either at the family home or in a facility Status: Acute (2) Ascites, malignant: Problem details: - on 06/25, had 8L of ascitic fluid removed by Dr. Martinez - was scheduled for Pleurx catheter placement later this week; at this point appears to be transitioning without need for this procedure Status: Acute (3) Insufficient home care support: Problem details: - did not have support for home management prior to admission; if home with hospice would need additional family support Status: Acute (4) Chronic kidney disease: Problem details: - end stage renal disease; rapidly worsening given hypotension and volume depletion Status: Acute Plan - per above, appreciate assistance from social work - daughter updated at bedside, updated by phone, questions answered - at this time, tentative plan is home with hospice in the next 1-2 days pending local hospice admission availability Subjective Date Seen: 06/26/24 Interval history: Monroe is a 78-year-old male with a history of hepatocellular carcinoma who was admitted to the hospital last night. He had 8 L of ascitic fluid removed prior to admission. He has had a significant decline in his ability to tolerate po intake and perform ADLs; was set to admit to hospice on Tuesday of this week (following Pleurx catheter placement at outside hospital, currently scheduled for Tuesday). Was also having diarrhea. Stools have slowed down since admission. Exam Narrative: Exam Narrative: Monroe is laying comfortably in bed, appears chronically ill Reacts to touch He tells me does not have any pain Asks for a drink of water and able to drink from a straw Pulse palpates as regular rate and rhythm Const: Vital Signs, click to edit/add: Vital Signs - 24 hr 06/25/24 13:02 06/25/24 14:39 06/25/24 15:00 Pulse Rate 53 L Pulse Rate [Pulse Oximeter] 53 L Respiratory Rate 16 16 Blood Pressure 76/36 L Blood Pressure [Ri ght Arm] 71/35 L Pulse Oximetry 95 95 95 Oxygen Delivery Me thod Room Air Room Air
--- NOTE | 2024-06-26 15:59 | PC.SOCIAL ---
Addendum entered by SHERRELL Garcia 06/26/24 16:37: Received call from Jenny Gomez ([phone]) at [facility] stating hospice is arranging for delivery of hospital bed to home. aircraft lay out worker to contact [facility] ([phone]) on with update and to make plans for discharge home and admit to hospice if pt is ready for discharge. Original Note: Discharge planning: Met with and family in room regarding d/c plan. is planning to take pt home with hospice at discharge. Pt was referred to [facility], but have not signed up for services yet. is requesting hospice through [facility] be arranged for discharge. Called Jenny Gomez at [facility] [phone] and secure emailed ( ) requested information to her for evaluation for admit to hospice. Informed hospice of family request for a hospital bed for use at home to be delivered prior to discharge. Awaiting call back with confirmation they will be able to start hospice with anticipated discharge date of 06/28/24. Social work to follow up as needed.
[2024-06-26] MEDS: MORPHINE 10 MG/0.5 ML ORAL SOLN PO ×2 (18:54→20:42)
[2024-06-27] MEDS: MORPHINE 10 MG/0.5 ML ORAL SOLN PO ×7 (00:27→13:58)
[2024-06-27] MEDS: fentaNYL 25 MCG/HR PATCH 1 PATCH TRANSDERMA (03:16)
[2024-06-27] MEDS: fentaNYL 50 MCG/HR PATCH 1 PATCH TRANSDERMA ×2 (03:42→17:19)
[2024-06-27] MEDS: HYOSCYAMINE SULFATE 0.125 MG TAB SUBLINGUAL ×2 (04:55→09:35)
[2024-06-27 07:00] VITALS: RESP 6
--- NOTE | 2024-06-27 07:08 | PC.NURSE ---
End of shift [id number] - Pt mostly unresponsive to verbal commands during shift. RN interpreted pt behavior as indicators of pain including restlessness, increased labor of breathing, and wide open, staring eyes. Medication given per MAR with pt behaviors indicating improved comfort. Pt able to reposition himself during shift as needed. Appears to be resting at end of shift.
--- NOTE | 2024-06-27 12:03 | P.IMPN_ITS ---
Progress Note: A&P Assessment and plan (1) Hepatocellular carcinoma: Problem details: - comfort based care - coordinating end of life care plan either at the family home or in a facility Status: Acute (2) Ascites, malignant: Problem details: - on 06/25, had 8L of ascitic fluid removed by Dr. Martinez - was scheduled for Pleurx catheter placement later this week; at this point appears to be transitioning without need for this procedure Status: Acute (3) Insufficient home care support: Problem details: - did not have support for home management prior to admission; if home with hospice needs additional family support; and daughter aware Status: Acute (4) Chronic kidney disease: Problem details: - end stage renal disease; rapidly worsening given hypotension and volume depletion Status: Acute Plan - patient appears terminal at this time; depending on course over the next 12- 24 hours, possibly home with hospice tomorrow Subjective Date Seen: 06/27/24 Interval history: Monroe is a 78-year-old male with a history of hepatocellular carcinoma who was admitted to the hospital on 06/25 for acute decompensation in status + weakness. He had 8 L of ascitic fluid removed in the ER prior to admission. He was planning to admit to hospice at home on 06/29/2024; unable to safely be home until then without additional support given weakness, diarrhea, worsening ascites. Has been minimally interactive since admission, overnight has stopped managing his secretions. Our social work team is working with family, currently has home hospice set up for tomorrow if patient is appropriate for d/c at that time. Exam Narrative: Exam Narrative: Patient is laying in bed and not interactive. Significant oral secretions, breathing is rattled Bradycardic on palpation of pulse Some mottling noted of back Const: Vital Signs, click to edit/add: Vital Signs - 24 hr 06/27/24 07:00 Respiratory Rate 6 L
--- NOTE | 2024-06-27 15:09 | PM.DSD ---
Discharge Sum: Prov Provider Date Seen: 06/27/24 Primary care physician: Britney Cervantes MD Admitting clinician: Corina Bruner Attending physician on admission: Corina Bruner Pronouncing clinician: Gayle Beckham Discharge Sum: Diag PCOD Cause of : Hepatocellular carcinoma Contributing Factors (1) Alcoholic cirrhosis of liver with ascites: (2) Ascites, malignant: (3) Chronic kidney disease: Discharge Sum: Summary Date and Time Date of admission: 06/25/24 15:28 Summary Details: Monroe peacefully according to his wishes. He had end stage liver failure due to alcoholic cirrhosis and hepatocellular carcinoma. Additional Data Confirmation of as documented by pronouncing clinician: no pulse Family: contacted Additional persons at bedside: other (RN) Attending/PCP notified?: No Attending physician: Gayle Beckham MD Was code activated?: No Autopsy requested?: No open cut examiner notified?: No Organ bank notified?: Yes Advance directives: Yes Hospice patient?: No (Hospice was planned at discharge, but patient prior to discharge)
--- NOTE | 2024-06-27 15:39 | PC.NURSE ---
eye donation called and he is not a candidate due to cataracts.
--- NOTE | 2024-06-27 16:05 | PC.NURSE ---
Comfort cares provided as in q2h repositioning, secretion cleaning and comforting family. Dr. Beckham called time of at 1448. protocol followed.
--- NOTE | 2024-06-27 17:27 | PC.NURSE ---
[facility] arrived @ 1720 for the remains.
== END 2024-06-27 17:24 | disposition expired | DRG 435 ==
LOC: ED 12:53 → MEDSURG 13:16
PROVIDERS: Admitting Provider Family Medicine; Emergency Provider Emergency Medicine Emergency Medical Services; PCP Family Medicine; Visit Provider Family Medicine
DX: C22.0 Liver cell carcinoma (principal); N18.6 End stage renal disease; I12.0 Hypertensive chronic kidney disease with stage 5 chronic kidney disease or end stage renal disease; K70.31 Alcoholic cirrhosis of liver with ascites; F10.20 Alcohol dependence, uncomplicated; K70.40 Alcoholic hepatic failure without coma; E86.0 Dehydration; M10.9 Gout, unspecified; Z74.2 Need for assistance at home and no other household member able to render care
CPT/HCPCS: 36415; 80048; 80076; 82140; 83605; 85025; 85610; 99284; 99285; A9270; J7030

== ENCOUNTER 2024-06-25 10:44 | Outpatient (CLI) | payer MEDICARE, SELFPAY ==
[2024-06-25] VITALS (9 sets, daily range): BP systolic 80–102; BP diastolic 35–55; PULSE 51–96; RESP 14–20; O2SAT 95–96
[2024-06-25] MEDS: ALBUMIN HUMAN 25% 100 ML VIAL IV (11:00)
[2024-06-25] MEDS: ALBUMIN HUMAN 25% 25 GM/100 ML VIAL IVPB (11:05)
--- NOTE | 2024-06-25 11:53 | P.PCN_ITS ---
Procedure Note Time Seen by Provider: :53 Date Seen: 06/25/24 Provider Contact Time: 11:53 Date of procedure: 06/25/24 Will [facility] bill your pro fee for this procedure?: Yes Pre-op diagnosis: Ascites Post-op diagnosis: same Procedure: Paracentesis Procedure Description: After explaining the risk and benefits of the procedure and obtaining informed consent. The patient was placed in the recumbent position. With ultrasound a large fluid collection was noted in the right lower quadrant. The area was sterilized and anesthetized. A 1 cm incision was made through which a paracentesis needle was advanced. A total of 8 liters of brown fluid was directed to a series of 1 liter vacutainers. Once flow stopped the catheter was removed and the defect was closed with a series of 3-0 Vicryl sutures. The wound was then bandaged and the patient was returned to the ED. 2 units of albumin given. Anesthesia: local Surgeon: Michelle Estimated blood loss (mL): 3 Pathology: none sent Condition: stable Disposition: other (ED)
== END 2024-06-25 10:45 | disposition home or self-care (01) ==
PROVIDERS: PCP Family Medicine; Visit Provider Internal Medicine
DX: R18.8 Other ascites (principal); K74.60 Unspecified cirrhosis of liver
CPT/HCPCS: 49083; 83615; P9047